=== PATIENT | female | born 1955 | race Caucasian/White ===

== ENCOUNTER → 2016-08-06 | Outpatient (CLI) | payer MEDICARE ==
--- NOTE | 2016-08-06 11:53 | XR ---
EXAMINATION TYPE: XR ribs RT DATE OF EXAM: 08/06/2016 11:46 AM CLINICAL HISTORY: Pain, Fall Three views of the ribs fail demonstrate evidence for acute displaced rib fracture or secondary sign of rib fracture. Deformity of 2 right-sided ribs compatible with healed rib fractures. Visualized davion ngs are clear. No evidence for pneumothorax. IMPRESSION: 1. No acute displaced rib fractures seen. ICD 10 NO FRACTURE, INITIAL EVALUATION
--- NOTE | 2016-08-06 11:55 | XR ---
EXAMINATION TYPE: XR toes RT DATE OF EXAM: 08/06/2016 11:47 AM COMPARISON: NONE HISTORY: Pain status post fall TECHNIQUE: 3 views of the right great toe are submitted. FINDINGS: I do not see evidence for acute displaced fracture or dislocation at this time. Mild soft t issue edema suggested. IMPRESSION: No acute displaced fracture or dislocation of the great toe.
== END | disposition home or self-care (01) ==
LOC: RADXRMAIN 11:20
PROVIDERS: ATTEND Internal Medicine Hematology & Oncology
DX: R07.81 Pleurodynia (principal); M79.674 Pain in right toe(s)

== ENCOUNTER → 2016-10-15 | Outpatient (CLI) | payer MEDICARE ==
--- NOTE | 2016-10-16 09:56 | MM ---
Reason for exam: screening (asymptomatic). Last mammogram was performed 1 year ago. History: Patient is postmenopausal, has history of other cancer at age 46, and history of colon cancer. Family history of breast cancer in mother at age 75. Benign excisional biopsy of the right breast, 1994. Took hormonal contraceptives for 7 years beginning at age 17. Took other hormone for 6 months beginning at age 55. Physical Findings: A clinical breast exam by your physician is recommended on an annual basis and results should be correlated with mammographic findings. MG 3D Screening Mammo W/Cad Bilateral CC and MLO view(s) were taken. Prior study comparison: October 14, 2015, bilateral MG 3d screening mammo w/cad. October 18, 2014, bilateral MG screening mammo w CAD. The breast tissue is heterogeneously dense. This may lower the sensitivity of mammography. Finding: There are typically benign punctate calcifications. There is no discrete abnormality. No significant changes in finding since October 14, 2015 and October 18, 2014. ASSESSMENT: Benign, BI-RAD 2 RECOMMENDATION: Routine screening mammogram of both breasts in 1 year.
== END | disposition home or self-care (01) ==
LOC: RADMAMWWP 09:06
PROVIDERS: ATTEND Internal Medicine Hematology & Oncology
DX: Z12.31 Encounter for screening mammogram for malignant neoplasm of breast (principal)
CPT/HCPCS: 77063; G0202

== ENCOUNTER → 2016-11-20 | Outpatient (CLI) | payer MEDICARE ==
[2016-11-20 10:00] LABS: Appearance,Urine Cloudy (Clear); Bacteria,Urine Rare /hpf; Bilirubin,Urine Negative (Negative); Glucose,Urine (UA) 1+ (Negative); Ketones,Urine Negative (Negative); Leukocyte Esterase,Urine Large (Negative); Mucus,Urine Rare /hpf; Nitrite,Urine Negative (Negative); PH, Urine 6.5 (5.0-8.0); Particle Count 29253; Protein,Urine 1+ (Negative); Specific Gravity,Urine 1.015 (1.001-1.035); Squamous Epithelial Cell,Urine 9 /hpf (0-4); UA Billing (MACRO vs. MICRO) MICRO; Urobilinogen,Urine <2.0 mg/dL (<2.0); WBC,Urine 18 /hpf (0-5)
[2016-11-20 10:57] LABS: Anion Gap 13 mmol/L; Blood Urea Nitrogen 10 mg/dL (7-17); Calcium 9.2 mg/dL (8.4-10.2); Carbon Dioxide 20 mmol/L (22-30); Chloride 111 mmol/L (98-107); Glucose 106 mg/dL (74-99); Iron 137 ug/dL (37-170); Non-African American GFR(MDRD) >60 (>60 ml/min/1.73 sqM); Phosphorous 4.6 mg/dL (2.5-4.5); Potassium 3.9 mmol/L (3.5-5.1); Sodium 144 mmol/L (137-145); Uric Acid 5.2 mg/dL (3.7-7.4)
[2016-11-20 11:10] LABS: % Iron Saturation 51.7 % (20-50); Total Iron Binding Capacity 265 ug/dL (265-497)
== END | disposition home or self-care (01) ==
LOC: LABWHC1 09:02
PROVIDERS: ATTEND Internal Medicine Nephrology
DX: N39.0 Urinary tract infection, site not specified (principal); D64.9 Anemia, unspecified; M10.9 Gout, unspecified; E21.3 Hyperparathyroidism, unspecified; E55.9 Vitamin D deficiency, unspecified; Z94.0 Kidney transplant status
CPT/HCPCS: 36415; 80048; 80069; 81001; 82040; 82306; 82728; 83540; 83550; 83970; 84100; 84550; 85025; 87086

== ENCOUNTER → 2017-02-19 | Outpatient (CLI) | payer MEDICARE ==
[2017-02-19 09:53] LABS: Basophils # (A) 0.1 k/uL (0-0.2); Basophils % (A) 1 %; CH 33.7; CHCM 32.9; Eosinophils # (A) 0.5 k/uL (0-0.7); Eosinophils % (A) 6 %; HCT 44.7 % (34.0-46.0); HDW 2.39; Luc # (Auto) 0.39; Luc % (Auto) 4; Lymphocytes # (A) 2.9 k/uL (1.0-4.8); Lymphocytes % (A) 30 %; MCH 34.7 pg (25.0-35.0); MCHC 33.6 g/dL (31.0-37.0); MCV 103.1 fL (80.0-100.0); Macrocytosis Slight; Mean Platelet Volume 7.4; Monocytes # (A) 0.8 k/uL (0-1.0); Monocytes % (A) 8 %; Neutrophils # (A) 4.9 k/uL (1.3-7.7); Neutrophils % (A) 51 %; RBC 4.33 m/uL (3.80-5.40); RDW 12.9 % (11.5-15.5); WBC 9.6 k/uL (3.8-10.6); WBC (Perox) 9.59
[2017-02-19 09:57] LABS: ALT 53 U/L (9-52); AST 30 U/L (14-36); Alkaline Phosphatase 76 U/L (38-126); Anion Gap 7 mmol/L; Bilirubin, Delta 0.2 mg/dL (0.0-0.2); Blood Urea Nitrogen 9 mg/dL (7-17); Calcium 9.2 mg/dL (8.4-10.2); Carbon Dioxide 27 mmol/L (22-30); Chloride 106 mmol/L (98-107); Cholesterol 121 mg/dL (<200); Glucose 109 mg/dL (74-99); HDL Cholesterol 52 mg/dL (40-60); Magnesium 1.4 mg/dL (1.6-2.3); Non-African American GFR(MDRD) >60 (>60 ml/min/1.73 sqM); Phosphorous 4.8 mg/dL (2.5-4.5); Potassium 4.8 mmol/L (3.5-5.1); Sodium 140 mmol/L (137-145); Total Bilirubin 0.7 mg/dL (0.2-1.3); Total Protein 6.6 g/dL (6.3-8.2)
[2017-02-19 10:14] LABS: Amorphous Sediment,Urine Rare /hpf; Appearance,Urine Cloudy (Clear); Bacteria,Urine Occasional /hpf; Bilirubin,Urine Negative (Negative); Glucose,Urine (UA) Trace (Negative); Ketones,Urine Negative (Negative); Leukocyte Esterase,Urine Large (Negative); Mucus,Urine Rare /hpf; Nitrite,Urine Negative (Negative); Particle Count 6738; Protein,Urine Negative (Negative); Specific Gravity,Urine 1.007 (1.001-1.035); Squamous Epithelial Cell,Urine 6 /hpf (0-4); UA Billing (MACRO vs. MICRO) MICRO; Urobilinogen,Urine <2.0 mg/dL (<2.0); WBC,Urine 8 /hpf (0-5)
== END | disposition home or self-care (01) ==
LOC: LABWHC1 08:57
PROVIDERS: ATTEND Internal Medicine Nephrology
DX: E55.9 Vitamin D deficiency, unspecified (principal); M81.8 Other osteoporosis without current pathological fracture; Z51.81 Encounter for therapeutic drug level monitoring; Z94.0 Kidney transplant status
CPT/HCPCS: 36415; 80061; 80069; 80076; 81001; 82306; 82570; 83735; 83970; 84156; 84443; 85025

== ENCOUNTER → 2017-10-04 | Outpatient (CLI) | payer MEDICARE ==
[2017-10-04 09:41] LABS: Basophils # (A) 0.1 k/uL (0-0.2); Basophils % (A) 1 %; Eosinophils # (A) 0.4 k/uL (0-0.7); Eosinophils % (A) 5 %; HCT 44.6 % (34.0-46.0); HGB 14.8 gm/dL (11.4-16.0); Lymphocytes # (A) 3.1 k/uL (1.0-4.8); Lymphocytes % (A) 38 %; MCH 33.7 pg (25.0-35.0); MCHC 33.1 g/dL (31.0-37.0); MCV 101.9 fL (80.0-100.0); Macrocytosis Slight; Mean Platelet Volume 7.8; Monocytes # (A) 0.7 k/uL (0-1.0); Monocytes % (A) 9 %; Neutrophils # (A) 3.6 k/uL (1.3-7.7); Neutrophils % (A) 44 %; Platelet Count 155 k/uL (150-450); RBC 4.38 m/uL (3.80-5.40); RDW 13.1 % (11.5-15.5); WBC 8.1 k/uL (3.8-10.6)
[2017-10-04 09:46] LABS: Albumin 3.7 g/dL (3.5-5.0); Anion Gap 13 mmol/L; Blood Urea Nitrogen 11 mg/dL (7-17); Calcium 8.7 mg/dL (8.4-10.2); Carbon Dioxide 23 mmol/L (22-30); Chloride 109 mmol/L (98-107); Glucose 118 mg/dL (74-99); Magnesium 1.7 mg/dL (1.6-2.3); Phosphorus 4.3 mg/dL (2.5-4.5); Sodium 145 mmol/L (137-145); Uric Acid 4.6 mg/dL (3.7-7.4)
[2017-10-04 09:52] LABS: Appearance,Urine Cloudy (Clear); Bilirubin,Urine Negative (Negative); Blood,Urine Trace (Negative); Color,Urine Yellow; Glucose,Urine (UA) 1+ (Negative); Ketones,Urine Negative (Negative); Leukocyte Esterase,Urine Large (Negative); Mucus,Urine Few /hpf; Nitrite,Urine Negative (Negative); Protein,Urine 1+ (Negative); RBC,Urine 2 /hpf (0-5); Squamous Epithelial Cell,Urine 14 /hpf (0-4); Urobilinogen,Urine <2.0 mg/dL (<2.0); WBC,Urine 7 /hpf (0-5)
[2017-10-04 16:04] LABS: Parathyroid Hormone Intact 73.2 pg/mL (14.0-72.0)
[2017-10-04 16:48] LABS: Iron Saturation 29.17 (12.00-45.00)
[2017-10-04 16:56] LABS: Vitamin D 25 Hydroxy 46.1 ng/mL (30.0-100.0)
== END | disposition home or self-care (01) ==
LOC: LABWHC1 08:47
PROVIDERS: ATTEND Internal Medicine Nephrology
DX: D64.9 Anemia, unspecified (principal); E55.9 Vitamin D deficiency, unspecified; E21.3 Hyperparathyroidism, unspecified; M10.9 Gout, unspecified; N39.0 Urinary tract infection, site not specified; Z94.0 Kidney transplant status
CPT/HCPCS: 36415; 80048; 81001; 82040; 82306; 82728; 83540; 83550; 83735; 83970; 84100; 84550; 85025

== ENCOUNTER → 2017-11-19 | Outpatient (CLI) | payer MEDICARE ==
--- NOTE | 2017-11-20 10:38 | MM ---
Reason for exam: screening (asymptomatic). Last mammogram was performed 1 year and 1 month ago. History: Patient is postmenopausal, has history of other cancer at age 46, and history of colon cancer. Family history of breast cancer in mother at age 75. Benign excisional biopsy of the right breast, 1994. Took hormonal contraceptives for 7 years beginning at age 17. Took other hormone for 6 months beginning at age 55. Physical Findings: A clinical breast exam by your physician is recommended on an annual basis and results should be correlated with mammographic findings. MG 3D Screening Mammo W/Cad Bilateral CC and MLO view(s) were taken. Prior study comparison: October 15, 2016, bilateral MG 3d screening mammo w/cad. October 14, 2015, bilateral MG 3d screening mammo w/cad. Asymmetry right upper outer quadrant. No significant changes when compared with prior studies. ASSESSMENT: Benign, BI-RAD 2 RECOMMENDATION: Routine screening mammogram of both breasts in 1 year.
== END | disposition home or self-care (01) ==
LOC: RADMAMWWP 07:10
PROVIDERS: ATTEND Internal Medicine Hematology & Oncology
DX: Z12.31 Encounter for screening mammogram for malignant neoplasm of breast (principal)
CPT/HCPCS: 77063; 77067

== ENCOUNTER → 2018-04-17 | Outpatient (CLI) | payer MEDICARE ==
[2018-04-17 10:28] LABS: Albumin 3.7 g/dL (3.5-5.0); Bilirubin, Delta 0.3 mg/dL (0.0-0.2); Bilirubin,Unconjugated 0.3 mg/dL (0.0-1.1); Total Bilirubin 0.6 mg/dL (0.2-1.3); Total Protein 6.4 g/dL (6.3-8.2)
== END | disposition home or self-care (01) ==
LOC: LABWHC1 09:08
PROVIDERS: ATTEND Internal Medicine Cardiovascular Disease
DX: E78.5 Hyperlipidemia, unspecified (principal)
CPT/HCPCS: 36415; 80061; 80076

== ENCOUNTER 2018-10-20 08:57 | Inpatient (IN) | payer MEDICARE ==
[2018-10-20] MEDS ORDERED: SODIUM CHLORIDE 0.9% 500 ML 500 ML IV SCH (09:45)
--- NOTE | 2018-10-20 09:45 | ED ---
General Adult HPI - General Chief complaint: Fever Stated complaint: Fever/had bone&kidney transplant Time Seen by Provider: 10/20/18 09:30 Source: patient, family, RN notes reviewed Mode of arrival: wheelchair Limitations: no limitations - History of Present Illness Initial comments: Patient is a pleasant 4 he 3-year-old female presenting to the emergency Department with concerns for fever. Onset of fever was this morning. Patient did take Tylenol around 820. Patient has had sinus congestion and cough for the past 5 days. Patient took her last dose of 5 days of Levaquin just this morning. Patient had a little bit of wheezing however that has resolved. Patient feels achy and chilled. 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 Patient is on immunosuppressive therapy. - Related Data Home Medications Medication Instructions Recorded Confirmed Aspirin 81 mg PO DAILY 08/21/14 10/20/18 Atorvastatin Calcium [Lipitor] 40 mg PO BID 08/21/14 10/20/18 Calcium Carbonate/Vitamin D3 1 tab PO BID 08/21/14 10/20/18 [Calcium 600 + Vit D Tablet] Folic Acid 1 mg PO DAILY 08/21/14 10/20/18 Levothyroxine Sodium [Synthroid] 88 mcg PO DAILY 08/21/14 10/20/18 Magnesium Oxide [Mag-Ox] 500 mg PO DAILY 08/21/14 10/20/18 Metoprolol Tartrate 12.5 mg PO BID 08/21/14 10/20/18 Nitroglycerin Sl Tabs [Nitrostat] 0.4 mg SUBLINGUAL Q5M PRN 08/21/14 10/20/18 Tacrolimus [Prograf] 0.5 mg PO BID 08/21/14 10/20/18 cycloSPORINE [Restasis] 1 drop BOTH EYES BID 08/21/14 10/20/18 Folic Acid/Multivit-Min/Lutein 3 tab PO DAILY 08/22/14 10/20/18 [Therapeutic-M Tablet] Multivitamins, Thera [Multivitamin] 1 tab PO DAILY 08/22/14 10/20/18 Vitamin B Complex 1 tab PO DAILY 08/22/14 10/20/18 Alendronate Sodium [Fosamax] 70 mg PO MO 10/20/18 10/20/18 Budesonide/Formoterol Fumarate 2 puff INHALATION RT-BID 10/20/18 10/20/18 [Symbicort 80-4.5 Mcg Inhaler] Cholecalciferol [Vitamin D3] 1,000 unit PO DAILY 10/20/18 10/20/18 Omeprazole 40 mg PO DAILY 10/20/18 10/20/18 Potassium Chloride ER [K-Dur 20] 20 meq PO DAILY 10/20/18 10/20/18 Turmeric Root Extract [Turmeric] 500 mg PO DAILY 10/20/18 10/20/18 Vitamin C 1200mg 1,200 mg PO DAILY 10/20/18 10/20/18 predniSONE 5 mg PO DAILY 10/20/18 10/20/18 Allergies Allergy/AdvReac Type Severity Reaction Status Date / Time shellfish derived Allergy Rash/Hives Verified 10/20/18 09:51 Sulfa (Sulfonamide Allergy Rash/Hives Verified 10/20/18 09:51 Antibiotics) codeine AdvReac Rapid Verified 10/20/18 09:51 Heart Rate hydromorphone HCl AdvReac Rapid Verified 10/20/18 09:51 [From Dilaudid] Heart Rate propoxyphene AdvReac Rapid Verified 10/20/18 09:51 Heart Rate Review of Systems ROS Statement: Those systems with pertinent positive or pertinent negative responses have been documented in the HPI. ROS Other: All systems not noted in ROS Statement are negative. Constitutional: Reports: as per HPI, fever, chills Eyes: Denies: eye pain ENT: Reports: congestion Respiratory: Reports: cough. Denies: dyspnea Cardiovascular: Denies: chest pain Endocrine: Reports: fatigue Gastrointestinal: Denies: abdominal pain Genitourinary: Reports: frequency. Denies: dysuria Musculoskeletal: Denies: arthralgia Skin: Denies: rash Neurological: Denies: weakness Past Medical History Past Medical History: Heart Failure, Hyperlipidemia, Hypertension, Thyroid Disorder History of Any Multi-Drug Resistant Organisms: C-DIFF Date of last positivie culture/infection: 2003 MDRO Source:: stool, unk Past Surgical History: Cholecystectomy Additional Past Surgical History / Comment(s): bone marrow transplant 2003, kidney transplant 2008 Past Anesthesia/Blood Transfusion Reactions: No Reported Reaction Past Psychological History: No Psychological Hx Reported Smoking Status: Never smoker Past Alcohol Use History: None Reported Past Drug Use History: None Reported General Exam Limitations: no limitations General appearance: alert, in no apparent distress Head exam: Present: atraumatic Eye exam: Present: normal appearance, PERRL ENT exam: Present: normal oropharynx Neck exam: Present: normal inspection. Absent: tenderness, meningismus Respiratory exam: Present: normal lung sounds bilaterally Cardiovascular Exam: Present: regular rate, normal rhythm GI/Abdominal exam: Present: soft. Absent: distended, tenderness, guarding, rebound, rigid Extremities exam: Present: normal inspection. Absent: pedal edema, calf tenderness Back exam: Present: normal inspection Neurological exam: Present: alert Psychiatric exam: Present: normal affect, normal mood Skin exam: Present: normal color. Absent: rash Course Vital Signs 10/20/18 09:20 Temperature 100.2 F H Pulse Rate 85 Respiratory 16 Rate Blood Pressure 121/75 O2 Sat by Pulse 98 Oximetry - Reevaluation(s) Reevaluation #1: 10/20/18 12:15 Patient does not meet sepsis criteria at this time EKG Findings - EKG Comments: EKG Findings:: Normal sinus rhythm 82. MD 142. QRS 82. QT 406. QTc 474. Left axis. Normal QRS. No acute ST change. Medical Decision Making - Medical Decision Making Patient reevaluated and resting comfortably in bed. Patient and family updated on results and plan. Case was discussed in detail with Dr. Berrios, covering for Dr. Vidales who does recommend admission with cefepime. He will consult. Also request consult with infectious disease and pulmonary. Dr. Camacho has been paged for hospital call. - Lab Data Result diagrams: 10/20/18 10:18 10/20/18 10:18 Lab Results 10/20/18 10/20/18 10/20/18 Range/Units 10:18 10:18 10:18 WBC 15.7 H (3.8-10.6) k/uL RBC 4.32 (3.80-5.40) m/uL Hgb 15.2 (11.4-16.0) gm/dL Hct 45.3 (34.0-46.0) % MCV 104.8 H (80.0-100.0) fL MCH 35.3 H (25.0-35.0) pg MCHC 33.7 (31.0-37.0) g/dL RDW 12.8 (11.5-15.5) % Plt Count 168 (150-450) k/uL Neutrophils % 78 % Lymphocytes % 12 % Monocytes % 4 % Eosinophils % 4 % Basophils % 0 % Neutrophils # 12.2 H (1.3-7.7) k/uL Lymphocytes # 1.9 (1.0-4.8) k/uL Monocytes # 0.7 (0-1.0) k/uL Eosinophils # 0.6 (0-0.7) k/uL Basophils # 0.1 (0-0.2) k/uL Macrocytosis Slight PT (9.0-12.0) sec INR (<1.2) APTT (22.0-30.0) sec Sodium 140 (137-145) mmol/L Potassium 4.3 (3.5-5.1) mmol/L Chloride 106 (98-107) mmol/L Carbon Dioxide 25 (22-30) mmol/L Anion Gap 9 mmol/L BUN 12 (7-17) mg/dL Creatinine 0.46 L (0.52-1.04) mg/dL Est GFR (CKD-EPI)AfAm >90 (>60 ml/min/1.73 sqM) Est GFR (CKD-EPI)NonAf >90 (>60 ml/min/1.73 sqM) Glucose 126 H (74-99) mg/dL Plasma Lactic Acid Cruz 1.9 (0.7-2.0) mmol/L Calcium 8.8 (8.4-10.2) mg/dL Total Bilirubin 0.9 (0.2-1.3) mg/dL AST 37 H (14-36) U/L ALT 39 (9-52) U/L Alkaline Phosphatase 57 (38-126) U/L Total Protein 6.8 (6.3-8.2) g/dL Albumin 4.0 (3.5-5.0) g/dL Urine Color Urine Appearance (Clear) Urine pH (5.0-8.0) Ur Specific [place] (1.001-1.035) Urine Protein (Negative) Urine Glucose (UA) (Negative) Urine Ketones (Negative) Urine Blood (Negative) Urine Nitrite (Negative) Urine Bilirubin (Negative) Urine Urobilinogen (<2.0) mg/dL Ur Leukocyte Esterase (Negative) Urine RBC (0-5) /hpf Urine WBC (0-5) /hpf Urine Mucus (None) /hpf Influenza Type A RNA (Not Detectd) Influenza Type B (PCR) (Not Detectd) 10/20/18 10/20/18 10/20/18 Range/Units 10:18 10:18 11:06 WBC (3.8-10.6) k/uL RBC (3.80-5.40) m/uL Hgb (11.4-16.0) gm/dL Hct (34.0-46.0) % MCV (80.0-100.0) fL MCH (25.0-35.0) pg MCHC (31.0-37.0) g/dL RDW (11.5-15.5) % Plt Count (150-450) k/uL Neutrophils % % Lymphocytes % % Monocytes % % Eosinophils % % Basophils % % Neutrophils # (1.3-7.7) k/uL Lymphocytes # (1.0-4.8) k/uL Monocytes # (0-1.0) k/uL Eosinophils # (0-0.7) k/uL Basophils # (0-0.2) k/uL Macrocytosis PT 10.9 (9.0-12.0) sec INR 1.0 (<1.2) APTT 20.1 L (22.0-30.0) sec Sodium (137-145) mmol/L Potassium (3.5-5.1) mmol/L Chloride (98-107) mmol/L Carbon Dioxide (22-30) mmol/L Anion Gap mmol/L BUN (7-17) mg/dL Creatinine (0.52-1.04) mg/dL Est GFR (CKD-EPI)AfAm (>60 ml/min/1.73 sqM) Est GFR (CKD-EPI)NonAf (>60 ml/min/1.73 sqM) Glucose (74-99) mg/dL Plasma Lactic Acid Cruz (0.7-2.0) mmol/L Calcium (8.4-10.2) mg/dL Total Bilirubin (0.2-1.3) mg/dL AST (14-36) U/L ALT (9-52) U/L Alkaline Phosphatase (38-126) U/L Total Protein (6.3-8.2) g/dL Albumin (3.5-5.0) g/dL Urine Color Yellow Urine Appearance Clear (Clear) Urine pH 7.5 (5.0-8.0) Ur Specific [place] 1.016 (1.001-1.035) Urine Protein Negative (Negative) Urine Glucose (UA) Trace H (Negative) Urine Ketones Negative (Negative) Urine Blood Negative (Negative) Urine Nitrite Negative (Negative) Urine Bilirubin Negative (Negative) Urine Urobilinogen <2.0 (<2.0) mg/dL Ur Leukocyte Esterase Small H (Negative) Urine RBC <1 (0-5) /hpf Urine WBC 1 (0-5) /hpf Urine Mucus Rare H (None) /hpf Influenza Type A RNA Not Detected (Not Detectd) Influenza Type B (PCR) Not Detected (Not Detectd) - Radiology Data Radiology results: image reviewed (Chest x-ray has suspicion for left perihilar density, could represent pneumonia.) Disposition Clinical Impression: Pneumonia Disposition: ADMITTED IP TO THIS HOSP Is patient prescribed a controlled substance at d/c from ED?: No Referrals: Gio Vidales MD [Primary Care Provider] - 1-2 days Decision Time: 12:15
[2018-10-20 10:29] LABS: Basophils # (A) 0.1 k/uL (0-0.2); Basophils % (A) 0 %; Eosinophils # (A) 0.6 k/uL (0-0.7); Eosinophils % (A) 4 %; HCT 45.3 % (34.0-46.0); HGB 15.2 gm/dL (11.4-16.0); Lymphocytes # (A) 1.9 k/uL (1.0-4.8); Lymphocytes % (A) 12 %; MCH 35.3 pg (25.0-35.0); MCHC 33.7 g/dL (31.0-37.0); MCV 104.8 fL (80.0-100.0); Macrocytosis Slight; Mean Platelet Volume 7.4; Monocytes # (A) 0.7 k/uL (0-1.0); Monocytes % (A) 4 %; Neutrophils # (A) 12.2 k/uL (1.3-7.7); Neutrophils % (A) 78 %; Platelet Count 168 k/uL (150-450); RBC 4.32 m/uL (3.80-5.40); RDW 12.8 % (11.5-15.5); WBC 15.7 k/uL (3.8-10.6)
[2018-10-20 10:43] LABS: ALT 39 U/L (9-52); AST 37 U/L (14-36); Alkaline Phosphatase 57 U/L (38-126); Anion Gap 9 mmol/L; Blood Urea Nitrogen 12 mg/dL (7-17); Calcium 8.8 mg/dL (8.4-10.2); Carbon Dioxide 25 mmol/L (22-30); Chloride 106 mmol/L (98-107); Glucose 126 mg/dL (74-99); Prothrombin Time 10.9 sec (9.0-12.0); Sodium 140 mmol/L (137-145); Total Bilirubin 0.9 mg/dL (0.2-1.3); Total Protein 6.8 g/dL (6.3-8.2)
[2018-10-20 10:44] LABS: Potassium 4.3 mmol/L (3.5-5.1)
[2018-10-20 10:57] LABS: Partial Thromboplastin Time 20.1 sec (22.0-30.0)
--- NOTE | 2018-10-20 11:01 | XR ---
EXAMINATION TYPE: XR chest 2V DATE OF EXAM: 10/20/2018 COMPARISON: Prior chest x-ray 05/16/2016 HISTORY: Fever TECHNIQUE: Frontal and lateral views of the chest are obtained. FINDINGS: There is a vague density in the perihilar location on the left not seen on prior exam. No evident pneumothorax or pleural effusion. Cardiac mediastinal silhouette, pulmonary vascularity and h elaine are stable. Surgical clips present in the right upper quadrant. Apical pleural thickening is unch anged. IMPRESSION: Abnormal density in the perihilar location on the left could represent pneumonia, follow -up to resolution to exclude mass.
[2018-10-20 11:34] LABS: Appearance,Urine Clear (Clear); Bilirubin,Urine Negative (Negative); Blood,Urine Negative (Negative); Color,Urine Yellow; Glucose,Urine (UA) Trace (Negative); Ketones,Urine Negative (Negative); Leukocyte Esterase,Urine Small (Negative); Mucus,Urine Rare /hpf; Nitrite,Urine Negative (Negative); PH, Urine 7.5 (5.0-8.0); Protein,Urine Negative (Negative); RBC,Urine <1 /hpf (0-5); Specific Gravity,Urine 1.016 (1.001-1.035); Urobilinogen,Urine <2.0 mg/dL (<2.0); WBC,Urine 1 /hpf (0-5)
[2018-10-20] MEDS ORDERED: CEFEPIME 2 GM in SODIUM CHLORIDE 0.9% 100 ML IVPB STA (12:19)
[2018-10-20] MEDS ORDERED: PNEUMONIA PROTOCOL UTILIZED 1 EACH MISC PO PRN (12:19)
[2018-10-20] MEDS: FOLIC ACID 1 MG TAB PO SCH (12:44)
[2018-10-20] MEDS: CHOLECALCIFEROL 1,000 UNIT TAB PO SCH (12:44)
[2018-10-20] MEDS: ATORVASTATIN 40 MG TAB PO SCH ×2 (12:44→20:31)
[2018-10-20] MEDS: ASPIRIN 81 MG PO SCH (12:44)
[2018-10-20] MEDS ORDERED: TACROLIMUS 0.5 MG CAP PO SCH (12:45)
[2018-10-20] MEDS: MAGNESIUM OXIDE 400 MG TAB PO SCH (12:58)
[2018-10-20] MEDS: METOPROLOL TARTRATE 12.5 MG TAB PO SCH ×2 (12:58→20:31)
[2018-10-20] MEDS: SODIUM CHLORIDE 0.9% 1,000 ML IV SCH ×2 (12:59→23:30)
--- NOTE | 2018-10-20 14:02 | US ---
EXAMINATION TYPE: US venous doppler duplex LE RT DATE OF EXAM: 10/20/2018 1:00 PM COMPARISON: NONE CLINICAL HISTORY: Pain. Pain in right leg when putting standing SIDE PERFORMED: Right TECHNIQUE: The lower extremity deep venous system is examined utilizing real time linear array sonog yovani with graded compression, doppler sonography and color-flow sonography. VESSELS IMAGED: External Iliac Vein (EIV) Common Femoral Vein Deep Femoral Vein Greater Saphenous Vein * Femoral Vein Popliteal Vein Small Saphenous Vein * Proximal Calf Veins (* superficial vessels) Right Leg: Negative for DVT IMPRESSION: 1. Right lower extremity ultrasound negative for deep venous thrombosis.
[2018-10-20] MEDS: Turmeric Root Extract [Turmeric] 500 MG PO SCH (14:12)
[2018-10-20] MEDS: CALCIUM CARBONATE PO SCH ×2 (14:12→20:03)
[2018-10-20] MEDS: VITAMIN D3 PO SCH ×2 (14:12→20:03)
[2018-10-20] MEDS: VITAMIN B COMPLEX PO SCH (14:12)
[2018-10-20] MEDS: cycloSPORINE 0.05% OPHTH 0.4 ML DROPERETTE BOTH EYES SCH ×2 (14:15→20:31)
[2018-10-20] MEDS: PANTOPRAZOLE 40 MG TABLET PO SCH (14:16)
[2018-10-20] MEDS: ASCORBIC ACID 500 MG TAB PO SCH (14:16)
[2018-10-20] MEDS: POTASSIUM CHLORIDE ER 20 MEQ TAB.ER PO SCH (14:16)
[2018-10-20] MEDS: predniSONE 5 MG TAB PO SCH (14:16)
[2018-10-20] MEDS: ACETAMINOPHEN TAB 325 MG TAB PO PRN (19:03)
--- NOTE | 2018-10-20 19:04 | CONS ---
CONSULTATION PULMONARY/CRITICAL CARE CONSULTATION: This patient is a 63-year-old female whom we are asked to see for possible pneumonia. She presents to the emergency department with concerns of fever. She apparently had fever over the day or so prior to admission. She did take Tylenol at home. The fever did not seem to break. In addition, she had some sinus congestion and some cough. She apparently just took a dose of Levaquin or a last dose of Levaquin. She apparently had been taking it for a number of days at home. She had some tightness in the chest and chest congestion. She was coughing but not producing any phlegm. She felt achy and chilled. Because of the fact that she is on chronic immunosuppressive therapy for a previous allogeneic bone marrow transplant in 2003 and kidney transplant for renal failure in 2008, she came into the emergency room to be evaluated. The patient's chest x-ray apparently showed a little abnormality in the left mid lung. She tells me that she has apparently been followed at [facility] for some sort of abnormality in her lung. She cannot remember if it is the right or left side. Anyway, apparently they have been following it for a period of time and it has not changed. The patient currently is on immunosuppressive therapy in the form of prednisone 5 mg a day and Prograf 1 mg twice a day. She was on CellCept in the past but no longer takes that. Her transplantation is being managed by the doctors at [facility], and her family doctor is actually Dr. Vidales, one of our oncologists. HOME MEDICATIONS: Her home medications include: 1. Aspirin. 2. Lipitor. 3. Vitamin D3. 4. Folic acid. 5. Synthroid. 6. Magnesium oxide. 7. Metoprolol. 8. Nitroglycerin. 9. Prograf 1 mg twice a day. 10.Restasis eyedrops. 11.Multiple vitamin. 12.Vitamin B complex. 13.Fosamax. 14.Symbicort. 15.Vitamin D3. 16.Omeprazole. 17.Potassium chloride. 18.Turmeric root extract. 19.Vitamin C. 20.Prednisone 5 mg a day. 21.She does have a nebulizer machine at home, but she rarely uses it. ALLERGIES: Include: 1. SHELLFISH. 2. SULFA ANTIBIOTICS. 3. CODEINE. 4. DILAUDID. 5. PROPOXYPHENE. PAST MEDICAL HISTORY: Includes: 1. Heart failure. 2. Hyperlipidemia. 3. Hypertension. 4. Hypothyroidism. 5. Non-Hodgkin's lymphoma. 6. 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 She remains on Prograf as mentioned above and prednisone for those 2 transplants. 7. History of severe C difficile colitis. I should also point out that she was apparently in the past treated for fungal pneumonia secondary to her transplant and immunosuppression. That is where she believes she developed chronic lung disease. SURGICAL HISTORY: Surgical history includes primarily the renal transplant, bone marrow transplant and cholecystectomy. SOCIAL HISTORY: Negative for tobacco use. She denies any alcohol use. Denies any illicit drug use. FAMILY HISTORY: Not noted. REVIEW OF SYSTEMS: CONSTITUTIONAL: Fever. NEUROLOGIC: Negative. HEENT: Nasal congestion and mild drainage. CARDIOVASCULAR: Negative. PULMONARY: Cough without much or any phlegm production. Mild shortness of breath. GI: Negative. : Negative. RHEUMATOLOGIC: Negative. IMMUNOLOGIC: Negative. ENDOCRINOLOGIC: Negative. DERMATOLOGIC: Negative. PHYSICAL EXAMINATION: Current vital signs are reviewed. Temperature was initially 100.2. Current temperature is 98.7, heart rate 82, respiratory rate 18, blood pressure 128/68, mean 88, saturations on room air 96%. She appears in no acute distress; certainly no respiratory distress. No audible wheezing. No use of accessory muscles or conversational dyspnea. HEENT examination is grossly unremarkable. Mucous membranes are moist. NECK: Supple. Full range of motion. No adenopathy. Neck veins are flat. Cardiovascular examination reveals a regular rhythm and rate. S1, S2 normal. No S3, S4 or murmur. Heart rate in the mid to high 70s. Lungs reveal clear breath sounds. No wheezes, rhonchi or crackles. Breath sounds are equal bilaterally. ABDOMEN: Soft. Bowel sounds are heard. Extremities are intact. No cyanosis, clubbing or edema. Skin without rash. Neurologic examination is brief but nonfocal. IMAGING/LABS: Chest x-ray shows a minimal abnormality in the left mid lung, left parahilar region. This could represent a lesion of significance and/or small pneumonia. The patient did tell me that [facility] is following a lesion in her chest. She could not remember what side. A venous Doppler study was done. It was negative for DVT in the right leg. Lab data include a white count of 15.7, hemoglobin 15.2, hematocrit 45.3, platelet count 168,000. PT/INR normal. PTT is 20.1. Sodium 140, potassium 4.3, chloride 106, CO2 25. Anion gap is 9. BUN and creatinine were 12 and 0.46. Urine showed trace glucose, small leukocyte esterase, less than one RBC, one WBC, and urine mucus was rare. Influenza A and B studies were negative. Microbiology is currently negative. CURRENT MEDICATIONS: Reviewed. She is currently on cefepime, Symbicort, prednisone and Prograf. ASSESSMENT: 1. Mild febrile illness, which may relate to a small pneumonia in the left mid lung or an infection elsewhere. The chest x-ray is not very impressive and she apparently does have a lesion in one lung or another that [facility] has been following. This lesion may be what we are seeing on the current chest x-ray. 2. Non-Hodgkin's lymphoma, status post allogenic bone marrow transplant in 2003. 3. Kidney failure resulting in a renal transplant in 2008. 4. History of hyperlipidemia. 5. Hypothyroidism. 6. Hypertension. 7. History of congestive heart failure. 8. Previous history of Clostridium difficile colitis. 9. Possible underlying chronic lung disease, although the patient is a lifelong nonsmoker. 10.History of fungal pneumonia, previously treated. 11.Multiple other medical problems and comorbidities. PLAN: Current medications are appropriate. I believe her Prograf dose is actually 0.5 mg, two tablets twice a day. Will get a Prograf level. Additional recommendations and suggestions are forthcoming. No additional recommendations are made. The patient's respiratory status is currently stable. MMODL / IJN: [id number] / [facility]
[2018-10-20] MEDS: SYMBICORT 80-4.5 MCG INHALER INHALATION SCH (20:16)
[2018-10-20] MEDS: TACROLIMUS 1 MG CAP PO SCH (20:48)
--- NOTE | 2018-10-20 22:11 | P.CONS ---
History of Present Illness - Reason for Consult Consult date: 10/20/18 Pneumonia Requesting physician: Arnaud E Sheet - Chief Complaint Fever and cough 1 day - History of Present Illness Patient is a 63-year-old female with a past medical history significant for allogenic bone marrow transplant for the patient currently on immunosuppressive medication patient to presented to the ER at [facility] this morning with chief complaints of fever with chills to be started this morning, patient did have body aches with it also complaining of some sore throat and sinus congestion in addition that the patient also have a cough which is mild to moderate intensity and has been mostly dry in nature no sniffing sputum production or hemoptysis. Denies significant chest pain and some nausea but no vomiting and no diarrhea no choking on the food patient apparently just completed a 5 day course of oral Levaquin on admission to the hospital the patient did have a fever 100.2F patient did have elevated white count of 15,000 , UA was not significantly positive chest x-ray with left perihilar infiltrate with concern for possible gram-negative pneumonia the patient was started on cefepime admitted to the hospital infectious disease was consulted for further recommendation regarding antibiotic therapy Review of Systems CONSTITUTIONAL: Positive for weakness. Fever EYES: No complaint. ENT:No complaint. RESPIRATORY: As per history of present illness. CARDIOVASCULAR: No complaint. GENITOURINARY: No complaint. GASTROINTESTINAL: No complaint. MUSCULOSKELETAL: Low back and right posterior leg pain. INTEGUMENTARY: No complaint. PSYCHOLOGICAL: No complaint. ENDOCRINE: No complaint. NEUROLOGIC: No complaint. Past Medical History Past Medical History: Heart Failure, Hyperlipidemia, Hypertension, Thyroid Disorder History of Any Multi-Drug Resistant Organisms: C-DIFF Year Discovered:: 2003 MDRO Source:: stool, unk Past Surgical History: Cholecystectomy Additional Past Surgical History / Comment(s): bone marrow transplant 2003, kidney transplant 2009 Past Anesthesia/Blood Transfusion Reactions: No Reported Reaction Past Psychological History: No Psychological Hx Reported Smoking Status: Never smoker Past Alcohol Use History: None Reported Past Drug Use History: None Reported - Past Family History Mother Family Medical History: Cancer Additional Family Medical History / Comment(s): Mother had breast cancer twice. She lived to be 95yrs old. Father Family Medical History: Congestive Heart Failure (CHF) Additional Family Medical History / Comment(s): Father lived to be 90yrs old. Medications and Allergies Home Medications Medication Instructions Recorded Confirmed Type Aspirin 81 mg PO DAILY 08/21/14 10/20/18 History Atorvastatin Calcium [Lipitor] 40 mg PO BID 08/21/14 10/20/18 History Calcium Carbonate/Vitamin D3 1 tab PO BID 08/21/14 10/20/18 History [Calcium 600 + Vit D Tablet] Folic Acid 1 mg PO DAILY 08/21/14 10/20/18 History Levothyroxine Sodium [Synthroid] 88 mcg PO DAILY 08/21/14 10/20/18 History Magnesium Oxide [Mag-Ox] 500 mg PO DAILY 08/21/14 10/20/18 History Metoprolol Tartrate 12.5 mg PO BID 08/21/14 10/20/18 History Nitroglycerin Sl Tabs [Nitrostat] 0.4 mg SUBLINGUAL Q5M PRN 08/21/14 10/20/18 History Tacrolimus [Prograf] 0.5 mg PO BID 08/21/14 10/20/18 History cycloSPORINE [Restasis] 1 drop BOTH EYES BID 08/21/14 10/20/18 History Folic Acid/Multivit-Min/Lutein 3 tab PO DAILY 08/22/14 10/20/18 History [Therapeutic-M Tablet] Multivitamins, Thera [Multivitamin] 1 tab PO DAILY 08/22/14 10/20/18 History Vitamin B Complex 1 tab PO DAILY 08/22/14 10/20/18 History Alendronate Sodium [Fosamax] 70 mg PO MO 10/20/18 10/20/18 History Budesonide/Formoterol Fumarate 2 puff INHALATION RT-BID 10/20/18 10/20/18 History [Symbicort 80-4.5 Mcg Inhaler] Cholecalciferol [Vitamin D3] 1,000 unit PO DAILY 10/20/18 10/20/18 History Omeprazole 40 mg PO DAILY 10/20/18 10/20/18 History Potassium Chloride ER [K-Dur 20] 20 meq PO DAILY 10/20/18 10/20/18 History Turmeric Root Extract [Turmeric] 500 mg PO DAILY 10/20/18 10/20/18 History Vitamin C 1200mg 1,200 mg PO DAILY 10/20/18 10/20/18 History predniSONE 5 mg PO DAILY 10/20/18 10/20/18 History Allergies Allergy/AdvReac Type Severity Reaction Status Date / Time shellfish derived Allergy Rash/Hives Verified 10/20/18 09:51 Sulfa (Sulfonamide Allergy Rash/Hives Verified 10/20/18 09:51 Antibiotics) codeine AdvReac Rapid Verified 10/20/18 09:51 Heart Rate hydromorphone HCl AdvReac Rapid Verified 10/20/18 09:51 [From Dilaudid] Heart Rate propoxyphene AdvReac Rapid Verified 10/20/18 09:51 Heart Rate Physical Exam Vitals: Vital Signs Temp Pulse Resp BP Pulse Ox 10/20/18 12:17 99.4 F 89 20 125/81 95 10/20/18 09:20 100.2 F H 85 16 121/75 98 Intake and Output 10/19/18 10/20/18 10/20/18 22:59 06:59 14:59 Other: Weight 68.039 kg GENERAL DESCRIPTION: Elderly female lying in bed, no distress. No tachypnea or accessory muscle of respiration use. HEENT: Shows Pallor , no scleral icterus. Oral mucous membrane is dry. No pharyngeal erythema or thrush NECK: Trachea central, no thyromegaly. LUNGS: Unlabored breathing. Decreased breath sound at the base. No wheeze or c rackle. HEART: S1, S2, regular rate and rhythm. No loud murmur ABDOMEN: Soft, no tenderness , guarding or rigidity, no organomegaly EXTREMITIES: No edema of feet. SKIN: No rash, no masses palpable. NEUROLOGICAL: The patient is awake, alert, oriented x3, mood and affect normal. Results CBC & Chem 7: 10/20/18 10:18 10/20/18 10:18 Labs: Abnormal Lab Results - Last 24 Hours (Table) 10/20/18 10/20/18 10/20/18 Range/Units 10:18 10:18 10:18 WBC 15.7 H (3.8-10.6) k/uL MCV 104.8 H (80.0-100.0) fL MCH 35.3 H (25.0-35.0) pg Neutrophils # 12.2 H (1.3-7.7) k/uL APTT 20.1 L (22.0-30.0) sec Creatinine 0.46 L (0.52-1.04) mg/dL Glucose 126 H (74-99) mg/dL AST 37 H (14-36) U/L Urine Glucose (UA) (Negative) Ur Leukocyte Esterase (Negative) Urine Mucus (None) /hpf 10/20/18 Range/Units 11:06 WBC (3.8-10.6) k/uL MCV (80.0-100.0) fL MCH (25.0-35.0) pg Neutrophils # (1.3-7.7) k/uL APTT (22.0-30.0) sec Creatinine (0.52-1.04) mg/dL Glucose (74-99) mg/dL AST (14-36) U/L Urine Glucose (UA) Trace H (Negative) Ur Leukocyte Esterase Small H (Negative) Urine Mucus Rare H (None) /hpf Assessment and Plan Assessment: 1-patient presented to hospital with a fever sinus congestion shortness of breath did have some cough in this patient who did have an elevated white count of 15,000 with evidence of left perihilar infiltrate with concern for possible pneumonia seemed to have failed outpatient oral Levaquin therapy with question of possible gram-negative infection this patient currently on immunosuppressive medication or a history of allogenic bone marrow transplant and atypical infection cannot be entirely excluded either, patient currently with no other active source of infection UA was not significantly positive abdomen was soft on clinical examination and no evidence of any cellulitis Plan: 1-we will try to obtain sputum for Gram stain and cultures 2-cefepime dose to be just up at 2 g every 12hrs and add oral doxycycline 3-gentle IV fluid We will follow her clinical condition and cultures to further adjust medication if needed Thank you for this consultation will follow this patient along with you Time with Patient: Greater than 30
--- NOTE | 2018-10-20 22:25 | P.CONS ---
History of Present Illness - Reason for Consult Consult date: 10/20/18 heme/onc Requesting physician: Rocael Beth - Chief Complaint Fevers on immunosuppressant therapy - History of Present Illness Pt received kidney transplant March 2009. Pt is on inhaled Pentamadine once a month through [facility]-through Dr. Stewart- but received at [facility] Recent SUPERVISOR FITTING exam by Dr Keane at [facility] was WNL. No B symptoms at present. C/O dry eyes, saw Dr. Castro an Opthalmologist at [facility] -cauterization of upper tear ducts and plugs in lower, but right one came out. Also on restasis. Was admitted to [facility] with Acute ME 2012, minimal lesion in distal Cicumflex, no Stents placed, Echo with relatively preserved LVEF of 50-55%. When seen today : Doing well, active Was found to have obstructive sleep apnea and device recommended by Dr Hernandez. She was seen by Dr Steel with exacerbation of asthma and oral candidiasis, Spiriva dose decreased and started on Diflucan > felt a lot better. Was refered to Dr Mj Lewis by Dr Steel due to L elbow lesion (Tender, enlarging). Remains fully active, no constitutional symptoms of malignancy at present. C/O Headache and sore throat. 12/21/14 : feels well and asymptomatic at present. Reported having acute URTI in [place], took Levaquin > symptoms resolved in 24 hours. 03/14/15 : Feels Ok, had recent V Herpes re-activation, dose of Acyclovir increased and started on Levaquin by [facility]. 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 10/05/15 : Vidya was diagnosed with Squamous cell Ca of Vulva, as well as, Adenocarcinoma of rectum. All diagnosed at [facility]. Was seen by Dr Miles, Vulvectomy performed, consideration for carmen-adjuavt Chemo-Radiation at of M > followed by surgery. Cellcept stopped. Feels Ok overall. 11/02/15 : Feels Ok, C/O local rectal irritation and severe L knee pain. Will have radical surgery at [facility] on 11/14/15. 02/09/16-Pt here today for f/u, she is 8 weeks out from APR of the rectal area. She states the recommendations from rectal surgeon Dr. Dinero is for no chemo or radiation-was presented at tumor board, pt does not have paperwork from that meeting. She is healing well and feeling good, managing ostomy well. She is following up numerous specialists in the next few months, Metal Wire Technician surgeon in [place], Plastic Battery Assembler 2 weeks, Ostomy nurse 1 week, 3 weeks with Oncologist. 05/10/16-Pt here today for f/u, she has a colostomy now, she had wide excision of her vulvar surgery due to close margins. No ajuvant chemo or radiation was recommended. Pt states she is feeling pretty good, denies any complications or infections post op, healing well, managing ostomy well, she is eating and drinking well, no physical c/o on a 10 point ROS. She sees her Metal Wire Technician surgeon in May, colorectal surgeon in Jul, eye doctor last week and annually, mc kay machine operator 2 mo ago and Q 6 mo, Oncologist at [facility] in May, has followed with plastic surgeon and is on PRN basis now, supervisor machine workers at [facility] will be seen soon, she needs a new racebook writer and Dr. Stewart is available if needed. 05/16/16-Pt here today for acute visit, she has symptoms of LIZAMA, frontal nasal c ongestion, pain behind eyes, SOB, cough, light green thick sputum, chest tightness, "scratchy" throat, dry, no ear pain, hemoptysis, F or chills, dysuria, diarrhea. No other physical c/o. She states that her LLE was sore yesterday, calf and knee were cramping, she denies any swelling inb either leg. 10/02/16: Feels well , had LAR May 2016 : [id number] Rectal adenocarcinoma, seen by Dr Bonilla > no adjuvant therapy recommended. Had recent URTI treated with Levaquin. 04/23/17: C/O Polyuria/Dysurea X 1 week, active, srtarted on Rx of Osteoporosis by [facility]. CT Scan of chest with vague RUQ nodule, she is on C-PAP mask by Dr Hernandez. Vidya is a pleasant female patient of Dr. Tavares who presented to emergency with concerns of worsening shortness of breath and fevers at home. She stated her symptoms were worening over the past 5 days, sinus congestion and now productive cough. SHe has current subjective signs of fever. Review of Systems A 14 point review of systems assessed and completed and all negative except HPI Past Medical History Past Medical History: Asthma, Blood Disorder, Coronary Artery Disease (CAD), Can cer, Heart Failure, Myocardial Infarction (ME), Pneumonia, Renal Disease, Sleep Apnea/CPAP/BIPAP, Thyroid Disorder Additional Past Medical History / Comment(s): Recently having R posterior knee sharp pains, Nonhodgkins lymphoma treated with chemo in , allogenic stem cell transplant in 2003 and 2 more rounds chemo, rectal cancer/vulvar cancer with surgery and has colostomy, renal failure with kidney transplant in 2008, 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, Factor V, osteoporosis, fungal pneumonia, hypothyroid, dry eyes, LIDIA and uses a mouth guard, Last Myocardial Infarction Date:: 04/20/13 History of Any Multi-Drug Resistant Organisms: C-DIFF Year Discovered:: 2003 MDRO Source:: stool, unk Past Surgical History: Cholecystectomy Additional Past Surgical History / Comment(s): bone marrow transplant 2003, kidney transplant 2008, rectal cancer with surgery, vulvar cancer with surgery, 2013 incomplete PCI, colonoscopies Past Anesthesia/Blood Transfusion Reactions: No Reported Reaction Smoking Status: Never smoker - Past Family History Mother Family Medical History: Cancer Additional Family Medical History / Comment(s): Mother had breast cancer twice. She lived to be 95yrs old. Father Family Medical History: Congestive Heart Failure (CHF) Additional Family Medical History / Comment(s): Father lived to be 90yrs old. Medications and Allergies Home Medications Medication Instructions Recorded Confirmed Type Aspirin 81 mg PO DAILY 08/21/14 10/20/18 History Atorvastatin Calcium [Lipitor] 40 mg PO BID 08/21/14 10/20/18 History Calcium Carbonate/Vitamin D3 1 tab PO BID 08/21/14 10/20/18 History [Calcium 600 + Vit D Tablet] Folic Acid 1 mg PO DAILY 08/21/14 10/20/18 History Levothyroxine Sodium [Synthroid] 88 mcg PO DAILY 08/21/14 10/20/18 History Magnesium Oxide [Mag-Ox] 500 mg PO DAILY 08/21/14 10/20/18 History Metoprolol Tartrate 12.5 mg PO BID 08/21/14 10/20/18 History Nitroglycerin Sl Tabs [Nitrostat] 0.4 mg SUBLINGUAL Q5M PRN 08/21/14 10/20/18 History Tacrolimus [Prograf] 0.5 mg PO BID 08/21/14 10/20/18 History cycloSPORINE [Restasis] 1 drop BOTH EYES BID 08/21/14 10/20/18 History Folic Acid/Multivit-Min/Lutein 3 tab PO DAILY 08/22/14 10/20/18 History [Therapeutic-M Tablet] Multivitamins, Thera [Multivitamin] 1 tab PO DAILY 08/22/14 10/20/18 History Vitamin B Complex 1 tab PO DAILY 08/22/14 10/20/18 History Alendronate Sodium [Fosamax] 70 mg PO MO 10/20/18 10/20/18 History Budesonide/Formoterol Fumarate 2 puff INHALATION RT-BID 10/20/18 10/20/18 History [Symbicort 80-4.5 Mcg Inhaler] Cholecalciferol [Vitamin D3] 1,000 unit PO DAILY 10/20/18 10/20/18 History Omeprazole 40 mg PO DAILY 10/20/18 10/20/18 History Potassium Chloride ER [K-Dur 20] 20 meq PO DAILY 10/20/18 10/20/18 History Turmeric Root Extract [Turmeric] 500 mg PO DAILY 10/20/18 10/20/18 History Vitamin C 1200mg 1,200 mg PO DAILY 10/20/18 10/20/18 History predniSONE 5 mg PO DAILY 10/20/18 10/20/18 History Allergies Allergy/AdvReac Type Severity Reaction Status Date / Time shellfish derived Allergy Rash/Hives Verified 10/20/18 09:51 Sulfa (Sulfonamide Allergy Rash/Hives Verified 10/20/18 09:51 Antibiotics) codeine AdvReac Rapid Verified 10/20/18 09:51 Heart Rate hydromorphone HCl AdvReac Rapid Verified 10/20/18 09:51 [From Dilaudid] Heart Rate propoxyphene AdvReac Rapid Verified 10/20/18 09:51 Heart Rate Physical Exam Vitals: Vital Signs Temp Pulse Pulse Resp BP BP Pulse Ox 10/20/18 13:58 98.7 F 82 128/68 96 10/20/18 13:25 99 F 90 18 125/75 96 10/20/18 12:17 99.4 F 89 20 125/81 95 10/20/18 09:20 100.2 F H 85 16 121/75 98 Intake and Output 10/20/18 10/20/18 10/20/18 06:59 14:59 22:59 Other: Weight 68.039 kg Gen: ALert, NAD HEad: NCNT Neck: Supple no adenopathy Mouth: No oral thrush Lungs: Expiratory wheezing, cleared with cough Heart: Tachy, reg Abdomen: Soft, ND, NT Ext: No edema or rashes Neuro: No sensory or motor Results CBC & Chem 7: 10/20/18 10:18 10/20/18 10:18 Labs: Abnormal Lab Results - Last 24 Hours (Table) 10/20/18 10/20/18 10/20/18 Range/Units 10:18 10:18 10:18 WBC 15.7 H (3.8-10.6) k/uL MCV 104.8 H (80.0-100.0) fL MCH 35.3 H (25.0-35.0) pg Neutrophils # 12.2 H (1.3-7.7) k/uL APTT 20.1 L (22.0-30.0) sec Creatinine 0.46 L (0.52-1.04) mg/dL Glucose 126 H (74-99) mg/dL AST 37 H (14-36) U/L Urine Glucose (UA) (Negative) Ur Leukocyte Esterase (Negative) Urine Mucus (None) /hpf 10/20/18 Range/Units 11:06 WBC (3.8-10.6) k/uL MCV (80.0-100.0) fL MCH (25.0-35.0) pg Neutrophils # (1.3-7.7) k/uL APTT (22.0-30.0) sec Creatinine (0.52-1.04) mg/dL Glucose (74-99) mg/dL AST (14-36) U/L Urine Glucose (UA) Trace H (Negative) Ur Leukocyte Esterase Small H (Negative) Urine Mucus Rare H (None) /hpf Microbiology - Last 24 Hours (Table) 10/20/18 11:06 Urine Culture - Preliminary Urine,Voided Chest x-ray: report reviewed Assessment and Plan Plan: Assessment and Recommendations" 1. Low Grade Fevers while on Immunosuppressant therapy: - Possible pneumonia, pulm is following 2. Leukocytosis: Reactive 3. Hx: NHL - with allo transplant 2003 4. Hx: Kidney Transplant - On PRograft Blood counts are currently within normal ranges, no intervention needed at this time Will follow along to monitor blood counts Physician attest: I have completed the full history and physical and agree with above dictation, dictated as a scribe.
[2018-10-20] MEDS: DOXYCYCLINE 100 MG CAP PO SCH (22:34)
[2018-10-20] MEDS ORDERED: IPRATROPIUM-ALBUTEROL 3 ML NEB INHALATION PRN (23:07)
--- NOTE | 2018-10-20 23:10 | P.HPIM ---
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 Patient has been having upper respiratory symptoms and sinus problems with cough and congestion for the past 1 week. Patient developed fever this morning which made her to come to the hospital. Patient did take Tylenol at home. Patient was on Levaquin for 5 days without significant improvement. Patient is currently on Imuran suppressive therapy with history of renal transplant in 2008. Denies any complaints of chest pain. Patient does have shortness of breath with cough. Does have nausea. No vomiting of stenosis of diarrhea. No headache or dizziness or lightheadedness. Chest x-ray showed abnormal density in the perihilar location on the left represent pneumonia, follow-up to resolution to exclude mass. RBC 15.7 UA negative Influenza negative T-max 100.2 on admission. Patient did take Tylenol in the morning at home. Review of Systems Constitutional: Fever at home. Chills. . No generalized weakness or weight loss. Abdomen: Patient denied nausea vomiting and diarrhea and abdominal pain. Cardiovascular: Patient denies any chest pain or short of breath no palpitations. Respiratory: Cough with whitish to clear sputum production.. Shortness of breath. Congestion Neurologic: Patient denied any numbness or tingling headache. Musculoskeletal: Patient denies any complaints of joint swelling or deformity. Skin: Negative Psychiatric: Negative Endocrine: No heat or cold intolerance. No recent weight gain. Genitourinary: No dysuria or hematuria. 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, Factor V, osteoporosis, fungal pneumonia, hypoth yroid, dry eyes, LIDIA and uses a mouth guard, Last Myocardial Infarction Date:: 04/20/13 History of Any Multi-Drug Resistant Organisms: C-DIFF Date of last positivie culture/infection: 2003 MDRO Source:: stool, unk Past Surgical History: Cholecystectomy Additional Past Surgical History / Comment(s): bone marrow transplant 2003, kidney transplant 2008, rectal cancer with surgery, vulvar cancer with surgery, 2013 incomplete PCI, colonoscopies Past Anesthesia/Blood Transfusion Reactions: No Reported Reaction Smoking Status: Never smoker - Past Family History Mother Family Medical History: Cancer Additional Family Medical History / Comment(s): Mother had breast cancer twice. She lived to be 95yrs old. Father Family Medical History: Congestive Heart Failure (CHF) Additional Family Medical History / Comment(s): Father lived to be 90yrs old. Medications and Allergies Home Medications Medication Instructions Recorded Confirmed Type Aspirin 81 mg PO DAILY 08/21/14 10/20/18 History Atorvastatin Calcium [Lipitor] 40 mg PO BID 08/21/14 10/20/18 History Calcium Carbonate/Vitamin D3 1 tab PO BID 08/21/14 10/20/18 History [Calcium 600 + Vit D Tablet] Folic Acid 1 mg PO DAILY 08/21/14 10/20/18 History Levothyroxine Sodium [Synthroid] 88 mcg PO DAILY 08/21/14 10/20/18 History Magnesium Oxide [Mag-Ox] 500 mg PO DAILY 08/21/14 10/20/18 History Metoprolol Tartrate 12.5 mg PO BID 08/21/14 10/20/18 History Nitroglycerin Sl Tabs [Nitrostat] 0.4 mg SUBLINGUAL Q5M PRN 08/21/14 10/20/18 History Tacrolimus [Prograf] 0.5 mg PO BID 08/21/14 10/20/18 History cycloSPORINE [Restasis] 1 drop BOTH EYES BID 08/21/14 10/20/18 History Folic Acid/Multivit-Min/Lutein 3 tab PO DAILY 08/22/14 10/20/18 History [Therapeutic-M Tablet] Multivitamins, Thera [Multivitamin] 1 tab PO DAILY 08/22/14 10/20/18 History Vitamin B Complex 1 tab PO DAILY 08/22/14 10/20/18 History Alendronate Sodium [Fosamax] 70 mg PO MO 10/20/18 10/20/18 History Budesonide/Formoterol Fumarate 2 puff INHALATION RT-BID 10/20/18 10/20/18 History [Symbicort 80-4.5 Mcg Inhaler] Cholecalciferol [Vitamin D3] 1,000 unit PO DAILY 10/20/18 10/20/18 History Omeprazole 40 mg PO DAILY 10/20/18 10/20/18 History Potassium Chloride ER [K-Dur 20] 20 meq PO DAILY 10/20/18 10/20/18 History Turmeric Root Extract [Turmeric] 500 mg PO DAILY 10/20/18 10/20/18 History Vitamin C 1200mg 1,200 mg PO DAILY 10/20/18 10/20/18 History predniSONE 5 mg PO DAILY 10/20/18 10/20/18 History Allergies Allergy/AdvReac Type Severity Reaction Status Date / Time shellfish derived Allergy Rash/Hives Verified 10/20/18 09:51 Sulfa (Sulfonamide Allergy Rash/Hives Verified 10/20/18 09:51 Antibiotics) codeine AdvReac Rapid Verified 10/20/18 09:51 Heart Rate hydromorphone HCl AdvReac Rapid Verified 10/20/18 09:51 [From Dilaudid] Heart Rate propoxyphene AdvReac Rapid Verified 10/20/18 09:51 Heart Rate Physical Exam Vitals: Vital Signs Temp Pulse Pulse Resp BP BP Pulse Ox 10/20/18 13:58 98.7 F 82 128/68 96 10/20/18 13:25 99 F 90 18 125/75 96 10/20/18 12:17 99.4 F 89 20 125/81 95 10/20/18 09:20 100.2 F H 85 16 121/75 98 Intake and Output 10/20/18 10/20/18 10/20/18 06:59 14:59 22:59 Other: Weight 68.039 kg PHYSICAL EXAMINATION: Patient is lying in the bed comfortably, no acute distress, awake alert and oriented.. HEENT: Normocephalic. Neck is supple. Pupils reactive. Nostrils clear. Oral cavity is moist. Ears reveal no drainage. Neck reveals no JVD, carotid bruits, or thyromegaly. CHEST EXAMINATION: Trachea is central. Symmetrical expansion. Bilateral diffuse coarse breath sounds and minimal rhonchi. CARDIAC: Normal S1, S2 with no gallops. No murmurs ABDOMEN: Soft. Bowel sounds normal. No organomegaly. No abdominal bruits. Extremities: reveal no edema. No clubbing or cyanosis Neurologically awake, alert, oriented x3 with well-coordinated movements. No focal deficits noted Skin: No rash or skin lesions. Psychiatric: Coperative. Nonsuicidal Musculoskeletal: No joint swelling or deformity. Normal range of motion. Results CBC & Chem 7: 10/20/18 10:18 10/20/18 10:18 Labs: Abnormal Lab Results - Last 24 Hours (Table) 10/20/18 10/20/18 10/20/18 Range/Units 10:18 10:18 10:18 WBC 15.7 H (3.8-10.6) k/uL MCV 104.8 H (80.0-100.0) fL MCH 35.3 H (25.0-35.0) pg Neutrophils # 12.2 H (1.3-7.7) k/uL APTT 20.1 L (22.0-30.0) sec Creatinine 0.46 L (0.52-1.04) mg/dL Glucose 126 H (74-99) mg/dL AST 37 H (14-36) U/L Urine Glucose (UA) (Negative) Ur Leukocyte Esterase (Negative) Urine Mucus (None) /hpf 10/20/18 Range/Units 11:06 WBC (3.8-10.6) k/uL MCV (80.0-100.0) fL MCH (25.0-35.0) pg Neutrophils # (1.3-7.7) k/uL APTT (22.0-30.0) sec Creatinine (0.52-1.04) mg/dL Glucose (74-99) mg/dL AST (14-36) U/L Urine Glucose (UA) Trace H (Negative) Ur Leukocyte Esterase Small H (Negative) Urine Mucus Rare H (None) /hpf Microbiology - Last 24 Hours (Table) 10/20/18 11:06 Urine Culture - Preliminary Urine,Voided Thrombosis Risk Factor Assmnt - DVT/VTE Prophylaxis DVT/VTE Prophylaxis: Pharmacologic Prophylaxis ordered - Choose All That Apply Any of the Below Risk Factors Present?: Yes Each Factor Represents 1 point: Obesity (BMI >25), Serious lung disease incl. pneumonia (< 1month) Other Risk Factors: Yes Each Risk Factor Represents 2 Points: Age 61-74 years, Malignancy Each Risk Factor Represents 3 Points: Positive Factor V Leiden Other congenital or acquired thrombophilia - If yes, enter type in comment: No Thrombosis Risk Factor Assessment Total Risk Factor Score: 9 Thrombosis Risk Factor Assessment Level: High Risk Assessment and Plan Assessment: Fever and cough congestion with left basilar density secondary to pneumonia. Possible gram-negative bacteria. 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 DVT prophylaxis Plan: Patient will be continued on IV hydration. Tylenol for fever. Continue with antibiotics in the form of cefepime and doxycycline was added. Patient is currently on immunosuppressive therapy. Continue with breathing treatments as needed. Pulmonary and oncology and ID is following. Further recommendations based on the clinical course. Prognosis is guarded. Time with Patient: Greater than 30
[2018-10-20] MEDS: CEFEPIME 2 GM in SODIUM CHLORIDE 0.9% 100 ML IVPB SCH (23:37)
[2018-10-21] MEDS ORDERED: CEFEPIME 2 GM in SODIUM CHLORIDE 0.9% 50 ML IVPB SCH ×2
[2018-10-21] MEDS ORDERED: CEFEPIME 1 GM in SODIUM CHLORIDE 0.9% 50 ML IVPB SCH ×2
[2018-10-21] MEDS: ACETAMINOPHEN TAB 325 MG TAB PO PRN (02:42)
[2018-10-21] MEDS: LEVOTHYROXINE 88 MCG TAB PO SCH (05:29)
[2018-10-21] MEDS: CALCIUM CARBONATE PO SCH ×2 (07:07→20:57)
[2018-10-21] MEDS: VITAMIN D3 PO SCH ×2 (07:07→20:57)
[2018-10-21] MEDS: SYMBICORT 80-4.5 MCG INHALER INHALATION SCH ×2 (07:20→19:28)
[2018-10-21 08:17] LABS: Basophils % (A) 0 %; Eosinophils # (A) 0.3 k/uL (0-0.7); Eosinophils % (A) 3 %; HCT 41.8 % (34.0-46.0); HGB 13.4 gm/dL (11.4-16.0); Lymphocytes # (A) 2.6 k/uL (1.0-4.8); Lymphocytes % (A) 20 %; MCH 34.2 pg (25.0-35.0); MCHC 32.2 g/dL (31.0-37.0); MCV 106.4 fL (80.0-100.0); Macrocytosis Moderate; Mean Platelet Volume 7.6; Monocytes # (A) 0.9 k/uL (0-1.0); Monocytes % (A) 7 %; Neutrophils # (A) 8.8 k/uL (1.3-7.7); Neutrophils % (A) 68 %; Platelet Count 150 k/uL (150-450); RBC 3.93 m/uL (3.80-5.40); RDW 13.3 % (11.5-15.5)
--- NOTE | 2018-10-21 08:20 | XR ---
EXAMINATION TYPE: XR chest 2V DATE OF EXAM: 10/21/2018 COMPARISON: 10/20/2018 HISTORY: Shortness of breath TECHNIQUE: Frontal and lateral views of the chest are obtained. FINDINGS: Scattered senescent parenchymal changes noted. Hyperinflation compatible with COPD. No evidence for infiltrate. No evidence for atelectasis. Left suprahilar nodular density persists. Re commend CT correlation. Heart size is stable. Mediastinal structures are stable and grossly unremarkable. No evidence for hilar prominence. Degenerative changes dorsal spine. IMPRESSION: 1. Left suprahilar nodular density persists. Recommend CT correlation.
[2018-10-21] MEDS: PANTOPRAZOLE 40 MG TABLET PO SCH (08:28)
[2018-10-21] MEDS: ASPIRIN 81 MG PO SCH (08:28)
[2018-10-21] MEDS: ATORVASTATIN 40 MG TAB PO SCH ×2 (08:28→20:56)
[2018-10-21] MEDS: MAGNESIUM OXIDE 400 MG TAB PO SCH (08:28)
[2018-10-21] MEDS: ASCORBIC ACID 500 MG TAB PO SCH (08:28)
[2018-10-21] MEDS: METOPROLOL TARTRATE 12.5 MG TAB PO SCH ×2 (08:28→20:57)
[2018-10-21] MEDS: predniSONE 5 MG TAB PO SCH (08:29)
[2018-10-21] MEDS: POTASSIUM CHLORIDE ER 20 MEQ TAB.ER PO SCH (08:29)
[2018-10-21] MEDS: cycloSPORINE 0.05% OPHTH 0.4 ML DROPERETTE BOTH EYES SCH ×2 (08:29→20:56)
[2018-10-21] MEDS: DOXYCYCLINE 100 MG CAP PO SCH ×2 (08:29→20:56)
[2018-10-21] MEDS: TACROLIMUS 1 MG CAP PO SCH ×2 (08:30→20:57)
[2018-10-21] MEDS: SODIUM CHLORIDE 0.9% 1,000 ML IV SCH ×2 (08:31→19:44)
[2018-10-21] MEDS: HEPARIN SODIUM,PORCINE 5,000 UNIT/ML 1 ML VIAL SQ SCH ×2 (08:31→20:57)
[2018-10-21 08:33] LABS: Anion Gap 7 mmol/L; Blood Urea Nitrogen 10 mg/dL (7-17); Carbon Dioxide 20 mmol/L (22-30); Chloride 113 mmol/L (98-107); Glucose 119 mg/dL (74-99); Potassium 3.7 mmol/L (3.5-5.1); Sodium 140 mmol/L (137-145)
[2018-10-21] MEDS: Turmeric Root Extract [Turmeric] 500 MG PO SCH (08:34)
[2018-10-21] MEDS: VITAMIN B COMPLEX PO SCH (08:35)
--- NOTE | 2018-10-21 11:19 | P.PN ---
Subjective Progress Note Date: 10/21/18 Principal diagnosis: Mild febrile illness, low-grade occult bacterial infection or viral illness On 10/21/2018 patient sees seen in follow-up on medical surgical floor. She said on the edge of the bed, in no acute distress, lung sounds reveal bibasilar rales, no significant wheezing or rales, room air pulse ox is 96%, patient is in no acute distress, respirations are even and nonlabored, dynamically stable, no complaints of chest pain. Her main complaint today is a mild headache and some nasal congestion. Procalcitonin level came back at 0.05, dictating a very low possibility of an infection. Fluids a screen was negative, plasma lactic acid was within normal. Urine culture showed no growth, blood cultures are pending, we were unable to collect a sputum culture, patient is not bringing up any sputum, tacrolimus level is pending she has been restarted on home dose prednisone, and Prograf. Today's labs have been reviewed, and showed white blood cell count of 13.0, hemoglobin of 13.4, sodium is 140, potassium is 3.7, chloride is 113, CO2 is 20, BUN is 10 and creatinine 0.45, urinalysis showed trace glucose, small amount of leuk trase, no evidence of infection. Doppler of right lower extremity negative for DVT. He service is following, and patient is on a combination of cefepime and doxycycline. Patient stated that she does have a lung lesion that being followed on an outpatient basis at the [facility], and she thinks it's in the left lung. Since chest x-ray did reveal an abnormality in the left midlung, this has been followed by the team at the [facility] for some time and it has not changed. Objective - Vital Signs Vital signs: Vital Signs Temp 96.9 F L 10/21/18 07:43 Pulse 68 10/21/18 07:43 Resp 16 10/21/18 07:43 BP 121/73 10/21/18 07:43 Pulse Ox 96 10/21/18 07:43 Intake & Output 10/20/18 10/21/18 10/21/18 18:59 06:59 18:59 Intake Total 1500 Balance 1500 Weight 68.039 kg Intake: Intake, IV Titration 1300 Amount Cefepime 2 gm In Sodium 100 Chloride 0.9% 100 ml @ 200 mls/hr IVPB Q12H MARCELINA Rx#:[id number] Sodium Chloride 0.9% 1, 1200 000 ml @ 100 mls/hr IV . Q10H MARCELINA Rx#:[id number] Oral 200 Other: # Voids 1 1 - Exam GENERAL EXAM: Alert, pleasant, 63-year-old white female, comfortable in no apparent distress. HEAD: Normocephalic/atraumatic. EYES: Normal reaction of pupils, equal size. Conjunctiva pink, sclera white. NOSE: Clear with pink turbinates. THROAT: No erythema or exudates. NECK: No masses, no JVD, no thyroid enlargement, no adenopathy. CHEST: No chest wall deformity. Symmetrical expansion. LUNGS: Equal air entry with bibasilar crackles CVS: Regular rate and rhythm, normal S1 and S2, no gallops, no murmurs, no rubs ABDOMEN: Soft, nontender. No hepatosplenomegaly, normal bowel sounds, no guarding or rigidity. EXTREMITIES: No clubbing, no edema, no cyanosis, 2+ pulses and upper and lower extremities. MUSCULOSKELETAL: Muscle strength and tone normal. SPINE: No scoliosis or deformity SKIN: No rashes CENTRAL NERVOUS SYSTEM: Alert and oriented -3. No focal deficits, tone is normal in all 4 extremities. PSYCHIATRIC: Alert and oriented -3. Appropriate affect. Intact judgment and insight. - Labs CBC & Chem 7: 10/21/18 07:55 10/21/18 07:55 Labs: Abnormal Lab Results - Last 24 Hours (Table) 10/20/18 10/21/18 10/21/18 Range/Units 11:06 07:55 07:55 WBC 13.0 H (3.8-10.6) k/uL MCV 106.4 H (80.0-100.0) fL Neutrophils # 8.8 H (1.3-7.7) k/uL Chloride 113 H (98-107) mmol/L Carbon Dioxide 20 L (22-30) mmol/L Creatinine 0.45 L (0.52-1.04) mg/dL Glucose 119 H (74-99) mg/dL Calcium 8.0 L (8.4-10.2) mg/dL Urine Glucose (UA) Trace H (Negative) Ur Leukocyte Esterase Small H (Negative) Urine Mucus Rare H (None) /hpf Microbiology - Last 24 Hours (Table) 10/20/18 11:06 Urine Culture - Final Urine,Voided Assessment and Plan Plan: Assessment: #1. Mild febrile illness related to a low-grade occult bacterial faction, or a viral illness. Chest x-ray showed left mid lung nodular density, however the patient reported that this area in the left lung has been followed in the outpatient basis by the [facility] team and it has not changed. She is on chronic immunosuppressant therapy related to history of a bone marrow transplant and renal transplant. Pro-calcitonin level was low #2. History of non-Hodgkin's lymphoma, status post allogenic bone marrow transplant in 2003 #3. Chronic kidney disease, status post renal transplant in 2008 #4. History of hyperlipidemia #5. Hypothyroidism #6. Hypertension #7. History of congestive heart failure #8. History of C. diff colitis #9. Possible chronic lung disease, although the patient is a lifelong nonsmoker #10. Fungal pneumonia, previously treated Plan: We'll continue current medical treatment, no fever or chills, pro-calcitonin level was low, continue the antibiotics for another day, and probably would de- escalate if the cultures remain negative. X-ray has been reviewed with Dr. Steinberg, and patient states she has a chronic left lung density that is being monitored at the [facility] team and apparently it has not changed in quite some time. Hemodynamically she remains stable, Prograf level is pending, but cultures are pending, patient is not bringing up any sputum, we will unable to send a sputum culture. We'll continue to follow and make further recommendations. I performed a history & physical examination of the patient and discussed their management with my nurse practitioner, Mariann Rodriguez. I reviewed the nurse practitioner's note and agree with the documented findings and plan of care. Lung sounds are positive for basilar crackles. The findings and the impression was discussed with the patient. I attest to the documentation by the nurse practitioner. Time with Patient: Less than 30
[2018-10-21] MEDS: CHOLECALCIFEROL 1,000 UNIT TAB PO SCH (13:22)
[2018-10-21] MEDS: MULTIVITAMINS, THERA 1 EACH TAB PO SCH (13:22)
[2018-10-21] MEDS: CEFEPIME 2 GM in SODIUM CHLORIDE 0.9% 100 ML IVPB SCH (13:37)
[2018-10-21] MEDS: FOLIC ACID 1 MG TAB PO SCH ×2 (13:38→13:40)
--- NOTE | 2018-10-21 15:49 | P.PN ---
Subjective Patient with, history of non-Hodgkin's lymphoma and the logistics tract stem cell transplant and history of multiple cancers in the past came in with high- grade fevers and flulike symptoms probably viral etiology. Patient has mild perihilar infiltrate because of which which does not appear to be pneumonia, her pro-calcitonin levels are low. Although patient had mild cough. Patient is presently on broad-spectrum antibiotics awaiting cultures and studies and they're all negative patient probably will be discharged tomorrow discussed with infectious disease. Patient is feeling better decreased generalized body aches and decreased fatigue. Constitutional: Denied any fatigue denied any fever. Cardio vascular: denied any chest pain, palpitations Gastrointestinal denied any nausea vomiting Pulmonary: Denied any shortness of breath cough Neurologic denied any new focal deficits All inpatient medications were reviewed and appropriate changes in these medications as dictated in the interval history and assessment and plan. Objective - Vital Signs Vital signs: Vital Signs Temp 98.3 F 10/21/18 15:00 Pulse 70 10/21/18 15:00 Resp 16 10/21/18 15:00 BP 106/64 10/21/18 15:00 Pulse Ox 97 10/21/18 15:00 Intake & Output 10/20/18 10/21/18 10/21/18 18:59 06:59 18:59 Intake Total 1500 Balance 1500 Weight 68.039 kg Intake: Intake, IV Titration 1300 Amount Cefepime 2 gm In Sodium 100 Chloride 0.9% 100 ml @ 200 mls/hr IVPB Q12H MARCELINA Rx#:[id number] Sodium Chloride 0.9% 1, 1200 000 ml @ 100 mls/hr IV . Q10H MARCELINA Rx#:[id number] Oral 200 Other: # Voids 1 1 2 - Exam PHYSICAL EXAMINATION: GENERAL: The patient is alert and oriented x3, not in any acute distress. Well developed, well nourished. Appears to be mildly fatigued HEENT: Pupils are round and equally reacting to light. EOMI. No scleral icterus. No conjunctival pallor. Normocephalic, atraumatic. No pharyngeal erythema. No thyromegaly. CARDIOVASCULAR: S1 and S2 present. No murmurs, rubs, or gallops. PULMONARY: Chest is clear to auscultation, no wheezing or crackles. ABDOMEN: Soft, nontender, nondistended, normoactive bowel sounds. No palpable organomegaly. MUSCULOSKELETAL: No joint swelling or deformity. EXTREMITIES: No cyanosis, clubbing, or pedal edema. NEUROLOGICAL: Gross neurological examination did not reveal any focal deficits. SKIN: No rashes. - Labs CBC & Chem 7: 10/21/18 07:55 10/21/18 07:55 Labs: Abnormal Lab Results - Last 24 Hours (Table) 10/21/18 10/21/18 Range/Units 07:55 07:55 WBC 13.0 H (3.8-10.6) k/uL MCV 106.4 H (80.0-100.0) fL Neutrophils # 8.8 H (1.3-7.7) k/uL Chloride 113 H (98-107) mmol/L Carbon Dioxide 20 L (22-30) mmol/L Creatinine 0.45 L (0.52-1.04) mg/dL Glucose 119 H (74-99) mg/dL Calcium 8.0 L (8.4-10.2) mg/dL Microbiology - Last 24 Hours (Table) 10/20/18 10:18 Blood Culture - Preliminary Blood No Growth after 24 hours 10/20/18 11:06 Urine Culture - Final Urine,Voided Assessment and Plan Plan: Assessment and Plan Assessment: Fever and cough, Reagan sepsis is not clear probably mostly while possibly of pneumonia is extremely low did continue with broad-spectrum antibiotics until we get the cultures and studies. 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 DVT prophylaxis
--- NOTE | 2018-10-21 23:24 | P.PN ---
Subjective Progress Note Date: 10/21/18 Principal diagnosis: Fever and possible pneumonia The patient overall fever pattern has improved the patient denies having any rigors or chills, the patient denies significant chest pain shortness of breath or cough no nausea no vomiting no abdominal pain and no diarrhea Objective - Vital Signs Vital signs: Vital Signs Temp 96.9 F L 10/21/18 07:43 Pulse 68 10/21/18 07:43 Resp 16 10/21/18 07:43 BP 121/73 10/21/18 07:43 Pulse Ox 96 10/21/18 07:43 Intake & Output 10/20/18 10/21/18 10/21/18 18:59 06:59 18:59 Intake Total 1500 Balance 1500 Weight 68.039 kg Intake: Intake, IV Titration 1300 Amount Cefepime 2 gm In Sodium 100 Chloride 0.9% 100 ml @ 200 mls/hr IVPB Q12H MARCELINA Rx#:[id number] Sodium Chloride 0.9% 1, 1200 000 ml @ 100 mls/hr IV . Q10H MARCELINA Rx#:[id number] Oral 200 Other: # Voids 1 1 - Exam GENERAL DESCRIPTION: Elderly female lying in bed in no distress RESPIRATORY SYSTEM: Unlabored breathing , decreased breath sounds at bases HEART: S1 S2 regular rate and rhythm ,no loud murmurs ABDOMEN: Soft , no tenderness EXTREMITIES: No edema feet - Labs CBC & Chem 7: 10/21/18 07:55 10/21/18 07:55 Labs: Abnormal Lab Results - Last 24 Hours (Table) 10/21/18 10/21/18 Range/Units 07:55 07:55 WBC 13.0 H (3.8-10.6) k/uL MCV 106.4 H (80.0-100.0) fL Neutrophils # 8.8 H (1.3-7.7) k/uL Chloride 113 H (98-107) mmol/L Carbon Dioxide 20 L (22-30) mmol/L Creatinine 0.45 L (0.52-1.04) mg/dL Glucose 119 H (74-99) mg/dL Calcium 8.0 L (8.4-10.2) mg/dL Microbiology - Last 24 Hours (Table) 10/20/18 10:18 Blood Culture - Preliminary Blood No Growth after 24 hours 10/20/18 11:06 Urine Culture - Final Urine,Voided Assessment and Plan Assessment: 1-patient presented to hospital with a fever sinus congestion shortness of breath did have some cough in this patient who did have an elevated white count of 15,000 with evidence of left perihilar infiltrate with concern for possible pneumonia seemed to have failed outpatient oral Levaquin therapy with question of possible gram-negative infection this patient currently on immunosuppressive medication with a history of allogenic bone marrow transplant as well as renal transplant and atypical infection cannot be entirely excluded Plan: 1-we will try to obtain sputum for Gram stain and cultures 2-cefepime at 2 g every 12hrs and oral doxycycline 100 mg twice a day to which her fever has responded 3-gentle IV fluid we will wait for the culture to be finalized to determine Discharge Antibiotics
[2018-10-22] MEDS: CEFEPIME 2 GM in SODIUM CHLORIDE 0.9% 100 ML IVPB SCH ×2 (00:29→12:11)
[2018-10-22] MEDS: SODIUM CHLORIDE 0.9% 1,000 ML IV SCH (04:20)
[2018-10-22] MEDS: LEVOTHYROXINE 88 MCG TAB PO SCH (05:52)
[2018-10-22] MEDS: METOPROLOL TARTRATE 12.5 MG TAB PO SCH (07:58)
[2018-10-22] MEDS: TACROLIMUS 1 MG CAP PO SCH (07:59)
[2018-10-22] MEDS: FOLIC ACID 1 MG TAB PO SCH (07:59)
[2018-10-22] MEDS: DOXYCYCLINE 100 MG CAP PO SCH (07:59)
[2018-10-22] MEDS: ATORVASTATIN 40 MG TAB PO SCH (07:59)
[2018-10-22] MEDS: POTASSIUM CHLORIDE ER 20 MEQ TAB.ER PO SCH (07:59)
[2018-10-22] MEDS: CHOLECALCIFEROL 1,000 UNIT TAB PO SCH (07:59)
[2018-10-22] MEDS: PANTOPRAZOLE 40 MG TABLET PO SCH (07:59)
[2018-10-22] MEDS: ASCORBIC ACID 500 MG TAB PO SCH (07:59)
[2018-10-22] MEDS: MULTIVITAMINS, THERA 1 EACH TAB PO SCH (07:59)
[2018-10-22] MEDS: MAGNESIUM OXIDE 400 MG TAB PO SCH (07:59)
[2018-10-22] MEDS: predniSONE 5 MG TAB PO SCH (07:59)
[2018-10-22] MEDS: ASPIRIN 81 MG PO SCH (08:00)
[2018-10-22] MEDS: cycloSPORINE 0.05% OPHTH 0.4 ML DROPERETTE BOTH EYES SCH (08:00)
[2018-10-22] MEDS: HEPARIN SODIUM,PORCINE 5,000 UNIT/ML 1 ML VIAL SQ SCH (08:00)
[2018-10-22] MEDS: SYMBICORT 80-4.5 MCG INHALER INHALATION SCH (09:00)
[2018-10-22] MEDS: VITAMIN B COMPLEX PO SCH (12:19)
[2018-10-22] MEDS: Turmeric Root Extract [Turmeric] 500 MG PO SCH (12:19)
--- NOTE | 2018-10-22 13:13 | P.PN ---
Subjective Progress Note Date: 10/22/18 Principal diagnosis: Mild febrile illness, low-grade occult bacterial infection or viral illness On 10/21/2018 patient sees seen in follow-up on medical surgical floor. She said on the edge of the bed, in no acute distress, lung sounds reveal bibasilar rales, no significant wheezing or rales, room air pulse ox is 96%, patient is in no acute distress, respirations are even and nonlabored, dynamically stable, no complaints of chest pain. Her main complaint today is a mild headache and some nasal congestion. Procalcitonin level came back at 0.05, dictating a very low possibility of an infection. Fluids a screen was negative, plasma lactic acid was within normal. Urine culture showed no growth, blood cultures are pending, we were unable to collect a sputum culture, patient is not bringing up any sputum, tacrolimus level is pending she has been restarted on home dose prednisone, and Prograf. Today's labs have been reviewed, and showed white blood cell count of 13.0, hemoglobin of 13.4, sodium is 140, potassium is 3.7, chloride is 113, CO2 is 20, BUN is 10 and creatinine 0.45, urinalysis showed trace glucose, small amount of leuk trase, no evidence of infection. Doppler of right lower extremity negative for DVT. He service is following, and patient is on a combination of cefepime and doxycycline. Patient stated that she does have a lung lesion that being followed on an outpatient basis at the [facility], and she thinks it's in the left lung. Since chest x-ray did reveal an abnormality in the left midlung, this has been followed by the team at the [facility] for some time and it has not changed. On 10/22/2018 patient is seen in follow-up on medical surgical floor. She is awake and alert, in no acute distress, she is on room air, with pulse ox of 96%, afebrile, hemodynamically stable, urine and blood cultures are negative, ID service is the patient on a combination of doxycycline and cefepime. She has had no recurrence of fevers, she states she is breathing without any trouble, pro-calcitonin level was low at 0.05, and Prograf level is therapeutic at 5.4. No specific complaints today, she is ambulating in the room, tolerating activity well. No nausea, vomiting, or diarrhea, no compressive chest pain or shortness of breath. Lung sounds are clear to auscultation Objective - Vital Signs Vital signs: Vital Signs Temp 98.4 F 10/22/18 07:00 Pulse 79 10/22/18 07:00 Resp 20 10/22/18 07:00 BP 111/73 10/22/18 07:00 Pulse Ox 96 10/22/18 01:28 Intake & Output 10/21/18 10/22/18 10/22/18 18:59 06:59 18:59 Intake Total 900 225 Balance 900 225 Intake: Intake, IV Titration 900 Amount Cefepime 2 gm In Sodium 100 Chloride 0.9% 100 ml @ 200 mls/hr IVPB Q12H MARCELINA Rx#:[id number] Sodium Chloride 0.9% 1, 800 000 ml @ 100 mls/hr IV . Q10H MARCELINA Rx#:[id number] Oral 225 Other: # Voids 2 2 - Exam GENERAL EXAM: Alert, pleasant, 63-year-old white female, comfortable in no apparent distress. HEAD: Normocephalic/atraumatic. EYES: Normal reaction of pupils, equal size. Conjunctiva pink, sclera white. NOSE: Clear with pink turbinates. THROAT: No erythema or exudates. NECK: No masses, no JVD, no thyroid enlargement, no adenopathy. CHEST: No chest wall deformity. Symmetrical expansion. LUNGS: Equal air entry, with no rhonchi, no rales or wheezes CVS: Regular rate and rhythm, normal S1 and S2, no gallops, no murmurs, no rubs ABDOMEN: Soft, nontender. No hepatosplenomegaly, normal bowel sounds, no guarding or rigidity. EXTREMITIES: No clubbing, no edema, no cyanosis, 2+ pulses and upper and lower extremities. MUSCULOSKELETAL: Muscle strength and tone normal. SPINE: No scoliosis or deformity SKIN: No rashes CENTRAL NERVOUS SYSTEM: Alert and oriented -3. No focal deficits, tone is normal in all 4 extremities. PSYCHIATRIC: Alert and oriented -3. Appropriate affect. Intact judgment and insight. - Labs CBC & Chem 7: 10/21/18 07:55 10/21/18 07:55 Labs: Microbiology - Last 24 Hours (Table) 10/20/18 10:18 Blood Culture - Preliminary Blood No Growth after 48 hours 10/20/18 11:06 Urine Culture - Final Urine,Voided Assessment and Plan Plan: Assessment: #1. Mild febrile illness related to a low-grade occult bacterial faction, or a viral illness. Chest x-ray showed left mid lung nodular density, however the patient reported that this area in the left lung has been followed in the outpatient basis by the [facility] team and it has not changed. She is on chronic immunosuppressant therapy related to history of a bone marrow transplant and renal transplant. Pro-calcitonin level was low #2. History of non-Hodgkin's lymphoma, status post allogenic bone marrow transplant in 2003 #3. Chronic kidney disease, status post renal transplant in 2008 #4. History of hyperlipidemia #5. Hypothyroidism #6. Hypertension #7. History of congestive heart failure #8. History of C. diff colitis #9. Possible chronic lung disease, although the patient is a lifelong nonsmoker #10. Fungal pneumonia, previously treated Plan: Patient is stable, no specific complaints, there has been no recurrence of fevers, cultures remain negative thus far, no complaints of dyspnea, vital signs are stable, afebrile. From pulmonary perspective patient is stable for discharge home today. I performed a history & physical examination of the patient and discussed their management with my nurse practitioner, Mariann Rodriguez. I reviewed the nurse practitioner's note and agree with the documented findings and plan of care. Lung sounds are positive for basilar crackles. The findings and the impression was discussed with the patient. I attest to the documentation by the nurse practitioner. Time with Patient: Less than 30
[2018-10-22 13:24] VITALS: RESP 16
[2018-10-22 15:21] VITALS: BP 116/76; PULSE 68; TEMP 98.2
--- NOTE | 2018-10-22 15:48 | P.DS ---
Providers Date of admission: 10/20/18 12:22 Attending physician: Faviola Camacho Consults: 10/20/18 12:19 Consult Physician Routine Consulting Provider: Sameer Berrios Consult Reason/Comments: Heme/onc consult Do you want consulting provider notified?: Already Contacted Consult Physician Routine Consulting Provider: Jose Rodriguez Consult Reason/Comments: Pneumonia, immunosuppression Do you want consulting provider notified?: Yes 10/20/18 12:20 Consult Physician Routine Consulting Provider: Joao Steinberg Consult Reason/Comments: dyspnea Do you want consulting provider notified?: Yes Primary care physician: [facility] Course: Patient with, history of non-Hodgkin's lymphoma and the logistics tract stem cell transplant and history of multiple cancers in the past came in with high- grade fevers and flulike symptoms probably viral etiology. Patient has mild perihilar infiltrate because of which which does not appear to be pneumonia, her pro-calcitonin levels are low. Although patient had mild cough. Patient is presently on broad-spectrum antibiotics awaiting cultures and studies and they're all negative patient probably will be discharged tomorrow discussed with infectious disease. Patient is feeling better decreased generalized body aches and decreased fatigue. 10/22/2018 Patient is clinically doing well discussed with pictures disease is recommending 5 days of Ceftin patient will be discharged today on that antibiotic. PHYSICAL EXAMINATION: GENERAL: The patient is alert and oriented x3, not in any acute distress. Well developed, well nourished. HEENT: Pupils are round and equally reacting to light. EOMI. No scleral icterus. No conjunctival pallor. Normocephalic, atraumatic. No pharyngeal erythema. No thyromegaly. CARDIOVASCULAR: S1 and S2 present. No murmurs, rubs, or gallops. PULMONARY: Chest is clear to auscultation, no wheezing or crackles. ABDOMEN: Soft, nontender, nondistended, normoactive bowel sounds. No palpable organomegaly. MUSCULOSKELETAL: No joint swelling or deformity. EXTREMITIES: No cyanosis, clubbing, or pedal edema. NEUROLOGICAL: Gross neurological examination did not reveal any focal deficits. SKIN: No rashes. Assessment and Plan Assessment: Fever and cough, Reagan sepsis is not clear probably mostly while possibly of pneumonia is extremely low did continue with broad-spectrum antibiotics until we get the cultures and studies. 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, Factor V, osteoporosis, fungal pneumonia, hypothyroid, dry eyes, LIDIA Plan - Discharge Summary Discharge Rx Participant: No New Discharge Prescriptions: New Cefuroxime Axetil [Ceftin] 500 mg PO BID 5 Days #10 tab Continue Metoprolol Tartrate 12.5 mg PO BID Levothyroxine Sodium [Synthroid] 88 mcg PO DAILY Calcium Carbonate/Vitamin D3 [Calcium 600-Vit D3 400 Tablet] 1 tab PO BID cycloSPORINE [Restasis] 1 drop BOTH EYES BID Tacrolimus [Prograf] 0.5 mg PO BID Nitroglycerin Sl Tabs [Nitrostat] 0.4 mg SUBLINGUAL Q5M PRN PRN Reason: Chest Pain Magnesium Oxide [Mag-Ox] 500 mg PO DAILY Atorvastatin Calcium [Lipitor] 40 mg PO BID Folic Acid 1 mg PO DAILY Aspirin 81 mg PO DAILY Folic Acid/Multivit-Min/Lutein [Therapeutic-M Tablet] 3 tab PO DAILY Vitamin B Complex 1 tab PO DAILY Multivitamins, Thera [Multivitamin (formulary)] 1 tab PO DAILY Potassium Chloride ER [K-Dur 20] 20 meq PO DAILY Alendronate Sodium [Fosamax] 70 mg PO MO Omeprazole 40 mg PO DAILY Budesonide/Formoterol Fumarate [Symbicort 80-4.5 Mcg Inhaler] 2 puff INHALATION RT-BID predniSONE 5 mg PO DAILY Vitamin C 1200mg 1,200 mg PO DAILY Turmeric Root Extract [Turmeric] 500 mg PO DAILY Cholecalciferol [Vitamin D3] 1,000 unit PO DAILY Discharge Medication List Aspirin 81 mg PO DAILY 08/21/14 [History] Atorvastatin Calcium [Lipitor] 40 mg PO BID 08/21/14 [History] Calcium Carbonate/Vitamin D3 [Calcium 600-Vit D3 400 Tablet] 1 tab PO BID 08/21/14 [History] Folic Acid 1 mg PO DAILY 08/21/14 [History] Levothyroxine Sodium [Synthroid] 88 mcg PO DAILY 08/21/14 [History] Magnesium Oxide [Mag-Ox] 500 mg PO DAILY 08/21/14 [History] Metoprolol Tartrate 12.5 mg PO BID 08/21/14 [History] Nitroglycerin Sl Tabs [Nitrostat] 0.4 mg SUBLINGUAL Q5M PRN 08/21/14 [History] Tacrolimus [Prograf] 0.5 mg PO BID 08/21/14 [History] cycloSPORINE [Restasis] 1 drop BOTH EYES BID 08/21/14 [History] Folic Acid/Multivit-Min/Lutein [Therapeutic-M Tablet] 3 tab PO DAILY 08/22/14 [History] Multivitamins, Thera [Multivitamin (formulary)] 1 tab PO DAILY 08/22/14 [History] Vitamin B Complex 1 tab PO DAILY 08/22/14 [History] Alendronate Sodium [Fosamax] 70 mg PO MO 10/20/18 [History] Budesonide/Formoterol Fumarate [Symbicort 80-4.5 Mcg Inhaler] 2 puff INHALATION RT-BID 10/20/18 [History] Cholecalciferol [Vitamin D3] 1,000 unit PO DAILY 10/20/18 [History] Omeprazole 40 mg PO DAILY 10/20/18 [History] Potassium Chloride ER [K-Dur 20] 20 meq PO DAILY 10/20/18 [History] Turmeric Root Extract [Turmeric] 500 mg PO DAILY 10/20/18 [History] Vitamin C 1200mg 1,200 mg PO DAILY 10/20/18 [History] predniSONE 5 mg PO DAILY 10/20/18 [History] Cefuroxime Axetil [Ceftin] 500 mg PO BID 5 Days #10 tab 10/22/18 [Rx] Follow up Appointment(s)/Referral(s): Joao Steinberg DO [Doctor of Osteopathic Medicine] - 10/28/18 2:30 pm Gio Vidales MD [Primary Care Provider] - 10/28/18 9:30 am Discharge Disposition: HOME SELF-CARE
--- NOTE | 2018-10-22 17:36 | P.PN ---
Subjective Progress Note Date: 10/22/18 Principal diagnosis: Multiple malignancies, Dr. Vidales does follow with patient as her organizing oncologist. In follow-up today patient states feeling much better, no recent fevers, chills, cough, pleuritic type chest pain, shortness of breath, appetite is fair, no nausea or vomiting, abdominal pain, diarrhea, constipation, dysuria, bleeding or pain. Patient is currently not on any treatment for any of her malignancies, she is up-to-date on her monitoring. She is scheduled to go to [facility] orthopedic Department tomorrow for a right knee that keeps "giving out". Objective - Vital Signs Vital signs: Vital Signs Temp 98.2 F 10/22/18 15:20 Pulse 68 10/22/18 15:20 Resp 16 10/22/18 15:20 BP 116/76 10/22/18 15:20 Pulse Ox 96 10/22/18 15:20 Intake & Output 10/21/18 10/22/18 10/22/18 18:59 06:59 18:59 Intake Total 900 1705 Balance 900 1705 Intake: Intake, IV Titration 900 1000 Amount Cefepime 2 gm In Sodium 100 100 Chloride 0.9% 100 ml @ 200 mls/hr IVPB Q12H MARCELINA Rx#:[id number] Sodium Chloride 0.9% 1, 800 900 000 ml @ 100 mls/hr IV . Q10H MARCELINA Rx#:[id number] Oral 705 Other: # Voids 2 2 2 - Constitutional General appearance: Present: average body habitus, cooperative, no acute distress - EENT Eyes: Present: anicteric sclerae, EOMI ENT: Present: hearing grossly normal - Respiratory Details: Respirations even and unlabored - Cardiovascular Details: Hands and feet are warm to the touch, no cyanosis - Peripheral edema leg Peripheral Edema: bilateral: None - Integumentary Integumentary: Present: normal - Neurologic Neurologic: Present: CNII-XII intact - Musculoskeletal Musculoskeletal Comment(s): Patient is able to move her body weight independently - Psychiatric Psychiatric: Present: A&O x's 3, appropriate affect, intact judgment & insight - Labs CBC & Chem 7: 10/21/18 07:55 10/21/18 07:55 Labs: Microbiology - Last 24 Hours (Table) 10/20/18 10:18 Blood Culture - Preliminary Blood No Growth after 48 hours Assessment and Plan (1) Fever Narrative/Plan: Patient has been evaluated by Infectious Disease and treated with antibiotics with resolution of her symptoms. No fevers for greater than 48 hours, positive cultures. Patient is going to get an oral antibiotic prescription to complete, encouraged her to follow-up with Drs. finch and complete all antibiotics as prescribed With patient's malignancy history and treatment history she has been provided in the past with a prophylactic antibiotic prescription to initiate even she gets a fever. Patient will follow-up with Dr. Vidales next week and get another Rx for the same. Status: Acute Priority: High Code(s): R50.9 - FEVER, UNSPECIFIED SNOMED Code(s): 439721605 (2) Malignancies Narrative/Plan: Patient has a significant history of multiple malignancies. Patient is current on her follow-up for all of the same. Status: Acute Priority: High Code(s): C80.1 - MALIGNANT (PRIMARY) NEOPLASM, UNSPECIFIED SNOMED Code(s): 627548259
[2018-10-27] MEDS ORDERED: Alendronate Sodium [Fosamax] 70 MG PO SCH (09:00)
== END 2018-10-22 15:45 | disposition home or self-care (01) | DRG 194 ==
LOC: EC 08:57 → 4SSUR 12:22
PROVIDERS: ADMIT Internal Medicine; ATTEND Internal Medicine
DX: J18.9 Pneumonia, unspecified organism (principal); I13.0 Hypertensive heart and chronic kidney disease with heart failure and stage 1 through stage 4 chronic kidney disease, or unspecified chronic kidney disease; Z94.84 Stem cells transplant status; Z94.0 Kidney transplant status; Z94.81 Bone marrow transplant status; E03.9 Hypothyroidism, unspecified; E78.5 Hyperlipidemia, unspecified; G47.33 Obstructive sleep apnea (adult) (pediatric); B34.9 Viral infection, unspecified; I25.10 Atherosclerotic heart disease of native coronary artery without angina pectoris; I50.9 Heart failure, unspecified; M81.0 Age-related osteoporosis without current pathological fracture; H04.129 Dry eye syndrome of unspecified lacrimal gland; J45.909 Unspecified asthma, uncomplicated; I25.2 Old myocardial infarction; Z92.21 Personal history of antineoplastic chemotherapy; Z93.3 Colostomy status; Z79.890 Hormone replacement therapy; Z79.82 Long term (current) use of aspirin; Z79.51 Long term (current) use of inhaled steroids; Z79.83 Long term (current) use of bisphosphonates; Z79.899 Other long term (current) drug therapy; Z85.048 Personal history of other malignant neoplasm of rectum, rectosigmoid junction, and anus; Z85.44 Personal history of malignant neoplasm of other female genital organs; Z86.19 Personal history of other infectious and parasitic diseases; Z87.01 Personal history of pneumonia (recurrent); Z88.2 Allergy status to sulfonamides; Z88.8 Allergy status to other drugs, medicaments and biological substances; Z88.5 Allergy status to narcotic agent; Z90.49 Acquired absence of other specified parts of digestive tract; Z91.013 Allergy to seafood; Z82.49 Family history of ischemic heart disease and other diseases of the circulatory system; Z80.3 Family history of malignant neoplasm of breast
CPT/HCPCS: 36415; 71046; 80048; 80053; 80197; 81001; 83605; 84145; 85025; 85610; 85730; 87040; 87086; 87502; 93005; 94640; 96361; 96365; 99285

== ENCOUNTER → 2018-11-03 | Outpatient (CLI) | payer MEDICARE ==
[2018-11-03 10:03] LABS: Appearance,Urine Clear (Clear); Bacteria,Urine Rare /hpf; Bilirubin,Urine Negative (Negative); Blood,Urine Negative (Negative); Color,Urine Yellow; Glucose,Urine (UA) 1+ (Negative); Ketones,Urine Negative (Negative); Leukocyte Esterase,Urine Small (Negative); Mucus,Urine Rare /hpf; Nitrite,Urine Negative (Negative); Protein,Urine Negative (Negative); Specific Gravity,Urine 1.013 (1.001-1.035); Squamous Epithelial Cell,Urine 1 /hpf (0-4); Urobilinogen,Urine <2.0 mg/dL (<2.0); WBC,Urine 2 /hpf (0-5)
[2018-11-03 16:39] LABS: Iron Saturation 61.54 (12.00-45.00)
[2018-11-03 16:46] LABS: Vitamin D 25 Hydroxy 37.2 ng/mL (30.0-100.0)
[2018-11-03 17:40] LABS: Magnesium 1.4 mg/dL (1.5-2.4); Phosphorus 4.5 mg/dL (2.4-5.1); Uric Acid 4.2 mg/dL (2.9-7.7)
== END | disposition home or self-care (01) ==
LOC: LABWHC1 09:13
PROVIDERS: ATTEND Internal Medicine Nephrology
DX: N39.0 Urinary tract infection, site not specified (principal); E55.9 Vitamin D deficiency, unspecified; N25.81 Secondary hyperparathyroidism of renal origin; M10.9 Gout, unspecified; Z94.0 Kidney transplant status; D64.9 Anemia, unspecified
CPT/HCPCS: 36415; 81001; 82306; 82728; 83540; 83550; 83735; 83970; 84100; 84550

== ENCOUNTER → 2018-11-21 | Outpatient (CLI) | payer MEDICARE ==
--- NOTE | 2018-11-25 12:21 | MM ---
Reason for exam: screening (asymptomatic). Last mammogram was performed 1 year ago. History: Patient is postmenopausal, has history of other cancer at age 46, and history of colon cancer. Family history of breast cancer in mother at age 75. Benign excisional biopsy of the right breast, 1994. Took hormonal contraceptives for 7 years beginning at age 17. Took other hormone for 6 months beginning at age 55. Physical Findings: A clinical breast exam by your physician is recommended on an annual basis and results should be correlated with mammographic findings. MG 3D Screening Mammo W/Cad Bilateral CC and MLO view(s) were taken. Prior study comparison: November 19, 2017, bilateral MG 3d screening mammo w/cad. October 15, 2016, bilateral MG 3d screening mammo w/cad. The breast tissue is heterogeneously dense. This may lower the sensitivity of mammography. Benign appearing bilateral calcifications. No suspicious abnormality. Stable post surgical change on the right. No significant changes when compared with prior studies. ASSESSMENT: Benign, BI-RAD 2 RECOMMENDATION: Routine screening mammogram of both breasts in 1 year.
== END ==
LOC: RADMAMWWP 10:46
PROVIDERS: ATTEND Internal Medicine Hematology & Oncology
DX: Z12.31 Encounter for screening mammogram for malignant neoplasm of breast (principal)
CPT/HCPCS: 77063; 77067

== ENCOUNTER → 2019-02-09 | Outpatient (CLI) | payer MEDICARE | END | disposition home or self-care (01) | LOC: LABWHC1 08:48 | PROVIDERS: ATTEND Internal Medicine | DX: M81.8 Other osteoporosis without current pathological fracture (principal) | CPT/HCPCS: 36415; 82306 ==

== ENCOUNTER 2019-05-02 00:43 | Inpatient (IN) | payer MEDICARE ==
[2019-05-02] MEDS ORDERED: DILTIAZEM DRIP BOLUS FROM BAG 1 MG SOLN IV ONE (00:57)
[2019-05-02] MEDS ORDERED: SODIUM CHLORIDE 0.9% 500 ML 500 ML IV STA (00:57)
[2019-05-02] MEDS ORDERED: DILTIAZEM 125 MG in SODIUM CHLORIDE 0.9% 100 ML IV SCH (01:00)
[2019-05-02 01:03] LABS: Basophils # (A) 0.3 k/uL (0-0.2); Basophils % (A) 3 %; Eosinophils # (A) 0.4 k/uL (0-0.7); Eosinophils % (A) 4 %; HCT 44.7 % (34.0-46.0); Lymphocytes # (A) 2.4 k/uL (1.0-4.8); Lymphocytes % (A) 26 %; MCH 34.7 pg (25.0-35.0); MCHC 33.7 g/dL (31.0-37.0); MCV 102.9 fL (80.0-100.0); Macrocytosis Slight; Monocytes # (A) 0.6 k/uL (0-1.0); Monocytes % (A) 7 %; Neutrophils # (A) 5.4 k/uL (1.3-7.7); Neutrophils % (A) 57 %; Platelet Count 150 k/uL (150-450); RBC 4.34 m/uL (3.80-5.40); RDW 12.3 % (11.5-15.5); WBC 9.5 k/uL (3.8-10.6)
[2019-05-02 01:18] LABS: INR 1.2 (<1.2); Prothrombin Time 12.3 sec (9.0-12.0)
[2019-05-02 01:20] LABS: ALT 47 U/L (9-52); AST 34 U/L (14-36); African American GFR (CKD) >90 (>60 ml/min/1.73 sqM); Alkaline Phosphatase 63 U/L (38-126); Anion Gap 11 mmol/L; Blood Urea Nitrogen 9 mg/dL (7-17); Calcium 8.8 mg/dL (8.4-10.2); Carbon Dioxide 20 mmol/L (22-30); Chloride 109 mmol/L (98-107); Glucose 347 mg/dL (74-99); Magnesium 1.3 mg/dL (1.6-2.3); Potassium 3.9 mmol/L (3.5-5.1); Sodium 140 mmol/L (137-145); Total Bilirubin 0.6 mg/dL (0.2-1.3); Total Protein 6.7 g/dL (6.3-8.2)
[2019-05-02] MEDS ORDERED: Magnesium Replacement Protocol 1 EACH MISC MISCELLANE PRN (01:25)
--- NOTE | 2019-05-02 01:25 | ED ---
Arrhythmia/Palpitations HPI - General Source: patient Mode of arrival: EMS Limitations: no limitations <Sofiya Sanderson - Last Filed: 05/02/19 02:50> <Hank Pineda - Last Filed: 05/04/19 07:48> - General Chief Complaint: Arrhythmia/Palpitations Stated Complaint: Afib, Chest discomfort Time Seen by Provider: 05/02/19 00:45 - History of Present Illness Initial Comments: 63-year-old female patient diagnosed with atrial fibrillation last week presents to the emergency department today for evaluation of palpitations and chest discomfort. Patient states she was attempting to go to bed this evening when she started to feel very fatigued. States she laid down in bed and could feel her heart was racing. States that the sensation did not diminish so she called ambulance. Patient did have associated shortness of breath, nausea, and mild sweats. Patient states she was diagnosed with new onset A. fib last week. States she was started on Eliquis, currently taking one tablet twice daily. States that she was also started on 2 heart medications one being Lopressor. She denies any vomiting, abdominal pain, fever, or chills. Denies any swelling to her extremities. Denies excessive use of caffeine or other stimulants. Patient denies any recent rash, diarrhea, constipation, back pain, numbness, tingling, hematuria, dysuria, urinary urgency, urinary frequency, headache, visual changes, or any other complaints. (Sofiya Sanderson) - Related Data Home Medications Medication Instructions Recorded Confirmed Aspirin 81 mg PO DAILY 08/21/14 05/02/19 Calcium Carbonate/Vitamin D3 1 tab PO BID 08/21/14 05/02/19 [Calcium 600-Vit D3 400 Tablet] Folic Acid 1 mg PO DAILY 08/21/14 05/02/19 Levothyroxine Sodium [Synthroid] 100 mcg PO DAILY 08/21/14 05/02/19 Magnesium Oxide [Mag-Ox] 500 mg PO BID 08/21/14 05/02/19 Metoprolol Tartrate 25 mg PO BID 08/21/14 05/02/19 Nitroglycerin Sl Tabs [Nitrostat] 0.4 mg SUBLINGUAL Q5M PRN 08/21/14 05/02/19 Tacrolimus [Prograf] 1 mg PO BID 08/21/14 05/02/19 cycloSPORINE [Restasis] 1 drop BOTH EYES BID 08/21/14 05/02/19 Folic Acid/Multivit-Min/Lutein 3 tab PO DAILY 08/22/14 05/02/19 [Therapeutic-M Tablet] Multivitamins, Thera [Multivitamin 1 tab PO DAILY 08/22/14 05/02/19 (formulary)] Vitamin B Complex 1 tab PO DAILY 08/22/14 05/02/19 Alendronate Sodium [Fosamax] 70 mg PO FR 10/20/18 05/02/19 Budesonide/Formoterol Fumarate 2 puff INHALATION RT-BID 10/20/18 05/02/19 [Symbicort 80-4.5 Mcg Inhaler] Cholecalciferol [Vitamin D3 (25 1,000 unit PO DAILY 10/20/18 05/02/19 Mcg = 1000 Iu)] Omeprazole 20 mg PO DAILY 10/20/18 05/02/19 Turmeric Root Extract [Turmeric] 500 mg PO DAILY 10/20/18 05/02/19 predniSONE 5 mg PO DAILY 10/20/18 05/02/19 Acyclovir [Zovirax] 400 mg PO BID 05/02/19 05/02/19 Apixaban [Eliquis] 5 mg PO BID 05/02/19 05/02/19 Atorvastatin [Lipitor] 10 mg PO DAILY 05/02/19 05/02/19 L.acidoph,Paracasei, B.lactis 1 cap PO DAILY 05/02/19 05/02/19 [Probiotic] [place]-3 Fatty Acids/Fish Oil 3 cap PO QAM 05/02/19 05/02/19 [[place]-3 Fish Oil 1,200 mg Sfgl] Potassium 99 mg PO DAILY 05/02/19 05/02/19 Previous Rx's Medication Instructions Recorded Amiodarone [Cordarone] 200 mg PO BID #30 tab 05/02/19 metFORMIN HCL [Glucophage] 500 mg PO AC-BID #60 tab 05/02/19 Allergies Allergy/AdvReac Type Severity Reaction Status Date / Time shellfish derived Allergy Rash/Hives Verified 05/02/19 08:34 Sulfa (Sulfonamide Allergy Rash/Hives Verified 05/02/19 08:34 Antibiotics) codeine AdvReac Rapid Verified 05/02/19 08:34 Heart Rate hydromorphone HCl AdvReac Rapid Verified 05/02/19 08:34 [From Dilaudid] Heart Rate propoxyphene AdvReac Rapid Verified 05/02/19 08:34 Heart Rate Review of Systems ROS Other: All systems not noted in ROS Statement are negative. <Sofiya Sanderson - Last Filed: 05/02/19 02:50> ROS Other: All systems not noted in ROS Statement are negative. <Hank Pineda - Last Filed: 05/04/19 07:48> ROS Statement: Those systems with pertinent positive or pertinent negative responses have been documented in the HPI. 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, Factor V, osteoporosis, fungal pneumonia, hypothyroid, dry eyes, LIDIA and uses a mouth guard, Last Myocardial Infarction Date:: 04/20/13 History of Any Multi-Drug Resistant Organisms: C-DIFF, MRSA Date of last positivie culture/infection: 2003 for both c-diff and MRSA MDRO Source:: stool, unk Past Surgical History: Cholecystectomy Additional Past Surgical History / Comment(s): bone marrow transplant 2003, kidney transplant 2008, rectal cancer with surgery, vulvar cancer with surgery, 2013 incomplete PCI, colonoscopies, colostomy Past Anesthesia/Blood Transfusion Reactions: No Reported Reaction Past Psychological History: No Psychological Hx Reported Smoking Status: Former smoker Past Alcohol Use History: Occasional Past Drug Use History: None Reported - Past Family History Mother Family Medical History: Cancer Additional Family Medical History / Comment(s): Mother had breast cancer twice. She lived to be 95yrs old. Father Family Medical History: Congestive Heart Failure (CHF) Additional Family Medical History / Comment(s): Father lived to be 90yrs old. <Sofiya Sanderson - Last Filed: 05/02/19 02:50> General Exam Limitations: no limitations General appearance: alert, in no apparent distress, other (This is a well- developed, well-nourished adult female patient in no acute distress. Vital signs upon presentation are temperature 98.1F, pulse 128, respirations 20, blood pressure 138/72, pulse ox 95% on room air.) Eye exam: Present: normal appearance, PERRL, EOMI. Absent: scleral icterus, conjunctival injection, periorbital swelling Respiratory exam: Present: normal lung sounds bilaterally. Absent: respiratory distress, wheezes, rales, rhonchi, stridor Cardiovascular Exam: Present: tachycardia, irregular rhythm, normal heart sounds. Absent: systolic murmur, diastolic murmur, rubs, gallop, clicks GI/Abdominal exam: Present: soft, normal bowel sounds. Absent: distended, tenderness, guarding, rebound, rigid Neurological exam: Present: alert, oriented X3, CN II-XII intact Psychiatric exam: Present: normal affect, normal mood Skin exam: Present: warm, dry, intact, normal color. Absent: rash <Sofiya Sanderson M - Last Filed: 05/02/19 02:50> Course Vital Signs 05/02/19 05/02/19 05/02/19 00:49 01:23 01:49 Temperature 98.1 F 97.9 F Pulse Rate 128 H 128 H 89 Pulse Rate [ [employer] ] Respiratory 20 17 18 Rate Blood Pressure 138/72 111/88 121/97 Blood Pressure [Left Arm] O2 Sat by Pulse 95 96 97 Oximetry 05/02/19 05/02/19 05/02/19 01:53 02:08 03:00 Temperature 97.9 F Pulse Rate 56 L 55 L Pulse Rate [ 66 [employer] ] Respiratory 14 18 Rate Blood Pressure 115/70 Blood Pressure 116/67 [Left Arm] O2 Sat by Pulse 98 96 Oximetry EKG Findings - EKG Comments: EKG Findings:: EKG obtained at 00 50 shows atrial fibrillation with RVR with PVCs. The jugular it is 121, QRS duration 76, QT 308, QTC 437. There is no evidence of ST elevation or depression. Repeat EKG was obtained at 0156 shows sinus bradycardia with sinus arrhythmia. Ventricular rate 57, AK interval 164, QRS duration 82, QTc 450, QTC 438. No evidence of ST elevation or depression. <Sofiya Sanderson M - Last Filed: 05/02/19 02:50> Medical Decision Making - Lab Data Result diagrams: 05/02/19 00:51 05/02/19 00:51 - Radiology Data Radiology results: report reviewed, image reviewed <Sofiya Sanderson - Last Filed: 05/02/19 02:50> - Lab Data Result diagrams: 05/02/19 00:51 05/02/19 05:27 <Hank iPneda - Last Filed: 05/04/19 07:48> - Medical Decision Making 63-year-old female patient presents to the emergency department today for evaluation of palpitations and chest pressure. Patient did experience associated nausea and shortness of breath. Physical examination is unremarkable. Labs reviewed and did reveal low magnesium at 1.3. Elevated blood sugar 347. Patient does not have diabetes. She does take prednisone d aily for antirejection of her renal transplant and states that her blood sugar usually around around 120. Patient's EKG did show atrial fibrillation with RVR. We were able to convert to normal sinus rhythm utilizing a Cardizem bolus. Given patient's status as renal transplant patient and new onset diabetes mellitus we will admit to the hospital for further evaluation and blood sugar management. Patient is agreeable with this plan. (Sofiya Sanderson) I saw this patient in conjunction with the physician membership assistant. I performed independent history and physical exam. Agree with case management. (Hank Pineda) - Lab Data Lab Results 05/02/19 05/02/19 05/02/19 Range/Units 00:51 00:51 00:51 WBC 9.5 (3.8-10.6) k/uL RBC 4.34 (3.80-5.40) m/uL Hgb 15.0 (11.4-16.0) gm/dL Hct 44.7 (34.0-46.0) % MCV 102.9 H (80.0-100.0) fL MCH 34.7 (25.0-35.0) pg MCHC 33.7 (31.0-37.0) g/dL RDW 12.3 (11.5-15.5) % Plt Count 150 (150-450) k/uL Neutrophils % 57 % Lymphocytes % 26 % Monocytes % 7 % Eosinophils % 4 % Basophils % 3 % Neutrophils # 5.4 (1.3-7.7) k/uL Lymphocytes # 2.4 (1.0-4.8) k/uL Monocytes # 0.6 (0-1.0) k/uL Eosinophils # 0.4 (0-0.7) k/uL Basophils # 0.3 H (0-0.2) k/uL Macrocytosis Slight PT 12.3 H (9.0-12.0) sec INR 1.2 H (<1.2) APTT 26.0 (22.0-30.0) sec Sodium 140 (137-145) mmol/L Potassium 3.9 (3.5-5.1) mmol/L Chloride 109 H (98-107) mmol/L Carbon Dioxide 20 L (22-30) mmol/L Anion Gap 11 mmol/L BUN 9 (7-17) mg/dL Creatinine 0.49 L (0.52-1.04) mg/dL Est GFR (CKD-EPI)AfAm >90 (>60 ml/min/1.73 sqM) Est GFR (CKD-EPI)NonAf >90 (>60 ml/min/1.73 sqM) Glucose 347 H (74-99) mg/dL Calcium 8.8 (8.4-10.2) mg/dL Magnesium 1.3 L (1.6-2.3) mg/dL Total Bilirubin 0.6 (0.2-1.3) mg/dL AST 34 (14-36) U/L ALT 47 (9-52) U/L Alkaline Phosphatase 63 (38-126) U/L Troponin I (0.000-0.034) ng/mL Total Protein 6.7 (6.3-8.2) g/dL Albumin 4.0 (3.5-5.0) g/dL TSH 2.840 (0.465-4.680) mIU/L Urine Color Urine Appearance (Clear) Urine pH (5.0-8.0) Ur Specific Howes (1.001-1.035) Urine Protein (Negative) Urine Glucose (UA) (Negative) Urine Ketones (Negative) Urine Blood (Negative) Urine Nitrite (Negative) Urine Bilirubin (Negative) Urine Urobilinogen (<2.0) mg/dL Ur Leukocyte Esterase (Negative) Urine RBC (0-5) /hpf Urine WBC (0-5) /hpf Ur Squamous Epith Cells (0-4) /hpf Urine Bacteria (None) /hpf 05/02/19 05/02/19 Range/Units 00:51 01:26 WBC (3.8-10.6) k/uL RBC (3.80-5.40) m/uL Hgb (11.4-16.0) gm/dL Hct (34.0-46.0) % MCV (80.0-100.0) fL MCH (25.0-35.0) pg MCHC (31.0-37.0) g/dL RDW (11.5-15.5) % Plt Count (150-450) k/uL Neutrophils % % Lymphocytes % % Monocytes % % Eosinophils % % Basophils % % Neutrophils # (1.3-7.7) k/uL Lymphocytes # (1.0-4.8) k/uL Monocytes # (0-1.0) k/uL Eosinophils # (0-0.7) k/uL Basophils # (0-0.2) k/uL Macrocytosis PT (9.0-12.0) sec INR (<1.2) APTT (22.0-30.0) sec Sodium (137-145) mmol/L Potassium (3.5-5.1) mmol/L Chloride (98-107) mmol/L Carbon Dioxide (22-30) mmol/L Anion Gap mmol/L BUN (7-17) mg/dL Creatinine (0.52-1.04) mg/dL Est GFR (CKD-EPI)AfAm (>60 ml/min/1.73 sqM) Est GFR (CKD-EPI)NonAf (>60 ml/min/1.73 sqM) Glucose (74-99) mg/dL Calcium (8.4-10.2) mg/dL Magnesium (1.6-2.3) mg/dL Total Bilirubin (0.2-1.3) mg/dL AST (14-36) U/L ALT (9-52) U/L Alkaline Phosphatase (38-126) U/L Troponin I <0.012 (0.000-0.034) ng/mL Total Protein (6.3-8.2) g/dL Albumin (3.5-5.0) g/dL TSH (0.465-4.680) mIU/L Urine Color Light Yellow Urine Appearance Clear (Clear) Urine pH 7.0 (5.0-8.0) Ur Specific [place]es 1.009 (1.001-1.035) Urine Protein Negative (Negative) Urine Glucose (UA) 4+ H (Negative) Urine Ketones Negative (Negative) Urine Blood Negative (Negative) Urine Nitrite Negative (Negative) Urine Bilirubin Negative (Negative) Urine Urobilinogen <2.0 (<2.0) mg/dL Ur Leukocyte Esterase Moderate H (Negative) Urine RBC 1 (0-5) /hpf Urine WBC 2 (0-5) /hpf Ur Squamous Epith Cells 1 (0-4) /hpf Urine Bacteria Rare H (None) /hpf - Radiology Data Two-view x-ray of the chest is obtained. Report was reviewed in its entirety. Impression by Dr. Curtis shows no active cardiopulmonary disease. There is clearing of the small infiltrate in the left upper lobe compared to last exam. Normal heart. (Sofiya Sanderson) Disposition Decision to Admit Reason: Admit from [facility] <Sofiya Sanderson - Last Filed: 05/02/19 02:50> <Hank Pineda - Last Filed: 05/04/19 07:48> Clinical Impression: Diabetes mellitus, new onset, Atrial fibrillation with RVR, Hypomagnesemia Disposition: ADMITTED IP TO THIS HOSP Condition: Stable
--- NOTE | 2019-05-02 01:29 | XR ---
EXAMINATION TYPE: XR chest 2V DATE OF EXAM: 05/02/2019 COMPARISON: 10/21/2018 HISTORY: Dysrhythmia TECHNIQUE: Frontal and lateral views of the chest are obtained. FINDINGS: Heart is normal. Lungs are clear of infiltrate. There are no hilar masses. There are chest leads. Bony thorax is intact. IMPRESSION: No active cardiopulmonary disease. There is clearing of the small infiltrate in the left upper lobe compared to last exam. Normal heart.
[2019-05-02 01:46] LABS: Appearance,Urine Clear (Clear); Bacteria,Urine Rare /hpf; Bilirubin,Urine Negative (Negative); Blood,Urine Negative (Negative); Color,Urine Light Yellow; Glucose,Urine (UA) 4+ (Negative); Ketones,Urine Negative (Negative); Leukocyte Esterase,Urine Moderate (Negative); Nitrite,Urine Negative (Negative); Protein,Urine Negative (Negative); RBC,Urine 1 /hpf (0-5); Specific Gravity,Urine 1.009 (1.001-1.035); Squamous Epithelial Cell,Urine 1 /hpf (0-4); Urobilinogen,Urine <2.0 mg/dL (<2.0); WBC,Urine 2 /hpf (0-5)
[2019-05-02] MEDS: MAGNESIUM SULFATE-D5W PMX 1 GM in DEXTROSE/WATER 1 100ML.BAG IVPB SCH ×3 (01:46→04:20)
[2019-05-02] MEDS ORDERED: SODIUM CHLORIDE 0.9% 1,000 ML IV ONE (02:02)
[2019-05-02] MEDS ORDERED: NALOXONE 0.4 MG/ML 1 ML VIAL IV PRN (02:27)
[2019-05-02] MEDS ORDERED: INSULIN ASPART (NovoLOG) 100 UNIT/ML VIAL SQ STA (03:43)
[2019-05-02 03:45] LABS: Glucose,Whole Blood 274 mg/dL (75-99)
[2019-05-02 06:04] LABS: Glucose,Whole Blood 188 mg/dL (75-99)
[2019-05-02 06:43] LABS: ALT 40 U/L (9-52); AST 27 U/L (14-36); African American GFR (CKD) >90 (>60 ml/min/1.73 sqM); Albumin 3.2 g/dL (3.5-5.0); Alkaline Phosphatase 61 U/L (38-126); Anion Gap 8 mmol/L; Blood Urea Nitrogen 8 mg/dL (7-17); Calcium 7.9 mg/dL (8.4-10.2); Carbon Dioxide 22 mmol/L (22-30); Chloride 110 mmol/L (98-107); Glucose 240 mg/dL (74-99); Potassium 3.6 mmol/L (3.5-5.1); Sodium 140 mmol/L (137-145); Total Bilirubin 0.5 mg/dL (0.2-1.3); Total Protein 5.6 g/dL (6.3-8.2)
[2019-05-02] MEDS: INSULIN ASPART (NovoLOG) 100 UNIT/ML VIAL SQ SCH ×2 (07:08→14:05)
[2019-05-02 09:13] VITALS: RESP 20
[2019-05-02] MEDS ORDERED: NITROGLYCERIN SL TABS 0.4 MG TAB SUBLINGUAL PRN (10:33)
[2019-05-02] MEDS ORDERED: LUTEIN PO SCH (10:45)
[2019-05-02] MEDS ORDERED: NON FORMULARY DRUG (Vitamin B Complex [Vitamin B Complex] 1 TAB) PO SCH (10:45)
[2019-05-02] MEDS ORDERED: FOLIC ACID PO SCH (10:45)
[2019-05-02] MEDS ORDERED: MULTIVIT MIN PO SCH (10:45)
[2019-05-02] MEDS ORDERED: ATORVASTATIN 10 MG TAB PO SCH (11:00)
[2019-05-02] MEDS ORDERED: cycloSPORINE 0.05% OPHTH 0.4 ML DROPERETTE BOTH EYES SCH (11:00)
[2019-05-02] MEDS ORDERED: MAGNESIUM OXIDE 400 MG TAB PO SCH (11:00)
[2019-05-02] MEDS ORDERED: PANTOPRAZOLE 40 MG TABLET PO SCH (11:00)
[2019-05-02] MEDS ORDERED: MULTIVITAMINS, THERA 1 EACH TAB PO SCH (11:00)
[2019-05-02] MEDS ORDERED: LACTOBACILLUS ACIDOPH & BULGAR 1 EACH PACKET PO SCH (11:00)
[2019-05-02] MEDS ORDERED: predniSONE 5 MG TAB PO SCH (11:00)
[2019-05-02] MEDS ORDERED: LEVOTHYROXINE 100 MCG TAB PO SCH (11:00)
[2019-05-02] MEDS ORDERED: FOLIC ACID 1 MG TAB PO SCH (11:00)
[2019-05-02] MEDS ORDERED: TACROLIMUS 1 MG CAP PO SCH (11:00)
[2019-05-02] MEDS ORDERED: METOPROLOL TARTRATE 25 MG TAB PO SCH (11:00)
[2019-05-02] MEDS ORDERED: ASPIRIN 81 MG PO SCH (11:00)
[2019-05-02 11:40] LABS: Glucose,Whole Blood 121 mg/dL (75-99)
--- NOTE | 2019-05-02 11:53 | P.NPCON ---
History of Present Illness - Reason for Consult Consult date: 05/02/19 (Renal transplant) chronic renal failure - Chief Complaint Chest discomfort and shortness of breath. - History of Present Illness Recently diagnosed with atrial fibrillation at cardiology office last Saturday started on liquids as outpatient. She came in with dizziness chest discomfort and shortness of breath last night. She was in A. fib with RVR and started on Cardizem drip. She has a renal transplant living unrelated in 2008 at [facility]. She takes Prograf 1 mg twice a day and prednisone 5 mg daily. She is not on CellCept on MMF, when diagnosed with rectal cancer in 2015. No nausea vomiting diarrhea. Currently feels better. Baseline kidney function 0.5 MG per DL. She was diagnosed with non-Hodgkin's lymphoma, requiring bone marrow transplant and chemotherapy. She develops chronic kidney disease because of chemotherapy and and developed renal failure in 2005. She progressed to end-stage in 2008, did not receive dialysis prior to renal transplant. 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, Factor V, osteoporosis, fungal pneumonia, hypothyroid, dry eyes, LIDIA and uses a mouth guard, Last Myocardial Infarction Date:: 04/20/13 History of Any Multi-Drug Resistant Organisms: C-DIFF, MRSA Date of last positivie culture/infection: 2003 for both c-diff and MRSA MDRO Source:: stool, unk Past Surgical History: Cholecystectomy Additional Past Surgical History / Comment(s): bone marrow transplant 2003, kidney transplant 2008, rectal cancer with surgery, vulvar cancer with surgery, 2013 incomplete PCI, colonoscopies, colostomy 2016 Past Anesthesia/Blood Transfusion Reactions: No Reported Reaction Past Psychological History: No Psychological Hx Reported Additional Psychological History / Comment(s): Pt resides with her spouse. She has been using a cane lately d/t R posterior knee pain. She drives. Smoking Status: Never smoker Past Alcohol Use History: Occasional Past Drug Use History: None Reported - Past Family History Mother Family Medical History: Cancer Additional Family Medical History / Comment(s): Mother had breast cancer twice. She lived to be 95yrs old. Father Family Medical History: Congestive Heart Failure (CHF) Additional Family Medical History / Comment(s): Father lived to be 90yrs old. Medications and Allergies Home Medications Medication Instructions Recorded Confirmed Type Aspirin 81 mg PO DAILY 08/21/14 05/02/19 History Calcium Carbonate/Vitamin D3 1 tab PO BID 08/21/14 05/02/19 History [Calcium 600-Vit D3 400 Tablet] Folic Acid 1 mg PO DAILY 08/21/14 05/02/19 History Levothyroxine Sodium [Synthroid] 100 mcg PO DAILY 08/21/14 05/02/19 History Magnesium Oxide [Mag-Ox] 500 mg PO BID 08/21/14 05/02/19 History Metoprolol Tartrate 25 mg PO BID 08/21/14 05/02/19 History Nitroglycerin Sl Tabs [Nitrostat] 0.4 mg SUBLINGUAL Q5M PRN 08/21/14 05/02/19 History Tacrolimus [Prograf] 1 mg PO BID 08/21/14 05/02/19 History cycloSPORINE [Restasis] 1 drop BOTH EYES BID 08/21/14 05/02/19 History Folic Acid/Multivit-Min/Lutein 3 tab PO DAILY 08/22/14 05/02/19 History [Therapeutic-M Tablet] Multivitamins, Thera [Multivitamin 1 tab PO DAILY 08/22/14 05/02/19 History (formulary)] Vitamin B Complex 1 tab PO DAILY 08/22/14 05/02/19 History Alendronate Sodium [Fosamax] 70 mg PO FR 10/20/18 05/02/19 History Budesonide/Formoterol Fumarate 2 puff INHALATION RT-BID 10/20/18 05/02/19 History [Symbicort 80-4.5 Mcg Inhaler] Cholecalciferol [Vitamin D3 (25 1,000 unit PO DAILY 10/20/18 05/02/19 History Mcg = 1000 Iu)] Omeprazole 20 mg PO DAILY 10/20/18 05/02/19 History Turmeric Root Extract [Turmeric] 500 mg PO DAILY 10/20/18 05/02/19 History predniSONE 5 mg PO DAILY 10/20/18 05/02/19 History Acyclovir [Zovirax] 400 mg PO BID 05/02/19 05/02/19 History Apixaban [Eliquis] 5 mg PO BID 05/02/19 05/02/19 History Atorvastatin [Lipitor] 10 mg PO DAILY 05/02/19 05/02/19 History L.acidoph,Paracasei, B.lactis 1 cap PO DAILY 05/02/19 05/02/19 History [Probiotic] [place]-3 Fatty Acids/Fish Oil 3 cap PO QAM 05/02/19 05/02/19 History [[place]-3 Fish Oil 1,200 mg Sfgl] Potassium 99 mg PO DAILY 05/02/19 05/02/19 History Allergies Allergy/AdvReac Type Severity Reaction Status Date / Time shellfish derived Allergy Rash/Hives Verified 05/02/19 08:34 Sulfa (Sulfonamide Allergy Rash/Hives Verified 05/02/19 08:34 Antibiotics) codeine AdvReac Rapid Verified 05/02/19 08:34 Heart Rate hydromorphone HCl AdvReac Rapid Verified 05/02/19 08:34 [From Dilaudid] Heart Rate propoxyphene AdvReac Rapid Verified 05/02/19 08:34 Heart Rate Physical Exam Vitals: Vital Signs Temp Pulse Pulse Resp BP BP Pulse Ox 05/02/19 08:00 97.4 F L 68 20 138/84 96 05/02/19 03:00 97.9 F 66 18 116/67 96 05/02/19 02:08 55 L 14 115/70 98 05/02/19 01:53 56 L 05/02/19 01:49 89 18 121/97 97 05/02/19 01:23 97.9 F 128 H 17 111/88 96 05/02/19 00:49 98.1 F 128 H 20 138/72 95 Intake and Output 05/01/19 05/02/19 05/02/19 22:59 06:59 14:59 Intake Total 6.417 Balance 6.417 Intake: Intake, IV Titration 6.417 Amount Diltiazem 125 mg In 6.417 Sodium Chloride 0.9% 100 ml @ 5 MG/HR 5 mls/hr IV .Q24H MARCELINA Rx#:[id number] Other: # Voids 1 Weight 69.3 kg No acute distress S1-S2 heard Lungs clear No edema Results - Lab Results Most recent lab results Calcium 7.9 mg/dL (8.4-10.2) L 05/02/19 05:27 Magnesium 1.3 mg/dL (1.6-2.3) L 05/02/19 00:51 05/02/19 00:51 05/02/19 05:27 Assessment and Plan Assessment: #1 new onset atrial fibrillation. #2 living unrelated renal transplant in 2008, renal function stable. #3 CK D3 status post renal transplant #4 new onset diabetes suspect secondary to tacrolimus #5 hypertension with chronic kidney disease #6 glycosuria, no pyuria to suspect UTI. Plan: #1 continue with immunosuppression, Prograf and prednisone #2 renal function stable. #3 avoid nephrotoxic agents and hypotensive episodes. #4 appreciate cardiology input.
[2019-05-02 12:00] VITALS: BP 115/62; PULSE 64; TEMP 97
[2019-05-02 12:09] VITALS: BMI 27.0
[2019-05-02] MEDS: ACYCLOVIR 200 MG CAP PO SCH ×2 (12:15→12:29)
[2019-05-02 13:07] LABS: Hemoglobin A1C 9.4 % (4.0-6.0)
[2019-05-02] MEDS ORDERED: ACETAMINOPHEN TAB 500 MG TAB PO PRN (14:12)
--- NOTE | 2019-05-02 14:40 | P.HPIM ---
History of Present Illness H&P Date: 05/02/19 Chief Complaint: Heart racing History of presenting complaint: This is a pleasant 63-year-old patient of Dr. Odell. 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 Patient is followed by , from [facility] for a kidney transplant. Patient on Saturday was at the local cardiology office , Dr. Savage when she went for a stress test. During the testing she went into atrial fibrillation and was given per Lopressor and started on eliquis and subsequently was sent home. Last night she felt her heart racing felt uncomfortable with the chest bit dizzy lightheaded and decided to come comment. Was found to be in atrial fib flutter fibrillation with a rapid ventricular rate. She was commenced on IV Cardizem drip. Sometimes this morning she reported to sinus rhythm. Cartilage was consulted. She has not had a 2-D echocardiogram. No prior history of any arrhythmias. Review of systems: GEN.: Tired EYES: None HEENT: None NECK: None RESPIRATORY: None CARDIOVASCULAR: Has above GASTROINTESTINAL: None GENITOURINARY: None MUSCULOSKELETAL: Some joint pain LYMPHATICS: None HEMATOLOGICAL: None PSYCHIATRY: None NEUROLOGICAL: None Social history: No smoking. Alcohol occasionally. Lives with her . Sometimes uses a cane. Because of knee pain. Physical examination: VITAL SIGNS: 98.1, 128, 20, 138/72, 95% room air GENERAL: Average built, sitting up, tired. EYES: Pupils equal. Conjunctiva normal. HEENT: External appearance of nose and ears normal, oral cavity grossly normal. NECK: JVD not raised; masses not palpable. HEART: First and second heart sounds are normal; no edema. LUNGS: Respiratory rate normal; clear to auscultation. ABDOMEN: Soft, nontender, liver spleen not palpable, no masses palpable. PSYCH: Alert and oriented x3; mood and affect normal. NEUROLOGICAL: Cranial nerves grossly intact; no facial asymmetry, power and sensation grossly intact. LYMPHATICS: No lymph nodes palpable in the axilla and neck INVESTIGATIONS, reviewed in the clinical context: White count 9.5 hemoglobin 15 platelets 150 potassium 3.9 crit 0.49 Glucose 347 troponin I is less than 0.012 TSH 2.8 EKG tracing personally reviewed by me-atrial flutter with a variable heart rate, increased Chest x-ray film personally reviewed by me-no obvious infiltrates Assessment: -Acute onset of atrial fibrillation with rapid ventricular rate, paroxysmal started on IV Cardizem drip reverted to sinus rhythm this morning -Renal transplant 2008 -Hypothyroid -Obstructive sleep apnea -Hyperglycemia, patient is not known to be diabetic. It may be noted that she is a prednisone at home. I believe this could be steroid-induced hyperglycemia/diabetes. Plan: Patient was on a Cardizem drip. Did get into sinus rhythm this morning. Home medications resumed. Cardiology was consulted. We'll get a 2-D echocardiogram. Patient TSH is normal. We'll put the patient on a carb consistent diet. Also start the patient on metformin 500 mg twice a day. Care was discussed with the patient. Questions were answered. Lovenox for DVT prophylaxis. Past Medical History Past Medical History: Atrial Fibrillation, Asthma, Blood Disorder, Coronary Artery Disease (CAD), Cancer, Heart Failure, Myocardial Infarction ([place]), Pneumonia, Renal Disease, Sleep Apnea/CPAP/BIPAP, Thyroid Disorder Additional Past Medical History / Comment(s): Recently having R posterior knee sharp pains, Nonhodgkins lymphoma treated with chemo in , allogenic stem cell transplant in 2003 and 2 more rounds chemo, rectal cancer/vulvar cancer with surgery and has colostomy, renal failure with kidney transplant in 2008, 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, Factor V, osteoporosis, fungal pneumonia, hypothyroid, dry eyes, LIDIA and uses a mouth guard, Last Myocardial Infarction Date:: 04/20/13 History of Any Multi-Drug Resistant Organisms: C-DIFF, MRSA Date of last positivie culture/infection: 2003 for both c-diff and MRSA MDRO Source:: stool, unk Past Surgical History: Cholecystectomy Additional Past Surgical History / Comment(s): bone marrow transplant 2003, kidney transplant 2008, rectal cancer with surgery, vulvar cancer with surgery, 2013 incomplete PCI, colonoscopies, colostomy 2016 Past Anesthesia/Blood Transfusion Reactions: No Reported Reaction Past Psychological History: No Psychological Hx Reported Additional Psychological History / Comment(s): Pt resides with her spouse. She has been using a cane lately d/t R posterior knee pain. She drives. Smoking Status: Never smoker Past Alcohol Use History: Occasional Past Drug Use History: None Reported - Past Family History Mother Family Medical History: Cancer Additional Family Medical History / Comment(s): Mother had breast cancer twice. She lived to be 95yrs old. Father Family Medical History: Congestive Heart Failure (CHF) Additional Family Medical History / Comment(s): Father lived to be 90yrs old. Medications and Allergies Home Medications Medication Instructions Recorded Confirmed Type Aspirin 81 mg PO DAILY 08/21/14 05/02/19 History Calcium Carbonate/Vitamin D3 1 tab PO BID 08/21/14 05/02/19 History [Calcium 600-Vit D3 400 Tablet] Folic Acid 1 mg PO DAILY 08/21/14 05/02/19 History Levothyroxine Sodium [Synthroid] 100 mcg PO DAILY 08/21/14 05/02/19 History Magnesium Oxide [Mag-Ox] 500 mg PO BID 08/21/14 05/02/19 History Metoprolol Tartrate 25 mg PO BID 08/21/14 05/02/19 History Nitroglycerin Sl Tabs [Nitrostat] 0.4 mg SUBLINGUAL Q5M PRN 08/21/14 05/02/19 History Tacrolimus [Prograf] 1 mg PO BID 08/21/14 05/02/19 History cycloSPORINE [Restasis] 1 drop BOTH EYES BID 08/21/14 05/02/19 History Folic Acid/Multivit-Min/Lutein 3 tab PO DAILY 08/22/14 05/02/19 History [Therapeutic-M Tablet] Multivitamins, Thera [Multivitamin 1 tab PO DAILY 08/22/14 05/02/19 History (formulary)] Vitamin B Complex 1 tab PO DAILY 08/22/14 05/02/19 History Alendronate Sodium [Fosamax] 70 mg PO FR 10/20/18 05/02/19 History Budesonide/Formoterol Fumarate 2 puff INHALATION RT-BID 10/20/18 05/02/19 History [Symbicort 80-4.5 Mcg Inhaler] Cholecalciferol [Vitamin D3 (25 1,000 unit PO DAILY 10/20/18 05/02/19 History Mcg = 1000 Iu)] Omeprazole 20 mg PO DAILY 10/20/18 05/02/19 History Turmeric Root Extract [Turmeric] 500 mg PO DAILY 10/20/18 05/02/19 History predniSONE 5 mg PO DAILY 10/20/18 05/02/19 History Acyclovir [Zovirax] 400 mg PO BID 05/02/19 05/02/19 History Apixaban [Eliquis] 5 mg PO BID 05/02/19 05/02/19 History Atorvastatin [Lipitor] 10 mg PO DAILY 05/02/19 05/02/19 History L.acidoph,Paracasei, B.lactis 1 cap PO DAILY 05/02/19 05/02/19 History [Probiotic] [place]-3 Fatty Acids/Fish Oil 3 cap PO QAM 05/02/19 05/02/19 History [[place]-3 Fish Oil 1,200 mg Sfgl] Potassium 99 mg PO DAILY 05/02/19 05/02/19 History Allergies Allergy/AdvReac Type Severity Reaction Status Date / Time shellfish derived Allergy Rash/Hives Verified 05/02/19 08:34 Sulfa (Sulfonamide Allergy Rash/Hives Verified 05/02/19 08:34 Antibiotics) codeine AdvReac Rapid Verified 05/02/19 08:34 Heart Rate hydromorphone HCl AdvReac Rapid Verified 05/02/19 08:34 [From Dilaudid] Heart Rate propoxyphene AdvReac Rapid Verified 05/02/19 08:34 Heart Rate Physical Exam Vitals: Vital Signs Temp Pulse Pulse Resp BP BP Pulse Ox 05/02/19 11:59 97 F L 64 20 115/62 97 05/02/19 08:00 97.4 F L 68 20 138/84 96 05/02/19 03:00 97.9 F 66 18 116/67 96 05/02/19 02:08 55 L 14 115/70 98 05/02/19 01:53 56 L 05/02/19 01:49 89 18 121/97 97 05/02/19 01:23 97.9 F 128 H 17 111/88 96 05/02/19 00:49 98.1 F 128 H 20 138/72 95 Intake and Output 05/01/19 05/02/19 05/02/19 22:59 06:59 14:59 Intake Total 6.417 Balance 6.417 Intake: Intake, IV Titration 6.417 Amount Diltiazem 125 mg In 6.417 Sodium Chloride 0.9% 100 ml @ 5 MG/HR 5 mls/hr IV .Q24H [facility] Rx#:[id number] Other: # Voids 1 Weight 69.3 kg 69.3 kg Results CBC & Chem 7: 05/02/19 00:51 05/02/19 05:27 Labs: Abnormal Lab Results - Last 24 Hours (Table) 05/02/19 05/02/19 05/02/19 Range/Units 00:51 00:51 00:51 MCV 102.9 H (80.0-100.0) fL Basophils # 0.3 H (0-0.2) k/uL PT 12.3 H (9.0-12.0) sec INR 1.2 H (<1.2) Chloride 109 H (98-107) mmol/L Carbon Dioxide 20 L (22-30) mmol/L Creatinine 0.49 L (0.52-1.04) mg/dL Glucose 347 H (74-99) mg/dL POC Glucose (mg/dL) (75-99) mg/dL Hemoglobin A1c (4.0-6.0) % Calcium (8.4-10.2) mg/dL Magnesium 1.3 L (1.6-2.3) mg/dL Total Protein (6.3-8.2) g/dL Albumin (3.5-5.0) g/dL Urine Glucose (UA) (Negative) Ur Leukocyte Esterase (Negative) Urine Bacteria (None) /hpf 05/02/19 05/02/19 05/02/19 Range/Units 01:26 03:43 05:27 MCV (80.0-100.0) fL Basophils # (0-0.2) k/uL PT (9.0-12.0) sec INR (<1.2) Chloride 110 H (98-107) mmol/L Carbon Dioxide (22-30) mmol/L Creatinine 0.50 L (0.52-1.04) mg/dL Glucose 240 H (74-99) mg/dL POC Glucose (mg/dL) 274 H (75-99) mg/dL Hemoglobin A1c (4.0-6.0) % Calcium 7.9 L (8.4-10.2) mg/dL Magnesium (1.6-2.3) mg/dL Total Protein 5.6 L (6.3-8.2) g/dL Albumin 3.2 L (3.5-5.0) g/dL Urine Glucose (UA) 4+ H (Negative) Ur Leukocyte Esterase Moderate H (Negative) Urine Bacteria Rare H (None) /hpf 05/02/19 05/02/19 05/02/19 Range/Units 05:31 06:02 11:21 MCV (80.0-100.0) fL Basophils # (0-0.2) k/uL PT (9.0-12.0) sec INR (<1.2) Chloride (98-107) mmol/L Carbon Dioxide (22-30) mmol/L Creatinine (0.52-1.04) mg/dL Glucose (74-99) mg/dL POC Glucose (mg/dL) 188 H 121 H (75-99) mg/dL Hemoglobin A1c 9.4 H (4.0-6.0) % Calcium (8.4-10.2) mg/dL Magnesium (1.6-2.3) mg/dL Total Protein (6.3-8.2) g/dL Albumin (3.5-5.0) g/dL Urine Glucose (UA) (Negative) Ur Leukocyte Esterase (Negative) Urine Bacteria (None) /hpf Thrombosis Risk Factor Assmnt - Choose All That Apply Each Risk Factor Represents 2 Points: Age 61-74 years Thrombosis Risk Factor Assessment Total Risk Factor Score: 2 Thrombosis Risk Factor Assessment Level: Low Risk
[2019-05-02] MEDS ORDERED: ENOXAPARIN 40 MG/0.4 ML SYRINGE SQ SCH (14:45)
[2019-05-02] MEDS ORDERED: AMIODARONE 200 MG TAB PO SCH (14:45)
[2019-05-02] MEDS ORDERED: metFORMIN 500 MG TAB PO SCH (17:30)
--- NOTE | 2019-05-02 17:53 | P.CRDCN ---
History of Present Illness Consult date: 05/02/19 Reason for Consult (text): palpitations/new-onset atrial fibrillation Chief complaint: palpitations/new-onset atrial fibrillation History of present illness: HISTORY OF PRESENT ILLNESS AND PLAN: This is a 63-year-old Female with history of LIDIA with CPAP use, hypothyroid, factor V deficiency, asthma, osteoporosis, CAD status post VA, recent new onset atrial fibrillation, renal failure s/p chemotherapy for rectal cancer s/p colostomy, vulvar cancer, non-Hodgkin's lymphoma s/p chemotherapy in , bone marrow transplant and Renal Failure s/p renal transplant secondary to chemotherapy. Patient with extensive history presents in the emergency department with complaints of increasing palpitations and chest pain when going to bed at night. Pt recently seen in the office with Dr. Gibbons for stress testing on Saturday04/29/19 and converted to atrial fibrillation with rapid ventricular rate during testing. Patient was sent home on Eliquis 5 mg twice daily, metoprolol tartrate 25 mg twice daily. Patient then presented to ER with continued complaints of palpitations/chest pain. Patient was given IV Cardizem bolus and converted to sinus rhythm. Patient currently continues SR, heart rate 67. Patient currently relaxing in bed with no acute distress. Patient has no current complaints of chest pain, chest pressure, shortness of breath or palpitations. Patient states she continues to take all prescribed medications at home. Patient follows with Dr. Bran and Dr. Saleh. Patient magnesium also low at 1.3 on presentation and glucose 347. Patient states she takes Prednison 5 mg daily for renal transplant protraction. And states she has always been a borderline diabetic. No smoking. Patient also states she is supposed to have an echocardiogram in office on Saturday and was doing stress testing this past week as well. SIGNIFICANT PAST MEDICAL HISTORY: LIDIA with CPAP use, hypothyroid, factor V deficiency, asthma, osteoporosis, CAD status post VA, recent new onset atrial fibrillation, renal failure status post chemotherapy for rectal cancer s/p colostomy, vulvar cancer, non-Hodgkin's lymphoma with chemotherapy in , bone marrow transplant and Renal Failure with renal transplant secondary to chemotherapy. PAST SURGICAL HISTORY: See list. EKG = SR, HR 67 Troponins negative x 1. SIGNIFICANT LABORATORY VALUES: Magnesium 1.3. K 3.9. HGB A1C 9.4. CA 7.9L. Albumin 3.2, protein 5.6. Chest x-ray = WNL, negative for acute changes. REVIEW OF SYSTEMS: CONSTITUTIONAL: Denies fever. Denies chills. EYES: Denies blurred vision. Denies blurred vision or vision changes. Denies eye pain. EARS, NOSE, MOUTH & THROAT: Denies headache. Denies sore throat. Denies ear pain Denies hemoptysis. CARDIOVASCULAR: Denies chest pain/pressure, now resolved. Denies shortness of breath. Denies orthopnea. Denies PND. C/O palpitations, now resolved. RESPIRATORY: Denies cough. Denies shortness of breath. GASTROINTESTINAL: Denies abdominal pain or distention. Denies diarrhea. Denies constipation. Denies nausea. Denies vomiting. MUSCULOSKELETAL: Denies myalgias. INTEGUMENTARY: Denies pruitis. Denies rash. ENDOCRINE: Denies fatigue. Denies weight change. Denies polydipsia. Denies polyurina Denies heat/cold intolerance. GENITOURINARY:Denies burning, hematuria or urgency with micturation. HEMATOLOGIC: Denies history of anemia. Denies bleeding. NEUROLOGIC: Denies numbness. Denies tingling. Denies weakness. PSYCHIATRIC: Denies anxiety. Denies depression. PHYSICAL EXAM: GENERAL: Well developed, in no acute distress. HEENT: Head is atraumatic, normocephalic. Pupils are equal, round. Extra ocular movements intact. Mucous membranes moist. Neck supple. No JVD. No carotid bruit. No thyromegaly. LUNGS: Clear to auscultation no wheezes, rales or rhonchi. No chest wall tenderness on palpation or with deep breathing. HEART: Regular rate and rhythm, no rubs or gallops. S1 and S2 heard. No murmur. ABDOMEN: Abdominal exam, WNL. Bowel sounds x4 quads. Soft, non-tender, without masses, organomegaly, or abdominal aorta enlargement. EXTREMITIES/VASCULAR: Extremities have easily palpable radial, femoral, dorsalis pedis and posterior tibial pulses. No cyanosis, calf tenderness. No BLE edema. NEUROLOGIC: Patient is awake, alert and oriented x3. No focal neurologic abnormalities. FINAL IMPRESSION: 1. New onset paroxysmal atrial fibrillation, now resolved. 2. Hypo-magnesium. 3. Chest pain/pressure, now resolved. 4. CKD3 status post renal transplant secondary to chemotherapy of non-Hodgkin's lymphoma. 5. Diabetes mellitus, new onset. PLAN: Continue Eliquis 5 mg twice daily. START Amiodarone 200 mg twice daily. Continue metoprolol tartrate 25 mg twice daily. STOP Lovenox subcutaneous injection. STOP 81 mg ASA. Continue same all other medical/medication regime. Patient cleared for discharge from a cardiology standpoint with follow-up visit at office on Saturday for echocardiography and follow-up visit. Nurse Practitioner note has been reviewed by the Physician. Signing provider agrees with the documented findings, assessment and plan of care. Past Medical History Past Medical History: Atrial Fibrillation, Asthma, Blood Disorder, Coronary Artery Disease (CAD), Cancer, Heart Failure, Myocardial Infarction ([place]), Pneumonia, Renal Disease, Sleep Apnea/CPAP/BIPAP, Thyroid Disorder Additional Past Medical History / Comment(s): Recently having R posterior knee sharp pains, Nonhodgkins lymphoma treated with chemo in 2000/2002, allogenic stem cell transplant in 2003 and 2 more rounds chemo, rectal cancer/vulvar cancer with surgery and has colostomy, renal failure with kidney transplant in 2008, 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, Factor V, osteoporosis, fungal pneumonia, hypothyroid, dry eyes, LIDIA and uses a mouth guard, Last Myocardial Infarction Date:: 04/20/13 History of Any Multi-Drug Resistant Organisms: C-DIFF, MRSA Date of last positivie culture/infection: 2003 for both c-diff and MRSA MDRO Source:: stool, unk Past Surgical History: Cholecystectomy Additional Past Surgical History / Comment(s): bone marrow transplant 2003, kid lópez transplant 2008, rectal cancer with surgery, vulvar cancer with surgery, 2013 incomplete PCI, colonoscopies, colostomy 2016 Past Anesthesia/Blood Transfusion Reactions: No Reported Reaction Past Psychological History: No Psychological Hx Reported Additional Psychological History / Comment(s): Pt resides with her spouse. She has been using a cane lately d/t R posterior knee pain. She drives. Smoking Status: Never smoker Past Alcohol Use History: Occasional Past Drug Use History: None Reported - Past Family History Mother Family Medical History: Cancer Additional Family Medical History / Comment(s): Mother had breast cancer twice. She lived to be 95yrs old. Father Family Medical History: Congestive Heart Failure (CHF) Additional Family Medical History / Comment(s): Father lived to be 90yrs old. Medications and Allergies Home Medications Medication Instructions Recorded Confirmed Type Aspirin 81 mg PO DAILY 08/21/14 05/02/19 History Calcium Carbonate/Vitamin D3 1 tab PO BID 08/21/14 05/02/19 History [Calcium 600-Vit D3 400 Tablet] Folic Acid 1 mg PO DAILY 08/21/14 05/02/19 History Levothyroxine Sodium [Synthroid] 100 mcg PO DAILY 08/21/14 05/02/19 History Magnesium Oxide [Mag-Ox] 500 mg PO BID 08/21/14 05/02/19 History Metoprolol Tartrate 25 mg PO BID 08/21/14 05/02/19 History Nitroglycerin Sl Tabs [Nitrostat] 0.4 mg SUBLINGUAL Q5M PRN 08/21/14 05/02/19 History Tacrolimus [Prograf] 1 mg PO BID 08/21/14 05/02/19 History cycloSPORINE [Restasis] 1 drop BOTH EYES BID 08/21/14 05/02/19 History Folic Acid/Multivit-Min/Lutein 3 tab PO DAILY 08/22/14 05/02/19 History [Therapeutic-M Tablet] Multivitamins, Thera [Multivitamin 1 tab PO DAILY 08/22/14 05/02/19 History (formulary)] Vitamin B Complex 1 tab PO DAILY 08/22/14 05/02/19 History Alendronate Sodium [Fosamax] 70 mg PO FR 10/20/18 05/02/19 History Budesonide/Formoterol Fumarate 2 puff INHALATION RT-BID 10/20/18 05/02/19 History [Symbicort 80-4.5 Mcg Inhaler] Cholecalciferol [Vitamin D3 (25 1,000 unit PO DAILY 10/20/18 05/02/19 History Mcg = 1000 Iu)] Omeprazole 20 mg PO DAILY 10/20/18 05/02/19 History Turmeric Root Extract [Turmeric] 500 mg PO DAILY 10/20/18 05/02/19 History predniSONE 5 mg PO DAILY 10/20/18 05/02/19 History Acyclovir [Zovirax] 400 mg PO BID 05/02/19 05/02/19 History Amiodarone [Cordarone] 200 mg PO BID #30 tab 05/02/19 Rx Apixaban [Eliquis] 5 mg PO BID 05/02/19 05/02/19 History Atorvastatin [Lipitor] 10 mg PO DAILY 05/02/19 05/02/19 History L.acidoph,Paracasei, B.lactis 1 cap PO DAILY 05/02/19 05/02/19 History [Probiotic] [place]-3 Fatty Acids/Fish Oil 3 cap PO QAM 05/02/19 05/02/19 History [[place]-3 Fish Oil 1,200 mg Sfgl] Potassium 99 mg PO DAILY 05/02/19 05/02/19 History metFORMIN HCL [Glucophage] 500 mg PO AC-BID #60 tab 05/02/19 Rx Allergies Allergy/AdvReac Type Severity Reaction Status Date / Time shellfish derived Allergy Rash/Hives Verified 05/02/19 08:34 Sulfa (Sulfonamide Allergy Rash/Hives Verified 05/02/19 08:34 Antibiotics) codeine AdvReac Rapid Verified 05/02/19 08:34 Heart Rate hydromorphone HCl AdvReac Rapid Verified 05/02/19 08:34 [From Dilaudid] Heart Rate propoxyphene AdvReac Rapid Verified 05/02/19 08:34 Heart Rate Physical Exam Vitals: Vital Signs Temp Pulse Pulse Resp BP BP Pulse Ox 05/02/19 11:59 97 F L 64 20 115/62 97 05/02/19 08:00 97.4 F L 68 20 138/84 96 05/02/19 03:00 97.9 F 66 18 116/67 96 05/02/19 02:08 55 L 14 115/70 98 05/02/19 01:53 56 L 05/02/19 01:49 89 18 121/97 97 05/02/19 01:23 97.9 F 128 H 17 111/88 96 05/02/19 00:49 98.1 F 128 H 20 138/72 95 Intake and Output 05/02/19 05/02/19 05/02/19 06:59 14:59 22:59 Intake Total 6.417 360 Output Total 1 Balance 6.417 359 Intake: Intake, IV Titration 6.417 Amount Diltiazem 125 mg In 6.417 Sodium Chloride 0.9% 100 ml @ 5 MG/HR 5 mls/hr IV .Q24H [facility] Rx#:[id number] Oral 360 Output: Urine 1 Other: # Voids 1 Weight 69.3 kg 69.3 kg Results 05/02/19 00:51 05/02/19 05:27 Cardiac Enzymes 05/02/19 05/02/19 05/02/19 Range/Units 00:51 00:51 05:27 AST 34 27 (14-36) U/L Troponin I <0.012 (0.000-0.034) ng/mL Coagulation 05/02/19 Range/Units 00:51 PT 12.3 H (9.0-12.0) sec APTT 26.0 (22.0-30.0) sec CBC 05/02/19 Range/Units 00:51 WBC 9.5 (3.8-10.6) k/uL RBC 4.34 (3.80-5.40) m/uL Hgb 15.0 (11.4-16.0) gm/dL Hct 44.7 (34.0-46.0) % Plt Count 150 (150-450) k/uL Comprehensive Metabolic Panel 05/02/19 05/02/19 Range/Units 00:51 05:27 Sodium 140 140 (137-145) mmol/L Potassium 3.9 3.6 (3.5-5.1) mmol/L Chloride 109 H 110 H (98-107) mmol/L Carbon Dioxide 20 L 22 (22-30) mmol/L BUN 9 8 (7-17) mg/dL Creatinine 0.49 L 0.50 L (0.52-1.04) mg/dL Glucose 347 H 240 H (74-99) mg/dL Calcium 8.8 7.9 L (8.4-10.2) mg/dL AST 34 27 (14-36) U/L ALT 47 40 (9-52) U/L Alkaline Phosphatase 63 61 (38-126) U/L Total Protein 6.7 5.6 L (6.3-8.2) g/dL Albumin 4.0 3.2 L (3.5-5.0) g/dL Intake and Output 05/02/19 05/02/19 05/02/19 06:59 14:59 22:59 Intake Total 6.417 360 Output Total 1 Balance 6.417 359 Intake: Intake, IV Titration 6.417 Amount Diltiazem 125 mg In 6.417 Sodium Chloride 0.9% 100 ml @ 5 MG/HR 5 mls/hr IV .Q24H [facility] Rx#:[id number] Oral 360 Output: Urine 1 Other: # Voids 1 Weight 69.3 kg 69.3 kg Patient Weight 05/03/19 05:59 Weight 69.3 kg 05/02/19 00:51 05/02/19 05:27 - EKG Interpretation EKG: sinus rhythm
[2019-05-02] MEDS ORDERED: SYMBICORT 80-4.5 MCG INHALER INHALATION SCH (20:00)
[2019-05-02] MEDS ORDERED: APIXABAN 5 MG TAB PO SCH (21:00)
--- NOTE | 2019-05-03 17:36 | P.DS ---
Providers Date of admission: 05/02/19 02:30 Expected date of discharge: 05/03/19 Attending physician: Dave Johansen Consults: 05/02/19 10:35 Consult Physician Routine Consulting Provider: Michael Euceda Consult Reason/Comments: renal transplant Do you want consulting provider notified?: Yes 05/02/19 11:48 Consult Physician Routine Consulting Provider: Addis Dos Santos Consult Reason/Comments: afib Do you want consulting provider notified?: Yes Primary care physician: [facility] Er Course: Chief Complaint: Heart racing History of presenting complaint: This is a pleasant 63-year-old patient of Dr. Odell. Patient has a rather extensive medical history to include renal transplant in 2008, hypothyroid, obstructive sleep apnea, non-Hodgkin's lymphoma given chemotherapy back in 2000 in 2002, allogenic stem cell transplant, rectal and vulvar cancer, [id number] disease, factor V mutation. Patient is followed by alfred Pal[facility] for a kidney transplant. Patient on Saturday was at the local cardiology office , Dr. Savage when she went for a stress test. During the testing she went into atrial fibrillation and was given per Lopressor and started on eliquis and subsequently was sent home. Last night she felt her heart racing felt uncomfortable with the chest bit dizzy lightheaded and decided to come comment. Was found to be in atrial fib flutter fibrillation with a rapid ventricular rate. She was commenced on IV Cardizem drip. In the morning she converted to sinus rhythm. Seen by cardiology. Okay to be discharged home. This started the patient on amiodarone. Metoprolol 25 mg twice a day is to continue. Consultation: Dr. AREN Dos Santos from cardiology Physical examination: VITAL SIGNS: 97, 64, 20, 11 5/62, 97% room air GENERAL: Sitting up in the bed, tired EYES: Pupils equal. Conjunctiva normal. HEENT: External appearance of nose and ears normal, oral cavity grossly normal. NECK: JVD not raised; masses not palpable. HEART: First and second heart sounds are normal; no edema. LUNGS: Respiratory rate normal; clear to auscultation. ABDOMEN: Soft, nontender, liver spleen not palpable, no masses palpable. PSYCH: Alert and oriented x3; mood and affect normal. 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 Patient to follow-up with Dr. Garcia. Also to follow Dr. Savage. Started on a carbohydrate consistent diet. Accu-Cheks to be followed. Metformin was added. Patient Condition at Discharge: Stable Plan - Discharge Summary Discharge Rx Participant: No New Discharge Prescriptions: New Amiodarone [Cordarone] 200 mg PO BID #30 tab metFORMIN HCL [Glucophage] 500 mg PO AC-BID #60 tab Continue Metoprolol Tartrate 25 mg PO BID Levothyroxine Sodium [Synthroid] 100 mcg PO DAILY Calcium Carbonate/Vitamin D3 [Calcium 600-Vit D3 400 Tablet] 1 tab PO BID cycloSPORINE [Restasis] 1 drop BOTH EYES BID Tacrolimus [Prograf] 1 mg PO BID Nitroglycerin Sl Tabs [Nitrostat] 0.4 mg SUBLINGUAL Q5M PRN PRN Reason: Chest Pain Magnesium Oxide [Mag-Ox] 500 mg PO BID Folic Acid 1 mg PO DAILY Aspirin 81 mg PO DAILY Folic Acid/Multivit-Min/Lutein [Therapeutic-M Tablet] 3 tab PO DAILY Vitamin B Complex 1 tab PO DAILY Multivitamins, Thera [Multivitamin (formulary)] 1 tab PO DAILY Alendronate Sodium [Fosamax] 70 mg PO FR Omeprazole 20 mg PO DAILY Budesonide/Formoterol Fumarate [Symbicort 80-4.5 Mcg Inhaler] 2 puff INHALATION RT-BID predniSONE 5 mg PO DAILY Turmeric Root Extract [Turmeric] 500 mg PO DAILY Cholecalciferol [Vitamin D3 (25 Mcg = 1000 Iu)] 1,000 unit PO DAILY [place]-3 Fatty Acids/Fish Oil [[place]-3 Fish Oil 1,200 mg Sfgl] 3 cap PO QAM L.acidoph,Paracasei, B.lactis [Probiotic] 1 cap PO DAILY Acyclovir [Zovirax] 400 mg PO BID Potassium 99 mg PO DAILY Atorvastatin [Lipitor] 10 mg PO DAILY Apixaban [Eliquis] 5 mg PO BID Discharge Medication List Aspirin 81 mg PO DAILY 08/21/14 [History] Calcium Carbonate/Vitamin D3 [Calcium 600-Vit D3 400 Tablet] 1 tab PO BID 08/21/14 [History] Folic Acid 1 mg PO DAILY 08/21/14 [History] Levothyroxine Sodium [Synthroid] 100 mcg PO DAILY 08/21/14 [History] Magnesium Oxide [Mag-Ox] 500 mg PO BID 08/21/14 [History] Metoprolol Tartrate 25 mg PO BID 08/21/14 [History] Nitroglycerin Sl Tabs [Nitrostat] 0.4 mg SUBLINGUAL Q5M PRN 08/21/14 [History] Tacrolimus [Prograf] 1 mg PO BID 08/21/14 [History] cycloSPORINE [Restasis] 1 drop BOTH EYES BID 08/21/14 [History] Folic Acid/Multivit-Min/Lutein [Therapeutic-M Tablet] 3 tab PO DAILY 08/22/14 [History] Multivitamins, Thera [Multivitamin (formulary)] 1 tab PO DAILY 08/22/14 [History] Vitamin B Complex 1 tab PO DAILY 08/22/14 [History] Alendronate Sodium [Fosamax] 70 mg PO FR 10/20/18 [History] Budesonide/Formoterol Fumarate [Symbicort 80-4.5 Mcg Inhaler] 2 puff INHALATION RT-BID 10/20/18 [History] Cholecalciferol [Vitamin D3 (25 Mcg = 1000 Iu)] 1,000 unit PO DAILY 10/20/18 [History] Omeprazole 20 mg PO DAILY 10/20/18 [History] Turmeric Root Extract [Turmeric] 500 mg PO DAILY 10/20/18 [History] predniSONE 5 mg PO DAILY 10/20/18 [History] Acyclovir [Zovirax] 400 mg PO BID 05/02/19 [History] Amiodarone [Cordarone] 200 mg PO BID #30 tab 05/02/19 [Rx] Apixaban [Eliquis] 5 mg PO BID 05/02/19 [History] Atorvastatin [Lipitor] 10 mg PO DAILY 05/02/19 [History] L.acidoph,Paracasei, B.lactis [Probiotic] 1 cap PO DAILY 05/02/19 [History] [place]-3 Fatty Acids/Fish Oil [[place]-3 Fish Oil 1,200 mg Sfgl] 3 cap PO QAM 05/02/19 [History] Potassium 99 mg PO DAILY 05/02/19 [History] metFORMIN HCL [Glucophage] 500 mg PO AC-BID #60 tab 05/02/19 [Rx] Follow up Appointment(s)/Referral(s): Gio Vidales MD [Primary Care Provider] - 1-2 days (call office when open to make appointment) Alexandria Savage MD [STAFF PHYSICIAN] - 1 Week (call office when open to schedule follow up appointment) Patient Instructions/Handouts: Meal Planning with Diabetes Exchanges (DC) Activity/Diet/Wound Care/Special Instructions: Accu-Cheks daily Keep a log Discharge Disposition: HOME SELF-CARE
== END 2019-05-02 16:56 | disposition home or self-care (01) | DRG 309 ==
LOC: EC 00:43 → 3SCARD 02:30
PROVIDERS: ADMIT Hospitalist; ATTEND Hospitalist
DX: I48.0 Paroxysmal atrial fibrillation (principal); D68.2 Hereditary deficiency of other clotting factors; Z94.0 Kidney transplant status; Z94.81 Bone marrow transplant status; Z94.84 Stem cells transplant status; E03.9 Hypothyroidism, unspecified; E09.65 Drug or chemical induced diabetes mellitus with hyperglycemia; E83.42 Hypomagnesemia; G47.33 Obstructive sleep apnea (adult) (pediatric); I25.10 Atherosclerotic heart disease of native coronary artery without angina pectoris; I25.2 Old myocardial infarction; I48.92 Unspecified atrial flutter; I50.9 Heart failure, unspecified; J45.909 Unspecified asthma, uncomplicated; M81.0 Age-related osteoporosis without current pathological fracture; N18.3 Chronic kidney disease, stage 3 (moderate); T38.0X5A Adverse effect of glucocorticoids and synthetic analogues, initial encounter; Z79.01 Long term (current) use of anticoagulants; Z79.51 Long term (current) use of inhaled steroids; Z79.82 Long term (current) use of aspirin; Z79.83 Long term (current) use of bisphosphonates; Z79.84 Long term (current) use of oral hypoglycemic drugs; Z79.890 Hormone replacement therapy; Z79.899 Other long term (current) drug therapy; Z80.3 Family history of malignant neoplasm of breast; Z82.49 Family history of ischemic heart disease and other diseases of the circulatory system; Z85.048 Personal history of other malignant neoplasm of rectum, rectosigmoid junction, and anus; Z85.44 Personal history of malignant neoplasm of other female genital organs; Z87.891 Personal history of nicotine dependence; Z92.21 Personal history of antineoplastic chemotherapy; Z93.3 Colostomy status; Z88.2 Allergy status to sulfonamides; Z88.5 Allergy status to narcotic agent; Z91.013 Allergy to seafood
CPT/HCPCS: 36415; 71046; 80053; 81001; 83036; 83735; 84443; 84484; 85025; 85610; 85730; 93005; 96365; 96375; 99285

== ENCOUNTER 2019-05-15 08:57 | Emergency (ER) | payer MEDICARE ==
[2019-05-15 09:03] VITALS: TEMP 97.5
--- NOTE | 2019-05-15 09:24 | ED ---
General Adult HPI - General Chief complaint: Shortness of Breath Stated complaint: SOB/abdominal pain Time Seen by Provider: 05/15/19 09:04 Source: patient Mode of arrival: ambulatory Limitations: no limitations - History of Present Illness Initial comments: Dictation was produced using Vee[employer] dictation software. please excuse any gram matical, word or spelling errors. Chief Complaint: 63-year-old female with history of bone marrow and kidney transplant, atrial fibrillation, new-onset diabetes presents with abdominal sammy n, shortness of breath and hypertension. History of Present Illness: 3-year-old female today she's been experiencing shortness of breath abdominal pain and hypertension. Patient has multiple comorbidities. She is on tacrolimus for multiorgan transplant. Her college service officer manages her transplant is Dr. Cespedes from [facility]. Patient states her symptoms been ongoing today. her main reason why she is here to have her tacrolimus levels checked. Patient states she is having mild epiga stric abdominal pain. She states that it is mildly improved with by mouth intake. Patient has any history of peptic ulcer disease. Pain is dull without any radiation. Patient also checked her blood pressure today is found to be high systolics in the 160s. Patient has a history of atrial fibrillation and diabetes that were newly diagnosed. She is on anticoagulation, amiodarone. She'll sore recently started metformin. Patient is on tacrolimus and steroids daily. The ROS documented in this emergency department record has been reviewed and confirmed by me. Those systems with pertinent positive or negative responses have been documented in the HPI. All other systems are other negative and/or noncontributory. PHYSICAL EXAM: General Impression: Alert and oriented x3, not in acute distress HEENT: Normocephalic atraumatic, extra-ocular movements intact, pupils equal and reactive to light bilaterally, mucous membranes moist. Cardiovascular: Heart regular rate and rhythm, S1&S2 audible, no murmurs, rubs or gallops Chest: Lungs clear to auscultation bilaterally, no rhonchi, no wheeze, no rales Abdomen: Bowel sounds present, abdomen soft, mild sinus palpation of the epigastric area, negative White sign, non-distended, no organomegaly Musculoskeletal: Pulses present and equal in all extremities, no peripheral edema Motor: no focal deficits noted Neurological: CN II-XII grossly intact, no focal motor or sensory deficits noted Skin: Intact with no visualized rashes Psych: Normal affect and mood ED course: 63-year-old female multiple comorbidities presents with chief compla int of hypertension, abdominal pain, shortness of breath and concerns of her tacrolimus levels. Upon arrival are within acceptable limits. Blood pressures measured at 163/80. Laboratory evaluation obtained. CBC, coag panel, metabolic panel is obtained. No acute processes noted except there was a low magnesium 1.2. Patient given IV magnesium. An IV hydration. Patient observed in emergency department for several hours. She is reevaluated after magnesium infusion. Patient states she feels well and is agreeable for discharge. Patient is given outpatient follow- up with her college service officer for new them and her oncologist/primary care physician. Patient clear for discharge. Return precautions was discussed. Patient understandable agreeable to disposition. All questions answered. EKG interpretation: Ventricular rate 56, sinus bradycardia,. Interval 144, care is 84, QTC 484. No CA prolongation, no QTC prolongation, no ST or T-wave changes noted. Overall, this EKG is unremarkable - Related Data Home Medications Medication Instructions Recorded Confirmed Aspirin 81 mg PO DAILY 08/21/14 05/15/19 Calcium Carbonate/Vitamin D3 1 tab PO BID 08/21/14 05/15/19 [Calcium 600-Vit D3 400 Tablet] Levothyroxine Sodium [Synthroid] 100 mcg PO DAILY 08/21/14 05/15/19 Magnesium Oxide [Mag-Ox] 500 mg PO BID 08/21/14 05/15/19 Metoprolol Tartrate 25 mg PO BID 08/21/14 05/15/19 Nitroglycerin Sl Tabs [Nitrostat] 0.4 mg SUBLINGUAL Q5M PRN 08/21/14 05/15/19 Tacrolimus [Prograf] 1 mg PO BID 08/21/14 05/15/19 cycloSPORINE [Restasis] 1 drop BOTH EYES BID 08/21/14 05/15/19 Folic Acid/Multivit-Min/Lutein 3 tab PO DAILY 08/22/14 05/15/19 [Therapeutic-M Tablet] Multivitamins, Thera [Multivitamin 1 tab PO DAILY 08/22/14 05/15/19 (formulary)] Vitamin B Complex 1 tab PO DAILY 08/22/14 05/15/19 Alendronate Sodium [Fosamax] 70 mg PO FR 10/20/18 05/15/19 Budesonide/Formoterol Fumarate 2 puff INHALATION RT-BID 10/20/18 05/15/19 [Symbicort 80-4.5 Mcg Inhaler] Cholecalciferol [Vitamin D3 (25 1,000 unit PO DAILY 10/20/18 05/15/19 Mcg = 1000 Iu)] Turmeric Root Extract [Turmeric] 500 mg PO DAILY 10/20/18 05/15/19 predniSONE 5 mg PO DAILY 10/20/18 05/15/19 Acyclovir [Zovirax] 400 mg PO BID 05/02/19 05/15/19 Apixaban [Eliquis] 5 mg PO BID 05/02/19 05/15/19 Atorvastatin [Lipitor] 10 mg PO DAILY 05/02/19 05/15/19 L.acidoph,Paracasei, B.lactis 1 cap PO DAILY 05/02/19 05/02/19 [Probiotic] [place]-3 Fatty Acids/Fish Oil 3 cap PO QAM 05/02/19 05/15/19 [[place]-3 Fish Oil 1,200 mg Sfgl] Albuterol Inhaler [Ventolin Hfa 1 puff INHALATION RT-Q6H PRN 05/15/19 05/15/19 Inhaler] Nystatin 100,000 Unit/ml Susp 5 ml PO DAILY PRN 05/15/19 05/15/19 [Mycostatin Oral Susp] Omeprazole 20 mg PO DAILY 05/15/19 05/15/19 Previous Rx's Medication Instructions Recorded Amiodarone [Cordarone] 200 mg PO BID #30 tab 05/02/19 metFORMIN HCL [Glucophage] 500 mg PO AC-BID #60 tab 05/02/19 Allergies Allergy/AdvReac Type Severity Reaction Status Date / Time acetaminophen Allergy Unknown Verified 05/15/19 10:10 [From Darvocet-N] iodine Allergy Unknown Verified 05/15/19 10:10 shellfish derived Allergy Rash/Hives Verified 05/15/19 10:10 Sulfa (Sulfonamide Allergy Rash/Hives Verified 05/15/19 10:10 Antibiotics) codeine AdvReac Rapid Verified 05/15/19 10:10 Heart Rate hydromorphone HCl AdvReac Rapid Verified 05/15/19 10:10 [From Dilaudid] Heart Rate propoxyphene AdvReac Rapid Verified 05/15/19 10:10 Heart Rate Review of Systems ROS Statement: Those systems with pertinent positive or pertinent negative responses have been documented in the HPI. ROS Other: All systems not noted in ROS Statement are negative. 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, Factor V, osteoporosis, fungal pneumonia, hypothyr oid, dry eyes, LIDIA and uses a mouth guard, Last Myocardial Infarction Date:: 04/20/13 History of Any Multi-Drug Resistant Organisms: C-DIFF, MRSA Date of last positivie culture/infection: 2003 for both c-diff and MRSA MDRO Source:: stool, unk Past Surgical History: Cholecystectomy Additional Past Surgical History / Comment(s): bone marrow transplant 2003, kidney transplant 2008, rectal cancer with surgery, vulvar cancer with surgery, 2013 incomplete PCI, colonoscopies, colostomy 2016 Past Anesthesia/Blood Transfusion Reactions: No Reported Reaction Past Psychological History: No Psychological Hx Reported Smoking Status: Never smoker Past Alcohol Use History: Occasional Past Drug Use History: None Reported - Past Family History Mother Family Medical History: Cancer Additional Family Medical History / Comment(s): Mother had breast cancer twice. She lived to be 95yrs old. Father Family Medical History: Congestive Heart Failure (CHF) Additional Family Medical History / Comment(s): Father lived to be 90yrs old. General Exam Limitations: no limitations Course Vital Signs 05/15/19 05/15/19 05/15/19 09:01 09:39 10:30 Temperature 97.5 F L Pulse Rate 61 57 L Respiratory 18 18 16 Rate Blood Pressure 163/80 147/85 O2 Sat by Pulse 98 97 Oximetry 05/15/19 12:26 Temperature Pulse Rate 65 Respiratory 16 Rate Blood Pressure 144/79 O2 Sat by Pulse 97 Oximetry Medical Decision Making - Lab Data Result diagrams: 05/15/19 09:40 05/15/19 09:40 Lab Results 05/15/19 05/15/19 05/15/19 Range/Units 09:40 09:40 09:40 WBC 7.5 (3.8-10.6) k/uL RBC 4.21 (3.80-5.40) m/uL Hgb 14.4 (11.4-16.0) gm/dL Hct 43.4 (34.0-46.0) % MCV 103.2 H (80.0-100.0) fL MCH 34.2 (25.0-35.0) pg MCHC 33.1 (31.0-37.0) g/dL RDW 12.6 (11.5-15.5) % Plt Count 157 (150-450) k/uL Neutrophils % 48 % Lymphocytes % 34 % Monocytes % 8 % Eosinophils % 5 % Basophils % 2 % Neutrophils # 3.6 (1.3-7.7) k/uL Lymphocytes # 2.6 (1.0-4.8) k/uL Monocytes # 0.6 (0-1.0) k/uL Eosinophils # 0.4 (0-0.7) k/uL Basophils # 0.2 (0-0.2) k/uL Macrocytosis Slight PT (9.0-12.0) sec INR (<1.2) APTT (22.0-30.0) sec Sodium 140 (137-145) mmol/L Potassium 3.5 (3.5-5.1) mmol/L Chloride 106 (98-107) mmol/L Carbon Dioxide 23 (22-30) mmol/L Anion Gap 11 mmol/L BUN 11 (7-17) mg/dL Creatinine 0.59 (0.52-1.04) mg/dL Est GFR (CKD-EPI)AfAm >90 (>60 ml/min/1.73 sqM) Est GFR (CKD-EPI)NonAf >90 (>60 ml/min/1.73 sqM) Glucose 202 H (74-99) mg/dL Calcium 9.1 (8.4-10.2) mg/dL Magnesium 1.2 L (1.6-2.3) mg/dL Total Bilirubin 0.7 (0.2-1.3) mg/dL AST 27 (14-36) U/L ALT 39 (9-52) U/L Alkaline Phosphatase 50 (38-126) U/L NT-Pro-B Natriuret Pep 300 pg/mL Total Protein 6.4 (6.3-8.2) g/dL Albumin 3.9 (3.5-5.0) g/dL 05/15/19 Range/Units 09:40 WBC (3.8-10.6) k/uL RBC (3.80-5.40) m/uL Hgb (11.4-16.0) gm/dL Hct (34.0-46.0) % MCV (80.0-100.0) fL MCH (25.0-35.0) pg MCHC (31.0-37.0) g/dL RDW (11.5-15.5) % Plt Count (150-450) k/uL Neutrophils % % Lymphocytes % % Monocytes % % Eosinophils % % Basophils % % Neutrophils # (1.3-7.7) k/uL Lymphocytes # (1.0-4.8) k/uL Monocytes # (0-1.0) k/uL Eosinophils # (0-0.7) k/uL Basophils # (0-0.2) k/uL Macrocytosis PT 11.7 (9.0-12.0) sec INR 1.1 (<1.2) APTT 22.1 (22.0-30.0) sec Sodium (137-145) mmol/L Potassium (3.5-5.1) mmol/L Chloride (98-107) mmol/L Carbon Dioxide (22-30) mmol/L Anion Gap mmol/L BUN (7-17) mg/dL Creatinine (0.52-1.04) mg/dL Est GFR (CKD-EPI)AfAm (>60 ml/min/1.73 sqM) Est GFR (CKD-EPI)NonAf (>60 ml/min/1.73 sqM) Glucose (74-99) mg/dL Calcium (8.4-10.2) mg/dL Magnesium (1.6-2.3) mg/dL Total Bilirubin (0.2-1.3) mg/dL AST (14-36) U/L ALT (9-52) U/L Alkaline Phosphatase (38-126) U/L NT-Pro-B Natriuret Pep pg/mL Total Protein (6.3-8.2) g/dL Albumin (3.5-5.0) g/dL Disposition Clinical Impression: Hypomagnesemia Disposition: HOME SELF-CARE Condition: Good Instructions (If sedation given, give patient instructions): Hypomagnesemia (ED) Is patient prescribed a controlled substance at d/c from ED?: No Referrals: Gio Vidales MD [Primary Care Provider] - 1-2 days Time of Disposition: 12:58
--- NOTE | 2019-05-15 10:06 | XR ---
EXAMINATION TYPE: XR abdomen 1V DATE OF EXAM: 05/15/2019 9:55 AM CLINICAL HISTORY: Abdominal pain TECHNIQUE: Single view upright abdominal radiograph. COMPARISON: None. FINDINGS: Cholecystectomy clips are seen. There is no dilated large or small bowel. Mild degree colon ic fecal stasis predominating within the right hemicolon. Lung bases are well aerated. Paucity of bow el gas. No abnormal calcification in the abdomen or pelvis. Osseous structures appear intact. No pneu moperitoneum. IMPRESSION: Mild degree colonic fecal stasis in an overall nonobstructive bowel gas pattern.
--- NOTE | 2019-05-15 10:07 | XR ---
EXAMINATION TYPE: XR chest 2V DATE OF EXAM: 05/15/2019 COMPARISON: 05/02/2019 HISTORY: Shortness of breath TECHNIQUE: Frontal and lateral views of the chest are obtained. FINDINGS: There is chronic interstitial prominence, slightly increasing confluence in the right lung base however airspace disease is linear and seen on the frontal view only favoring atelectasis. Card iomediastinal silhouette is stable and nonenlarged. Mild diffuse osseous demineralization and mild de generative changes of the thoracic spine. Cholecystectomy clips are noted. No sizable pleural effusio n or pneumothorax. IMPRESSION: Minimal right basilar subsegmental atelectasis. Otherwise no acute cardiac pulmonary pro cess.
[2019-05-15 10:08] LABS: Basophils # (A) 0.2 k/uL (0-0.2); Basophils % (A) 2 %; Eosinophils # (A) 0.4 k/uL (0-0.7); Eosinophils % (A) 5 %; HCT 43.4 % (34.0-46.0); HGB 14.4 gm/dL (11.4-16.0); Lymphocytes # (A) 2.6 k/uL (1.0-4.8); Lymphocytes % (A) 34 %; MCH 34.2 pg (25.0-35.0); MCHC 33.1 g/dL (31.0-37.0); MCV 103.2 fL (80.0-100.0); Macrocytosis Slight; Mean Platelet Volume 7.3; Monocytes # (A) 0.6 k/uL (0-1.0); Monocytes % (A) 8 %; Neutrophils # (A) 3.6 k/uL (1.3-7.7); Neutrophils % (A) 48 %; Platelet Count 157 k/uL (150-450); RBC 4.21 m/uL (3.80-5.40); RDW 12.6 % (11.5-15.5); WBC 7.5 k/uL (3.8-10.6)
[2019-05-15 10:21] LABS: ALT 39 U/L (9-52); AST 27 U/L (14-36); African American GFR (CKD) >90 (>60 ml/min/1.73 sqM); Albumin 3.9 g/dL (3.5-5.0); Alkaline Phosphatase 50 U/L (38-126); Anion Gap 11 mmol/L; Blood Urea Nitrogen 11 mg/dL (7-17); Calcium 9.1 mg/dL (8.4-10.2); Carbon Dioxide 23 mmol/L (22-30); Chloride 106 mmol/L (98-107); Glucose 202 mg/dL (74-99); Magnesium 1.2 mg/dL (1.6-2.3); Potassium 3.5 mmol/L (3.5-5.1); Sodium 140 mmol/L (137-145); Total Bilirubin 0.7 mg/dL (0.2-1.3); Total Protein 6.4 g/dL (6.3-8.2)
[2019-05-15 10:30] LABS: INR 1.1 (<1.2); Partial Thromboplastin Time 22.1 sec (22.0-30.0); Prothrombin Time 11.7 sec (9.0-12.0)
[2019-05-15] MEDS: MAGNESIUM SULFATE-D5W PMX 1 GM in DEXTROSE/WATER 1 100ML.BAG IVPB SCH ×2 (10:38→11:50)
[2019-05-15 10:49] VITALS: RESP 16
[2019-05-15 13:30] VITALS: BP 148/80; PULSE 59
== END 2019-05-15 13:28 | disposition home or self-care (01) ==
LOC: EC 08:57
DX: E83.42 Hypomagnesemia (principal); R00.1 Bradycardia, unspecified; I48.91 Unspecified atrial fibrillation; E11.9 Type 2 diabetes mellitus without complications; R10.13 Epigastric pain; E03.9 Hypothyroidism, unspecified; G47.33 Obstructive sleep apnea (adult) (pediatric); I11.0 Hypertensive heart disease with heart failure; I50.9 Heart failure, unspecified; I25.10 Atherosclerotic heart disease of native coronary artery without angina pectoris; I25.2 Old myocardial infarction; J45.909 Unspecified asthma, uncomplicated; M81.0 Age-related osteoporosis without current pathological fracture; Z79.82 Long term (current) use of aspirin; Z79.01 Long term (current) use of anticoagulants; Z79.890 Hormone replacement therapy; Z79.84 Long term (current) use of oral hypoglycemic drugs; Z79.51 Long term (current) use of inhaled steroids; Z79.899 Other long term (current) drug therapy; Z88.8 Allergy status to other drugs, medicaments and biological substances; Z88.2 Allergy status to sulfonamides; Z91.013 Allergy to seafood; Z88.5 Allergy status to narcotic agent; Z91.041 Radiographic dye allergy status; Z94.0 Kidney transplant status; Z87.11 Personal history of peptic ulcer disease; Z82.49 Family history of ischemic heart disease and other diseases of the circulatory system; Z85.048 Personal history of other malignant neoplasm of rectum, rectosigmoid junction, and anus; Z85.44 Personal history of malignant neoplasm of other female genital organs; Z85.72 Personal history of non-Hodgkin lymphomas; Z93.3 Colostomy status; Z99.89 Dependence on other enabling machines and devices; Z90.49 Acquired absence of other specified parts of digestive tract; Z92.21 Personal history of antineoplastic chemotherapy; Z86.14 Personal history of Methicillin resistant Staphylococcus aureus infection
CPT/HCPCS: 36415; 93005; 83880; 80053; 83735; 85025; 85610; 85730; 71046; 74018; 99285; 96365; J3475

== ENCOUNTER → 2019-06-17 | Outpatient (CLI) | payer MEDICARE ==
[2019-06-17 16:37] LABS: Albumin 4.3 g/dL (3.80-4.90); Anion Gap 7.8 mmol/L (4.00-12.00); BUN/Creat Ratio 13.75 Ratio (12.00-20.00); Calcium 8.9 mg/dL (8.7-10.3); Carbon Dioxide 24.2 mmol/L (21.6-31.8); Non-African American GFR(CKD) 76.8 (60.0-200.0); Phosphorus 4.3 mg/dL (2.4-5.1); Potassium 3.7 mmol/L (3.5-5.5)
== END | disposition home or self-care (01) ==
LOC: LABWHC1 08:48
PROVIDERS: ATTEND Internal Medicine Nephrology
DX: Z48.22 Encounter for aftercare following kidney transplant (principal); Z94.0 Kidney transplant status; Z88.2 Allergy status to sulfonamides; Z88.5 Allergy status to narcotic agent; Z91.013 Allergy to seafood; Z91.041 Radiographic dye allergy status; Z88.6 Allergy status to analgesic agent
CPT/HCPCS: 36415; 80069

== ENCOUNTER → 2019-07-02 | Outpatient (CLI) | payer MEDICARE ==
[2019-07-02 09:44] LABS: Basophils # (A) 0.1 k/uL (0-0.2); Basophils % (A) 0 %; Eosinophils # (A) 0.4 k/uL (0-0.7); Eosinophils % (A) 3 %; HCT 46.3 % (34.0-46.0); HGB 15.5 gm/dL (11.4-16.0); Lymphocytes % (A) 22 %; MCH 35.5 pg (25.0-35.0); MCHC 33.5 g/dL (31.0-37.0); MCV 105.9 fL (80.0-100.0); Macrocytosis Slight; Mean Platelet Volume 7.5; Monocytes # (A) 0.8 k/uL (0-1.0); Monocytes % (A) 6 %; Neutrophils % (A) 66 %; Platelet Count 219 k/uL (150-450); RBC 4.37 m/uL (3.80-5.40); RDW 12.8 % (11.5-15.5); WBC 13.6 k/uL (3.8-10.6)
[2019-07-02 10:30] LABS: Appearance,Urine Clear (Clear); Bilirubin,Urine Negative (Negative); Blood,Urine Negative (Negative); Color,Urine Yellow; Glucose,Urine (UA) Negative (Negative); Ketones,Urine Negative (Negative); Leukocyte Esterase,Urine Negative (Negative); Nitrite,Urine Negative (Negative); PH, Urine 6.5 (5.0-8.0); Protein,Urine Negative (Negative); Specific Gravity,Urine 1.013 (1.001-1.035); Urobilinogen,Urine <2.0 mg/dL (<2.0)
[2019-07-02 10:41] LABS: Protein/Creatinine Ratio,Urine 0.2
[2019-07-02 17:50] LABS: % Iron Saturation 25.87 (12.00-45.00); Albumin 4.3 g/dL (3.80-4.90); Albumin/Globulin Ratio 2.26 (1.60-3.17); Anion Gap 8.6 mmol/L (4.00-12.00); Calcium 8.8 mg/dL (8.7-10.3); Carbon Dioxide 23.4 mmol/L (21.6-31.8); Globulin 1.9 g/dL (1.6-3.3); Non-African American GFR(CKD) 76.8 (60.0-200.0); Total Bilirubin 0.6 mg/dL (0.3-1.2); Total Protein 6.2 g/dL (6.2-8.2)
[2019-07-02 18:05] LABS: Ferritin 391.4 ng/mL (10.0-291.0)
== END | disposition home or self-care (01) ==
LOC: LABWHC1 09:18
PROVIDERS: ATTEND Internal Medicine Nephrology
DX: D64.9 Anemia, unspecified (principal); N39.0 Urinary tract infection, site not specified; N25.81 Secondary hyperparathyroidism of renal origin; E55.9 Vitamin D deficiency, unspecified; R80.9 Proteinuria, unspecified; Z94.0 Kidney transplant status
CPT/HCPCS: 36415; 80053; 80197; 81003; 82306; 82570; 82728; 83540; 83550; 83970; 84156; 85025

== ENCOUNTER → 2019-08-14 | Outpatient (CLI) | payer MEDICARE ==
[2019-08-14 18:30] LABS: Albumin/Globulin Ratio 1.74 (1.60-3.17); Bilirubin, Conjugated 0.2 mg/dL (0.20-0.40); Bilirubin,Unconjugated 0.2 mg/dL; Globulin 2.3 g/dL (1.6-3.3); Total Bilirubin 0.4 mg/dL (0.2-1.2); Total Protein 6.3 g/dL (6.2-8.2)
[2019-08-14 18:36] LABS: T4, Free (Free Thyroxine) 1.5 ng/dL (0.80-1.80)
== END | disposition home or self-care (01) ==
LOC: LABWHC1 11:15
PROVIDERS: ATTEND Internal Medicine Cardiovascular Disease
DX: E03.2 Hypothyroidism due to medicaments and other exogenous substances (principal)
CPT/HCPCS: 36415; 80076; 84439; 84443

== ENCOUNTER → 2020-01-14 | Outpatient (CLI) | payer MEDICARE ==
--- NOTE | 2020-01-18 08:24 | MM ---
Reason for exam: screening (asymptomatic). Last mammogram was performed 1 year and 2 months ago. History: Patient is postmenopausal, has history of other cancer at age 46, and history of colon cancer. Family history of breast cancer in mother at age 75. Benign excisional biopsy of the right breast, 1994. Took hormonal contraceptives for 7 years beginning at age 17. Took other hormone for 6 months beginning at age 55. Physical Findings: A clinical breast exam by your physician is recommended on an annual basis and results should be correlated with mammographic findings. MG 3D Screening Mammo W/Cad Bilateral CC and MLO view(s) were taken. Prior study comparison: November 21, 2018, bilateral MG 3d screening mammo w/cad. November 19, 2017, bilateral MG 3d screening mammo w/cad. The breast tissue is heterogeneously dense. This may lower the sensitivity of mammography. Finding: There are developing round, grouped/clustered calcifications in the upper outer quadrant, middle position of the left breast. Asymmetry greater in the right breast. New finding since November 21, 2018 and November 19, 2017. ASSESSMENT: Incomplete: need additional imaging evaluation, BI-RAD 0 RECOMMENDATION: Special view mammogram of the left breast. If lesion persists on supplemental views, image directed ultrasound is recommended. [facility] will attempt to contact patient to return for supplemental views and ultrasound if indicated.
== END | disposition home or self-care (01) ==
LOC: RADMAMWWP 14:46
PROVIDERS: ATTEND Internal Medicine Hematology & Oncology
DX: Z12.31 Encounter for screening mammogram for malignant neoplasm of breast (principal)
CPT/HCPCS: 77063; 77067

== ENCOUNTER → 2020-01-19 | Outpatient (CLI) | payer MEDICARE ==
--- NOTE | 2020-01-19 09:36 | MM ---
Reason for exam: additional evaluation requested from abnormal screening. Last mammogram was performed less than 1 month ago. History: Patient is postmenopausal, has history of other cancer at age 46, and history of colon cancer. Family history of breast cancer in mother at age 75. Benign excisional biopsy of the right breast, 1994. Took hormonal contraceptives for 7 years beginning at age 17. Took other hormone for 6 months beginning at age 55. Physical Findings: Nurse did not find any significant physical abnormalities on exam. MG 3D Work Up W/Cad LT CC with magnification, LM with magnification, and LM view(s) were taken of the left breast. Prior study comparison: January 14, 2020, bilateral MG 3d screening mammo w/cad. November 21, 2018, bilateral MG 3d screening mammo w/cad. There are scattered fibroglandular densities. Gradually increasing upper outer quadrant loosely grouped, round, and dystrophic appearing calcifications. Benign etiology is favored, sone underlying vascular calcifications are stable. These results were verbally communicated with the patient and result sheet given to the patient on 01/19/20. ASSESSMENT: Probably benign, BI-RAD 3 RECOMMENDATION: Follow-up diagnostic mammogram of the left breast in 6 months.
== END | disposition home or self-care (01) ==
LOC: RADMAMWWP 08:06
PROVIDERS: ATTEND Internal Medicine Hematology & Oncology
DX: R92.8 Other abnormal and inconclusive findings on diagnostic imaging of breast (principal)
CPT/HCPCS: 77065; G0279; 77061

== ENCOUNTER → 2020-03-02 | Outpatient (CLI) | payer MEDICARE | END | disposition home or self-care (01) | LOC: LABWHC1 08:36 | PROVIDERS: ATTEND Internal Medicine Nephrology | DX: Z53.9 Procedure and treatment not carried out, unspecified reason (principal) ==

== ENCOUNTER → 2020-08-01 | Outpatient (CLI) | payer MEDICARE ==
--- NOTE | 2020-08-02 09:15 | MM ---
Reason for exam: follow-up at short interval from prior study. Last mammogram was performed 6 months ago. History: Patient is postmenopausal, has history of colon cancer at age 61, and has history of other cancer at age 46. Family history of breast cancer in mother at age 75. Benign excisional biopsy of the right breast, 1994. Took hormonal contraceptives for 7 years beginning at age 17. Took other hormone for 6 months beginning at age 55. Physical Findings: Nurse did not find any significant physical abnormalities on exam. MG 3D Diag Mammo W/Cad LT CC and MLO view(s) were taken of the left breast. Prior study comparison: January 19, 2020, left breast MG 3d work up w/cad LT. January 14, 2020, bilateral MG 3d screening mammo w/cad. The breast tissue is heterogeneously dense. This may lower the sensitivity of mammography. Stable punctate calcifications upper outer left breast. No significant new findings when compared with previous films. These results were verbally communicated with the patient and result sheet given to the patient on 08/01/20. ASSESSMENT: Probably benign, BI-RAD 3 RECOMMENDATION: Follow-up diagnostic mammogram of both breasts in 6 months. Back on schedule for December 2020.
== END | disposition home or self-care (01) ==
LOC: RADMAMWWP 12:42
PROVIDERS: ATTEND Internal Medicine Hematology & Oncology
DX: R92.8 Other abnormal and inconclusive findings on diagnostic imaging of breast (principal)
CPT/HCPCS: 77065; G0279; 77061

== ENCOUNTER → 2020-09-29 | Outpatient (CLI) | payer MEDICARE ==
[2020-09-30 19:34] LABS: Chol/HDL Ratio 2.18; LDL Cholesterol,Calculated 39.6 mg/dL (0.0-131.0); VLDL Calculation 26.4 mg/dL (5.00-40.00)
== END | disposition home or self-care (01) ==
LOC: LABWHC1 08:49
PROVIDERS: ATTEND Nurse Practitioner Gerontology
DX: E78.2 Mixed hyperlipidemia (principal)
CPT/HCPCS: 36415; 80061; 82550; 84450; 84460

== ENCOUNTER → 2020-10-13 | Outpatient (CLI) | payer MEDICARE ==
[2020-10-13 14:55] LABS: HCT 42.9 % (37.2-46.3); HGB 14.2 g/dL (12.0-15.0); MCH 35.1 pg (27.0-32.0); MCHC 33.1 g/dL (32.0-37.0); MCV 106.2 fL (80.0-97.0); Mean Platelet Volume 10.7 fL (9.5-12.2); Platelet Count 177 X 10*3/uL (140-440); RBC 4.04 X 10*6/uL (4.10-5.20); RDW 13.6 % (11.5-14.5); WBC 7.95 X 10*3/uL (4.50-10.00)
[2020-10-13 15:37] LABS: African American GFR (CKD) 103.9 (60.0-200.0); Albumin 4.3 g/dL (3.80-4.90); Anion Gap 8.3 mmol/L (4.00-12.00); BUN/Creat Ratio 17.14 Ratio (12.00-20.00); Calcium 8.6 mg/dL (8.7-10.3); Carbon Dioxide 25.7 mmol/L (21.6-31.8); Non-African American GFR(CKD) 89.7 (60.0-200.0); Phosphorus 4.6 mg/dL (2.4-5.1); Potassium 3.9 mmol/L (3.5-5.5)
== END | disposition home or self-care (01) ==
LOC: LABWHC1 07:47
PROVIDERS: ATTEND Internal Medicine Nephrology
DX: Z51.81 Encounter for therapeutic drug level monitoring (principal); D84.9 Immunodeficiency, unspecified; Z94.0 Kidney transplant status
CPT/HCPCS: 36415; 80069; 85027

== ENCOUNTER → 2021-02-10 | Outpatient (CLI) | payer MEDICARE ==
--- NOTE | 2021-02-10 11:59 | MM ---
Reason for exam: follow-up at short interval from prior study. Last mammogram was performed 6 months ago. History: Patient is postmenopausal, has history of colon cancer at age 61, and has history of other cancer at age 46. Family history of breast cancer in mother at age 75. Benign excisional biopsy of the right breast, 1994. Took hormonal contraceptives for 7 years beginning at age 17. Took other hormone for 6 months beginning at age 55. Physical Findings: Nurse did not find any significant physical abnormalities on exam. MG 3D Diag Mammo W/Cad SHANNAN Bilateral CC and MLO view(s) were taken. Prior study comparison: August 01, 2020, left breast MG 3d diag mammo w/cad LT. January 14, 2020, bilateral MG 3d screening mammo w/cad. November 21, 2018, bilateral MG 3d screening mammo w/cad. The breast tissue is heterogeneously dense. This may lower the sensitivity of mammography. Finding: There are typically benign round, diffuse/scattered calcifications in both breasts. No significant changes in finding since August 01, 2020, January 14, 2020, and November 21, 2018. These results were verbally communicated with the patient and result sheet given to the patient on 02/10/21. ASSESSMENT: Benign, BI-RAD 2 RECOMMENDATION: Routine screening mammogram of both breasts in 1 year.
== END | disposition home or self-care (01) ==
LOC: RADMAMWWP 11:00
PROVIDERS: ATTEND Internal Medicine Hematology & Oncology
DX: R92.2 Inconclusive mammogram (principal); Z78.0 Asymptomatic menopausal state; Z80.3 Family history of malignant neoplasm of breast
CPT/HCPCS: 77066; G0279; 77062

== ENCOUNTER → 2021-03-15 | Outpatient (CLI) | payer MEDICARE ==
[2021-03-15 10:37] LABS: Appearance,Urine Clear (Clear); Bilirubin,Urine Negative (Negative); Blood,Urine Negative (Negative); Color,Urine Light Yellow; Glucose,Urine (UA) Negative (Negative); Ketones,Urine Negative (Negative); Leukocyte Esterase,Urine Moderate (Negative); Nitrite,Urine Negative (Negative); Protein,Urine Negative (Negative); RBC,Urine <1 /hpf (0-5); Specific Gravity,Urine 1.007 (1.001-1.035); Squamous Epithelial Cell,Urine <1 /hpf (0-4); Urobilinogen,Urine <2.0 mg/dL (<2.0); WBC,Urine 3 /hpf (0-5)
[2021-03-15 10:55] LABS: Creatinine,Urine Random 47.4 mg/dL; Protein/Creatinine Ratio,Urine 0.295
[2021-03-15 15:15] LABS: Basophils # (A) 0.08 X 10*3/uL (0.00-0.10); Eosinophils # (A) 0.49 X 10*3/uL (0.04-0.35); Eosinophils % (A) 6.1 %; HGB 14.1 g/dL (12.0-15.0); Lymphocytes # (A) 2.33 X 10*3/uL (0.90-5.00); Lymphocytes % (A) 29.1 %; MCH 34.1 pg (27.0-32.0); MCHC 32.8 g/dL (32.0-37.0); MCV 104.1 fL (80.0-97.0); Mean Platelet Volume 10.7 fL (9.5-12.2); Monocytes # (A) 1.15 X 10*3/uL (0.20-1.00); Monocytes % (A) 14.3 %; Neutrophils # (A) 3.92 X 10*3/uL (1.80-7.70); Neutrophils % (A) 48.9 %; Platelet Count 159 X 10*3/uL (140-440); RBC 4.13 X 10*6/uL (4.10-5.20); RDW 13.4 % (11.5-14.5); WBC 8.02 X 10*3/uL (4.50-10.00)
[2021-03-16 18:19] LABS: African American GFR (CKD) 103.9 (60.0-200.0); Anion Gap 7.8 mmol/L (4.00-12.00); BUN/Creat Ratio 17.14 Ratio (12.00-20.00); Calcium 8.6 mg/dL (8.7-10.3); Carbon Dioxide 25.2 mmol/L (21.6-31.8); Non-African American GFR(CKD) 89.7 (60.0-200.0); Phosphorus 3.7 mg/dL (2.4-5.1); Potassium 4.3 mmol/L (3.5-5.5)
== END | disposition home or self-care (01) ==
LOC: LABWHC1 09:22
PROVIDERS: ATTEND Physician Assistant
DX: D84.9 Immunodeficiency, unspecified (principal); Z94.0 Kidney transplant status
CPT/HCPCS: 36415; 80069; 81001; 82570; 84156; 85025

== ENCOUNTER → 2021-05-22 | Outpatient (CLI) | payer MEDICARE ==
[2021-05-22 20:08] LABS: African American GFR (CKD) 103.9 (60.0-200.0); Albumin 4.3 g/dL (3.8-4.9); Anion Gap 11.4 mmol/L (4.00-12.00); Blood Urea Nitrogen 11.9 mg/dL (9.0-27.0); Calcium 9.1 mg/dL (8.7-10.3); Carbon Dioxide 25.6 mmol/L (21.6-31.8); Non-African American GFR(CKD) 89.7 (60.0-200.0); Phosphorus 4.4 mg/dL (2.4-5.1); Potassium 4.2 mmol/L (3.5-5.5)
== END | disposition home or self-care (01) ==
LOC: LABWHC1 08:15
PROVIDERS: ATTEND Internal Medicine Nephrology
DX: D84.9 Immunodeficiency, unspecified (principal); Z94.0 Kidney transplant status
CPT/HCPCS: 36415; 80069; 80197

== ENCOUNTER 2021-08-10 15:15 | Emergency (ER) | payer MEDICARE ==
[2021-08-10 15:55] VITALS: BP 185/92; PULSE 68; TEMP 98
--- NOTE | 2021-08-10 17:22 | ED ---
General Adult HPI - General Chief complaint: Recheck/Abnormal Lab/Rx Stated complaint: Covid+,Wants antibody Source: patient Mode of arrival: ambulatory Limitations: no limitations - History of Present Illness Initial comments: Patient is a 66-year-old female who is status post bone marrow transplant and status post kidney transplant she is immunocompromise, she has been symptom medical COVID for 6 days she tested positive. She was advised to come to the emergency department for monoclonal antibodies. - Related Data Home Medications Medication Instructions Recorded Confirmed Aspirin 81 mg PO DAILY 08/21/14 05/20/19 Calcium Carbonate/Vitamin D3 1 tab PO BID 08/21/14 05/20/19 [Calcium 600-Vit D3 400 Tablet] Levothyroxine Sodium [Synthroid] 100 mcg PO DAILY 08/21/14 05/20/19 Magnesium Oxide [Mag-Ox] 500 mg PO BID 08/21/14 05/20/19 Metoprolol Tartrate 25 mg PO BID 08/21/14 05/20/19 Nitroglycerin Sl Tabs [Nitrostat] 0.4 mg SUBLINGUAL Q5M PRN 08/21/14 05/20/19 Tacrolimus [Prograf] 1 mg PO BID 08/21/14 05/20/19 cycloSPORINE [Restasis] 1 drop BOTH EYES BID 08/21/14 05/20/19 Folic Acid/Multivit-Min/Lutein 3 tab PO DAILY 08/22/14 05/20/19 [Therapeutic-M Tablet] Multivitamins, Thera [Multivitamin 1 tab PO DAILY 08/22/14 05/20/19 (formulary)] Vitamin B Complex 1 tab PO DAILY 08/22/14 05/20/19 Alendronate Sodium [Fosamax] 70 mg PO FR 10/20/18 05/20/19 Budesonide/Formoterol Fumarate 2 puff INHALATION RT-BID 10/20/18 05/20/19 [Symbicort 80-4.5 Mcg Inhaler] Cholecalciferol [Vitamin D3 (25 1,000 unit PO DAILY 10/20/18 05/20/19 Mcg = 1000 Iu)] Turmeric Root Extract [Turmeric] 500 mg PO DAILY 10/20/18 05/20/19 predniSONE 5 mg PO DAILY 10/20/18 05/20/19 Acyclovir [Zovirax] 400 mg PO BID 05/02/19 05/20/19 Apixaban [Eliquis] 5 mg PO BID 05/02/19 05/20/19 Atorvastatin [Lipitor] 10 mg PO DAILY 05/02/19 05/20/19 L.acidoph,Paracasei, B.lactis 1 cap PO DAILY 05/02/19 05/20/19 [Probiotic] [place]-3 Fatty Acids/Fish Oil 3 cap PO QAM 05/02/19 05/20/19 [[place]-3 Fish Oil 1,200 mg Sfgl] Albuterol Inhaler (Mhu) [Ventolin 1 puff INHALATION RT-Q6H PRN 05/15/19 05/20/19 Hfa Inhaler] Nystatin 100,000 Unit/ml Susp 5 ml PO DAILY PRN 05/15/19 05/20/19 [Mycostatin Oral Susp] Omeprazole 20 mg PO DAILY 05/15/19 05/20/19 Previous Rx's Medication Instructions Recorded Amiodarone [Cordarone] 200 mg PO BID #30 tab 05/02/19 metFORMIN HCL [Glucophage] 500 mg PO AC-BID #60 tab 05/02/19 Allergies Allergy/AdvReac Type Severity Reaction Status Date / Time acetaminophen Allergy Unknown Verified 08/10/21 15:55 [From Darvocet-N] flecainide Allergy Unknown Verified 08/10/21 15:55 iodine Allergy Unknown Verified 08/10/21 15:55 shellfish derived Allergy Rash/Hives Verified 08/10/21 15:55 Sulfa (Sulfonamide Allergy Rash/Hives Verified 08/10/21 15:55 Antibiotics) codeine AdvReac Rapid Verified 08/10/21 15:55 Heart Rate hydromorphone HCl AdvReac Rapid Verified 08/10/21 15:55 [From Dilaudid] Heart Rate propoxyphene AdvReac Rapid Verified 08/10/21 15:55 Heart Rate Review of Systems ROS Statement: Those systems with pertinent positive or pertinent negative responses have been documented in the HPI. ROS Other: All systems not noted in ROS Statement are negative. 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, Factor V, osteoporosis, fungal pneumonia, hypothyroid, dry eyes, LIDIA and uses a mouth guard, Last Myocardial Infarction Date:: 04/20/13 History of Any Multi-Drug Resistant Organisms: C-DIFF, MRSA Date of last positivie culture/infection: 2003 for both c-diff and MRSA MDRO Source:: stool, unk Past Surgical History: Cholecystectomy Additional Past Surgical History / Comment(s): bone marrow transplant 2003, kidney transplant 2008, rectal cancer with surgery, vulvar cancer with surgery, 2013 incomplete PCI, colonoscopies, colostomy 2016 Past Anesthesia/Blood Transfusion Reactions: No Reported Reaction Past Psychological History: No Psychological Hx Reported Smoking Status: Never smoker Past Alcohol Use History: Occasional Past Drug Use History: None Reported - Past Family History Mother Family Medical History: Cancer Additional Family Medical History / Comment(s): Mother had breast cancer twice. She lived to be 95yrs old. Father Family Medical History: Congestive Heart Failure (CHF) Additional Family Medical History / Comment(s): Father lived to be 90yrs old. General Exam - General Exam Comments Initial Comments: Physical Exam GENERAL: Patient is well-developed and well-nourished. Patient is nontoxic and well-hydrated and is in no distress. HENT: Normocephalic, Atraumatic. EYES: PERRL, EOMI PULMONARY: Unlabored respirations. CARDIOVASCULAR: RRR Warm and well perfused extremities ABDOMEN: Non-distended SKIN: No rashes or bruising : Deferred NEUROLOGIC: Alert and oriented Normal speech Normal gait MUSCULOSKELETAL: Moving all extremities with no apparent injury PSYCHIATRIC: No SI/HI Limitations: no limitations Course Vital Signs 08/10/21 08/10/21 15:51 17:36 Temperature 98 F Pulse Rate 68 Respiratory 16 18 Rate Blood Pressure 185/92 O2 Sat by Pulse 98 Oximetry Medical Decision Making - Medical Decision Making She was seen and evaluated history obtained from patient, patient is a candidate for medical antibody therapy and monoclonal antibodies were ordered Patient's monoclonal antibodies were initiated she received approximately 5 minutes of infusion and began feeling coldness across her chest not tight is not pain or shortness of breath no wheezing she no rash no other reaction dates that sometimes she feels abnormal when getting medications and usually has to have them given very slowly. Medication was administered over a slower infusion which patient tolerated witho ut reaction Patient discharged home in stable condition. - Lab Data Lab Results 08/10/21 Range/Units 16:12 Coronavirus (PCR) Detected A (Not Detectd) Disposition Clinical Impression: COVID-19 Disposition: HOME SELF-CARE Condition: Stable Is patient prescribed a controlled substance at d/c from ED?: No Referrals: Gio Vidales MD [Primary Care Provider] - 1-2 days
[2021-08-10 17:40] VITALS: RESP 18
[2021-08-10] MEDS ORDERED: SOTROVIMAB (EUA) 500 MG in SODIUM CHLORIDE 0.9% 100 ML IVPB ONE (17:45)
[2021-08-10] MEDS ORDERED: SODIUM CHLORIDE 0.9% 50 ML IVPB ONE (17:45)
== END 2021-08-10 21:32 | disposition home or self-care (01) ==
LOC: EC 15:15
DX: U07.1 COVID-19 (principal); E11.9 Type 2 diabetes mellitus without complications; I50.9 Heart failure, unspecified; J45.909 Unspecified asthma, uncomplicated; I48.91 Unspecified atrial fibrillation; I25.10 Atherosclerotic heart disease of native coronary artery without angina pectoris; I25.2 Old myocardial infarction; E03.9 Hypothyroidism, unspecified; Z79.84 Long term (current) use of oral hypoglycemic drugs; Z79.51 Long term (current) use of inhaled steroids; Z79.82 Long term (current) use of aspirin; Z79.890 Hormone replacement therapy; Z79.899 Other long term (current) drug therapy
CPT/HCPCS: 87635; 99283; Q0247

== ENCOUNTER → 2021-08-22 | Outpatient (CLI) | payer MEDICARE ==
--- NOTE | 2021-08-23 17:22 | XR ---
EXAMINATION TYPE: XR chest 2V DATE OF EXAM: 08/22/2021 COMPARISON: 05/15/2019 INDICATION: Cellulitis left lower limb, myocardial, short of breath, COPD TECHNIQUE: Frontal and lateral views of the chest are obtained. FINDINGS: The heart size is normal. The pulmonary vasculature is normal. The lungs are clear. Loop recorder is over the left chest. IMPRESSION: 1. No acute pulmonary process.
== END | disposition home or self-care (01) ==
LOC: RADXRMAIN 16:19
PROVIDERS: ATTEND Registered Nurse Oncology
DX: I21.3 ST elevation (STEMI) myocardial infarction of unspecified site (principal); L03.116 Cellulitis of left lower limb; E78.2 Mixed hyperlipidemia; C85.98 Non-Hodgkin lymphoma, unspecified, lymph nodes of multiple sites
CPT/HCPCS: 71046

== ENCOUNTER → 2021-10-18 | Outpatient (CLI) | payer MEDICARE ==
[2021-10-18 15:07] LABS: ALT 35 U/L (8-44); AST 24 U/L (13-35); Alkaline Phosphatase 66 U/L (41-126); Chol/HDL Ratio 1.79 Ratio; LDL Cholesterol,Calculated 33.2 mg/dL (0.0-131.0); VLDL Calculation 19.78 mg/dL (5.00-40.00)
== END | disposition home or self-care (01) ==
LOC: LABWHC1 08:11
PROVIDERS: ATTEND Internal Medicine Clinical Cardiac Electrophysiology
DX: E11.9 Type 2 diabetes mellitus without complications (principal); Z78.9 Other specified health status
CPT/HCPCS: 36415; 80061; 83036; 84075; 84450; 84460

== ENCOUNTER → 2022-02-12 | Outpatient (CLI) | payer MEDICARE ==
--- NOTE | 2022-02-13 10:47 | MM ---
Reason for Exam: Screening (asymptomatic). Last screening mammogram was performed 12 month(s) ago. Patient History: Menarche at age 10. First Full-Term at age 26. Postmenopausal. Other cancer, age 46. Colorectal cancer, age 61. Hormonal Contraceptives for 7 years from age 17 until age 24. 1994, Benign Excisional Biopsy on the right side. Mother had breast cancer, age 75. Risk Values: Katelyn 5 year model risk: 4.0%. NCI Lifetime model risk: 12.5%. Prior Study Comparison: 01/19/2020 Left Diagnostic Mammogram, [facility]. 08/01/2020 Left Diagnostic Mammogram, [facility]. 02/10/2021 Bilateral Diagnostic Mammogram, [facility]. Tissue Density: The breast tissue is heterogeneously dense. This may lower the sensitivity of mammography. Findings: Analyzed By CAD. There is no suspicious group of microcalcifications or new suspicious mass in either breast. Stable benign-appearing calcifications. Overall Assessment: Benign, BI-RAD 2 Management: Screening Mammogram of both breasts in 1 year. A clinical breast exam by your physician is recommended on an annual basis and results should be correlated with mammographic findings. Electronically signed and approved by: Rafael Cooper M.D. Radiologis
== END | disposition home or self-care (01) ==
LOC: RADMAMWWP 08:43
PROVIDERS: ATTEND Internal Medicine Hematology & Oncology
DX: Z12.31 Encounter for screening mammogram for malignant neoplasm of breast (principal); Z78.0 Asymptomatic menopausal state; Z80.3 Family history of malignant neoplasm of breast
CPT/HCPCS: 77063; 77067

== ENCOUNTER → 2022-02-15 | Outpatient (CLI) | payer MEDICARE ==
[2022-02-15 10:34] LABS: Basophils % (A) 0.9 %; Eosinophils # (A) 0.51 X 10*3/uL (0.04-0.35); Eosinophils % (A) 4.7 %; HCT 43.3 % (37.2-46.3); HGB 14.2 g/dL (12.0-15.0); Immature Grans, Automated 1.2 %; Lymphocytes # (A) 3.14 X 10*3/uL (0.90-5.00); MCH 33.6 pg (27.0-32.0); MCHC 32.8 g/dL (32.0-37.0); MCV 102.4 fL (80.0-97.0); Mean Platelet Volume 10.5 fL (9.5-12.2); Monocytes # (A) 1.42 X 10*3/uL (0.20-1.00); Monocytes % (A) 13.1 %; NRBC Per 100 WBC 0 /100 WBCS (0.0-0.0); Neutrophils # (A) 5.54 X 10*3/uL (1.80-7.70); Neutrophils % (A) 51.1 %; Platelet Count 205 X 10*3/uL (140-440); RBC 4.23 X 10*6/uL (4.10-5.20); RDW 13.8 % (11.5-14.5); WBC 10.84 X 10*3/uL (4.50-10.00)
[2022-02-15 10:51] LABS: African American GFR (CKD) 103.2 (60.0-200.0); Albumin 4.2 g/dL (3.8-4.9); BUN/Creat Ratio 13.43 Ratio (12.00-20.00); Blood Urea Nitrogen 9.4 mg/dL (9.0-27.0); Calcium 8.9 mg/dL (8.7-10.3); Phosphorus 4.4 mg/dL (2.4-5.1); Potassium 4.4 mmol/L (3.5-5.5)
== END | disposition home or self-care (01) ==
LOC: LABWHC1 07:06
PROVIDERS: ATTEND Internal Medicine Nephrology
DX: E11.9 Type 2 diabetes mellitus without complications (principal); Z94.0 Kidney transplant status; D84.9 Immunodeficiency, unspecified
CPT/HCPCS: 36415; 80069; 83036; 85025

== ENCOUNTER → 2022-07-20 | Outpatient (CLI) | payer MEDICARE ==
[2022-07-20 15:23] LABS: HCT 42.3 % (37.2-46.3); HGB 13.7 g/dL (12.0-15.0); MCHC 32.4 g/dL (32.0-37.0); MCV 101.9 fL (80.0-97.0); Mean Platelet Volume 10.7 fL (9.5-12.2); NRBC Per 100 WBC 0 /100 WBCS (0.0-0.0); Platelet Count 171 X 10*3/uL (140-440); RBC 4.15 X 10*6/uL (4.10-5.20); RDW 14.9 % (11.5-14.5); WBC 11.21 X 10*3/uL (4.50-10.00)
[2022-07-20 16:03] LABS: Basophils # (A) 0.07 X 10*3/uL (0.00-0.10); Basophils % (A) 0.6 %; Eosinophils # (A) 0.17 X 10*3/uL (0.04-0.35); Eosinophils % (A) 1.5 %; Immature Grans, Automated 2.1 %; Lymphocytes # (A) 3.28 X 10*3/uL (0.90-5.00); Lymphocytes % (A) 29.3 %; Monocytes # (A) 1.58 X 10*3/uL (0.20-1.00); Monocytes % (A) 14.1 %; Neutrophils # (A) 5.87 X 10*3/uL (1.80-7.70); Neutrophils % (A) 52.4 %
[2022-07-20 17:30] LABS: African American GFR (CKD) 102.5 (60.0-200.0); Albumin 4.1 g/dL (3.8-4.9); Anion Gap 16.5 mmol/L (10.00-18.00); BUN/Creat Ratio 15.57 Ratio (12.00-20.00); Blood Urea Nitrogen 10.9 mg/dL (9.0-27.0); Calcium 8.6 mg/dL (8.7-10.3); Carbon Dioxide 18.5 mmol/L (20.0-27.5); Non-African American GFR(CKD) 88.4 (60.0-200.0); Phosphorus 3.9 mg/dL (2.4-5.1); Potassium 4.5 mmol/L (3.5-5.5)
== END | disposition home or self-care (01) ==
LOC: LABWHC1 08:19
PROVIDERS: ATTEND Internal Medicine Nephrology
DX: Z94.0 Kidney transplant status (principal)
CPT/HCPCS: 36415; 80069; 80197; 85025

== ENCOUNTER → 2022-08-03 | Outpatient (CLI) | payer MEDICARE | END | disposition home or self-care (01) | LOC: LABWHC1 08:56 | PROVIDERS: ATTEND Physician Assistant | DX: E11.9 Type 2 diabetes mellitus without complications (principal); Z94.0 Kidney transplant status | CPT/HCPCS: 36415; 83036 ==

== ENCOUNTER → 2023-01-10 | Outpatient (CLI) | payer MEDICARE ==
--- NOTE | 2023-01-10 20:04 | XR ---
EXAMINATION TYPE: XR chest 2V DATE OF EXAM: 01/10/2023 COMPARISON: 08/22/2021 HISTORY: 67-year-old female with cough TECHNIQUE: Frontal and lateral views FINDINGS: Heart normal size. Mild atherosclerotic arch calcifications. Mild interstitial prominence of the funeral director and embalmer alexandra appearance. Loop recorder device projects over the left side of the heart. No consolidation or pl eural effusion. Cholecystectomy clips. IMPRESSION: Chronic changes. No definite acute process.
== END | disposition home or self-care (01) ==
LOC: RADXRMAIN 13:54
PROVIDERS: ATTEND Internal Medicine Hematology & Oncology
DX: R05.9 Cough, unspecified (principal); R06.02 Shortness of breath
CPT/HCPCS: 71046; 93005

== ENCOUNTER 2023-01-11 14:32 | Emergency (ER) | payer MEDICARE ==
[2023-01-11 14:59] VITALS: TEMP 97.9
--- NOTE | 2023-01-11 15:17 | ED ---
General Adult HPI - General Chief complaint: Arrhythmia/Palpitations Stated complaint: increased heart rate Time Seen by Provider: 01/11/23 15:06 Source: patient Mode of arrival: ambulatory Limitations: no limitations - History of Present Illness Initial comments: This patient is a 67-year-old woman with history of atrial fibrillation, who presents with complaint that her heart rate has been higher than it usually runs going back now 2 weeks. The patient states that she usually is in the 60s to 80s with rate control. She states that the heart rate has been up to the 110s and she has been feeling rundown. She also has been having a cough with some greenish sputum for the past few days. She followed with her physician in the clinic yesterday, and was started on Levaquin. She states that she made phone contact with the physician today and was told if she is not feeling better she should go to the emergency department. Onset/Timin -: week(s) Severity scale (1-10): 0 Consistency: constant Improves with: none Worsens with: none Associated Symptoms: cough, nausea/vomiting, shortness of breath Treatments Prior to Arrival: none - Related Data Home Medications Medication Instructions Recorded Confirmed Aspirin 81 mg PO DAILY 08/21/14 05/20/19 Calcium Carbonate/Vitamin D3 1 tab PO BID 08/21/14 05/20/19 [Calcium 600-Vit D3 400 Tablet] Levothyroxine Sodium [Synthroid] 100 mcg PO DAILY 08/21/14 05/20/19 Magnesium Oxide [Mag-Ox] 500 mg PO BID 08/21/14 05/20/19 Metoprolol Tartrate 25 mg PO BID 08/21/14 05/20/19 Nitroglycerin Sl Tabs [Nitrostat] 0.4 mg SUBLINGUAL Q5M PRN 08/21/14 05/20/19 Tacrolimus [Prograf] 1 mg PO BID 08/21/14 05/20/19 cycloSPORINE [Restasis] 1 drop BOTH EYES BID 08/21/14 05/20/19 Folic Acid/Multivit-Min/Lutein 3 tab PO DAILY 08/22/14 05/20/19 [Therapeutic-M Tablet] Multivitamins, Thera [Multivitamin 1 tab PO DAILY 08/22/14 05/20/19 (formulary)] Vitamin B Complex 1 tab PO DAILY 08/22/14 05/20/19 Alendronate Sodium [Fosamax] 70 mg PO FR 10/20/18 05/20/19 Budesonide/Formoterol Fumarate 2 puff INHALATION RT-BID 10/20/18 05/20/19 [Symbicort 80-4.5 Mcg Inhaler] Cholecalciferol [Vitamin D3 (25 1,000 unit PO DAILY 10/20/18 05/20/19 Mcg = 1000 Iu)] Turmeric Root Extract [Turmeric] 500 mg PO DAILY 10/20/18 05/20/19 predniSONE 5 mg PO DAILY 10/20/18 05/20/19 Acyclovir [Zovirax] 400 mg PO BID 05/02/19 05/20/19 Apixaban [Eliquis] 5 mg PO BID 05/02/19 05/20/19 Atorvastatin [Lipitor] 10 mg PO DAILY 05/02/19 05/20/19 L.acidoph,Paracasei, B.lactis 1 cap PO DAILY 05/02/19 05/20/19 [Probiotic] [place]-3 Fatty Acids/Fish Oil 3 cap PO QAM 05/02/19 05/20/19 [[place]-3 Fish Oil 1,200 mg Sfgl] Albuterol Inhaler [Ventolin Hfa 1 puff INHALATION RT-Q6H PRN 05/15/19 05/20/19 Inhaler] Nystatin 100,000 Unit/ml Susp 5 ml PO DAILY PRN 05/15/19 05/20/19 [Mycostatin Oral Susp] Omeprazole 20 mg PO DAILY 05/15/19 05/20/19 Previous Rx's Medication Instructions Recorded Amiodarone [Cordarone] 200 mg PO BID #30 tab 05/02/19 metFORMIN HCL [Glucophage] 500 mg PO AC-BID #60 tab 05/02/19 predniSONE 30 mg PO DAILY #15 tab 01/11/23 Allergies Allergy/AdvReac Type Severity Reaction Status Date / Time acetaminophen Allergy Unknown Verified 01/11/23 14:59 [From Dolores-Shaw] flecainide Allergy Unknown Verified 01/11/23 14:59 iodine Allergy Unknown Verified 01/11/23 14:59 shellfish derived Allergy Rash/Hives Verified 01/11/23 14:59 Sulfa (Sulfonamide Allergy Rash/Hives Verified 01/11/23 14:59 Antibiotics) codeine AdvReac Rapid Verified 01/11/23 14:59 Heart Rate hydromorphone HCl AdvReac Rapid Verified 01/11/23 14:59 [From Dilaudid] Heart Rate propoxyphene AdvReac Rapid Verified 01/11/23 14:59 Heart Rate Review of Systems ROS Statement: Those systems with pertinent positive or pertinent negative responses have been documented in the HPI. ROS Other: All systems not noted in ROS Statement are negative. Constitutional: Reports: weakness. Denies: fever, chills Respiratory: Reports: cough, dyspnea. Denies: hemoptysis Cardiovascular: Reports: palpitations. Denies: chest pain, edema, syncope Gastrointestinal: Reports: nausea. Denies: abdominal pain, vomiting, diarrhea Genitourinary: Denies: dysuria, hematuria Musculoskeletal: Denies: back pain Skin: Denies: rash Neurological: Denies: headache, weakness, numbness Past Medical History Past Medical History: Atrial Fibrillation, Asthma, Blood Disorder, Coronary Artery Disease (CAD), Cancer, Heart Failure, Diabetes Mellitus, Myocardial Infarction (NH), Pneumonia, Renal Disease, Sleep Apnea/CPAP/BIPAP, Thyroid Disorder Additional Past Medical History / Comment(s): Recently having R posterior knee sharp pains, Nonhodgkins lymphoma treated with chemo in , allogenic stem cell transplant in 2003 and 2 more rounds chemo, rectal cancer/vulvar cancer with surgery and has colostomy, renal failure with kidney transplant in 2008, 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, Factor V, osteoporosis, fungal pneumonia, hypothyroid, dry eyes, LIDIA and uses a mouth guard, Last Myocardial Infarction Date:: 04/20/13 History of Any Multi-Drug Resistant Organisms: C-DIFF, MRSA Date of last positivie culture/infection: 2003 for both c-diff and MRSA MDRO Source:: stool, unk Past Surgical History: Cholecystectomy, Pacemaker Additional Past Surgical History / Comment(s): bone marrow transplant 2003, kidney transplant 2008, rectal cancer with surgery, vulvar cancer with surgery, 2013 incomplete PCI, colonoscopies, colostomy 2016 Past Anesthesia/Blood Transfusion Reactions: No Reported Reaction Past Psychological History: No Psychological Hx Reported Smoking Status: Never smoker Past Alcohol Use History: Occasional Past Drug Use History: None Reported - Past Family History Mother Family Medical History: Cancer Additional Family Medical History / Comment(s): Mother had breast cancer twice. She lived to be 95yrs old. Father Family Medical History: Congestive Heart Failure (CHF) Additional Family Medical History / Comment(s): Father lived to be 90yrs old. General Exam Limitations: no limitations General appearance: alert, in no apparent distress Head exam: Present: atraumatic, normocephalic Eye exam: Present: normal appearance. Absent: scleral icterus, conjunctival injection Neck exam: Present: normal inspection Respiratory exam: Present: rales (Left-sided). Absent: respiratory distress, wheezes, rhonchi, stridor, accessory muscle use Cardiovascular Exam: Present: tachycardia (Rate 104 at my exam), irregular rhythm, normal heart sounds. Absent: systolic murmur, diastolic murmur, rubs, gallop GI/Abdominal exam: Present: soft. Absent: distended, tenderness, guarding, rebound, rigid, mass Extremities exam: Present: normal inspection, normal capillary refill. Absent: pedal edema, calf tenderness Back exam: Present: normal inspection. Absent: CVA tenderness (R), CVA tenderness (L) Neurological exam: Present: alert Skin exam: Present: warm, dry, intact, normal color. Absent: rash Course Vital Signs 01/11/23 01/11/23 01/11/23 14:56 14:59 16:59 Temperature 97.9 F Pulse Rate 109 H 76 Pulse Rate [ 120 H [employer] ] Respiratory 20 18 Rate Blood Pressure 143/90 141/69 O2 Sat by Pulse 97 98 Oximetry EKG Findings - EKG Comments: EKG Findings:: The rhythm appears to be an atrial tachycardia rate 107. - EKG Results: EKG: interpreted by ERMD - Blocks, [place], Hypertrophy, ST Abn: AV and intraventricular conduction: intraventricular conduction delay Repolarization changes or abnormalities: nonspecific abnormality, ST segment, and/or T wave Medical Decision Making - Medical Decision Making The patient had chest x-ray which I interpreted as being negative for acute infiltrate, pneumothorax, congestive heart failure Was pt. sent in by a medical professional or institution (ETHEL [place], DEPARTMENT CHAIRPERSON, urgent care, hospital, or shelter...) When possible be specific @ -[No] Did you speak to anyone other than the patient for history (EMS, parent, family, police, friend...)? What history was obtained from this source @ -[No] Did you review nursing and triage notes (agree or disagree)? Why? @ -[I reviewed and agree with nursing and triage notes] Were old charts reviewed (outside hosp., previous admission, EMS record, old EKG, old radiological studies, urgent care reports/EKG's, shelter records)? Report findings @ -[No old charts were reviewed] Differential Diagnosis (chest pain, altered mental status, abdominal pain women, abdominal pain men, vaginal bleeding, weakness, fever, dyspnea, syncope, headache, dizziness, GI bleed, back pain, seizure, CVA, palpatations, mental health, musculoskeletal)? @ -[Differential Dyspnea: Coronary syndrome, arrhythmia, tamponade, asthma, COPD, pulmonary embolism, pneumonia, pneumothorax, pulmonary effusion, anaphylaxis, diabetic ketoacidosis, flailed chest, pulmonary contusion, diaphragmatic rupture, anemia, neuromuscular, this is not meant to be an all-inclusive list. Differential Palpitations Ventricular arrhythmias, atrial arrhythmias, myocardial infarction, anemia, thyrotoxicosis, electrolyte imbalance, hypokalemia, pulmonary embolism, pulmonary disease, drugs, alcohol, anxiety, stress.... This is not meant to be an all-inclusive list. EKG interpreted by me (3pts min.). @ -[As above] X-rays interpreted by me (1pt min.). @ -[As above CT interpreted by me (1pt min.). @ -[None done] U/S interpreted by me (1pt. min.). @ -[None done] What testing was considered but not performed or refused? (CT, X-rays, U/S, labs)? Why? @ -[None] What meds were considered but not given or refused? Why? @ -[None] Did you discuss the management of the patient with other professionals (professionals i.e. , PA, DEPARTMENT CHAIRPERSON, lab, RT, psych nurse, protective services social worker, experimental rocket sled mechanic, teacher, community service officer, case management director)? Give summary @ -[No] Was smoking cessation discussed for >3mins.? @ -[No] Was critical care preformed (if so, how long)? @ -[No] Were there social determinants of health that impacted care today? How? (Homelessness, low income, unemployed, alcoholism, drug addiction, transportation, low edu. Level, literacy, decrease access to med. care, [place] [facility], rehab)? @ -[No] Was there de-escalation of care discussed even if they declined (Discuss DNR or withdrawal of care, Hospice)? DNR status @ -[No] What co-morbidities impacted this encounter? (DM, HTN, Smoking, COPD, CAD, Canc er, CVA, ARF, Chemo, Hep., AIDS, mental health diagnosis, sleep apnea, morbid obesity)? @ -[None] Was patient admitted / discharged? Hospital course, mention meds given and route, prescriptions, significant lab abnormalities, going to OR and other pertinent info. @ -[Patient is seen and evaluated here, the exam consistent with acute bronchi tis. Patient started on medication and we discussed admission but she would rather at this point follow-up. Discussed appropriate further care as well as return parameters. Undiagnosed new problem with uncertain prognosis? @ -[No] Drug Therapy requiring intensive monitoring for toxicity (Heparin, Nitro, Insulin, Cardizem)? @ -[No] Were any procedures done? @ -[No] Diagnosis/symptom? @ -[Acute bronchitis Acute palpitations Acute, or Chronic, or Acute on Chronic? @ -[default] Uncomplicated (without systemic symptoms) or Complicated (systemic symptoms)? @ -[Uncomplicated Side effects of treatment? @ -[No] Exacerbation, Progression, or Severe Exacerbation? @ -[No] Poses a threat to life or bodily function? How? (Chest pain, USA, NH, pneumonia, PE, COPD, DKA, ARF, appy, cholecystitis, CVA, Diverticulitis, Homicidal, Suicidal, threat to staff... and all critical care pts) @ -[No] - Lab Data Result diagrams: 01/11/23 16:16 01/11/23 16:16 Lab Results 01/11/23 01/11/23 01/11/23 Range/Units 16:16 16:16 16:16 WBC 10.5 (3.8-10.6) k/uL RBC 4.03 (3.80-5.40) m/uL Hgb 13.2 (11.4-16.0) gm/dL Hct 39.7 (34.0-46.0) % MCV 98.4 (80.0-100.0) fL MCH 32.7 (25.0-35.0) pg MCHC 33.3 (31.0-37.0) g/dL RDW 14.7 (11.5-15.5) % Plt Count 183 (150-450) k/uL MPV 7.8 Neutrophils % 81 % Lymphocytes % 11 % Monocytes % 6 % Eosinophils % 1 % Basophils % 0 % Neutrophils # 8.5 H (1.3-7.7) k/uL Lymphocytes # 1.2 (1.0-4.8) k/uL Monocytes # 0.6 (0-1.0) k/uL Eosinophils # 0.2 (0-0.7) k/uL Basophils # 0.0 (0-0.2) k/uL PT 12.4 H (9.0-12.0) sec INR 1.2 H (<1.2) APTT 25.4 (22.0-30.0) sec Sodium 132 L (137-145) mmol/L Potassium 4.1 (3.5-5.1) mmol/L Chloride 100 (98-107) mmol/L Carbon Dioxide 21 L (22-30) mmol/L Anion Gap 11 mmol/L BUN 9 (7-17) mg/dL Creatinine 0.39 L (0.52-1.04) mg/dL Est GFR (CKD-EPI)AfAm >90 (>60 ml/min/1.73 sqM) Est GFR (CKD-EPI)NonAf >90 (>60 ml/min/1.73 sqM) Glucose 182 H (74-99) mg/dL Plasma Lactic Acid Cruz (0.7-2.0) mmol/L Calcium 8.3 L (8.4-10.2) mg/dL Magnesium 1.4 L (1.6-2.3) mg/dL Total Bilirubin 0.6 (0.2-1.3) mg/dL AST 31 (14-36) U/L ALT 25 (4-34) U/L Alkaline Phosphatase 53 (38-126) U/L Troponin I (0.000-0.034) ng/mL Total Protein 6.6 (6.3-8.2) g/dL Albumin 3.8 (3.5-5.0) g/dL Urine Color Urine Appearance (Clear) Urine pH (5.0-8.0) Ur Specific [place] (1.001-1.035) Urine Protein (Negative) Urine Glucose (UA) (Negative) Urine Ketones (Negative) Urine Blood (Negative) Urine Nitrite (Negative) Urine Bilirubin (Negative) Urine Urobilinogen (<2.0) mg/dL Ur Leukocyte Esterase (Negative) Urine RBC (0-5) /hpf Urine WBC (0-5) /hpf Urine Mucus (None) /hpf 01/11/23 01/11/23 01/11/23 Range/Units 16:16 16:16 17:15 WBC (3.8-10.6) k/uL RBC (3.80-5.40) m/uL Hgb (11.4-16.0) gm/dL Hct (34.0-46.0) % MCV (80.0-100.0) fL MCH (25.0-35.0) pg MCHC (31.0-37.0) g/dL RDW (11.5-15.5) % Plt Count (150-450) k/uL MPV Neutrophils % % Lymphocytes % % Monocytes % % Eosinophils % % Basophils % % Neutrophils # (1.3-7.7) k/uL Lymphocytes # (1.0-4.8) k/uL Monocytes # (0-1.0) k/uL Eosinophils # (0-0.7) k/uL Basophils # (0-0.2) k/uL PT (9.0-12.0) sec INR (<1.2) APTT (22.0-30.0) sec Sodium (137-145) mmol/L Potassium (3.5-5.1) mmol/L Chloride (98-107) mmol/L Carbon Dioxide (22-30) mmol/L Anion Gap mmol/L BUN (7-17) mg/dL Creatinine (0.52-1.04) mg/dL Est GFR (CKD-EPI)AfAm (>60 ml/min/1.73 sqM) Est GFR (CKD-EPI)NonAf (>60 ml/min/1.73 sqM) Glucose (74-99) mg/dL Plasma Lactic Acid Cruz 1.6 (0.7-2.0) mmol/L Calcium (8.4-10.2) mg/dL Magnesium (1.6-2.3) mg/dL Total Bilirubin (0.2-1.3) mg/dL AST (14-36) U/L ALT (4-34) U/L Alkaline Phosphatase (38-126) U/L Troponin I <0.012 (0.000-0.034) ng/mL Total Protein (6.3-8.2) g/dL Albumin (3.5-5.0) g/dL Urine Color Yellow Urine Appearance Clear (Clear) Urine pH 6.5 (5.0-8.0) Ur Specific [place] 1.007 (1.001-1.035) Urine Protein Negative (Negative) Urine Glucose (UA) Negative (Negative) Urine Ketones Negative (Negative) Urine Blood Negative (Negative) Urine Nitrite Negative (Negative) Urine Bilirubin Negative (Negative) Urine Urobilinogen <2.0 (<2.0) mg/dL Ur Leukocyte Esterase Trace H (Negative) Urine RBC <1 (0-5) /hpf Urine WBC 1 (0-5) /hpf Urine Mucus Rare H (None) /hpf Disposition Clinical Impression: Bronchitis, Hypomagnesemia Disposition: HOME SELF-CARE Condition: Fair Instructions (If sedation given, give patient instructions): Acute Bronchitis (ED) Prescriptions: predniSONE 30 mg PO DAILY #15 tab Is patient prescribed a controlled substance at d/c from ED?: No Referrals: None,Stated [Primary Care Provider] - 1-2 days
--- NOTE | 2023-01-11 16:03 | XR ---
EXAMINATION TYPE: XR chest 2V DATE OF EXAM: 01/11/2023 COMPARISON: 01/10/2023 INDICATION: Tachycardia dysrhythmia TECHNIQUE: Frontal and lateral views of the chest are obtained. FINDINGS: The heart size is normal. The pulmonary vasculature is normal. The lungs are clear. IMPRESSION: 1. No acute pulmonary process.
[2023-01-11 16:36] LABS: Basophils % (A) 0 %; Eosinophils # (A) 0.2 k/uL (0-0.7); Eosinophils % (A) 1 %; HCT 39.7 % (34.0-46.0); HGB 13.2 gm/dL (11.4-16.0); Lymphocytes # (A) 1.2 k/uL (1.0-4.8); Lymphocytes % (A) 11 %; MCH 32.7 pg (25.0-35.0); MCHC 33.3 g/dL (31.0-37.0); MCV 98.4 fL (80.0-100.0); Mean Platelet Volume 7.8; Monocytes # (A) 0.6 k/uL (0-1.0); Monocytes % (A) 6 %; Neutrophils # (A) 8.5 k/uL (1.3-7.7); Neutrophils % (A) 81 %; Platelet Count 183 k/uL (150-450); RBC 4.03 m/uL (3.80-5.40); RDW 14.7 % (11.5-15.5); WBC 10.5 k/uL (3.8-10.6)
[2023-01-11 16:52] LABS: ALT 25 U/L (4-34); AST 31 U/L (14-36); African American GFR (CKD) >90 (>60 ml/min/1.73 sqM); Albumin 3.8 g/dL (3.5-5.0); Alkaline Phosphatase 53 U/L (38-126); Anion Gap 11 mmol/L; Blood Urea Nitrogen 9 mg/dL (7-17); Calcium 8.3 mg/dL (8.4-10.2); Carbon Dioxide 21 mmol/L (22-30); Chloride 100 mmol/L (98-107); Glucose 182 mg/dL (74-99); Magnesium 1.4 mg/dL (1.6-2.3); Non-African American GFR(CKD) >90 (>60 ml/min/1.73 sqM); Potassium 4.1 mmol/L (3.5-5.1); Sodium 132 mmol/L (137-145); Total Bilirubin 0.6 mg/dL (0.2-1.3); Total Protein 6.6 g/dL (6.3-8.2)
[2023-01-11 17:43] LABS: Appearance,Urine Clear (Clear); Bilirubin,Urine Negative (Negative); Blood,Urine Negative (Negative); Color,Urine Yellow; Glucose,Urine (UA) Negative (Negative); Ketones,Urine Negative (Negative); Leukocyte Esterase,Urine Trace (Negative); Mucus,Urine Rare /hpf; Nitrite,Urine Negative (Negative); PH, Urine 6.5 (5.0-8.0); Protein,Urine Negative (Negative); RBC,Urine <1 /hpf (0-5); Specific Gravity,Urine 1.007 (1.001-1.035); Urobilinogen,Urine <2.0 mg/dL (<2.0); WBC,Urine 1 /hpf (0-5)
[2023-01-11 17:45] VITALS: BP 141/69; RESP 18
[2023-01-11 18:06] LABS: INR 1.2 (<1.2); Partial Thromboplastin Time 25.4 sec (22.0-30.0); Prothrombin Time 12.4 sec (9.0-12.0)
[2023-01-11 18:07] VITALS: PULSE 120
[2023-01-11] MEDS ORDERED: MAGNESIUM SULFATE-D5W PMX 1 GM in DEXTROSE/WATER 1 100ML.BAG IVPB ONE (18:16)
[2023-01-11] MEDS ORDERED: MAGNESIUM OXIDE 400 MG TAB PO STA (18:21)
[2023-01-11] MEDS ORDERED: predniSONE 20 MG TAB PO STA (18:39)
== END 2023-01-11 18:50 | disposition home or self-care (01) ==
LOC: EC 14:32
DX: E83.42 Hypomagnesemia (principal); J20.9 Acute bronchitis, unspecified; I48.91 Unspecified atrial fibrillation; J45.909 Unspecified asthma, uncomplicated; I25.10 Atherosclerotic heart disease of native coronary artery without angina pectoris; I11.0 Hypertensive heart disease with heart failure; I50.9 Heart failure, unspecified; I21.9 Acute myocardial infarction, unspecified; E03.9 Hypothyroidism, unspecified; I25.2 Old myocardial infarction; E11.9 Type 2 diabetes mellitus without complications; M81.0 Age-related osteoporosis without current pathological fracture; Z88.2 Allergy status to sulfonamides; Z88.8 Allergy status to other drugs, medicaments and biological substances; Z88.5 Allergy status to narcotic agent; Z91.013 Allergy to seafood; Z79.890 Hormone replacement therapy; Z79.82 Long term (current) use of aspirin; Z79.01 Long term (current) use of anticoagulants; Z79.51 Long term (current) use of inhaled steroids; Z79.899 Other long term (current) drug therapy
CPT/HCPCS: 36415; 93005; 80053; 83605; 83735; 84484; 85025; 85610; 85730; 81001; 71046; 99285; J7512

== ENCOUNTER → 2023-02-14 | Outpatient (CLI) | payer MEDICARE ==
--- NOTE | 2023-02-18 07:45 | MM ---
Reason for Exam: Screening (asymptomatic). Last screening mammogram was performed 12 month(s) ago. Patient History: Menarche at age 10. First Full-Term at age 26. Postmenopausal. Other cancer, age 46. Colorectal cancer, age 61. Hormonal Contraceptives for 7 years from age 17 until age 24. 1995, Benign Excisional Biopsy on the right side. Mother had breast cancer, age 75. Risk Values: Katelyn 5 year model risk: 4.0%. NCI Lifetime model risk: 11.9%. Physical Findings: Physical Exam Performed After Images Prior Study Comparison: 08/01/2020 Left Diagnostic Mammogram, [facility]. 02/10/2021 Bilateral Diagnostic Mammogram, [facility]. 02/12/2022 Bilateral MG 3D screening mammo w/cad, [facility]. Tissue Density: The breast tissue is heterogeneously dense. This may lower the sensitivity of mammography. Findings: Analyzed By CAD. Pattern appears stable. Multiple benign coarse and linear calcifications are present bilaterally. Scattered benign-appearing round calcifications are present bilaterally. No suspicious groups of microcalcifications, spiculated or lobular masses, architectural distortion or other secondary signs of malignancy are mammographically apparent. Overall Assessment: Benign, BI-RAD 2 Management: Screening Mammogram of both breasts in 1 year. A negative mammogram report should not preclude additional follow up of suspicious palpable abnormalities. Patient should continue monthly self breast exam. A clinical breast exam by your physician is recommended on an annual basis and results should be correlated with mammographic findings. Electronically signed and approved by: Rafael Cooper M.D. Radiologis
== END | disposition home or self-care (01) ==
LOC: RADMAMWWP 16:25
PROVIDERS: ATTEND Internal Medicine Hematology & Oncology
DX: Z12.31 Encounter for screening mammogram for malignant neoplasm of breast (principal); C19 Malignant neoplasm of rectosigmoid junction; Z78.0 Asymptomatic menopausal state; Z80.3 Family history of malignant neoplasm of breast
CPT/HCPCS: 77063; 77067

== ENCOUNTER 2023-06-09 09:45 | Emergency (ER) | payer MEDICARE ==
[2023-06-09 10:10] VITALS: RESP 18
--- NOTE | 2023-06-09 10:19 | ED ---
General Adult HPI - General Chief complaint: Headache Stated complaint: covid+ Time Seen by Provider: 06/09/23 10:03 Source: patient, RN notes reviewed, old records reviewed Mode of arrival: ambulatory Limitations: no limitations - History of Present Illness Initial comments: 68-year-old female with significant comorbidities presenting for evaluation of sore throat, headache, nasal congestion. Patient tested positive for coronavirus today. Her has been sick with coronavirus for the past 5 days. She has no difficulty breathing. Mild cough. Patient is on immunosuppressive therapy status post renal transplant. She has previous history of lymphoma. She is on cardiac medications including propafenone and Eliquis. - Related Data Home Medications Medication Instructions Recorded Confirmed Aspirin 81 mg PO DAILY 08/21/14 05/20/19 Calcium Carbonate/Vitamin D3 1 tab PO BID 08/21/14 05/20/19 [Calcium 600-Vit D3 400 Tablet] Levothyroxine Sodium [Synthroid] 100 mcg PO DAILY 08/21/14 05/20/19 Magnesium Oxide [Mag-Ox] 500 mg PO BID 08/21/14 05/20/19 Metoprolol Tartrate 25 mg PO BID 08/21/14 05/20/19 Nitroglycerin Sl Tabs [Nitrostat] 0.4 mg SUBLINGUAL Q5M PRN 08/21/14 05/20/19 Tacrolimus [Prograf] 1 mg PO BID 08/21/14 05/20/19 cycloSPORINE [Restasis] 1 drop BOTH EYES BID 08/21/14 05/20/19 Folic Acid/Multivit-Min/Lutein 3 tab PO DAILY 08/22/14 05/20/19 [Therapeutic-M Tablet] Multivitamins, Thera [Multivitamin 1 tab PO DAILY 08/22/14 05/20/19 (formulary)] Vitamin B Complex 1 tab PO DAILY 08/22/14 05/20/19 Alendronate Sodium [Fosamax] 70 mg PO FR 10/20/18 05/20/19 Budesonide/Formoterol Fumarate 2 puff INHALATION RT-BID 10/20/18 05/20/19 [Symbicort 80-4.5 Mcg Inhaler] Cholecalciferol [Vitamin D3 (25 1,000 unit PO DAILY 10/20/18 05/20/19 Mcg = 1000 Iu)] Turmeric Root Extract [Turmeric] 500 mg PO DAILY 10/20/18 05/20/19 predniSONE 5 mg PO DAILY 10/20/18 05/20/19 Acyclovir [Zovirax] 400 mg PO BID 05/02/19 05/20/19 Apixaban [Eliquis] 5 mg PO BID 05/02/19 05/20/19 Atorvastatin [Lipitor] 10 mg PO DAILY 05/02/19 05/20/19 L.acidoph,Paracasei, B.lactis 1 cap PO DAILY 05/02/19 05/20/19 [Probiotic] [place]-3 Fatty Acids/Fish Oil 3 cap PO QAM 05/02/19 05/20/19 [[place]-3 Fish Oil 1,200 mg Sfgl] Albuterol Inhaler [Ventolin Hfa 1 puff INHALATION RT-Q6H PRN 05/15/19 05/20/19 Inhaler] Nystatin 100,000 Unit/ml Susp 5 ml PO DAILY PRN 05/15/19 05/20/19 [Mycostatin Oral Susp] Omeprazole 20 mg PO DAILY 05/15/19 05/20/19 Previous Rx's Medication Instructions Recorded Amiodarone [Cordarone] 200 mg PO BID #30 tab 05/02/19 metFORMIN HCL [Glucophage] 500 mg PO AC-BID #60 tab 05/02/19 predniSONE 30 mg PO DAILY #15 tab 01/11/23 Molnupiravir [Molnupiravir (Eua)] 800 mg PO BID 5 Days #40 cap 06/09/23 Allergies Allergy/AdvReac Type Severity Reaction Status Date / Time acetaminophen Allergy Unknown Verified 06/09/23 09:56 [From Darvocet-N] flecainide Allergy Unknown Verified 06/09/23 09:56 iodine Allergy Unknown Verified 06/09/23 09:56 shellfish derived Allergy Rash/Hives Verified 06/09/23 09:56 Sulfa (Sulfonamide Allergy Rash/Hives Verified 06/09/23 09:56 Antibiotics) codeine AdvReac Rapid Verified 06/09/23 09:56 Heart Rate hydromorphone HCl AdvReac Rapid Verified 06/09/23 09:56 [From Dilaudid] Heart Rate propoxyphene AdvReac Rapid Verified 06/09/23 09:56 Heart Rate Review of Systems ROS Statement: Those systems with pertinent positive or pertinent negative responses have been documented in the HPI. ROS Other: All systems not noted in ROS Statement are negative. 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, Factor V, osteoporosis, fungal pneumonia, hypothyroid, dry eyes, LIDIA and uses a mouth guard, Last Myocardial Infarction Date:: 04/20/13 History of Any Multi-Drug Resistant Organisms: C-DIFF, MRSA Date of last positivie culture/infection: 2003 for both c-diff and MRSA MDRO Source:: stool, unk Past Surgical History: Cholecystectomy Additional Past Surgical History / Comment(s): bone marrow transplant 2003, kidney transplant 2008, rectal cancer with surgery, vulvar cancer with surgery, 2013 incomplete PCI, colonoscopies, colostomy 2016 Past Anesthesia/Blood Transfusion Reactions: No Reported Reaction Past Psychological History: No Psychological Hx Reported Smoking Status: Never smoker Past Alcohol Use History: Occasional Past Drug Use History: None Reported - Past Family History Mother Family Medical History: Cancer Additional Family Medical History / Comment(s): Mother had breast cancer twice. She lived to be 95yrs old. Father Family Medical History: Congestive Heart Failure (CHF) Additional Family Medical History / Comment(s): Father lived to be 90yrs old. General Exam Limitations: no limitations General appearance: alert, in no apparent distress Head exam: Present: atraumatic, normocephalic Eye exam: Present: normal appearance, PERRL ENT exam: Present: mucous membranes moist Respiratory exam: Present: normal lung sounds bilaterally. Absent: respiratory distress, wheezes, rales, rhonchi Cardiovascular Exam: Present: regular rate, normal rhythm GI/Abdominal exam: Present: soft. Absent: distended, guarding Extremities exam: Present: normal inspection, normal capillary refill Neurological exam: Present: alert, oriented X3, CN II-XII intact. Absent: motor sensory deficit Psychiatric exam: Present: normal affect, normal mood Skin exam: Present: warm, dry, intact Course Vital Signs 06/09/23 06/09/23 09:52 11:21 Temperature 98.8 F 98.2 F Pulse Rate 72 78 Respiratory 18 18 Rate Blood Pressure 165/88 160/82 O2 Sat by Pulse 99 99 Oximetry - Reevaluation(s) Reevaluation #1: 06/09/23 1100 I discussed at length the possibility of antivirals including Paxlovid, with the pharmacist bath, due to no skin drug interactions the patient is not eligible for this medication but she is eligible for the antiviral medication Legeviro, which had no reported interactions with the patient's medications. Medical Decision Making - Medical Decision Making Was pt. sent in by a medical professional or institution (ETHEL Ventura, NOTCHING MACHINE OPERATOR, urgent care, hospital, or fdc...) When possible be specific @ -No Did you speak to anyone other than the patient for history (EMS, parent, family, police, friend...)? What history was obtained from this source @ -No Did you review nursing and triage notes (agree or disagree)? Why? @ -I reviewed and agree with nursing and triage notes Were old charts reviewed (outside hosp., previous admission, EMS record, old EKG, old radiological studies, urgent care reports/EKG's, fdc records)? Report findings @ -No old charts were reviewed Differential Diagnosis (chest pain, altered mental status, abdominal pain women, abdominal pain men, vaginal bleeding, weakness, fever, dyspnea, syncope, headache, dizziness, GI bleed, back pain, seizure, CVA, palpatations, mental health, musculoskeletal)? @ -[Rotavirus, pneumonia, hypoxia EKG interpreted by me (3pts min.). @ -As above X-rays interpreted by me (1pt min.). @ -None done CT interpreted by me (1pt min.). @ -None done U/S interpreted by me (1pt. min.). @ -None done What testing was considered but not performed or refused? (CT, X-rays, U/S, labs)? Why? @ -None What meds were considered but not given or refused? Why? @ -None Did you discuss the management of the patient with other professionals (professionals i.e. Dr., PA, NOTCHING MACHINE OPERATOR, lab, RT, psych nurse, neonatal social worker, manufacturing scheduler, teacher, community service officer coordinator, case worker)? Give summary @ -No Was smoking cessation discussed for >3mins.? @ -No Was critical care preformed (if so, how long)? @ -No Were there social determinants of health that impacted care today? How? (Homelessness, low income, unemployed, alcoholism, drug addiction, transportation, low edu. Level, literacy, decrease access to med. care, half-way, rehab)? @ -No Was there de-escalation of care discussed even if they declined (Discuss DNR or withdrawal of care, Hospice)? DNR status @ -No What co-morbidities impacted this encounter? (DM, HTN, Smoking, COPD, CAD, Cancer, CVA, ARF, Chemo, Hep., AIDS, mental health diagnosis, sleep apnea, morbid obesity)? @ -[Status post renal transplant , history of lymphoma Was patient admitted / discharged? Hospital course, mention meds given and route, prescriptions, significant lab abnormalities, going to OR and other pertinent info. @ -[68-year-old female presenting with coronavirus. Patient tested positive at home. She is well-appearing with stable vitals. No respiratory distress. No hypoxia. I did attempt to prescribe Paxlovid, but the patient due to severe drug interactions this was not appropriate for the patient. I was able to prescribe lagevrio, antiviral for outpatient use. Undiagnosed new problem with uncertain prognosis? @ -No Drug Therapy requiring intensive monitoring for toxicity (Heparin, Nitro, Insulin, Cardizem)? @ -No Were any procedures done? @ -No Diagnosis/symptom? @ -COVID-19 Acute, or Chronic, or Acute on Chronic? @ -Acute Uncomplicated (without systemic symptoms) or Complicated (systemic symptoms)? @ -Complicated Side effects of treatment? @ -No Exacerbation, Progression, or Severe Exacerbation? @ -No Poses a threat to life or bodily function? How? (Chest pain, [place], [place], pneumonia, PE, COPD, DKA, ARF, appy, cholecystitis, CVA, Diverticulitis, Homicidal, Suicidal, threat to staff... and all critical care pts) @ -[low risk at this time Disposition Clinical Impression: COVID-19 Disposition: HOME SELF-CARE Condition: Fair Instructions (If sedation given, give patient instructions): COVID-19 (Coronavirus Disease 2019) (ED) Prescriptions: Molnupiravir [Molnupiravir (Eua)] 800 mg PO BID 5 Days #40 cap Is patient prescribed a controlled substance at d/c from ED?: No Referrals: Gio Vidales MD [Primary Care Provider] - 1-2 days Time of Disposition: 10:47
[2023-06-09 11:44] VITALS: BP 160/82; PULSE 78; TEMP 98.2
== END 2023-06-09 11:23 | disposition home or self-care (01) ==
LOC: EC 09:45
DX: U07.1 COVID-19 (principal); I48.91 Unspecified atrial fibrillation; E11.9 Type 2 diabetes mellitus without complications; I25.10 Atherosclerotic heart disease of native coronary artery without angina pectoris; E03.9 Hypothyroidism, unspecified; I25.2 Old myocardial infarction; I50.9 Heart failure, unspecified; G47.30 Sleep apnea, unspecified; J45.909 Unspecified asthma, uncomplicated; Z79.82 Long term (current) use of aspirin; Z79.890 Hormone replacement therapy; Z79.899 Other long term (current) drug therapy; Z79.51 Long term (current) use of inhaled steroids; Z79.01 Long term (current) use of anticoagulants; Z88.2 Allergy status to sulfonamides; Z88.5 Allergy status to narcotic agent; Z91.013 Allergy to seafood; Z88.6 Allergy status to analgesic agent; Z91.041 Radiographic dye allergy status; Z88.8 Allergy status to other drugs, medicaments and biological substances
CPT/HCPCS: 99283

== ENCOUNTER → 2023-06-20 | Outpatient (CLI) | payer MEDICARE ==
[2023-06-20 15:47] LABS: African American GFR (CKD) >90 (>60 ml/min/1.73 sqM); Blood Urea Nitrogen 12 mg/dL (7-17); Non-African American GFR(CKD) >90 (>60 ml/min/1.73 sqM)
--- NOTE | 2023-06-21 09:50 | CT ---
EXAMINATION TYPE: CT lumbar spine wo/w con DATE OF EXAM: 06/20/2023 COMPARISON: None HISTORY: low back pain, hx of lymphoma CT DLP: 1113.3 mGycm CONTRAST: CT scan of the lumbar is performed without and with IV Contrast, patient injected with mL of Isovue 3 70. TECHNIQUE: CT of the lumbar spine is performed on a spiral scan at 3 mm thick sections. Reconstructed images are performed in the coronal and sagittal planes. FINDINGS: T12-L1: No focal disc herniation or significant disc bulge is evident. No spinal canal stenosis or neural foraminal stenosis is present. L1-L2: No focal disc herniation or significant disc bulge is evident. No spinal canal stenosis or n eural foraminal stenosis is present L2-L3: No focal disc herniation or significant disc bulge is evident. No spinal canal stenosis or n eural foraminal stenosis is present L3-L4: No focal disc herniation or significant disc bulge is evident. No spinal canal stenosis or n eural foraminal stenosis is present L4-L5: Disc bulge has anterior thecal sac flattening. Facet hypertrophy and ligamentum flavum laxity is present. No spinal canal stenosis present. Moderate right foraminal narrowing is present. L5-S1: No focal disc herniation or significant disc bulge is evident. No spinal canal stenosis is pre sent. Severe left and right foraminal narrowing is present. There appears to be nerve root compressio n within the foramen. Correlate for S1 radicular symptoms. Very subtle grade 1 spondylolisthesis of L5 anteriorly on S1 may be present. Incidental note is made of severe renal atrophy. Clinical correlation recommended. No suspicious pamela opathy within the field of view. IMPRESSION: 1. Broad-based disc bulging L4-5 with mild anterior thecal sac compression. 2. Disc uncovering is present L5-S1 without thecal sac compression. There is extension into the ubaldo en however with severe foraminal stenosis and apparent compression of the S1 nerve roots within the f oramen. Correlate with radicular symptoms. 3. Severe renal atrophy. Correlate with laboratory results
== END | disposition home or self-care (01) ==
LOC: RADCTMAIN 15:04
PROVIDERS: ATTEND Internal Medicine Hematology & Oncology
DX: C85.98 Non-Hodgkin lymphoma, unspecified, lymph nodes of multiple sites (principal); M51.26 Other intervertebral disc displacement, lumbar region; M99.73 Connective tissue and disc stenosis of intervertebral foramina of lumbar region; N26.1 Atrophy of kidney (terminal)
CPT/HCPCS: 82565; 84520; 72133; Q9967

== ENCOUNTER 2023-07-06 18:44 | Inpatient (IN) | payer MEDICARE ==
[2023-07-06 21:51] LABS: Basophils % (A) 0 %; Eosinophils # (A) 0.2 k/uL (0-0.7); Eosinophils % (A) 1 %; HCT 47.2 % (34.0-46.0); HGB 15.6 gm/dL (11.4-16.0); Lymphocytes # (A) 2.2 k/uL (1.0-4.8); Lymphocytes % (A) 14 %; MCH 32.9 pg (25.0-35.0); MCV 99.8 fL (80.0-100.0); Macrocytosis Slight; Mean Platelet Volume 7.8; Monocytes % (A) 6 %; Neutrophils # (A) 12.5 k/uL (1.3-7.7); Neutrophils % (A) 78 %; Platelet Count 211 k/uL (150-450); RBC 4.73 m/uL (3.80-5.40); RDW 15.5 % (11.5-15.5); WBC 16.1 k/uL (3.8-10.6)
[2023-07-06 22:01] LABS: Appearance,Urine Clear (Clear); Bilirubin,Urine Negative (Negative); Blood,Urine Negative (Negative); Color,Urine Colorless; Glucose,Urine (UA) Trace (Negative); Ketones,Urine Negative (Negative); Leukocyte Esterase,Urine Negative (Negative); Nitrite,Urine Negative (Negative); Protein,Urine Negative (Negative); Urobilinogen,Urine <2.0 mg/dL (<2.0)
[2023-07-06 22:05] LABS: ALT 24 U/L (4-34); AST 45 U/L (14-36); African American GFR (CKD) >90 (>60 ml/min/1.73 sqM); Albumin 4.6 g/dL (3.5-5.0); Alkaline Phosphatase 53 U/L (38-126); Anion Gap 12 mmol/L; Blood Urea Nitrogen 5 mg/dL (7-17); Carbon Dioxide 22 mmol/L (22-30); Chloride 101 mmol/L (98-107); Glucose 94 mg/dL (74-99); Lipase 22 U/L (23-300); Non-African American GFR(CKD) >90 (>60 ml/min/1.73 sqM); Sodium 135 mmol/L (137-145); Total Bilirubin 0.9 mg/dL (0.2-1.3); Total Protein 7.6 g/dL (6.3-8.2)
[2023-07-06 22:06] LABS: Potassium 4.9 mmol/L (3.5-5.1)
[2023-07-06] MEDS ORDERED: methylPREDNISolone SOD SUCCI 125 MG/2 ML VIAL IV STA (22:10)
[2023-07-06] MEDS ORDERED: FAMOTIDINE 20 MG/2 ML VIAL IV STA (22:10)
[2023-07-06] MEDS ORDERED: SODIUM CHLORIDE 0.9% 1,000 ML IV STA (22:10)
[2023-07-06] MEDS ORDERED: diphenhydrAMINE 50 MG/ML 1 ML VIAL IVP STA (22:10)
--- NOTE | 2023-07-06 22:11 | ED ---
Abdominal Pain HPI - General Chief Complaint: Abdominal Pain Stated Complaint: Abd pain Time Seen by Provider: 07/06/23 22:09 Source: patient Mode of arrival: EMS Limitations: no limitations - History of Present Illness Initial Comments: This is a 68-year-old female to the emergency department for evaluation of severe abdominal pain with nausea vomiting not feeling well. Patient has significant surgical history significant cancer and oncologic history with surgery being around 7 years ago. Patient has severe pain tonight with nausea and vomiting prior history of stomal hernia MD Complaint: abdominal pain -: days(s) Location: diffuse Radiation: epigastric, suprapubic Migration to: suprapubic Severity: severe Severity scale (1-10): 9 Consistency: constant Improves With: nothing Worsens With: nothing Associated Symptoms: nausea, vomiting Treatments Prior to Arrival: other - Related Data Home Medications Medication Instructions Recorded Confirmed Nitroglycerin Sl Tabs [Nitrostat] 0.4 mg SL Q5M PRN 08/21/14 07/07/23 Tacrolimus [Prograf] 0.5 mg PO BID 08/21/14 07/07/23 cycloSPORINE [Restasis] 1 drop BOTH EYES BID 08/21/14 07/07/23 Multivitamins, Thera [Multivitamin 1 tab PO DAILY 08/22/14 07/07/23 (formulary)] Vitamin B Complex 1 cap PO DAILY 08/22/14 07/07/23 Cholecalciferol [Vitamin D3 (25 50 mcg PO DAILY 10/20/18 07/07/23 Mcg = 1000 Iu)] Acyclovir [Zovirax] 400 mg PO BID 05/02/19 07/07/23 Apixaban [Eliquis] 5 mg PO BID 05/02/19 07/07/23 Atorvastatin [Lipitor] 10 mg PO HS 05/02/19 07/07/23 Albuterol Inhaler [Ventolin Hfa 2 puff INHALATION RT-QID PRN 05/15/19 07/07/23 Inhaler] Nystatin 100,000 Unit/ml Susp 5 ml PO DAILY 05/15/19 07/07/23 [Mycostatin Oral Susp] Omeprazole 20 mg PO DAILY PRN 05/15/19 07/07/23 Ascorbic Acid [Vitamin C] 1,000 mg PO DAILY 07/07/23 07/07/23 Aspirin EC [Ecotrin Low Dose] 81 mg PO DAILY 07/07/23 07/07/23 Calcium Carbonate [Calcium] 600 mg PO BID 07/07/23 07/07/23 Fluticasone/Vilanterol [Breo 1 puff INHALATION RT-DAILY 07/07/23 07/07/23 Ellipta 200-25 Mcg Inhaler] Folic Acid 1 mg PO DAILY 07/07/23 07/07/23 Levothyroxine Sodium [Synthroid] 150 mcg PO SUMOTUWESA 07/07/23 07/07/23 Losartan [Cozaar] 50 mg PO Q12H 07/07/23 07/07/23 Magnesium Oxide [Magnesium] 500 mg PO DAILY 07/07/23 07/07/23 Propafenone [Rythmol] 225 mg PO Q8H 07/07/23 07/07/23 Thera Tears Fish Oil 3 cap PO DAILY 07/07/23 07/07/23 carvediloL [Coreg] 12.5 mg PO DAILY 07/07/23 07/07/23 carvediloL [Coreg] 25 mg PO HS 07/07/23 07/07/23 metFORMIN HCL [Glucophage] 1,000 mg PO BID 07/07/23 07/07/23 predniSONE [Deltasone] 20 mg PO DAILY 07/07/23 07/07/23 sitaGLIPtin [Januvia] 100 mg PO DAILY@1600 07/07/23 07/07/23 Allergies Allergy/AdvReac Type Severity Reaction Status Date / Time acetaminophen Allergy Unknown Verified 07/06/23 19:12 [From Darvocet-N] flecainide Allergy Unknown Verified 07/06/23 19:12 iodine Allergy Unknown Verified 07/06/23 19:12 shellfish derived Allergy Rash/Hives Verified 07/06/23 19:12 Sulfa (Sulfonamide Allergy Rash/Hives Verified 07/06/23 19:12 Antibiotics) codeine AdvReac Rapid Verified 07/06/23 19:12 Heart Rate hydromorphone HCl AdvReac Rapid Verified 07/06/23 19:12 [From Dilaudid] Heart Rate propoxyphene AdvReac Rapid Verified 07/06/23 19:12 Heart Rate Review of Systems ROS Statement: Those systems with pertinent positive or pertinent negative responses have been documented in the HPI. ROS Other: All systems not noted in ROS Statement are negative. 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, Factor V, osteoporosis, fungal pneumonia, hypothyroid, dry eyes, LIDIA and uses a mouth guard, Last Myocardial Infarction Date:: 04/20/13 History of Any Multi-Drug Resistant Organisms: C-DIFF, MRSA Date of last positivie culture/infection: 2003 for both c-diff and MRSA MDRO Source:: stool, unk Past Surgical History: Cholecystectomy Additional Past Surgical History / Comment(s): bone marrow transplant 2003, kidney transplant 2008, rectal cancer with surgery, vulvar cancer with surgery, 2013 incomplete PCI, colonoscopies, colostomy 2016 Past Anesthesia/Blood Transfusion Reactions: No Reported Reaction Past Psychological History: No Psychological Hx Reported Smoking Status: Never smoker Past Alcohol Use History: Occasional Past Drug Use History: None Reported - Past Family History Mother Family Medical History: Cancer Additional Family Medical History / Comment(s): Mother had breast cancer twice. She lived to be 95yrs old. Father Family Medical History: Congestive Heart Failure (CHF) Additional Family Medical History / Comment(s): Father lived to be 90yrs old. General Exam Limitations: no limitations General appearance: alert, in no apparent distress, anxious Head exam: Present: atraumatic, normocephalic, normal inspection Eye exam: Present: normal appearance, PERRL, EOMI. Absent: scleral icterus, conjunctival injection, periorbital swelling ENT exam: Present: normal exam, mucous membranes moist Neck exam: Present: normal inspection. Absent: tenderness, meningismus, lymphadenopathy Respiratory exam: Present: normal lung sounds bilaterally. Absent: respiratory distress, wheezes, rales, rhonchi, stridor Cardiovascular Exam: Present: regular rate, normal rhythm, normal heart sounds. Absent: systolic murmur, diastolic murmur, rubs, gallop, clicks GI/Abdominal exam: Present: soft, distended, tenderness, guarding, normal bowel sounds. Absent: rebound, rigid Extremities exam: Present: normal inspection, full ROM, normal capillary refill. Absent: tenderness, pedal edema, joint swelling, calf tenderness Back exam: Present: normal inspection Neurological exam: Present: alert, oriented X3, CN II-XII intact Psychiatric exam: Present: normal affect, normal mood Skin exam: Present: warm, dry, intact, normal color. Absent: rash Course Vital Signs 07/06/23 07/06/23 07/07/23 19:10 23:50 01:48 Temperature 97.9 F Pulse Rate 67 83 76 Respiratory 20 19 18 Rate Blood Pressure 152/78 188/102 162/90 O2 Sat by Pulse 99 95 93 L Oximetry 07/07/23 07/07/23 07/07/23 03:20 04:41 06:23 Temperature Pulse Rate 75 74 71 Respiratory 19 17 17 Rate Blood Pressure 146/80 154/91 110/87 O2 Sat by Pulse 93 L 93 L 92 L Oximetry 07/07/23 07/07/23 07/07/23 08:41 11:55 14:38 Temperature Pulse Rate 75 78 Respiratory 20 20 Rate Blood Pressure 140/85 163/93 149/81 O2 Sat by Pulse 95 98 Oximetry 07/07/23 15:32 Temperature 98.7 F Pulse Rate 65 Respiratory 16 Rate Blood Pressure 117/75 O2 Sat by Pulse 97 Oximetry - Reevaluation(s) Reevaluation #1: 07/07/23 02:08 Medical record is reviewed Reevaluation #2: 07/07/23 02:09 Patient is having mildly improved pain control Reevaluation #3: 07/07/23 02:09 Patient informed of results and questions answered, prefers Dr. Vidales is admitting provider Reevaluation #4: 07/06/23 22:12 Was pt. sent in by a medical professional or institution (, PA, [employer], urgent care, hospital, or longterm...) When possible be specific @ -no Did you speak to anyone other than the patient for history (EMS, parent, family, police, friend...)? What history was obtained from this source @ -no Did you review nursing and triage notes (agree or disagree)? Why? @ -agree Are old charts reviewed (outside hosp., previous admission, EMS record, old EKG, old radiological studies, urgent care reports/EKG's, longterm records)? Report findings @ -yes Differential Diagnosis (chest pain, altered mental status, abdominal pain women, abdominal pain men, vaginal bleeding, weakness, fever, dyspnea, syncope, headache, dizziness, GI bleed, back pain, seizure, CVA, palpatations, mental health, musculoskeletal)? @ -prior EKG interpreted by me (3pts min.). @ -yes X-rays interpreted by me (1pt min.). @ -no CT interpreted by me (1pt min.). @ -yes positive for small bowel obstruction U/S interpreted by me (1pt. min.). @ -no What testing was considered but not performed or refused? (CT, X-rays, U/S, labs)? Why? @ -none What meds were considered but not given or refused? Why? @ -none Did you discuss the management of the patient with other professionals (professionals i.e. , PA, [employer], lab, RT, psych nurse, social services coordinator, rigging foreman, teacher, prison officer, pillowcase folder)? Give summary @ -no Was smoking cessation discussed for >3mins.? @ -no Was critical care preformed (if so, how long)? @ -no Were there social determinants of health that impacted care today? How? (Homelessness, low income, unemployed, alcoholism, drug addiction, transportation, low edu. Level, literacy, decrease access to med. care, intermediate, rehab)? @ -none Was there de-escalation of care discussed even if they declined (Discuss DNR or withdrawal of care, Hospice)? DNR status @ -no What co-morbidities impacted this encounter? (DM, HTN, Smoking, COPD, CAD, Cancer, CVA, ARF, Chemo, Hep., AIDS, mental health diagnosis, sleep apnea, morb id obesity)? @ -none Was patient admitted / discharged? Hospital course, mention meds given and rou te, prescriptions, significant lab abnormalities, going to OR and other pertinent info. @ - 68 Female to the emergency department for evaluation today. This patient presents today for evaluation regards to severe abdominal pain with history of ostomy with multiple abdominal surgeries, patient does have hernia contributing to developing obstruction, patient will be admitted for nothing by mouth status pain control and surgical consultation Admitted Undiagnosed new problem with uncertain prognosis? @ -no Drug Therapy requiring intensive monitoring for toxicity (Heparin, Nitro, Insulin, Cardizem)? @ -no Were any procedures done? @ -no Diagnosis/symptom? @ -Small bowel obstruction Acute, or Chronic, or Acute on Chronic? @ -Acute Uncomplicated (without systemic symptoms) or Complicated (systemic symptoms)? @ -Complicated Side effects of treatment? @ -no Exacerbation, Progression, or Severe Exacerbation? @ -exacerbation Poses a threat to life or bodily function? How? (Chest pain, USA, SD, pneumonia, PE, COPD, DKA, ARF, appy, cholecystitis, CVA, Diverticulitis, Homicidal, Suicidal, threat to staff... and all critical care pts) @ -yes significant illness Reevaluation #5: 07/07/23 02:09 Differential Abdominal Pain Women: Appendicitis, Cholecystitis, diverticulosis, ischemic bowel, pancreatitis, hepatitis, UTI, gastroenteritis, AAA, incarcerated hernia, bowel obstruction, constipation, inflammatory bowel, hepatitis, peptic ulcer disease, splenic infarction, perforated viscus, vulvitis, ovarian torsion, PID, kidney stone, placenta abruption, this is not meant to be an all-inclusive list - Consultations Consultation #1: spoke w Dr Berrios regarding admission he accepts Medical Decision Making - Medical Decision Making 68 Female to the emergency department for evaluation today. This patient presents today for evaluation regards to severe abdominal pain with history of ostomy with multiple abdominal surgeries, patient does have hernia contributing to developing obstruction, patient will be admitted for nothing by mouth status pain control and surgical consultation - Lab Data Result diagrams: 07/09/23 07:39 07/09/23 07:39 Lab Results 07/06/23 07/06/23 07/06/23 Range/Units 21:05 21:05 21:05 WBC 16.1 H (3.8-10.6) k/uL RBC 4.73 (3.80-5.40) m/uL Hgb 15.6 (11.4-16.0) gm/dL Hct 47.2 H (34.0-46.0) % MCV 99.8 (80.0-100.0) fL MCH 32.9 (25.0-35.0) pg MCHC 33.0 (31.0-37.0) g/dL RDW 15.5 (11.5-15.5) % Plt Count 211 (150-450) k/uL MPV 7.8 Neutrophils % 78 % Lymphocytes % 14 % Monocytes % 6 % Eosinophils % 1 % Basophils % 0 % Neutrophils # 12.5 H (1.3-7.7) k/uL Lymphocytes # 2.2 (1.0-4.8) k/uL Monocytes # 1.0 (0-1.0) k/uL Eosinophils # 0.2 (0-0.7) k/uL Basophils # 0.0 (0-0.2) k/uL Macrocytosis Slight Sodium 135 L (137-145) mmol/L Potassium 4.9 (3.5-5.1) mmol/L Chloride 101 (98-107) mmol/L Carbon Dioxide 22 (22-30) mmol/L Anion Gap 12 mmol/L BUN 5 L (7-17) mg/dL Creatinine 0.37 L (0.52-1.04) mg/dL Est GFR (CKD-EPI)AfAm >90 (>60 ml/min/1.73 sqM) Est GFR (CKD-EPI)NonAf >90 (>60 ml/min/1.73 sqM) Glucose 94 (74-99) mg/dL Plasma Lactic Acid Cruz (0.7-2.0) mmol/L Calcium 9.0 (8.4-10.2) mg/dL Total Bilirubin 0.9 (0.2-1.3) mg/dL AST 45 H (14-36) U/L ALT 24 (4-34) U/L Alkaline Phosphatase 53 (38-126) U/L Total Protein 7.6 (6.3-8.2) g/dL Albumin 4.6 (3.5-5.0) g/dL Lipase 22 L (23-300) U/L Urine Color Colorless Urine Appearance Clear (Clear) Urine pH 7.0 (5.0-8.0) Ur Specific [place] 1.010 (1.001-1.035) Urine Protein Negative (Negative) Urine Glucose (UA) Trace H (Negative) Urine Ketones Negative (Negative) Urine Blood Negative (Negative) Urine Nitrite Negative (Negative) Urine Bilirubin Negative (Negative) Urine Urobilinogen <2.0 (<2.0) mg/dL Ur Leukocyte Esterase Negative (Negative) 01/06/24 Range/Units 22:15 WBC (3.8-10.6) k/uL RBC (3.80-5.40) m/uL Hgb (11.4-16.0) gm/dL Hct (34.0-46.0) % MCV (80.0-100.0) fL MCH (25.0-35.0) pg MCHC (31.0-37.0) g/dL RDW (11.5-15.5) % Plt Count (150-450) k/uL MPV Neutrophils % % Lymphocytes % % Monocytes % % Eosinophils % % Basophils % % Neutrophils # (1.3-7.7) k/uL Lymphocytes # (1.0-4.8) k/uL Monocytes # (0-1.0) k/uL Eosinophils # (0-0.7) k/uL Basophils # (0-0.2) k/uL Macrocytosis Sodium (137-145) mmol/L Potassium (3.5-5.1) mmol/L Chloride (98-107) mmol/L Carbon Dioxide (22-30) mmol/L Anion Gap mmol/L BUN (7-17) mg/dL Creatinine (0.52-1.04) mg/dL Est GFR (CKD-EPI)AfAm (>60 ml/min/1.73 sqM) Est GFR (CKD-EPI)NonAf (>60 ml/min/1.73 sqM) Glucose (74-99) mg/dL Plasma Lactic Acid Cruz 1.1 (0.7-2.0) mmol/L Calcium (8.4-10.2) mg/dL Total Bilirubin (0.2-1.3) mg/dL AST (14-36) U/L ALT (4-34) U/L Alkaline Phosphatase (38-126) U/L Total Protein (6.3-8.2) g/dL Albumin (3.5-5.0) g/dL Lipase (23-300) U/L Urine Color Urine Appearance (Clear) Urine pH (5.0-8.0) Ur Specific [place] (1.001-1.035) Urine Protein (Negative) Urine Glucose (UA) (Negative) Urine Ketones (Negative) Urine Blood (Negative) Urine Nitrite (Negative) Urine Bilirubin (Negative) Urine Urobilinogen (<2.0) mg/dL Ur Leukocyte Esterase (Negative) - Radiology Data Radiology results: report reviewed ( CT of the abdomen and pelvis positive for partial obstruction ), image reviewed Disposition Clinical Impression: Complication of ostomy, Ileus, SBO (small bowel obstruction), Hernia, Abdominal colic, Abdominal pain Disposition: ADMITTED IP TO THIS [facility] Condition: Stable Is patient prescribed a controlled substance at d/c from ED?: No Time of Disposition: 02:00
[2023-07-06] MEDS ORDERED: MORPHINE SULFATE 4 MG/ML SYRINGE IV PRN (23:45)
[2023-07-06] MEDS ORDERED: MORPHINE SULFATE 4 MG/ML SYRINGE IV ONE (23:45)
--- NOTE | 2023-07-07 00:56 | CT ---
EXAM: CT Abdomen and Pelvis With Intravenous Contrast CLINICAL HISTORY: ITS.REASON CT Reason: pain TECHNIQUE: Axial computed tomography images of the abdomen and pelvis with intravenous contrast. CTDI is 17.8 mGy and DLP is 866.4 mGy-cm. This CT exam was performed using one or more of the following dose reduction techniques: automated exposure control, adjustment of the mA and/or kV according to patient size, and/or use of iterative reconstruction technique. COMPARISON: No relevant prior studies available. FINDINGS: Lung bases: Atelectasis at the lung bases. Metallic density in the RIGHT ventricle, correlate with surgical history. ABDOMEN: Liver: Unremarkable. No mass. Gallbladder and bile ducts: Cholecystectomy. No ductal dilation. Pancreas: Unremarkable. No mass. No ductal dilation. Spleen: Unremarkable. No splenomegaly. Adrenals: Unremarkable. No mass. Kidneys and ureters: Atrophic, nonfunctional rosebud kidneys. Transplanted kidney in the LEFT iliac fossa. Normal enhancement pattern. No hydronephrosis. Stomach and bowel: Partial colectomy. LEFT lower quadrant ileostomy with multiple small bowel loops within the parastomal hernia. Mildly prominent small bowel, concerning for partial obstruction. The need for surgical evaluation should be determined clinically. PELVIS: Appendix: See above. Bladder: Unremarkable. No mass. Reproductive: Poorly visualized uterus, correlate for atrophy versus a hysterectomy. ABDOMEN and PELVIS: Intraperitoneal space: Unremarkable. No free air. No significant fluid collection. Bones/joints: Degenerative changes of the spine. No acute fracture. No dislocation. Soft tissues: Calcifications in the RIGHT breast, partially included in the [id number]. Vasculature: Atherosclerotic changes of the aorta. No abdominal aortic aneurysm. Lymph nodes: Unremarkable. No enlarged lymph nodes. IMPRESSION: 1. Partial colectomy. LEFT lower quadrant ileostomy with multiple small bowel loops within the parastomal hernia. Mildly prominent small bowel, concerning for partial obstruction. The need for surgical evaluation should be determined clinically. 2. Cholecystectomy. 3. Atrophic, nonfunctional rosebud kidneys. Transplanted kidney in the LEFT iliac fossa. Normal enhancement pattern. No hydronephrosis.
[2023-07-07] MEDS ORDERED: NALOXONE 0.4 MG/ML 1 ML VIAL IV PRN (01:57)
[2023-07-07] MEDS ORDERED: ONDANSETRON 4 MG/2 ML VIAL IVP PRN (01:57)
[2023-07-07] MEDS ORDERED: ALBUTEROL NEBULIZED 2.5 MG/3 ML INHALATION PRN (04:41)
[2023-07-07] MEDS: MORPHINE SULFATE 4 MG/ML SYRINGE IV PRN ×6 (04:42→22:22)
[2023-07-07] MEDS ORDERED: DEXTROSE 50% SYRINGE 50 ML IVP PRN ×2 (04:44)
--- NOTE | 2023-07-07 04:52 | P.HPIM ---
History of Present Illness H&P Date: 07/07/23 Chief Complaint: Abdominal pain 68-year-old female with complex past medical history including A. fib on Eliquis, CHF, COPD, diabetes mellitus Patient coming in due to 1 day history of diffuse abdominal pain with decreased output from the ostomy bag she describes severe pain surrounding the ostomy bag and extending into the rest of the abdomen this has happened before she reports that she was having 2 days of decreased ostomy output for which she took some laxatives she had the bowel movement last night and this morning but after that she noticed that there was no gas coming out of the ostomy bag and with gradual increase in abdominal pain and distention she reports some nausea but no vomiting denies any bleeding denies any fevers or chills. For which eventually she decided to come in for pain control and further management CAT scan in the ED of the abdomen showed partial bowel obstruction patient admitted for further surgery evaluation Patient denies tobacco smoking illicit drugs or heavy alcohol Patient denies any fevers chills chest pain trouble breathing denies any vomiting or GI bleeding review of systems Pertinent positives as noted in HPI. All other systems were reviewed and are negative on exam Constitutional: No acute distress, conversant, pleasant Eyes: Anicteric sclerae, moist conjunctiva, Pupils equal round reactive to light ENMT: NC/AT Oropharynx clear, no erythema, or exudates Neck: Supple, no masses, or JVD No carotid bruits No thyromegaly Lungs: Clear to auscultation Clear to percussion Normal respiratory effort, no accessory muscle use Cardiovascular: Heart regular in rate and rhythm, No murmurs, gallops, or rubs No peripheral edema Abdominal: Mild distention Diffuse tenderness to deep palpation, no guarding, rebound or rigidity Normoactive bowel sounds Ostomy bag in place looks flat Extremities: No digital cyanosis No clubbing Pedal pulses intact and symmetrical Radial pulses intact and symmetrical No calf tenderness Psychiatric: Alert and oriented to person, place and time Appropriate affect fair judgement Neuro Muscles Strength 5/5 in all 4 extremities Sensation to light touch grossly present throughout Cranial nerves II-XII grossly intact Lymphatics: no palpable cervical or supraclavicular lymph nodes Past Medical History Past Medical History: Atrial Fibrillation, Asthma, Blood Disorder, Coronary Artery Disease (CAD), Cancer, Heart Failure, Diabetes Mellitus, Myocardial Infarction ([place]), Pneumonia, Renal Disease, Sleep Apnea/CPAP/BIPAP, Thyroid Disorder Additional Past Medical History / Comment(s): Recently having R posterior knee sharp pains, Nonhodgkins lymphoma treated with chemo in , allogenic stem cell transplant in 2003 and 2 more rounds chemo, rectal cancer/vulvar cancer with surgery and has colostomy, renal failure with kidney transplant in 2008, 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, Factor V, osteoporosis, fungal pneumonia, hypothyroid, dry eyes, LIDIA and uses a mouth guard, Last Myocardial Infarction Date:: 04/20/13 History of Any Multi-Drug Resistant Organisms: C-DIFF, MRSA Date of last positivie culture/infection: 2003 for both c-diff and MRSA MDRO Source:: stool, unk Past Surgical History: Cholecystectomy Additional Past Surgical History / Comment(s): bone marrow transplant 2003, kidney transplant 2008, rectal cancer with surgery, vulvar cancer with surgery, 2013 incomplete PCI, colonoscopies, colostomy 2016 Past Anesthesia/Blood Transfusion Reactions: No Reported Reaction Past Psychological History: No Psychological Hx Reported Smoking Status: Never smoker Past Alcohol Use History: Occasional Past Drug Use History: None Reported - Past Family History Mother Family Medical History: Cancer Additional Family Medical History / Comment(s): Mother had breast cancer twice. She lived to be 95yrs old. Father Family Medical History: Congestive Heart Failure (CHF) Additional Family Medical History / Comment(s): Father lived to be 90yrs old. Medications and Allergies Home Medications Medication Instructions Recorded Confirmed Type Aspirin 81 mg PO DAILY 08/21/14 05/20/19 History Calcium Carbonate/Vitamin D3 1 tab PO BID 08/21/14 05/20/19 History [Calcium 600-Vit D3 400 Tablet] Levothyroxine Sodium [Synthroid] 100 mcg PO DAILY 08/21/14 05/20/19 History Magnesium Oxide [Mag-Ox] 500 mg PO BID 08/21/14 05/20/19 History Metoprolol Tartrate 25 mg PO BID 08/21/14 05/20/19 History Nitroglycerin Sl Tabs [Nitrostat] 0.4 mg SUBLINGUAL Q5M PRN 08/21/14 05/20/19 History Tacrolimus [Prograf] 1 mg PO BID 08/21/14 05/20/19 History cycloSPORINE [Restasis] 1 drop BOTH EYES BID 08/21/14 05/20/19 History Folic Acid/Multivit-Min/Lutein 3 tab PO DAILY 08/22/14 05/20/19 History [Therapeutic-M Tablet] Multivitamins, Thera [Multivitamin 1 tab PO DAILY 08/22/14 05/20/19 History (formulary)] Vitamin B Complex 1 tab PO DAILY 08/22/14 05/20/19 History Alendronate Sodium [Fosamax] 70 mg PO FR 10/20/18 05/20/19 History Budesonide/Formoterol Fumarate 2 puff INHALATION RT-BID 10/20/18 05/20/19 History [Symbicort 80-4.5 Mcg Inhaler] Cholecalciferol [Vitamin D3 (25 1,000 unit PO DAILY 10/20/18 05/20/19 History Mcg = 1000 Iu)] Turmeric Root Extract [Turmeric] 500 mg PO DAILY 10/20/18 05/20/19 History predniSONE 5 mg PO DAILY 10/20/18 05/20/19 History Acyclovir [Zovirax] 400 mg PO BID 05/02/19 05/20/19 History Amiodarone [Cordarone] 200 mg PO BID #30 tab 05/02/19 05/20/19 Rx Apixaban [Eliquis] 5 mg PO BID 05/02/19 05/20/19 History Atorvastatin [Lipitor] 10 mg PO DAILY 05/02/19 05/20/19 History L.acidoph,Paracasei, B.lactis 1 cap PO DAILY 05/02/19 05/20/19 History [Probiotic] [place]-3 Fatty Acids/Fish Oil 3 cap PO QAM 05/02/19 05/20/19 History [[place]-3 Fish Oil 1,200 mg Sfgl] metFORMIN HCL [Glucophage] 500 mg PO AC-BID #60 tab 05/02/19 05/20/19 Rx Albuterol Inhaler [Ventolin Hfa 1 puff INHALATION RT-Q6H PRN 05/15/19 05/20/19 History Inhaler] Nystatin 100,000 Unit/ml Susp 5 ml PO DAILY PRN 05/15/19 05/20/19 History [Mycostatin Oral Susp] Omeprazole 20 mg PO DAILY 05/15/19 05/20/19 History predniSONE 30 mg PO DAILY #15 tab 01/11/23 Rx Molnupiravir [Molnupiravir (Eua)] 800 mg PO BID 5 Days #40 cap 06/09/23 Rx Allergies Allergy/AdvReac Type Severity Reaction Status Date / Time acetaminophen Allergy Unknown Verified 07/06/23 19:12 [From Darvocet-N] flecainide Allergy Unknown Verified 07/06/23 19:12 iodine Allergy Unknown Verified 07/06/23 19:12 shellfish derived Allergy Rash/Hives Verified 07/06/23 19:12 Sulfa (Sulfonamide Allergy Rash/Hives Verified 07/06/23 19:12 Antibiotics) codeine AdvReac Rapid Verified 07/06/23 19:12 Heart Rate hydromorphone HCl AdvReac Rapid Verified 07/06/23 19:12 [From Dilaudid] Heart Rate propoxyphene AdvReac Rapid Verified 07/06/23 19:12 Heart Rate Physical Exam Vitals: Vital Signs Temp Pulse Resp BP Pulse Ox 07/07/23 03:20 75 19 146/80 93 L 07/07/23 01:48 76 18 162/90 93 L 07/06/23 23:50 83 19 188/102 95 07/06/23 19:10 97.9 F 67 20 152/78 99 Intake and Output 07/06/23 07/06/23 07/07/23 14:59 22:59 06:59 Other: Weight 74.843 kg Results CBC & Chem 7: 07/06/23 21:05 07/06/23 21:05 Labs: Abnormal Lab Results - Last 24 Hours (Table) 07/06/23 07/06/23 07/06/23 Range/Units 21:05 21:05 21:05 WBC 16.1 H (3.8-10.6) k/uL Hct 47.2 H (34.0-46.0) % Neutrophils # 12.5 H (1.3-7.7) k/uL Sodium 135 L (137-145) mmol/L BUN 5 L (7-17) mg/dL Creatinine 0.37 L (0.52-1.04) mg/dL AST 45 H (14-36) U/L Lipase 22 L (23-300) U/L Urine Glucose (UA) Trace H (Negative) Assessment and Plan Assessment: 68-year-old female with history of renal transplant, diabetes mellitus, A. fib on Eliquis coming in for decreased ostomy output and abdominal distention with severe pain I discussed the case with the adductor accepted the admission for partial bowel obstruction for further surgical evaluation with anticipated length of stay less than 2 midnights Partial bowel obstruction Severe abdominal pain Morphine when necessary Blood work showing sodium 135 potassium 4.9 BUN 5 creatinine 0.37 unremarkable Account 16.1 hemoglobin 15.6, afebrile Lactic acid 1.1 Clear liquid diet General surgery evaluation CT of the abdomen showed partial bowel obstruction and upper ostomy herniation Pain control with morphine when necessary IV push When necessary Zofran 4 mg IV push every 8 hours IV fluid hydration normal saline 75 mL per hour Chronic conditions Renal transplant continue with Prograf and prednisone Diabetes mellitus, insulin sliding scale History of CAD continue with statin Paroxysmal A. fib and history of sick sinus syndrome status post pacemaker and ROSETTA with Eliquis and amiodarone Hypothyroid continue with levothyroxine COPD compensated continue with Symbicort and DuoNeb's when necessary Verify home medications Full code DVT prophylaxis on Eliquis for A. fib
[2023-07-07] MEDS: SODIUM CHLORIDE 0.9% 1,000 ML IV SCH ×2 (04:59→17:15)
[2023-07-07 05:17] LABS: Glucose,Whole Blood 147 mg/dL (70-110)
[2023-07-07] MEDS ORDERED: LEVOTHYROXINE 100 MCG TAB PO SCH (06:30)
[2023-07-07 07:55] LABS: Glucose,Whole Blood 167 mg/dL (70-110)
[2023-07-07] MEDS ORDERED: SYMBICORT 80-4.5 MCG INHALER INHALATION SCH (08:00)
[2023-07-07] MEDS: INSULIN ASPART (NovoLOG) 100 UNIT/ML VIAL SQ SCH ×4 (08:43→22:29)
[2023-07-07] MEDS: PANTOPRAZOLE 40 MG/10 ML VIAL IV SCH (08:56)
[2023-07-07] MEDS ORDERED: predniSONE 5 MG TAB PO SCH (09:00)
[2023-07-07] MEDS ORDERED: AMIODARONE 200 MG TAB PO SCH (09:00)
[2023-07-07] MEDS ORDERED: PANTOPRAZOLE 40 MG TABLET PO SCH (09:00)
[2023-07-07] MEDS ORDERED: METOPROLOL TARTRATE 25 MG TAB PO SCH (09:00)
[2023-07-07] MEDS ORDERED: APIXABAN 5 MG TAB PO SCH (09:00)
--- NOTE | 2023-07-07 11:05 | P.GSCN ---
History of Present Illness Consult date: 07/07/23 Reason for Consult: Bowel obstruction History of present illness: This is a 68-year-old female who has completed nausea and abdominal pain. Pa mary is a decreased output through colostomy. Patient appears history of rectal cancer with surgery at [facility] several years ago. Patient states that she's had a parastomal hernia for some time. This is the first time she's had a valve structurally to the hernia. 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, Factor V, osteoporosis, fungal pneumonia, hypothyroid, dry eyes, LIDIA and uses a mouth guard, Last Myocardial Infarction Date:: 04/20/13 History of Any Multi-Drug Resistant Organisms: C-DIFF, MRSA Year Discovered:: 2003 for both c-diff and MRSA MDRO Source:: stool, unk Past Surgical History: Cholecystectomy Additional Past Surgical History / Comment(s): bone marrow transplant 2003, kidney transplant 2008, rectal cancer with surgery, vulvar cancer with surgery, 2013 incomplete PCI, colonoscopies, colostomy 2016 Past Anesthesia/Blood Transfusion Reactions: No Reported Reaction Past Psychological History: No Psychological Hx Reported Smoking Status: Never smoker Past Alcohol Use History: Occasional Past Drug Use History: None Reported - Past Family History Mother Family Medical History: Cancer Additional Family Medical History / Comment(s): Mother had breast cancer twice. She lived to be 95yrs old. Father Family Medical History: Congestive Heart Failure (CHF) Additional Family Medical History / Comment(s): Father lived to be 90yrs old. Medications and Allergies Home Medications Medication Instructions Recorded Confirmed Type Aspirin 81 mg PO DAILY 08/21/14 05/20/19 History Calcium Carbonate/Vitamin D3 1 tab PO BID 08/21/14 05/20/19 History [Calcium 600-Vit D3 400 Tablet] Levothyroxine Sodium [Synthroid] 100 mcg PO DAILY 08/21/14 05/20/19 History Magnesium Oxide [Mag-Ox] 500 mg PO BID 08/21/14 05/20/19 History Metoprolol Tartrate 25 mg PO BID 08/21/14 05/20/19 History Nitroglycerin Sl Tabs [Nitrostat] 0.4 mg SUBLINGUAL Q5M PRN 08/21/14 05/20/19 History Tacrolimus [Prograf] 1 mg PO BID 08/21/14 05/20/19 History cycloSPORINE [Restasis] 1 drop BOTH EYES BID 08/21/14 05/20/19 History Folic Acid/Multivit-Min/Lutein 3 tab PO DAILY 08/22/14 05/20/19 History [Therapeutic-M Tablet] Multivitamins, Thera [Multivitamin 1 tab PO DAILY 08/22/14 05/20/19 History (formulary)] Vitamin B Complex 1 tab PO DAILY 08/22/14 05/20/19 History Alendronate Sodium [Fosamax] 70 mg PO FR 10/20/18 05/20/19 History Budesonide/Formoterol Fumarate 2 puff INHALATION RT-BID 10/20/18 05/20/19 History [Symbicort 80-4.5 Mcg Inhaler] Cholecalciferol [Vitamin D3 (25 1,000 unit PO DAILY 10/20/18 05/20/19 History Mcg = 1000 Iu)] Turmeric Root Extract [Turmeric] 500 mg PO DAILY 10/20/18 05/20/19 History predniSONE 5 mg PO DAILY 10/20/18 05/20/19 History Acyclovir [Zovirax] 400 mg PO BID 05/02/19 05/20/19 History Amiodarone [Cordarone] 200 mg PO BID #30 tab 05/02/19 05/20/19 Rx Apixaban [Eliquis] 5 mg PO BID 05/02/19 05/20/19 History Atorvastatin [Lipitor] 10 mg PO DAILY 05/02/19 05/20/19 History L.acidoph,Paracasei, B.lactis 1 cap PO DAILY 05/02/19 05/20/19 History [Probiotic] [place]-3 Fatty Acids/Fish Oil 3 cap PO QAM 05/02/19 05/20/19 History [[place]-3 Fish Oil 1,200 mg Sfgl] metFORMIN HCL [Glucophage] 500 mg PO AC-BID #60 tab 05/02/19 05/20/19 Rx Albuterol Inhaler [Ventolin Hfa 1 puff INHALATION RT-Q6H PRN 05/15/19 05/20/19 History Inhaler] Nystatin 100,000 Unit/ml Susp 5 ml PO DAILY PRN 05/15/19 05/20/19 History [Mycostatin Oral Susp] Omeprazole 20 mg PO DAILY 05/15/19 05/20/19 History predniSONE 30 mg PO DAILY #15 tab 01/11/23 Rx Molnupiravir [Molnupiravir (Eua)] 800 mg PO BID 5 Days #40 cap 06/09/23 Rx Allergies Allergy/AdvReac Type Severity Reaction Status Date / Time acetaminophen Allergy Unknown Verified 07/06/23 19:12 [From Darvocet-N] flecainide Allergy Unknown Verified 07/06/23 19:12 iodine Allergy Unknown Verified 07/06/23 19:12 shellfish derived Allergy Rash/Hives Verified 07/06/23 19:12 Sulfa (Sulfonamide Allergy Rash/Hives Verified 07/06/23 19:12 Antibiotics) codeine AdvReac Rapid Verified 07/06/23 19:12 Heart Rate hydromorphone HCl AdvReac Rapid Verified 07/06/23 19:12 [From Dilaudid] Heart Rate propoxyphene AdvReac Rapid Verified 07/06/23 19:12 Heart Rate Surgical - Exam Vital Signs Temp Pulse Resp BP Pulse Ox 97.9 F 67 20 152/78 99 07/06/23 19:10 07/06/23 19:10 07/06/23 19:10 07/06/23 19:10 07/06/23 19:10 - General well developed, well nourished, no distress - Eyes PERRL - ENT normal pinna - Neck no masses - Respiratory normal expansion - Cardiovascular Rhythm: regular - Abdomen Mild tenderness, abdominal distention Abdomen: soft Results - Labs 07/06/23 21:05 07/06/23 21:05 Abnormal Lab Results - Last 24 Hours (Table) 07/06/23 07/06/23 07/06/23 Range/Units 21:05 21:05 21:05 WBC 16.1 H (3.8-10.6) k/uL Hct 47.2 H (34.0-46.0) % Neutrophils # 12.5 H (1.3-7.7) k/uL Sodium 135 L (137-145) mmol/L BUN 5 L (7-17) mg/dL Creatinine 0.37 L (0.52-1.04) mg/dL POC Glucose (mg/dL) (70-110) mg/dL AST 45 H (14-36) U/L Lipase 22 L (23-300) U/L Urine Glucose (UA) Trace H (Negative) 07/07/23 07/07/23 Range/Units 05:16 07:53 WBC (3.8-10.6) k/uL Hct (34.0-46.0) % Neutrophils # (1.3-7.7) k/uL Sodium (137-145) mmol/L BUN (7-17) mg/dL Creatinine (0.52-1.04) mg/dL POC Glucose (mg/dL) 147 H 167 H (70-110) mg/dL AST (14-36) U/L Lipase (23-300) U/L Urine Glucose (UA) (Negative) Diabetes panel 07/06/23 Range/Units 21:05 Sodium 135 L (137-145) mmol/L Potassium 4.9 (3.5-5.1) mmol/L Chloride 101 (98-107) mmol/L Carbon Dioxide 22 (22-30) mmol/L BUN 5 L (7-17) mg/dL Creatinine 0.37 L (0.52-1.04) mg/dL Glucose 94 (74-99) mg/dL Calcium 9.0 (8.4-10.2) mg/dL AST 45 H (14-36) U/L ALT 24 (4-34) U/L Alkaline Phosphatase 53 (38-126) U/L Total Protein 7.6 (6.3-8.2) g/dL Albumin 4.6 (3.5-5.0) g/dL Calcium panel 07/06/23 Range/Units 21:05 Calcium 9.0 (8.4-10.2) mg/dL Albumin 4.6 (3.5-5.0) g/dL Pituitary panel 07/06/23 Range/Units 21:05 Sodium 135 L (137-145) mmol/L Potassium 4.9 (3.5-5.1) mmol/L Chloride 101 (98-107) mmol/L Carbon Dioxide 22 (22-30) mmol/L BUN 5 L (7-17) mg/dL Creatinine 0.37 L (0.52-1.04) mg/dL Glucose 94 (74-99) mg/dL Calcium 9.0 (8.4-10.2) mg/dL Adrenal panel 07/06/23 Range/Units 21:05 Sodium 135 L (137-145) mmol/L Potassium 4.9 (3.5-5.1) mmol/L Chloride 101 (98-107) mmol/L Carbon Dioxide 22 (22-30) mmol/L BUN 5 L (7-17) mg/dL Creatinine 0.37 L (0.52-1.04) mg/dL Glucose 94 (74-99) mg/dL Calcium 9.0 (8.4-10.2) mg/dL Total Bilirubin 0.9 (0.2-1.3) mg/dL AST 45 H (14-36) U/L ALT 24 (4-34) U/L Alkaline Phosphatase 53 (38-126) U/L Total Protein 7.6 (6.3-8.2) g/dL Albumin 4.6 (3.5-5.0) g/dL - Imaging CT scan - abdomen: pending (Partial small bowel obstruction due to peritoneal hernia with multiple loops of bowel within the hernia sac.), report reviewed Assessment and Plan Assessment: Small bowel structure related to parastomal hernia. Patient will have nasogastric tube placed. Patient is is unsure if she wants to follow-up at [facility] if she needs surgery.
[2023-07-07] MEDS: ACYCLOVIR 200 MG CAP PO SCH ×2 (12:06→22:29)
[2023-07-07] MEDS: ATORVASTATIN 10 MG TAB PO SCH (12:06)
[2023-07-07] MEDS: TACROLIMUS 1 MG CAP PO SCH ×2 (12:09→22:29)
[2023-07-07 13:55] LABS: Glucose,Whole Blood 126 mg/dL (70-110)
[2023-07-07 16:22] LABS: Glucose,Whole Blood 122 mg/dL (70-110)
[2023-07-07] MEDS ORDERED: NON FORMULARY DRUG (Levothyroxine Sodium [Synthroid] 150 MCG Tablet) PO SCH (17:15)
--- NOTE | 2023-07-07 18:38 | XR ---
EXAMINATION TYPE: XR chest 1V DATE OF EXAM: 07/07/2023 COMPARISON: 01/11/2023 HISTORY: 68-year-old female NG tube placement TECHNIQUE: Single frontal view of the chest is obtained. FINDINGS: Heart limits of normal in size. NG tube sidehole near the GE junction. Advanced by 3 cm so that it enters the stomach. Loop recorder device projecting over the left side of the heart. Patchy opacity at the left base is new. Cholecystectomy clips. IMPRESSION: 1. Patchy atelectasis versus infiltrate at the periphery of the left base. 2. NG tube sidehole at the GE junction level. Advance further by 3 cm so that it enters the stomach.
[2023-07-07] MEDS ORDERED: MORPHINE SULFATE 2 MG/ML SYRINGE IVP STA (20:37)
[2023-07-07 21:55] LABS: Glucose,Whole Blood 139 mg/dL (70-110)
[2023-07-07] MEDS: CALCIUM CARBONATE 500 MG CHEWABLE PO SCH (22:29)
[2023-07-07] MEDS: carvediloL 12.5 MG TAB PO SCH (22:29)
[2023-07-07] MEDS: cycloSPORINE 0.05% OPHTH 0.4 ML DROPERETTE BOTH EYES SCH (22:29)
[2023-07-08] MEDS: MORPHINE SULFATE 4 MG/ML SYRINGE IV PRN ×6 (01:15→22:18)
[2023-07-08] MEDS: PROPAFENONE 225 MG TAB PO SCH ×4 (01:22→23:22)
[2023-07-08 06:32] LABS: Glucose,Whole Blood 105 mg/dL (70-110)
[2023-07-08] MEDS: LEVOTHYROXINE 75 MCG TAB PO SCH (07:09)
[2023-07-08] MEDS: INSULIN ASPART (NovoLOG) 100 UNIT/ML VIAL SQ SCH ×4 (07:53→20:16)
[2023-07-08] MEDS: SYMBICORT 160-4.5 MCG INHALER INHALATION SCH ×2 (08:08→20:18)
[2023-07-08 08:24] LABS: Basophils % (A) 0 %; Eosinophils # (A) 0.1 k/uL (0-0.7); Eosinophils % (A) 1 %; HCT 44.5 % (34.0-46.0); HGB 14.6 gm/dL (11.4-16.0); Lymphocytes # (A) 1.8 k/uL (1.0-4.8); Lymphocytes % (A) 15 %; MCH 33.5 pg (25.0-35.0); MCHC 32.8 g/dL (31.0-37.0); MCV 102.2 fL (80.0-100.0); Macrocytosis Slight; Mean Platelet Volume 7.7; Monocytes # (A) 1.4 k/uL (0-1.0); Monocytes % (A) 12 %; Neutrophils # (A) 8.2 k/uL (1.3-7.7); Neutrophils % (A) 69 %; Platelet Count 235 k/uL (150-450); RBC 4.35 m/uL (3.80-5.40); WBC 11.8 k/uL (3.8-10.6)
[2023-07-08] MEDS: SODIUM CHLORIDE 0.9% 1,000 ML IV SCH ×2 (08:31→20:27)
[2023-07-08] MEDS: PANTOPRAZOLE 40 MG/10 ML VIAL IV SCH ×2 (08:31→20:27)
[2023-07-08 08:48] LABS: ALT 19 U/L (4-34); AST 24 U/L (14-36); African American GFR (CKD) >90 (>60 ml/min/1.73 sqM); Albumin 3.7 g/dL (3.5-5.0); Alkaline Phosphatase 60 U/L (38-126); Anion Gap 12 mmol/L; Blood Urea Nitrogen 22 mg/dL (7-17); Calcium 8.9 mg/dL (8.4-10.2); Carbon Dioxide 24 mmol/L (22-30); Chloride 106 mmol/L (98-107); Glucose 135 mg/dL (74-99); Magnesium 1.7 mg/dL (1.6-2.3); Non-African American GFR(CKD) >90 (>60 ml/min/1.73 sqM); Phosphorus 4.5 mg/dL (2.5-4.5); Sodium 142 mmol/L (137-145); Total Bilirubin 0.7 mg/dL (0.2-1.3); Total Protein 6.4 g/dL (6.3-8.2)
[2023-07-08 09:14] LABS: Potassium 3.8 mmol/L (3.5-5.1)
[2023-07-08] MEDS ORDERED: LORazepam 2 MG/ML INJ IV PRN (09:20)
[2023-07-08] MEDS: cycloSPORINE 0.05% OPHTH 0.4 ML DROPERETTE BOTH EYES SCH ×2 (09:29→21:23)
[2023-07-08] MEDS: ACYCLOVIR 200 MG CAP PO SCH ×2 (09:39→19:23)
[2023-07-08] MEDS: CALCIUM CARBONATE 500 MG CHEWABLE PO SCH ×2 (09:39→19:23)
[2023-07-08] MEDS: ATORVASTATIN 10 MG TAB PO SCH (09:39)
[2023-07-08] MEDS: ASCORBIC ACID 500 MG TAB PO SCH (09:39)
[2023-07-08] MEDS: predniSONE 20 MG TAB PO SCH (09:40)
[2023-07-08] MEDS: FOLIC ACID 1 MG TAB PO SCH (09:40)
[2023-07-08] MEDS: TACROLIMUS 1 MG CAP PO SCH ×3 (09:40→22:18)
[2023-07-08 11:37] LABS: Glucose,Whole Blood 114 mg/dL (70-110)
[2023-07-08] MEDS: BENZOCAINE SPRAY 1 CAN MUCOUS MEM PRN ×2 (14:35→20:26)
--- NOTE | 2023-07-08 15:15 | P.PN ---
Subjective Progress Note Date: 07/08/23 CHIEF COMPLAINT: Small bowel obstruction HISTORY OF PRESENT ILLNESS: Patient continues to have abdominal pain and distention. She's had very small amount of flatus from her ostomy. She does report feeling nauseous. NG tube with 250 mL reddish output. Afebrile. Heart rate 103. WBC is down from 16.1-11.8 Hgb 14.6 platelets 235 sodium is 142 potassium is 3.8 creatinine 0.58 Nursing staff did advance NG tube this morning. Patient requesting to go to of if surgery is needed. But if they can't get to her right away she is fine with staying here. PHYSICAL EXAM: VITAL SIGNS: Reviewed. GENERAL: Well-developed in no acute distress. ABDOMEN: Distended evidence of parastomal hernia tender with palpation. No output from ostomy NEUROLOGIC: Alert and oriented. Cranial nerves II through XII grossly intact. ASSESSMENT: 1. Small bowel obstruction related to parastomal hernia PLAN: -Continue NG tube placement for decompression -Keep patient NPO -Increase Protonix to twice a day for gastritis -Add Hurricaine spray for NG tube irritation -Continue pain management Physician Block Machine Operator note has been reviewed by physician. Signing provider agrees with the documented findings, assessment, and plan of care. Objective - Vital Signs Vital signs: Vital Signs Temp 97.6 F 07/08/23 08:00 Pulse 103 H 07/08/23 08:00 Resp 18 07/08/23 08:00 BP 148/76 07/08/23 08:00 Pulse Ox 96 07/08/23 08:09 FiO2 Intake & Output 07/07/23 07/08/23 07/08/23 18:59 06:59 18:59 Intake Total 900 Output Total 250 Balance 650 Weight 74.843 kg Intake: Intake, IV Titration 900 Amount Sodium Chloride 0.9% 1, 900 000 ml @ 75 mls/hr IV . [id number] MARCELINA Rx#:[id number] Output: Gastric Drainage 250 Other: Voiding Method Bedside Commode # Voids 2 - Labs CBC & Chem 7: 07/08/23 07:59 07/08/23 07:59 Labs: Abnormal Lab Results - Last 24 Hours (Table) 07/07/23 07/07/23 07/07/23 Range/Units 13:55 16:20 21:54 WBC (3.8-10.6) k/uL MCV (80.0-100.0) fL RDW (11.5-15.5) % Neutrophils # (1.3-7.7) k/uL Monocytes # (0-1.0) k/uL BUN (7-17) mg/dL Glucose (74-99) mg/dL POC Glucose (mg/dL) 126 H 122 H 139 H (70-110) mg/dL 07/08/23 07/08/23 07/08/23 Range/Units 07:59 07:59 11:35 WBC 11.8 H (3.8-10.6) k/uL MCV 102.2 H (80.0-100.0) fL RDW 16.0 H (11.5-15.5) % Neutrophils # 8.2 H (1.3-7.7) k/uL Monocytes # 1.4 H (0-1.0) k/uL BUN 22 H (7-17) mg/dL Glucose 135 H (74-99) mg/dL POC Glucose (mg/dL) 114 H (70-110) mg/dL
[2023-07-08 16:34] LABS: Glucose,Whole Blood 116 mg/dL (70-110)
--- NOTE | 2023-07-08 18:07 | P.PN ---
Subjective Progress Note Date: 07/08/23 Pt was in significant pain this morning when I saw her. There was about 250cc of gastric output that looked potentially bloody overnight. Pt did not get her NGT palced until approximately 1700 last night. Apparently the CXR showed the NGT had not been in optimal position overnight and needed to be advanced 3cm. Pt did have some gas in her ileostomy today, but was in significant pain even after using q3h morphine overnight. I discussed this case with today's nurse, and NGT was advanced. Pts pain did improved later in the day, and she required less morphine. Gen: awake, alert HEENT: normocephalic, atraumatic, good hearing acuity, moist mucous membranes Resp: good air exchange, breathing comfortably with no accessory muscle use CVS: good distal perfusion x 4, GI: soft, NTTP, ND : no SPT, no CVAT, masterson catheter not present MSK: no pitting edema, no clubbing Neuro: non-focal, moving all extremities Psych: cooperative, euthymic mood Hospital Course: 68-year-old female with complex past medical history including A. fib on Eliquis, CHF, COPD, diabetes mellitus, NHL s/p stem cell transplant, ESRD s/p renal transplant, colon cancer s/p ileostomy presented for diffused abd pain. CT A/P found partial small bowel obstruction of the bowel loops in the parastomal hernia. Gen surgery had considered that this may represent a bowel obstruction and are following along. Discussed the patient's care with general surgery, who advised that the patient's request is to initiate transfer to [facility]. I discussed the case with Dr. Tomas of the [facility] transfer line who recommended conservative management and to call back if patient becomes a surgical case. Patient's colorectal surgeon is Dr. Esparza, who should be contacted should patient become surgical. Assessment/plan: Partial bowel obstruction Severe abdominal pain -Morphine when necessary -General surgery evaluation -When necessary Zofran 4 mg IV push every 8 hours -IV fluid hydration normal saline 75 mL per hour Chronic conditions Renal transplant continue with Prograf and prednisone Diabetes mellitus, insulin sliding scale History of CAD continue with statin Paroxysmal A. fib and history of sick sinus syndrome status post pacemaker and ROSETTA with Eliquis and amiodarone Hypothyroid continue with levothyroxine COPD compensated continue with Symbicort and DuoNeb's when necessary Full code DVT prophylaxis on Eliquis for A. fib is on hold in case of surgical need Objective - Vital Signs Vital signs: Vital Signs Temp 98.9 F 07/08/23 13:26 Pulse 103 H 07/08/23 13:26 Resp 18 07/08/23 13:26 BP 137/81 07/08/23 13:26 Pulse Ox 96 07/08/23 13:26 FiO2 Intake & Output 07/07/23 07/08/23 07/08/23 18:59 06:59 18:59 Intake Total 900 Output Total 250 Balance 650 Weight 74.843 kg Intake: Intake, IV Titration 900 Amount Sodium Chloride 0.9% 1, 900 000 ml @ 75 mls/hr IV . [id number] MARCELINA Rx#:[id number] Output: Gastric Drainage 250 Other: Voiding Method Bedside Commode # Voids 2 - Labs CBC & Chem 7: 07/08/23 07:59 07/08/23 07:59 Labs: Abnormal Lab Results - Last 24 Hours (Table) 07/07/23 07/08/23 07/08/23 Range/Units 21:54 07:59 07:59 WBC 11.8 H (3.8-10.6) k/uL MCV 102.2 H (80.0-100.0) fL RDW 16.0 H (11.5-15.5) % Neutrophils # 8.2 H (1.3-7.7) k/uL Monocytes # 1.4 H (0-1.0) k/uL BUN (7-17) mg/dL Glucose (74-99) mg/dL POC Glucose (mg/dL) 139 H (70-110) mg/dL Hemoglobin A1c 6.9 H (<=6.0) % 07/08/23 07/08/23 07/08/23 Range/Units 07:59 11:35 16:32 WBC (3.8-10.6) k/uL MCV (80.0-100.0) fL RDW (11.5-15.5) % Neutrophils # (1.3-7.7) k/uL Monocytes # (0-1.0) k/uL BUN 22 H (7-17) mg/dL Glucose 135 H (74-99) mg/dL POC Glucose (mg/dL) 114 H 116 H (70-110) mg/dL Hemoglobin A1c (<=6.0) %
[2023-07-08] MEDS: carvediloL 12.5 MG TAB PO SCH ×2 (19:23→22:18)
[2023-07-08 20:16] LABS: Glucose,Whole Blood 102 mg/dL (70-110)
[2023-07-09] MEDS: MORPHINE SULFATE 4 MG/ML SYRINGE IV PRN ×2 (02:20→11:15)
[2023-07-09 02:41] VITALS: RESP 20
[2023-07-09] MEDS: LEVOTHYROXINE 75 MCG TAB PO SCH (05:41)
[2023-07-09 06:16] LABS: Glucose,Whole Blood 111 mg/dL (70-110)
[2023-07-09] MEDS: INSULIN ASPART (NovoLOG) 100 UNIT/ML VIAL SQ SCH ×4 (06:22→20:11)
[2023-07-09] MEDS: SYMBICORT 160-4.5 MCG INHALER INHALATION SCH ×2 (07:57→19:32)
[2023-07-09 08:01] LABS: Basophils % (A) 0 %; Eosinophils # (A) 0.2 k/uL (0-0.7); Eosinophils % (A) 2 %; HGB 13.9 gm/dL (11.4-16.0); Lymphocytes # (A) 1.7 k/uL (1.0-4.8); Lymphocytes % (A) 12 %; MCH 33.1 pg (25.0-35.0); MCHC 32.3 g/dL (31.0-37.0); MCV 102.5 fL (80.0-100.0); Macrocytosis Slight; Mean Platelet Volume 8.1; Monocytes # (A) 1.3 k/uL (0-1.0); Monocytes % (A) 10 %; Neutrophils # (A) 10.5 k/uL (1.3-7.7); Neutrophils % (A) 74 %; Platelet Count 206 k/uL (150-450); RDW 15.8 % (11.5-15.5); WBC 14.1 k/uL (3.8-10.6)
[2023-07-09 08:15] LABS: African American GFR (CKD) >90 (>60 ml/min/1.73 sqM); Anion Gap 13 mmol/L; Blood Urea Nitrogen 27 mg/dL (7-17); Calcium 8.3 mg/dL (8.4-10.2); Carbon Dioxide 20 mmol/L (22-30); Chloride 109 mmol/L (98-107); Glucose 117 mg/dL (74-99); Magnesium 1.7 mg/dL (1.6-2.3); Non-African American GFR(CKD) >90 (>60 ml/min/1.73 sqM); Sodium 142 mmol/L (137-145)
[2023-07-09 08:19] LABS: Potassium 3.8 mmol/L (3.5-5.1)
[2023-07-09] MEDS: cycloSPORINE 0.05% OPHTH 0.4 ML DROPERETTE BOTH EYES SCH ×2 (09:04→20:20)
[2023-07-09] MEDS: ACYCLOVIR 200 MG CAP PO SCH ×2 (09:04→20:19)
[2023-07-09] MEDS: predniSONE 20 MG TAB PO SCH (09:04)
[2023-07-09] MEDS: PANTOPRAZOLE 40 MG/10 ML VIAL IV SCH ×2 (09:04→20:20)
[2023-07-09] MEDS: ATORVASTATIN 10 MG TAB PO SCH (09:04)
[2023-07-09] MEDS: TACROLIMUS 1 MG CAP PO SCH ×2 (09:04→20:20)
[2023-07-09] MEDS: PROPAFENONE 225 MG TAB PO SCH ×2 (09:04→16:29)
[2023-07-09] MEDS: CALCIUM CARBONATE 500 MG CHEWABLE PO SCH ×2 (09:04→20:19)
[2023-07-09] MEDS: ASCORBIC ACID 500 MG TAB PO SCH (09:05)
[2023-07-09] MEDS: FOLIC ACID 1 MG TAB PO SCH (09:05)
[2023-07-09] MEDS ORDERED: DRY MOUTH SPRAY 44.3 SPRAY/44.3 ML SPRAY MUCOUS MEM PRN (09:19)
[2023-07-09] MEDS: ACETAMINOPHEN IV (For NPO) 1,000 MG in EMPTY BAG 1 BAG IVPB SCH ×2 (11:14→16:28)
[2023-07-09 12:42] LABS: Glucose,Whole Blood 115 mg/dL (70-110)
[2023-07-09] MEDS ORDERED: MAGNESIUM SULFATE-D5W PMX 1 GM in DEXTROSE/WATER 1 100ML.BAG IVPB ONE (13:25)
--- NOTE | 2023-07-09 13:33 | P.PN ---
Subjective Progress Note Date: 07/09/23 CHIEF COMPLAINT: Small bowel obstruction HISTORY OF PRESENT ILLNESS: Patient continues to have abdominal pain and distention. She's had no output through her ostomy. Minimal output through the NG tube. She did have a low-grade temp of 100.2 around 2 AM and had been mildly tachycardic. WBC is up from 11.8-14.1 Hgb 13.9 platelets 206 sodium 142 potassium 3.8 creatinine 0.57 glucose 113 magnesium 1.7 PHYSICAL EXAM: VITAL SIGNS: Reviewed. GENERAL: Well-developed in no acute distress. ABDOMEN: Distended around parastomal hernia and tender with palpation. No output from ostomy NEUROLOGIC: Alert and oriented. Cranial nerves II through XII grossly intact. ASSESSMENT: 1. Small bowel obstruction related to parastomal hernia 2. Hypomagnesemia PLAN: -Patient scheduled for exploratory laparotomy and repair of parastomal hernia tomorrow with Dr. Thompson -Continue NG tube placement for decompression -Keep patient NPO -Continue pain management. Agree with adding IV Tylenol -Medically optimized patient for surgery for tomorrow -Continue to hold Eliquis -Replace magnesium Physician Corporate Associate Attorney note has been reviewed by physician. Signing provider agrees with the documented findings, assessment, and plan of care. Objective - Vital Signs Vital signs: Vital Signs Temp 98.4 F 07/09/23 08:48 Pulse 80 07/09/23 08:48 Resp 20 07/09/23 02:15 BP 104/68 07/09/23 08:48 Pulse Ox 97 07/09/23 08:48 FiO2 Intake & Output 07/08/23 07/09/23 07/09/23 18:59 06:59 18:59 Output Total 75 5 Balance -75 -5 Output: Gastric Drainage 75 5 Other: Voiding Method Bedside Commode Bedside Commode # Voids 2 2 - Labs CBC & Chem 7: 07/09/23 07:39 07/09/23 07:39 Labs: Abnormal Lab Results - Last 24 Hours (Table) 07/08/23 07/08/23 07/09/23 Range/Units 07:59 16:32 06:15 WBC (3.8-10.6) k/uL MCV (80.0-100.0) fL RDW (11.5-15.5) % Neutrophils # (1.3-7.7) k/uL Monocytes # (0-1.0) k/uL Chloride (98-107) mmol/L Carbon Dioxide (22-30) mmol/L BUN (7-17) mg/dL Glucose (74-99) mg/dL POC Glucose (mg/dL) 116 H 111 H (70-110) mg/dL Hemoglobin A1c 6.9 H (<=6.0) % Calcium (8.4-10.2) mg/dL 07/09/23 07/09/23 07/09/23 Range/Units 07:39 07:39 12:37 WBC 14.1 H (3.8-10.6) k/uL MCV 102.5 H (80.0-100.0) fL RDW 15.8 H (11.5-15.5) % Neutrophils # 10.5 H (1.3-7.7) k/uL Monocytes # 1.3 H (0-1.0) k/uL Chloride 109 H (98-107) mmol/L Carbon Dioxide 20 L (22-30) mmol/L BUN 27 H (7-17) mg/dL Glucose 117 H (74-99) mg/dL POC Glucose (mg/dL) 115 H (70-110) mg/dL Hemoglobin A1c (<=6.0) % Calcium 8.3 L (8.4-10.2) mg/dL
[2023-07-09] MEDS: SODIUM CHLORIDE 0.9% 1,000 ML IV SCH (14:39)
[2023-07-09] MEDS ORDERED: PIPERACILLIN-TAZOBACTAM 3.375 GM in SODIUM CHLORIDE 0.9% 100 ML IVPB SCH (16:00)
[2023-07-09 17:32] LABS: Glucose,Whole Blood 159 mg/dL (70-110)
--- NOTE | 2023-07-09 18:47 | P.DS ---
Providers Date of admission: 07/07/23 02:02 Expected date of discharge: 07/09/23 Attending physician: Nedra Alonzo MD Consults: 07/07/23 01:57 Consult Physician Routine Consulting Provider: Krzysztof Dalton Consult Reason/Comments: ostomy,sbo Do you want consulting provider notified?: Yes 07/08/23 07:48 Consult Physician Routine Consulting Provider: Maximiliano Thompson Consult Reason/Comments: SBO Do you want consulting provider notified?: Already Contacted Primary care physician: [facility] Dr[facility] P. 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- maintained on Prograft and Prednisone S/P Stem cell transplant for nonhodgkins lymphoma Diabetes mellitus type 2- Januvia on hold, metformin on hold, on sliding scale insulin Paroxysmal atrial fibrillation- eliquis on hold for possible surgery COPD without exacerbation Hypothyroidism Coronary artery disease Compensated congestive heart failure, unknown EF Obstructive sleep apnea Hospital Course: Patient is a 68-year-old female with atrial fibrillation anticoagulated with Eliquis, COPD, diabetes mellitus type 2 not requiring insulin, and prior renal transplant who presented to the hospital with complaints of severe abdominal pain in the ostomy site. On arrival to the ER she underwent an extensive evaluation. Initial vitals were within normal limits. Laboratory analysis was remarkable for white blood cell count 16.1, sodium 135. In the emergency department she underwent a CT of the abdomen and pelvis which showed a partial small bowel obstruction and the patient was admitted for for further surgical evaluation. He was seen by surgery. They recommended possible surgical vinicius luation. The case was discussed with [facility] as the patient follows there after having rectal and vulvar cancer as well as non-Hodgkin's lymphoma with bone marrow and renal transplant. [facility] did recommend conservative management at this time. NGT was placed with return of 350 cc of fluid. She continued to have small amounts of NGT output but the color improved from dark brown to light sharp. She had one temp of 100.2 with increasing WBC of 14.1 and surgery recommended the additional of zosyn. Due to her continued pain and distension Dr. Thompson recommended surgical intervention for her pSBO due to parastomal hernia. The patient requested that we contact [facility] again as most of her care was completed at that facility. She was accepted by Dr. Rivera Plasencia. Currently Awaiting bed placement. Currently holding her cozaar and coreg due to low BP 95-110, Holding Asa and eliquis for possible surgery Subjective: Patient seen and examined at bedside. In the morning she was having significant pain with wearoff between morphine doses. She was also having some throat and nose pain. with feeling of dry mouth In the afternoon pain was improved with the adcition of IV acetaminophen. Patient updated on plan of care multiple time through out the day. Physical Exam: Vital signs reviewed and stable. General: Nontoxic, no distress, appears at stated age Cardiovascular: S1S2 reg, no murmur, positive posterior tibial pulse bilateral, Lungs: Decreased bs bilateral, no rhonchi, no rales, no accessory muscle use Abdominal: + distended, + TTP diffusely, hypoactive bowel sounds, osteomy without putput, NGT in place with light sharp drainiage. Ext: No gross muscle atrophy, no edema b/l lower extremities, no contractures Neuro: CN II-XI grossly intact, no focal neuro deficits Psych: Alert, oriented, appropriate affect A total of 65 minutes of time were spent in care of this patient and preparing this complex discharge summary. Patient was discharged on 07/09/23. This dictation was prepared using [employer] voice recognition software. Though every attempt is made to correct errors during dictation some may still exist. Patient Condition at Discharge: Stable Plan - Discharge Summary Discharge Rx Participant: No New Discharge Prescriptions: No Action cycloSPORINE [Restasis] 1 drop BOTH EYES BID Tacrolimus [Prograf] 0.5 mg PO BID Nitroglycerin Sl Tabs [Nitrostat] 0.4 mg SL Q5M PRN PRN Reason: Chest Pain Vitamin B Complex 1 cap PO DAILY Multivitamins, Thera [Multivitamin (formulary)] 1 tab PO DAILY Cholecalciferol [Vitamin D3 (25 Mcg = 1000 Iu)] 50 mcg PO DAILY Acyclovir [Zovirax] 400 mg PO BID Atorvastatin [Lipitor] 10 mg PO HS Apixaban [Eliquis] 5 mg PO BID Nystatin 100,000 Unit/ml Susp [Mycostatin Oral Susp] 5 ml PO DAILY Omeprazole 20 mg PO DAILY PRN PRN Reason: Heartburn Albuterol Inhaler [Ventolin Hfa Inhaler] 2 puff INHALATION RT-QID PRN PRN Reason: Shortness Of Breath predniSONE [Deltasone] 20 mg PO DAILY carvediloL [Coreg] 25 mg PO HS carvediloL [Coreg] 12.5 mg PO DAILY Magnesium Oxide [Magnesium] 500 mg PO DAILY Aspirin EC [Ecotrin Low Dose] 81 mg PO DAILY Fluticasone/Vilanterol [Breo Ellipta 200-25 Mcg Inhaler] 1 puff INHALATION RT-DAILY metFORMIN HCL [Glucophage] 1,000 mg PO BID Thera Tears Fish Oil 3 cap PO DAILY Propafenone [Rythmol] 225 mg PO Q8H sitaGLIPtin [Januvia] 100 mg PO DAILY@1600 Calcium Carbonate [Calcium] 600 mg PO BID Ascorbic Acid [Vitamin C] 1,000 mg PO DAILY Folic Acid 1 mg PO DAILY Levothyroxine Sodium [Synthroid] 150 mcg PO SUMOTUWESA Losartan [Cozaar] 50 mg PO Q12H Discharge Medication List Nitroglycerin Sl Tabs [Nitrostat] 0.4 mg SL Q5M PRN 08/21/14 [History] Tacrolimus [Prograf] 0.5 mg PO BID 08/21/14 [History] cycloSPORINE [Restasis] 1 drop BOTH EYES BID 08/21/14 [History] Multivitamins, Thera [Multivitamin (formulary)] 1 tab PO DAILY 08/22/14 [History] Vitamin B Complex 1 cap PO DAILY 08/22/14 [History] Cholecalciferol [Vitamin D3 (25 Mcg = 1000 Iu)] 50 mcg PO DAILY 10/20/18 [History] Acyclovir [Zovirax] 400 mg PO BID 05/02/19 [History] Apixaban [Eliquis] 5 mg PO BID 05/02/19 [History] Atorvastatin [Lipitor] 10 mg PO HS 05/02/19 [History] Albuterol Inhaler [Ventolin Hfa Inhaler] 2 puff INHALATION RT-QID PRN 05/15/19 [History] Nystatin 100,000 Unit/ml Susp [Mycostatin Oral Susp] 5 ml PO DAILY 05/15/19 [History] Omeprazole 20 mg PO DAILY PRN 05/15/19 [History] Ascorbic Acid [Vitamin C] 1,000 mg PO DAILY 07/07/23 [History] Aspirin EC [Ecotrin Low Dose] 81 mg PO DAILY 07/07/23 [History] Calcium Carbonate [Calcium] 600 mg PO BID 07/07/23 [History] Fluticasone/Vilanterol [Breo Ellipta 200-25 Mcg Inhaler] 1 puff INHALATION RT- DAILY 07/07/23 [History] Folic Acid 1 mg PO DAILY 07/07/23 [History] Levothyroxine Sodium [Synthroid] 150 mcg PO SUMOTUWESA 07/07/23 [History] Losartan [Cozaar] 50 mg PO Q12H 07/07/23 [History] Magnesium Oxide [Magnesium] 500 mg PO DAILY 07/07/23 [History] Propafenone [Rythmol] 225 mg PO Q8H 07/07/23 [History] Thera Tears Fish Oil 3 cap PO DAILY 07/07/23 [History] carvediloL [Coreg] 12.5 mg PO DAILY 07/07/23 [History] carvediloL [Coreg] 25 mg PO HS 07/07/23 [History] metFORMIN HCL [Glucophage] 1,000 mg PO BID 07/07/23 [History] predniSONE [Deltasone] 20 mg PO DAILY 07/07/23 [History] sitaGLIPtin [Januvia] 100 mg PO DAILY@1600 07/07/23 [History] Follow up Appointment(s)/Referral(s): None,Stated [REFERRING] - 1-2 days
[2023-07-09 20:13] LABS: Glucose,Whole Blood 150 mg/dL (70-110)
[2023-07-09] MEDS: carvediloL 12.5 MG TAB PO SCH (20:20)
[2023-07-09 20:42] VITALS: BP 106/71; PULSE 104; TEMP 98
== END 2023-07-09 21:12 | disposition short-term general hospital (02) | DRG 394 ==
LOC: EC 18:44 → 4SSUR 07-07 02:02 → 1SOBS 07-07 15:07
PROVIDERS: ADMIT Internal Medicine; ATTEND Internal Medicine
DX: K43.3 Parastomal hernia with obstruction, without gangrene (principal); D84.81 Immunodeficiency due to conditions classified elsewhere; Z94.84 Stem cells transplant status; Z94.81 Bone marrow transplant status; Z94.0 Kidney transplant status; M81.0 Age-related osteoporosis without current pathological fracture; J44.89 Other specified chronic obstructive pulmonary disease; I48.0 Paroxysmal atrial fibrillation; I50.9 Heart failure, unspecified; I25.10 Atherosclerotic heart disease of native coronary artery without angina pectoris; G47.33 Obstructive sleep apnea (adult) (pediatric); E83.42 Hypomagnesemia; E03.9 Hypothyroidism, unspecified; I49.5 Sick sinus syndrome; E11.9 Type 2 diabetes mellitus without complications; I25.2 Old myocardial infarction; Z79.899 Other long term (current) drug therapy; Z95.0 Presence of cardiac pacemaker; Z93.3 Colostomy status; Z92.21 Personal history of antineoplastic chemotherapy; Z85.44 Personal history of malignant neoplasm of other female genital organs; Z85.048 Personal history of other malignant neoplasm of rectum, rectosigmoid junction, and anus; Z79.890 Hormone replacement therapy; Z79.84 Long term (current) use of oral hypoglycemic drugs; Z79.83 Long term (current) use of bisphosphonates; Z79.82 Long term (current) use of aspirin; Z79.52 Long term (current) use of systemic steroids; Z79.51 Long term (current) use of inhaled steroids; Z79.01 Long term (current) use of anticoagulants; Z85.72 Personal history of non-Hodgkin lymphomas; Z87.01 Personal history of pneumonia (recurrent); Z86.14 Personal history of Methicillin resistant Staphylococcus aureus infection; Z88.6 Allergy status to analgesic agent; Z88.8 Allergy status to other drugs, medicaments and biological substances; Z88.2 Allergy status to sulfonamides; Z88.5 Allergy status to narcotic agent; Z79.621 Long term (current) use of calcineurin inhibitor
CPT/HCPCS: 36415; 71045; 74177; 80048; 80053; 81003; 83036; 83605; 83690; 83735; 84100; 85025; 94640; 94760; 96361; 96374; 96375; 96376; 99285

== ENCOUNTER 2023-08-07 16:11 | Emergency (ER) | payer MEDICARE ==
[2023-08-07] MEDS: SODIUM CHLORIDE 0.9% 1,000 ML IV ONE (16:51)
[2023-08-07 17:02] LABS: Basophils # (A) 0.1 k/uL (0-0.2); Basophils % (A) 0 %; Eosinophils # (A) 0.2 k/uL (0-0.7); Eosinophils % (A) 1 %; HCT 39.6 % (34.0-46.0); HGB 12.7 gm/dL (11.4-16.0); Lymphocytes # (A) 1.1 k/uL (1.0-4.8); Lymphocytes % (A) 9 %; MCH 32.8 pg (25.0-35.0); MCV 102.7 fL (80.0-100.0); Macrocytosis Slight; Mean Platelet Volume 7.6; Monocytes # (A) 0.7 k/uL (0-1.0); Monocytes % (A) 6 %; Neutrophils # (A) 10.1 k/uL (1.3-7.7); Neutrophils % (A) 82 %; Platelet Count 176 k/uL (150-450); RBC 3.86 m/uL (3.80-5.40); RDW 15.1 % (11.5-15.5); WBC 12.2 k/uL (3.8-10.6)
[2023-08-07 17:12] LABS: INR 1.2 (<1.2); Partial Thromboplastin Time 27.1 sec (22.0-30.0); Prothrombin Time 12.5 sec (10.0-12.5)
--- NOTE | 2023-08-07 17:13 | ED ---
General Adult HPI - General Chief complaint: Fall Stated complaint: fall Time Seen by Provider: 08/07/23 16:20 Source: patient, RN notes reviewed, old records reviewed Mode of arrival: ambulatory Limitations: no limitations - History of Present Illness Initial comments: Patient is a 68-year-old female who presents emergency department with a fall. Patient is on Eliquis. Recently had GI surgery. Has a history of A-fib. States she woke up this morning and had a mechanical fall onto her left side onto carpeting. Struck her left cheek and forehead as well as her left chest. Has pain under her left armpit as well as pain over the left cheek. Very mild headache as well. She took Tylenol for it. Decided to come get the evaluated at this time. Walks with a cane at baseline. States she did not faint. Did not lose consciousness. Denies any blurry vision. Presents for further evaluation, almost 12 hours after the injury. Patient was a fall from standing. Does not meet trauma activation criteria. - Related Data Home Medications Medication Instructions Recorded Confirmed Nitroglycerin Sl Tabs [Nitrostat] 0.4 mg SL Q5M PRN 08/21/14 07/07/23 Tacrolimus [Prograf] 0.5 mg PO BID 08/21/14 07/07/23 cycloSPORINE [Restasis] 1 drop BOTH EYES BID 08/21/14 07/07/23 Multivitamins, Thera [Multivitamin 1 tab PO DAILY 08/22/14 07/07/23 (formulary)] Vitamin B Complex 1 cap PO DAILY 08/22/14 07/07/23 Cholecalciferol [Vitamin D3 (25 50 mcg PO DAILY 10/20/18 07/07/23 Mcg = 1000 Iu)] Acyclovir [Zovirax] 400 mg PO BID 05/02/19 07/07/23 Apixaban [Eliquis] 5 mg PO BID 05/02/19 07/07/23 Atorvastatin [Lipitor] 10 mg PO HS 05/02/19 07/07/23 Albuterol Inhaler [Ventolin Hfa 2 puff INHALATION RT-QID PRN 05/15/19 07/07/23 Inhaler] Nystatin 100,000 Unit/ml Susp 5 ml PO DAILY 05/15/19 07/07/23 [Mycostatin Oral Susp] Omeprazole 20 mg PO DAILY PRN 05/15/19 07/07/23 Ascorbic Acid [Vitamin C] 1,000 mg PO DAILY 07/07/23 07/07/23 Aspirin EC [Ecotrin Low Dose] 81 mg PO DAILY 07/07/23 07/07/23 Calcium Carbonate [Calcium] 600 mg PO BID 07/07/23 07/07/23 Fluticasone/Vilanterol [Breo 1 puff INHALATION RT-DAILY 07/07/23 07/07/23 Ellipta 200-25 Mcg Inhaler] Folic Acid 1 mg PO DAILY 07/07/23 07/07/23 Levothyroxine Sodium [Synthroid] 150 mcg PO SUMOTUWESA 07/07/23 07/07/23 Losartan [Cozaar] 50 mg PO Q12H 07/07/23 07/07/23 Magnesium Oxide [Magnesium] 500 mg PO DAILY 07/07/23 07/07/23 Propafenone [Rythmol] 225 mg PO Q8H 07/07/23 07/07/23 Thera Tears Fish Oil 3 cap PO DAILY 07/07/23 07/07/23 carvediloL [Coreg] 12.5 mg PO DAILY 07/07/23 07/07/23 carvediloL [Coreg] 25 mg PO HS 07/07/23 07/07/23 metFORMIN HCL [Glucophage] 1,000 mg PO BID 07/07/23 07/07/23 predniSONE [Deltasone] 20 mg PO DAILY 07/07/23 07/07/23 sitaGLIPtin [Januvia] 100 mg PO DAILY@1600 07/07/23 07/07/23 Previous Rx's Medication Instructions Recorded Cephalexin [Keflex] 500 mg PO Q12HR 7 Days #14 cap 08/07/23 Lidocaine 5% Patch [Lidoderm 5% 1 patch TOPICAL DAILY PRN 14 Days 08/07/23 Patch] #14 patch Allergies Allergy/AdvReac Type Severity Reaction Status Date / Time acetaminophen Allergy Unknown Verified 08/07/23 16:18 [From Yoni] flecainide Allergy Unknown Verified 08/07/23 16:18 iodine Allergy Unknown Verified 08/07/23 16:18 shellfish derived Allergy Rash/Hives Verified 08/07/23 16:18 Sulfa (Sulfonamide Allergy Rash/Hives Verified 08/07/23 16:18 Antibiotics) codeine AdvReac Rapid Verified 08/07/23 16:18 Heart Rate hydromorphone HCl AdvReac Rapid Verified 08/07/23 16:18 [From Dilaudid] Heart Rate propoxyphene AdvReac Rapid Verified 08/07/23 16:18 Heart Rate Review of Systems ROS Statement: Those systems with pertinent positive or pertinent negative responses have been documented in the HPI. Review of Systems: CONST: Denies fever EYES: Denies blurry vision ENT: Denies nasal congestion C/V: Denies Chest pain RESP: Denies shortness of breath GI: Denies abdominal pain : Denies dysuria SKIN: Denies rash. MSK: Endorses left rib pain NEURO: Denies headache ROS Other: All systems not noted in ROS Statement are negative. 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, Factor V, osteoporosis, fungal pneumonia, hypothyroid, dry eyes, LIDIA and uses a mouth guard, Last Myocardial Infarction Date:: 04/20/13 History of Any Multi-Drug Resistant Organisms: C-DIFF, MRSA Date of last positivie culture/infection: 2003 for both c-diff and MRSA MDRO Source:: stool, unk Past Surgical History: Cholecystectomy Additional Past Surgical History / Comment(s): bone marrow transplant 2003, kidney transplant 2008, rectal cancer with surgery, vulvar cancer with surgery, 2013 incomplete PCI, colonoscopies, colostomy 2016 Past Anesthesia/Blood Transfusion Reactions: No Reported Reaction Past Psychological History: No Psychological Hx Reported Smoking Status: Never smoker Past Alcohol Use History: Occasional Past Drug Use History: None Reported - Past Family History Mother Family Medical History: Cancer Additional Family Medical History / Comment(s): Mother had breast cancer twice. She lived to be 95yrs old. Father Family Medical History: Congestive Heart Failure (CHF) Additional Family Medical History / Comment(s): Father lived to be 90yrs old. General Exam - General Exam Comments Initial Comments: General: Appears in no acute distress. HEAD: Patient does have a very small scalp abrasion. Not actively bleeding. Negative Rodríguez sign. Negative raccoon eyes. EYES: PERRLA, EOMI, conjunctiva normal, no discharge. Pupils are 3 mm and equal bilaterally. ENT: Hearing grossly intact, normal oropharynx. RESPIRATORY: Clear breath sounds bilaterally. No wheezes, rales, or rhonchi. No evidence of flail chest. C/V: Regular rate and rhythm. S1 and S2 auscultated, no edema, peripheral pulses 2+ and intact throughout ABD: Abd is soft, nontender, nondistended EXT: Normal range of motion, no obvious deformity. No midline cervical, thoracic, lumbar spine tenderness to palpation. Pelvis is stable. No extremity tenderness to palpation. Tenderness to palpation over the left mid ribs in the mid to anterior axillary line. SKIN: No rashes or lesions observed on exposed skin. NEURO: Alert and oriented x 4. Cranial nerves II-XII intact. No focal sensory or strength deficits. GCS of 15. Limitations: no limitations Course Vital Signs 08/07/23 08/07/23 08/07/23 16:15 17:35 19:32 Temperature 98.4 F 97.9 F 98.4 F Pulse Rate 68 59 L 60 Respiratory 16 16 18 Rate Blood Pressure 137/77 103/69 114/75 O2 Sat by Pulse 99 99 96 Oximetry Medical Decision Making - Medical Decision Making Was pt. sent in by a medical professional or institution (, PA, TIRE WRAPPER, urgent care, hospital, or longterm...) When possible be specific @ -No Did you speak to anyone other than the patient for history (EMS, parent, family, police, friend...)? What history was obtained from this source @ -No Did you review nursing and triage notes (agree or disagree)? Why? @ -I reviewed and agree with nursing and triage notes Were old charts reviewed (outside hosp., previous admission, EMS record, old EKG, old radiological studies, urgent care reports/EKG's, longterm records)? Report findings @ -Old chart reviewed Differential Diagnosis (chest pain, altered mental status, abdominal pain women, abdominal pain men, vaginal bleeding, weakness, fever, dyspnea, syncope, headache, dizziness, GI bleed, back pain, seizure, CVA, palpatations, mental health, musculoskeletal)? @ -Differential Musculoskeletal Muscular strain, contusion, ligament sprain, fracture, arthritis, septic arthritis, bursitis, cellulitis, muscle spasm, nerve compression, DVT, arterial occlusion, herpes zoster, electrolyte abnormality, tumor.... This is not meant to be in all inclusive list EKG interpreted by me (3pts min.). @ -As above X-rays interpreted by me (1pt min.). @ -Chest x-ray with ribs, pelvis x-ray negative for any obvious acute traumatic injury. Old remote injury to the left ribs. No evidence of pneumothorax. CT interpreted by me (1pt min.). @ -CT brain, C-spine, facial bones negative for any obvious acute process. U/S interpreted by me (1pt. min.). @ -None done What testing was considered but not performed or refused? (CT, X-rays, U/S, labs)? Why? @ -None What meds were considered but not given or refused? Why? @ -None Did you discuss the management of the patient with other professionals (professionals i.e. , PA, TIRE WRAPPER, lab, RT, psych nurse, oncology social worker, makeup artist, teacher, logistics supply officer, piano case and bench assembler)? Give summary @ -No Was smoking cessation discussed for >3mins.? @ -No Was critical care preformed (if so, how long)? @ -No Were there social determinants of health that impacted care today? How? (Homelessness, low income, unemployed, alcoholism, drug addiction, transportation, low edu. Level, literacy, decrease access to med. care, long-term, rehab)? @ -No Was there de-escalation of care discussed even if they declined (Discuss DNR or withdrawal of care, Hospice)? DNR status @ -No What co-morbidities impacted this encounter? (DM, HTN, Smoking, COPD, CAD, Cancer, CVA, ARF, Chemo, Hep., AIDS, mental health diagnosis, sleep apnea, morbid obesity)? @ -None Was patient admitted / discharged? Hospital course, mention meds given and route, prescriptions, significant lab abnormalities, going to OR and other perti nent info. @ -Based on the patient's presentation and physical exam, appears to have suffered a mechanical fall from standing. Will obtain basic labs, urinalysis. She has a small abrasion of the scalp, and has no other acute complaints other than some left-sided rib pain. Presents for further evaluation. Does not meet criteria for trauma activation. We will will obtain CT brain, C-spine, facial bones as well as chest x-ray and pelvis x-ray. Patient was in agreement this plan. Patient is on blood thinners. No loss of consciousness. Fall from standing. Vital signs are within acceptable limits. EKG shows no signs of acute ischemia.Imaging negative for any traumatic injury. Patient's labs remarkable for a UTI. I did the patient. She will be discharged home at this time. She already has an incentive spirometer. She will be given a dose of antibiotics as well as a prescription for Keflex. She was in agreement this plan. Strict return precautions discussed. I will provide the patient with a prescription for Keflex, lidocaine patch,. I instructed the patient to follow up with their PCP in the next 1-3 days. I explained that the patient should return to the emergency department if they experience any worsening symptoms. Strict return precautions were discussed with the patient. The patient expressed understanding of these instructions. I answered all questions that the patient had. The patient was discharged home in good condition with their prescriptions and follow up information. Undiagnosed new problem with uncertain prognosis? @ -No Drug Therapy requiring intensive monitoring for toxicity (Heparin, Nitro, Insulin, Cardizem)? @ -No Were any procedures done? @ -No Diagnosis/symptom? @ -Fall, rib contusion, UTI, scalp abrasion Acute, or Chronic, or Acute on Chronic? @ -Acute Uncomplicated (without systemic symptoms) or Complicated (systemic symptoms)? @ -Complicated Side effects of treatment? @ -None Exacerbation, Progression, or Severe Exacerbation] @ -No Poses a threat to life or bodily function? @ -Unlikely - Lab Data Result diagrams: 08/07/23 16:38 08/07/23 16:38 Lab Results 08/07/23 08/07/23 08/07/23 Range/Units 16:38 16:38 16:38 WBC 12.2 H (3.8-10.6) k/uL RBC 3.86 (3.80-5.40) m/uL Hgb 12.7 (11.4-16.0) gm/dL Hct 39.6 (34.0-46.0) % MCV 102.7 H (80.0-100.0) fL MCH 32.8 (25.0-35.0) pg MCHC 32.0 (31.0-37.0) g/dL RDW 15.1 (11.5-15.5) % Plt Count 176 (150-450) k/uL MPV 7.6 Neutrophils % 82 % Lymphocytes % 9 % Monocytes % 6 % Eosinophils % 1 % Basophils % 0 % Neutrophils # 10.1 H (1.3-7.7) k/uL Lymphocytes # 1.1 (1.0-4.8) k/uL Monocytes # 0.7 (0-1.0) k/uL Eosinophils # 0.2 (0-0.7) k/uL Basophils # 0.1 (0-0.2) k/uL Macrocytosis Slight PT 12.5 (10.0-12.5) sec INR 1.2 H (<1.2) APTT 27.1 (22.0-30.0) sec Sodium 135 L (137-145) mmol/L Potassium 4.2 (3.5-5.1) mmol/L Chloride 104 (98-107) mmol/L Carbon Dioxide 25 (22-30) mmol/L Anion Gap 6 mmol/L BUN 12 (7-17) mg/dL Creatinine 0.47 L (0.52-1.04) mg/dL Est GFR (CKD-EPI)AfAm >90 (>60 ml/min/1.73 sqM) Est GFR (CKD-EPI)NonAf >90 (>60 ml/min/1.73 sqM) Glucose 167 H (74-99) mg/dL Calcium 8.3 L (8.4-10.2) mg/dL Total Bilirubin 0.6 (0.2-1.3) mg/dL AST 21 (14-36) U/L ALT 21 (4-34) U/L Alkaline Phosphatase 68 (38-126) U/L Total Protein 6.1 L (6.3-8.2) g/dL Albumin 3.6 (3.5-5.0) g/dL Urine Color Urine Appearance (Clear) Urine pH (5.0-8.0) Ur Specific Vaiden (1.001-1.035) Urine Protein (Negative) Urine Glucose (UA) (Negative) Urine Ketones (Negative) Urine Blood (Negative) Urine Nitrite (Negative) Urine Bilirubin (Negative) Urine Urobilinogen (<2.0) mg/dL Ur Leukocyte Esterase (Negative) Urine RBC (0-5) /hpf Urine WBC (0-5) /hpf Urine WBC Clumps (None) /hpf Ur Squamous Epith Cells (0-4) /hpf Urine Bacteria (None) /hpf Urine Mucus (None) /hpf Influenza Type A (PCR) (Not Detectd) Influenza Type B (PCR) (Not Detectd) RSV (PCR) (Not Detectd) SARS-CoV-2 (PCR) (Not Detectd) 08/07/23 08/07/23 Range/Units 16:38 16:38 WBC (3.8-10.6) k/uL RBC (3.80-5.40) m/uL Hgb (11.4-16.0) gm/dL Hct (34.0-46.0) % MCV (80.0-100.0) fL MCH (25.0-35.0) pg MCHC (31.0-37.0) g/dL RDW (11.5-15.5) % Plt Count (150-450) k/uL MPV Neutrophils % % Lymphocytes % % Monocytes % % Eosinophils % % Basophils % % Neutrophils # (1.3-7.7) k/uL Lymphocytes # (1.0-4.8) k/uL Monocytes # (0-1.0) k/uL Eosinophils # (0-0.7) k/uL Basophils # (0-0.2) k/uL Macrocytosis PT (10.0-12.5) sec INR (<1.2) APTT (22.0-30.0) sec Sodium (137-145) mmol/L Potassium (3.5-5.1) mmol/L Chloride (98-107) mmol/L Carbon Dioxide (22-30) mmol/L Anion Gap mmol/L BUN (7-17) mg/dL Creatinine (0.52-1.04) mg/dL Est GFR (CKD-EPI)AfAm (>60 ml/min/1.73 sqM) Est GFR (CKD-EPI)NonAf (>60 ml/min/1.73 sqM) Glucose (74-99) mg/dL Calcium (8.4-10.2) mg/dL Total Bilirubin (0.2-1.3) mg/dL AST (14-36) U/L ALT (4-34) U/L Alkaline Phosphatase (38-126) U/L Total Protein (6.3-8.2) g/dL Albumin (3.5-5.0) g/dL Urine Color Yellow Urine Appearance Turbid H (Clear) Urine pH 6.0 (5.0-8.0) Ur Specific Vaiden 1.022 (1.001-1.035) Urine Protein 1+ H (Negative) Urine Glucose (UA) Negative (Negative) Urine Ketones Negative (Negative) Urine Blood Moderate H (Negative) Urine Nitrite Negative (Negative) Urine Bilirubin Negative (Negative) Urine Urobilinogen <2.0 (<2.0) mg/dL Ur Leukocyte Esterase Large H (Negative) Urine RBC 23 H (0-5) /hpf Urine WBC >182 H (0-5) /hpf Urine WBC Clumps Moderate H (None) /hpf Ur Squamous Epith Cells 7 H (0-4) /hpf Urine Bacteria Few H (None) /hpf Urine Mucus Few H (None) /hpf Influenza Type A (PCR) Not Detected (Not Detectd) Influenza Type B (PCR) Not Detected (Not Detectd) RSV (PCR) Not Detected (Not Detectd) SARS-CoV-2 (PCR) Not Detected (Not Detectd) - EKG Data -: EKG Interpreted by Me EKG Comments: 12-lead Electrocardiogram Interpretation Note EKG was reviewed and interpreted by myself. 12-lead ECG performed at 1641 is interpreted by me as revealing atrial fibrillation at a rate of 63 beats per minute. Pablo is normal. QRS duration is 122 ms, QTc is 4 1058 ms.. There were no ST or T wave abnormalities to suggest myocardial ischemia or injury. R wave progression across the precordium was delayed. By my interpretation this EKG is non-diagnostic for acute ischemia. Disposition Clinical Impression: Fall, Rib contusion, Scalp abrasion, UTI (urinary tract infection) Disposition: HOME SELF-CARE Condition: Good Instructions (If sedation given, give patient instructions): Urinary Tract Inf ection in Women (ED), Fall Prevention for Older Adults (ED) Prescriptions: Cephalexin [Keflex] 500 mg PO Q12HR 7 Days #14 cap Lidocaine 5% Patch [Lidoderm 5% Patch] 1 patch TOPICAL DAILY PRN 14 Days #14 patch PRN Reason: Pain Is patient prescribed a controlled substance at d/c from ED?: No Referrals: Yolanda Stephens MD [Primary Care Provider] - 1-2 days Time of Disposition: 19:01
[2023-08-07 17:16] LABS: ALT 21 U/L (4-34); AST 21 U/L (14-36); African American GFR (CKD) >90 (>60 ml/min/1.73 sqM); Albumin 3.6 g/dL (3.5-5.0); Alkaline Phosphatase 68 U/L (38-126); Anion Gap 6 mmol/L; Blood Urea Nitrogen 12 mg/dL (7-17); Calcium 8.3 mg/dL (8.4-10.2); Carbon Dioxide 25 mmol/L (22-30); Chloride 104 mmol/L (98-107); Glucose 167 mg/dL (74-99); Non-African American GFR(CKD) >90 (>60 ml/min/1.73 sqM); Potassium 4.2 mmol/L (3.5-5.1); Sodium 135 mmol/L (137-145); Total Bilirubin 0.6 mg/dL (0.2-1.3); Total Protein 6.1 g/dL (6.3-8.2)
--- NOTE | 2023-08-07 17:22 | CT ---
EXAMINATION TYPE: CT brain cspine wo con, CT facial bones wo con CT DLP: Combined DLP of 969.3 mGycm, Automated exposure control for dose reduction was used. DATE OF EXAM: 08/07/2023 5:10 PM COMPARISON: None. CLINICAL INDICATION:Female, 68 years old with history of fall on blood thinners; fall TECHNIQUE: Brain: Multiple axial CT images of the brain were obtained without IV contrast. Cspine: Axial CT images from the skull base to the inferior aspect of T2 we obtained without intraven ous contrast. Coronal and sagittal reformatted images were also reviewed. Facial: Axial imaging the facial structures with sagittal coronal reformats. FINDINGS: Brain: Extra-axial spaces: No abnormal extra-axial fluid collections. Ventricular system: Dilatation in proportion to cerebral atrophy. Cerebral parenchyma: Cerebral atrophy. No acute intraparenchymal hemorrhage or mass effect. The najera -white junction is well differentiated. Scattered hypoattenuating areas are seen within the white mat ter. Cerebellum: Unremarkable. Mass effect: No evidence of midline shift. Intracranial vasculature: Atherosclerotic calcifications of the intracranial vessels. Soft tissues: Normal. Calvarium/osseous structures: No depressed skull fracture. Paranasal sinuses and mastoid air cells: Clear. Visualized orbits: Orbital contents are intact. Cervical spine: Fracture: None. Osseous structures: Multilevel degenerative disc disease changes with endplate spurring and disc oste ophyte complex's. Vertebral alignment: Within normal limits. Spinal canal/Neural Foramina: Disc osteophyte complexes at C3-C7 with at least mild spinal canal sten osis. No evidence for significant neural foraminal stenosis. Neck soft tissues: Prevertebral soft tissues are within normal limits. Other: The airway is patent. The lung apices are clear. Atherosclerosis at the carotid bifurcation th e left. Facial:There is no evidence of fracture, subluxation, dislocation, or significant soft tissue swellin g. The orbital contents are unremarkable.The temporal-mandibular joints appear symmetric. The visuali zed portion of the paranasal sinuses appear clear. IMPRESSION: 1. No acute intracranial process. 2. Nonspecific white matter changes, likely secondary to chronic small vessel ischemic disease. 3. No evidence of cervical spine fracture. 4. Mild multilevel degenerative disc disease.
--- NOTE | 2023-08-07 17:27 | XR ---
EXAMINATION TYPE: XR ribs LT w pa chest xray DATE OF EXAM: 08/07/2023 5:12 PM CLINICAL INDICATION:Female, 68 years old with history of left rib pain. fall; [facility] COMPARISON: 07/07/2023. TECHNIQUE: XR ribs LT w pa chest xray; Frontal and oblique views of the ribs with frontal chest radio graph. FINDINGS: The ribs have a normal appearance. No evidence of fracture. Overall, the lungs are clear. The cardiac silhouette is normal in size. The remaining osseous structures are intact. Right upper quadrant cholecystectomy clips. Loop recorder present.. Deformities Gamaliel the left ribs suspicious for prior fractures. Atherosclerosis of the arterial vasculature. Degeneration changes of the spine and shoulders. IMPRESSION: No acute osseous pathology. Remote appearing left rib deformities.
--- NOTE | 2023-08-07 17:28 | XR ---
EXAMINATION TYPE: XR pelvis AP view DATE OF EXAM: 08/07/2023 5:12 PM CLINICAL INDICATION:Female, 68 years old with history of fall, on thinners; [facility] COMPARISON: None TECHNIQUE: The pelvis was examined in a single projection. FINDINGS: There is no evidence of fracture or dislocation. There is no soft tissue abnormality. No a bnormal calcifications are present. The spine appears intact. The hips appear intact. No significant degeneration. IMPRESSION: No acute osseous pathology.
[2023-08-07] MEDS: ACETAMINOPHEN TAB 500 MG TAB PO STA (17:54)
[2023-08-07] MEDS: LIDOCAINE 4% PATCH TOPICAL STA (17:55)
[2023-08-07 18:41] LABS: Appearance,Urine Turbid (Clear); Bacteria,Urine Few /hpf; Bilirubin,Urine Negative (Negative); Blood,Urine Moderate (Negative); Color,Urine Yellow; Glucose,Urine (UA) Negative (Negative); Ketones,Urine Negative (Negative); Leukocyte Esterase,Urine Large (Negative); Mucus,Urine Few /hpf; Nitrite,Urine Negative (Negative); Protein,Urine 1+ (Negative); RBC,Urine 23 /hpf (0-5); Specific Gravity,Urine 1.022 (1.001-1.035); Squamous Epithelial Cell,Urine 7 /hpf (0-4); Urobilinogen,Urine <2.0 mg/dL (<2.0); WBC,Urine >182 /hpf (0-5)
[2023-08-07] MEDS: cefTRIAXone IN SWFI 1,000 MG/10 ML SYRINGE IVP STA (19:26)
[2023-08-07 19:45] VITALS: BP 114/75; PULSE 60; RESP 18; TEMP 98.4
== END 2023-08-07 19:34 | disposition home or self-care (01) ==
LOC: EC 16:11
DX: S20.219A Contusion of unspecified front wall of thorax, initial encounter (principal); S00.01XA Abrasion of scalp, initial encounter; N39.0 Urinary tract infection, site not specified; E03.9 Hypothyroidism, unspecified; E11.9 Type 2 diabetes mellitus without complications; G47.33 Obstructive sleep apnea (adult) (pediatric); I25.10 Atherosclerotic heart disease of native coronary artery without angina pectoris; I25.2 Old myocardial infarction; I48.91 Unspecified atrial fibrillation; I50.9 Heart failure, unspecified; Z79.01 Long term (current) use of anticoagulants; Z79.52 Long term (current) use of systemic steroids; Z79.84 Long term (current) use of oral hypoglycemic drugs; Z79.899 Other long term (current) drug therapy; Z79.890 Hormone replacement therapy; Z88.1 Allergy status to other antibiotic agents; Z88.2 Allergy status to sulfonamides; Z88.5 Allergy status to narcotic agent; Z88.8 Allergy status to other drugs, medicaments and biological substances; Z91.041 Radiographic dye allergy status; Z90.49 Acquired absence of other specified parts of digestive tract; Z20.822 Contact with and (suspected) exposure to COVID-19; W18.30XA Fall on same level, unspecified, initial encounter
CPT/HCPCS: 36415; 93005; 80053; 85025; 85610; 85730; 81001; 87086; 87636; 71101; 72170; 72125; 70486; 70450; 99285; 96374; 96361 ×3; J0696

== ENCOUNTER → 2023-11-20 | Outpatient (CLI) | payer MEDICARE ==
[2023-11-20 13:44] LABS: Creatinine,Urine Random 45.2 mg/dL; Protein/Creatinine Ratio,Urine 0.354
[2023-11-20 14:26] LABS: Basophils # (A) 0.06 X 10*3/uL (0.00-0.10); Basophils % (A) 0.7 %; Eosinophils # (A) 0.33 X 10*3/uL (0.04-0.35); Eosinophils % (A) 3.8 %; HCT 37.4 % (37.2-46.3); HGB 11.7 g/dL (12.0-15.0); Lymphocytes # (A) 2.61 X 10*3/uL (0.90-5.00); Lymphocytes % (A) 29.9 %; MCH 30.2 pg (27.0-32.0); MCHC 31.3 g/dL (32.0-37.0); MCV 96.6 FL (80.0-97.0); Mean Platelet Volume 10.2 FL (9.5-12.2); Monocytes # (A) 1.16 X 10*3/uL (0.20-1.00); Monocytes % (A) 13.3 %; NRBC Per 100 WBC 0 X 10*3/uL (0.00-0.01); Neutrophils % (A) 51.4 %; Platelet Count 203 X 10*3/uL (140-440); RBC 3.87 X 10*6/uL (4.10-5.20); RDW 16.6 % (11.5-14.5); WBC 8.74 X 10*3/uL (4.50-10.00)
[2023-11-20 15:21] LABS: % Iron Saturation 7.12 (12.00-45.00); Albumin 4.1 g/dL (3.8-4.9); Blood Urea Nitrogen 7.6 mg/dL (9.0-27.0); Calcium 8.8 mg/dL (8.7-10.3); Carbon Dioxide 18.9 mmol/L (21.6-31.8); Chloride 102 mmol/L (96-109); Ferritin 26.7 ng/mL (10.0-291.0); Glucose 96 mg/dL (70-110); Iron 24 UG/DL (50-170); Magnesium 1.3 mg/dL (1.5-2.4); Phosphorus 3.1 mg/dL (2.4-5.1); Potassium 3.8 mmol/L (3.5-5.5); Sodium 136 mmol/L (135-145); Total Iron Binding Capacity 337 UG/DL (228-460); Uric Acid 3.3 mg/dL (2.9-7.7)
[2023-11-20 15:29] LABS: Appearance,Urine Clear (Clear); Bilirubin,Urine Negative (Negative); Blood,Urine Negative (Negative); Color,Urine Yellow (Yellow); Ketones,Urine Negative (Negative); Nitrite,Urine Negative (Negative); PH, Urine 7.5; Urobilinogen,Urine 0.2 E.U./DL
[2023-11-20 15:56] LABS: Bacteria,Urine None Seen (None Seen)
== END | disposition home or self-care (01) ==
LOC: LABWHC1 09:23
PROVIDERS: ATTEND Physician Assistant
DX: D84.9 Immunodeficiency, unspecified (principal); E03.9 Hypothyroidism, unspecified; Z94.0 Kidney transplant status
CPT/HCPCS: 36415; 80048; 80069; 81001; 82306; 82570; 82728; 83540; 83550; 83735; 83970; 84156; 84443; 84550; 85025

== ENCOUNTER → 2023-12-05 | Outpatient (CLI) | payer MEDICARE ==
[2023-12-05 17:20] LABS: BUN/Creat Ratio 14.83 Ratio (12.00-20.00); Blood Urea Nitrogen 8.9 mg/dL (9.0-27.0); Calcium 8.8 mg/dL (8.7-10.3); Carbon Dioxide 19.4 mmol/L (21.6-31.8); Chloride 102 mmol/L (96-109); Glucose 104 mg/dL (70-110); Potassium 3.8 mmol/L (3.5-5.5); Sodium 138 mmol/L (135-145)
== END | disposition home or self-care (01) ==
LOC: LABWHC1 09:06
PROVIDERS: ATTEND Physician Assistant
DX: Z94.0 Kidney transplant status (principal)
CPT/HCPCS: 36415; 80048

== ENCOUNTER 2024-01-27 21:15 | Emergency (ER) | payer MEDICARE ==
--- NOTE | 2024-01-27 21:43 | XR ---
EXAMINATION TYPE: XR chest 2V DATE OF EXAM: 01/27/2024 9:39 PM CLINICAL INDICATION:Female, 68 years old with history of cough; [facility] COMPARISON: Chest radiographs from 08/07/2023 TECHNIQUE: XR chest 2V Frontal view of the chest. FINDINGS: Lungs/Pleura: Prominent interstitial lung markings are seen scattered throughout the lungs with kristine ening of the diaphragm and increased lucency of the lung apices. No evidence of focal consolidation, pneumothorax or pleural effusion. Pulmonary vascularity: Unremarkable. Heart/mediastinum: Cardiomediastinal silhouette is unremarkable. A loop recorder projects over the le ft thorax over the heart. Musculoskeletal: No acute osseous pathology. Right upper quadrant cholecystectomy clips. IMPRESSION: Chronic changes without acute pulmonary process. No significant change from prior.
--- NOTE | 2024-01-27 21:52 | ED ---
ENT HPI - General Chief complaint: ENT Stated complaint: Fever Time Seen by Provider: 01/27/24 21:51 Source: patient, family, RN notes reviewed Mode of arrival: ambulatory - History of Present Illness Initial comments: 68-year-old female presented to the ER with a chief complaint of cough and fever. She states this been ongoing for the past day or two. She also is reporting postnasal drip and sinus pressure. Patient denies any shortness of breath, chest pain, nausea, vomiting, abdominal pain, constipation/diarrhea or peripheral edema. Patient does report recent increase in urinary frequency and states she frequently gets UTIs. Patient reports she took 2 Tylenol's prior to arrival for symptom and fever control. - Related Data Home Medications Medication Instructions Recorded Confirmed Nitroglycerin Sl Tabs [Nitrostat] 0.4 mg SL Q5M PRN 08/21/14 07/07/23 Tacrolimus [Prograf] 0.5 mg PO BID 08/21/14 07/07/23 cycloSPORINE [Restasis] 1 drop BOTH EYES BID 08/21/14 07/07/23 Multivitamins, Thera [Multivitamin 1 tab PO DAILY 08/22/14 07/07/23 (formulary)] Vitamin B Complex 1 cap PO DAILY 08/22/14 07/07/23 Cholecalciferol [Vitamin D3 (25 50 mcg PO DAILY 10/20/18 07/07/23 Mcg = 1000 Iu)] Acyclovir [Zovirax] 400 mg PO BID 05/02/19 07/07/23 Apixaban [Eliquis] 5 mg PO BID 05/02/19 07/07/23 Atorvastatin [Lipitor] 10 mg PO HS 05/02/19 07/07/23 Albuterol Inhaler [Ventolin Hfa 2 puff INHALATION RT-QID PRN 05/15/19 07/07/23 Inhaler] Nystatin 100,000 Unit/ml Susp 5 ml PO DAILY 05/15/19 07/07/23 [Mycostatin Oral Susp] Omeprazole 20 mg PO DAILY PRN 05/15/19 07/07/23 Ascorbic Acid [Vitamin C] 1,000 mg PO DAILY 07/07/23 07/07/23 Aspirin EC [Ecotrin Low Dose] 81 mg PO DAILY 07/07/23 07/07/23 Calcium Carbonate [Calcium] 600 mg PO BID 07/07/23 07/07/23 Fluticasone/Vilanterol [Breo 1 puff INHALATION RT-DAILY 07/07/23 07/07/23 Ellipta 200-25 Mcg Inhaler] Folic Acid 1 mg PO DAILY 07/07/23 07/07/23 Levothyroxine Sodium [Synthroid] 150 mcg PO SUMOTUWESA 07/07/23 07/07/23 Losartan [Cozaar] 50 mg PO Q12H 07/07/23 07/07/23 Magnesium Oxide [Magnesium] 500 mg PO DAILY 07/07/23 07/07/23 Propafenone [Rythmol] 225 mg PO Q8H 07/07/23 07/07/23 Thera Tears Fish Oil 3 cap PO DAILY 07/07/23 07/07/23 carvediloL [Coreg] 12.5 mg PO DAILY 07/07/23 07/07/23 carvediloL [Coreg] 25 mg PO HS 07/07/23 07/07/23 metFORMIN HCL [Glucophage] 1,000 mg PO BID 07/07/23 07/07/23 predniSONE [Deltasone] 20 mg PO DAILY 07/07/23 07/07/23 sitaGLIPtin [Januvia] 100 mg PO DAILY@1600 07/07/23 07/07/23 Previous Rx's Medication Instructions Recorded Cephalexin [Keflex] 500 mg PO Q12HR 7 Days #14 cap 08/07/23 Lidocaine 5% Patch [Lidoderm 5% 1 patch TOPICAL DAILY PRN 14 Days 08/07/23 Patch] #14 patch Cephalexin [Keflex] 500 mg PO Q6HR 10 Days #40 cap 01/27/24 Allergies Allergy/AdvReac Type Severity Reaction Status Date / Time acetaminophen Allergy Unknown Verified 08/07/23 16:18 [From Darvocet-N] flecainide Allergy Unknown Verified 08/07/23 16:18 iodine Allergy Unknown Verified 08/07/23 16:18 shellfish derived Allergy Rash/Hives Verified 08/07/23 16:18 Sulfa (Sulfonamide Allergy Rash/Hives Verified 08/07/23 16:18 Antibiotics) codeine AdvReac Rapid Verified 08/07/23 16:18 Heart Rate hydromorphone HCl AdvReac Rapid Verified 08/07/23 16:18 [From Dilaudid] Heart Rate propoxyphene AdvReac Rapid Verified 08/07/23 16:18 Heart Rate Review of Systems ROS Statement: Those systems with pertinent positive or pertinent negative responses have been documented in the HPI. ROS Other: All systems not noted in ROS Statement are negative. 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 Past Anesthesia/Blood Transfusion Reactions: No Reported Reaction Past Psychological History: No Psychological Hx Reported Smoking Status: Never smoker Past Alcohol Use History: Occasional Past Drug Use History: None Reported - Past Family History Mother Family Medical History: Cancer Additional Family Medical History / Comment(s): Mother had breast cancer twice. She lived to be 95yrs old. Father Family Medical History: Congestive Heart Failure (CHF) Additional Family Medical History / Comment(s): Father lived to be 90yrs old. General Exam - General Exam Comments Initial Comments: Visual Physical Exam Vital signs reviewed General: Well-appearing, nontoxic, no acute distress. Head: Normocephalic, atraumatic Eyes: PERRLA, EOMI ENT: Airway patent Chest: Nonlabored breathing Skin: No visual rash, normal skin tone Neuro: Alert and oriented 3 Musculoskeletal: No gross abnormalities General appearance: alert, in no apparent distress ENT exam: Present: normal exam, normal oropharynx, mucous membranes moist, TM's normal bilaterally Neck exam: Present: normal inspection. Absent: tenderness, meningismus, lymphadenopathy Respiratory exam: Present: normal lung sounds bilaterally. Absent: respiratory distress, wheezes, rales, rhonchi, stridor Cardiovascular Exam: Present: regular rate, normal rhythm, normal heart sounds. Absent: systolic murmur, diastolic murmur, rubs, gallop, clicks GI/Abdominal exam: Present: soft, normal bowel sounds. Absent: distended, tenderness, guarding, rebound, rigid Neurological exam: Present: alert, oriented X3, CN II-XII intact Skin exam: Present: warm, dry, intact, normal color. Absent: rash Course Vital Signs 01/27/24 01/27/24 21:22 23:41 Temperature 99.8 F H 98.6 F Pulse Rate 83 76 Respiratory 19 16 Rate Blood Pressure 148/73 118/70 O2 Sat by Pulse 95 96 Oximetry Medical Decision Making - Medical Decision Making I performed the quick note portion of this chart. Electronically signed by Marcus Alberto PA-C Was pt. sent in by a medical professional or institution (ETHEL Vnetura, LEGAL ACTIVITY ADJUDICATOR, urgent care, hospital, or snf...) When possible be specific @ -No Did you speak to anyone other than the patient for history (EMS, parent, family, police, friend...)? What history was obtained from this source @ -No Did you review nursing and triage notes (agree or disagree)? Why? @ -I reviewed and agree with nursing and triage notes Were old charts reviewed (outside hosp., previous admission, EMS record, old EKG, old radiological studies, urgent care reports/EKG's, snf records)? Report findings @ -No old charts were reviewed Differential Diagnosis (chest pain, altered mental status, abdominal pain women, abdominal pain men, vaginal bleeding, weakness, fever, dyspnea, syncope, headache, dizziness, GI bleed, back pain, seizure, CVA, palpatations, mental health, musculoskeletal)? @ -Differential Fever: Pneumonia, viral URI, endocarditis, myocarditis, pericar ditis, otitis, sinusitis, peritonsillar Abscess, retropharyngeal Abscess, epiglottitis, peritonitis, appendicitis, Starr cystitis, diverticulitis, hepatitis, colitis, UTI, PID, TOA, pyelonephritis, prostatitis, epididymitis, meningitis, encephalitis, pulmonary embolism, CVA, thyroid storm, pancreatitis, adrenal crisis, cavernous sinus thrombosis, this is not meant to be an all- inclusive list. EKG interpreted by me (3pts min.). @ -None X-rays interpreted by me (1pt min.). @ -Chest x-ray interpreted by me negative for acute cardiopulmonary process. CT interpreted by me (1pt min.). @ -None done U/S interpreted by me (1pt. min.). @ -None done What testing was considered but not performed or refused? (CT, X-rays, U/S, labs)? Why? @ -None What meds were considered but not given or refused? Why? @ -None Did you discuss the management of the patient with other professionals (professionals i.e. , PA, LEGAL ACTIVITY ADJUDICATOR, lab, RT, psych nurse, social work coordinator, radio performer, teacher, business banking officer, dependency case manager)? Give summary @ -No Was smoking cessation discussed for >3mins.? @ -No Was critical care preformed (if so, how long)? @ -No Were there social determinants of health that impacted care today? How? (Homelessness, low income, unemployed, alcoholism, drug addiction, transportation, low edu. Level, literacy, decrease access to med. care, care home, rehab)? @ -No Was there de-escalation of care discussed even if they declined (Discuss DNR or withdrawal of care, Hospice)? DNR status @ -No What co-morbidities impacted this encounter? (DM, HTN, Smoking, COPD, CAD, Cancer, CVA, ARF, Chemo, Hep., AIDS, mental health diagnosis, sleep apnea, morbid obesity)? @ -None Was patient admitted / discharged? Hospital course, mention meds given and route, prescriptions, significant lab abnormalities, going to OR and other pertinent info. @ -Discharge. 68-year-old female presented to ER with a chief complaint of cough and congestion. History and physical exam completed. Vitals remarkable for a temperature 99.8 upon arrival otherwise stable. Patient does report taking 2 Tylenol prior to arrival. Patient no signs of acute distress and nontoxic-appearing. Exam unremarkable. Viral swabs obtained negative. Urine analysis significant for infection with positive nitries and greater than 182 WBCs. Chest x-ray interpreted by me negative for acute cardiopulmonary process. Patient will be started on Keflex, first dose in the ER. Urine sent for culture. Fever resolved upon discharge. Cough, congestion and low-grade fevers believed to be viral in nature. Fever may also be contributed to UTI. Upon reevaluation, patient resting comfortably in exam room in no signs of acute distress. Results discussed with patient, all questions answered. Advise close follow-up with PCP. Strict return parameters discussed. Patient discharged in stable condition. Patient verbally expressed understanding agree with care plan. Case discussed with ED attending, Dr. Pineda. Undiagnosed new problem with uncertain prognosis? @ -No Drug Therapy requiring intensive monitoring for toxicity (Heparin, Nitro, Insulin, Cardizem)? @ -No Were any procedures done? @ -No Diagnosis/symptom? @ -UTI Acute, or Chronic, or Acute on Chronic? @ -Acute Uncomplicated (without systemic symptoms) or Complicated (systemic symptoms)? @ -Uncomplicated Side effects of treatment? @ -No Exacerbation, Progression, or Severe Exacerbation? @ -No Poses a threat to life or bodily function? How? (Chest pain, USA, NH, pneumonia, PE, COPD, DKA, ARF, appy, cholecystitis, CVA, Diverticulitis, Homicidal, Suicidal, threat to staff... and all critical care pts) @ -No - Lab Data Lab Results 01/27/24 01/27/24 Range/Units 21:25 21:25 Urine Color Yellow Urine Appearance Cloudy H (Clear) Urine pH 6.0 (5.0-8.0) Ur Specific [place] 1.015 (1.001-1.035) Urine Protein Trace H (Negative) Urine Glucose (UA) Negative (Negative) Urine Ketones Negative (Negative) Urine Blood Trace H (Negative) Urine Nitrite Positive H (Negative) Urine Bilirubin Negative (Negative) Urine Urobilinogen <2.0 (<2.0) mg/dL Ur Leukocyte Esterase Large H (Negative) Urine RBC 8 H (0-5) /hpf Urine WBC >182 H (0-5) /hpf Ur Squamous Epith Cells 4 (0-4) /hpf Amorphous Sediment Rare H (None) /hpf Urine Bacteria Many H (None) /hpf Urine Mucus Rare H (None) /hpf Influenza Type A (PCR) Not Detected (Not Detectd) Influenza Type B (PCR) Not Detected (Not Detectd) RSV (PCR) Not Detected (Not Detectd) SARS-CoV-2 (PCR) Not Detected (Not Detectd) - Radiology Data Radiology results: report reviewed, image reviewed Disposition Clinical Impression: UTI (urinary tract infection) Disposition: HOME SELF-CARE Condition: Stable Instructions (If sedation given, give patient instructions): Urinary Tract Infection in Women (DC) Additional Instructions: Complete full course of antibiotics. Follow-up closely with PCP. Return to the ER for any new or worsening concerns. Prescriptions: Cephalexin [Keflex] 500 mg PO Q6HR 10 Days #40 cap Is patient prescribed a controlled substance at d/c from ED?: No Referrals: Goi Vidales MD [Primary Care Provider] - 1-2 days Time of Disposition: 23:13
[2024-01-27 23:00] LABS: Amorphous Sediment,Urine Rare /hpf; Appearance,Urine Cloudy (Clear); Bacteria,Urine Many /hpf; Bilirubin,Urine Negative (Negative); Blood,Urine Trace (Negative); Color,Urine Yellow; Glucose,Urine (UA) Negative (Negative); Ketones,Urine Negative (Negative); Leukocyte Esterase,Urine Large (Negative); Mucus,Urine Rare /hpf; Nitrite,Urine Positive (Negative); Protein,Urine Trace (Negative); RBC,Urine 8 /hpf (0-5); Specific Gravity,Urine 1.015 (1.001-1.035); Squamous Epithelial Cell,Urine 4 /hpf (0-4); Urobilinogen,Urine <2.0 mg/dL (<2.0); WBC,Urine >182 /hpf (0-5)
[2024-01-27] MEDS: CEPHALEXIN 250 MG CAP PO STA (23:39)
[2024-01-28 00:13] VITALS: BP 118/70; PULSE 76; RESP 16; TEMP 98.6
== END 2024-01-27 23:41 | disposition home or self-care (01) ==
LOC: EC 21:15
DX: N39.0 Urinary tract infection, site not specified (principal); Z88.1 Allergy status to other antibiotic agents; Z88.2 Allergy status to sulfonamides; Z88.5 Allergy status to narcotic agent; Z88.8 Allergy status to other drugs, medicaments and biological substances; Z91.041 Radiographic dye allergy status; Z90.49 Acquired absence of other specified parts of digestive tract; Z20.822 Contact with and (suspected) exposure to COVID-19
CPT/HCPCS: 71046; 81001; 87077; 87086; 87186; 87636; 99283

== ENCOUNTER → 2024-02-17 | Outpatient (CLI) | payer MEDICARE ==
--- NOTE | 2024-03-06 20:23 | MM ---
Reason for Exam: Screening (asymptomatic). Last screening mammogram was performed 12 month(s) ago. Patient History: Menarche at age 10. First Full-Term at age 26. Postmenopausal. Other cancer, age 46. Colorectal cancer, age 61. Hormonal Contraceptives for 7 years from age 17 until age 24. 1995, Benign Excisional Biopsy on the right side. Mother had breast cancer, age 75. Risk Values: Katelyn 5 year model risk: 4.0%. NCI Lifetime model risk: 11.4%. Prior Study Comparison: 02/10/2021 Bilateral Diagnostic Mammogram, [facility]. 02/12/2022 Bilateral MG 3D screening mammo w/cad, [facility]. 02/14/2023 Bilateral MG 3D screening mammo w/cad, [facility]. Tissue Density: The breasts are heterogeneously dense, which may obscure small masses. Findings: Analyzed By CAD. Global asymmetry upper outer quadrant right breast with extensive associated fat necrosis and secretory calcifications are unchanged. Additional scattered well since calcifications on both sides are unchanged. Gradually progressive dystrophic calcification upper outer quadrant left breast compared to older priors. Other areas of asymmetric density are unchanged. Overall Assessment: Benign, BI-RAD 2 Management: Screening Mammogram of both breasts in 1 year. . Patient should continue monthly self-breast exams. A clinical breast exam by your physician is recommended on an annual basis. This exam should not preclude additional follow-up of suspicious palpable abnormalities. Note on Katelyn scores and lifetime risk: 1. A Katelyn score greater than 3% is considered moderate risk. If this is the case, consider specialist referral to assess eligibility for a risk reducing agent. 2. If overall lifetime risk for the development of breast cancer is 20% or higher, the patient may qualify for future screening with alternating mammogram and breast MRI. Electronically signed and approved by: Cristy Mccormick M.D. Radiologist
== END | disposition home or self-care (01) ==
LOC: RADMAMWWP 02-14 14:39
PROVIDERS: ATTEND Internal Medicine Hematology & Oncology
DX: Z12.31 Encounter for screening mammogram for malignant neoplasm of breast (principal)
CPT/HCPCS: 77063; 77067

== ENCOUNTER 2024-02-29 12:49 | Observation (INO) | payer MEDICARE ==
--- NOTE | 2024-02-29 13:40 | ED ---
Abdominal Pain HPI - General Chief Complaint: Abdominal Pain Stated Complaint: nausea Time Seen by Provider: 02/29/24 13:37 Source: patient, RN notes reviewed Mode of arrival: ambulatory Limitations: no limitations - History of Present Illness Initial Comments: 68-year-old female with history of atrial fibrillation, CHF, colostomy, diabetes mellitus, renal transplant presenting with nausea x 1 month. States she was on antibiotics for UTI 1 month ago. Patient states she had severe nausea with the antibiotics. Patient states that even after she discontinued the antibiotics, symptoms have persisted including nausea and fatigue. Patient states symptoms are worsening and she is also having mild epigastric pain, although she states this is not associated with food. She is tolerating orals well but states the nausea is constant. States stools are more loose than normal. Denies vomiting, fever, urinary symptoms. She is currently on immunosuppression drugs for renal transplant. - Related Data Home Medications Medication Instructions Recorded Confirmed Nitroglycerin Sl Tabs [Nitrostat] 0.4 mg SL Q5M PRN 08/21/14 07/07/23 Tacrolimus [Prograf] 0.5 mg PO BID 08/21/14 07/07/23 cycloSPORINE [Restasis] 1 drop BOTH EYES BID 08/21/14 07/07/23 Multivitamins, Thera [Multivitamin 1 tab PO DAILY 08/22/14 07/07/23 (formulary)] Vitamin B Complex 1 cap PO DAILY 08/22/14 07/07/23 Cholecalciferol [Vitamin D3 (25 50 mcg PO DAILY 10/20/18 07/07/23 Mcg = 1000 Iu)] Acyclovir [Zovirax] 400 mg PO BID 05/02/19 07/07/23 Apixaban [Eliquis] 5 mg PO BID 05/02/19 07/07/23 Atorvastatin [Lipitor] 10 mg PO HS 05/02/19 07/07/23 Albuterol Inhaler [Ventolin Hfa 2 puff INHALATION RT-QID PRN 05/15/19 07/07/23 Inhaler] Nystatin 100,000 Unit/ml Susp 5 ml PO DAILY 05/15/19 07/07/23 [Mycostatin Oral Susp] Omeprazole 20 mg PO DAILY PRN 05/15/19 07/07/23 Ascorbic Acid [Vitamin C] 1,000 mg PO DAILY 07/07/23 07/07/23 Aspirin EC [Ecotrin Low Dose] 81 mg PO DAILY 07/07/23 07/07/23 Calcium Carbonate [Calcium] 600 mg PO BID 07/07/23 07/07/23 Fluticasone/Vilanterol [Breo 1 puff INHALATION RT-DAILY 07/07/23 07/07/23 Ellipta 200-25 Mcg Inhaler] Folic Acid 1 mg PO DAILY 07/07/23 07/07/23 Levothyroxine Sodium [Synthroid] 150 mcg PO SUMOTUWESA 07/07/23 07/07/23 Losartan [Cozaar] 50 mg PO Q12H 07/07/23 07/07/23 Magnesium Oxide [Magnesium] 500 mg PO DAILY 07/07/23 07/07/23 Propafenone [Rythmol] 225 mg PO Q8H 07/07/23 07/07/23 Thera Tears Fish Oil 3 cap PO DAILY 07/07/23 07/07/23 carvediloL [Coreg] 12.5 mg PO DAILY 07/07/23 07/07/23 carvediloL [Coreg] 25 mg PO HS 07/07/23 07/07/23 metFORMIN HCL [Glucophage] 1,000 mg PO BID 07/07/23 07/07/23 predniSONE [Deltasone] 20 mg PO DAILY 07/07/23 07/07/23 sitaGLIPtin [Januvia] 100 mg PO DAILY@1600 07/07/23 07/07/23 Previous Rx's Medication Instructions Recorded Cephalexin [Keflex] 500 mg PO Q12HR 7 Days #14 cap 08/07/23 Lidocaine 5% Patch [Lidoderm 5% 1 patch TOPICAL DAILY PRN 14 Days 08/07/23 Patch] #14 patch Cephalexin [Keflex] 500 mg PO Q6HR 10 Days #40 cap 01/27/24 Allergies Allergy/AdvReac Type Severity Reaction Status Date / Time acetaminophen Allergy Unknown Verified 02/29/24 13:03 [From Yoni] flecainide Allergy Unknown Verified 02/29/24 13:03 iodine Allergy Unknown Verified 02/29/24 13:03 shellfish derived Allergy Rash/Hives Verified 02/29/24 13:03 Sulfa (Sulfonamide Allergy Rash/Hives Verified 02/29/24 13:03 Antibiotics) codeine AdvReac Rapid Verified 02/29/24 13:03 Heart Rate hydromorphone HCl AdvReac Rapid Verified 02/29/24 13:03 [From Dilaudid] Heart Rate propoxyphene AdvReac Rapid Verified 02/29/24 13:03 Heart Rate Review of Systems ROS Statement: Those systems with pertinent positive or pertinent negative responses have been documented in the HPI. ROS Other: All systems not noted in ROS Statement are negative. 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 Past Anesthesia/Blood Transfusion Reactions: No Reported Reaction Past Psychological History: No Psychological Hx Reported Smoking Status: Never smoker Past Alcohol Use History: Occasional Past Drug Use History: None Reported - Past Family History Mother Family Medical History: Cancer Additional Family Medical History / Comment(s): Mother had breast cancer twice. She lived to be 95yrs old. Father Family Medical History: Congestive Heart Failure (CHF) Additional Family Medical History / Comment(s): Father lived to be 90yrs old. General Exam Limitations: no limitations General appearance: alert, in no apparent distress Head exam: Present: atraumatic, normocephalic, normal inspection Eye exam: Present: normal appearance, PERRL, EOMI. Absent: scleral icterus, conjunctival injection, periorbital swelling ENT exam: Present: normal exam, mucous membranes moist Neck exam: Present: normal inspection. Absent: tenderness, meningismus, lymphadenopathy Respiratory exam: Present: normal lung sounds bilaterally. Absent: respiratory distress, wheezes, rales, rhonchi, stridor Cardiovascular Exam: Present: regular rate, normal rhythm, normal heart sounds. Absent: systolic murmur, diastolic murmur, rubs, gallop, clicks GI/Abdominal exam: Present: soft, normal bowel sounds. Absent: distended, tenderness, guarding, rebound, rigid Extremities exam: Present: normal inspection, full ROM, normal capillary refill. Absent: tenderness, pedal edema, joint swelling, calf tenderness Back exam: Absent: CVA tenderness (R), CVA tenderness (L) Neurological exam: Present: alert, oriented X3 Psychiatric exam: Present: normal affect, normal mood Skin exam: Present: warm, dry, intact, normal color. Absent: rash Course Vital Signs 02/29/24 02/29/24 12:59 13:04 Temperature 97.9 F Pulse Rate 61 Respiratory 17 Rate Blood Pressure 156/85 O2 Sat by Pulse 99 Oximetry Medical Decision Making - Medical Decision Making Was pt. sent in by a medical professional or institution (, PA, FUR TRAPPER, urgent care, hospital, or detention...) When possible be specific @ -No Did you speak to anyone other than the patient for history (EMS, parent, family, police, friend...)? What history was obtained from this source @ -No Did you review nursing and triage notes (agree or disagree)? Why? @ -I reviewed and agree with nursing and triage notes Were old charts reviewed (outside hosp., previous admission, EMS record, old EKG, old radiological studies, urgent care reports/EKG's, detention records)? Report findings @ -No old charts were reviewed Differential Diagnosis (chest pain, altered mental status, abdominal pain women, abdominal pain men, vaginal bleeding, weakness, fever, dyspnea, syncope, headache, dizziness, GI bleed, back pain, seizure, CVA, palpatations, mental health, musculoskeletal)? @ -Differential Abdominal Pain Women: Appendicitis, Cholecystitis, diverticulosis, ischemic bowel, pancreatitis, hepatitis, UTI, gastroenteritis, AAA, incarcerated hernia, bowel obstruction, constipation, inflammatory bowel, hepatitis, peptic ulcer disease, splenic infarction, perforated viscus, vulvitis, ovarian torsion, PID, kidney stone, dino centa abruption, this is not meant to be an all-inclusive list EKG interpreted by me (3pts min.). @ -As above X-rays interpreted by me (1pt min.). @ -None done CT interpreted by me (1pt min.). @ -None done U/S interpreted by me (1pt. min.). @ -None done What testing was considered but not performed or refused? (CT, X-rays, U/S, labs)? Why? @ -Imaging not performed due to no abdominal tenderness or CVA tenderness What meds were considered but not given or refused? Why? @ -None Did you discuss the management of the patient with other professionals (professionals i.e. , PA, FUR TRAPPER, lab, RT, psych nurse, sr. social media & mobile manager, hotel night auditor, teacher, amphibious operations officer, case packer)? Give summary @ -I spoke with Dr. Rowe who accepts admission at this time for complicated UTI with consultation to ID services Was smoking cessation discussed for >3mins.? @ -No Was critical care preformed (if so, how long)? @ -No Were there social determinants of health that impacted care today? How? (Homelessness, low income, unemployed, alcoholism, drug addiction, transportation, low edu. Level, literacy, decrease access to med. care, usp, rehab)? @ -No Was there de-escalation of care discussed even if they declined (Discuss DNR or withdrawal of care, Hospice)? DNR status @ -No What co-morbidities impacted this encounter? (DM, HTN, Smoking, COPD, CAD, Cancer, CVA, ARF, Chemo, Hep., AIDS, mental health diagnosis, sleep apnea, morbid obesity)? @ -Renal transplant on immunosuppression Was patient admitted / discharged? Hospital course, mention meds given and route, prescriptions, significant lab abnormalities, going to OR and other pertinent info. @ -Patient was admitted. Patient was seen and evaluated for nausea x 1 month. Patient has a history of renal transplant on immunosuppression. She was treated with Levaquin for UTI 1 month ago. Patient is afebrile, tolerating orals well. Lab work including CBC, CMP, lipase, lactic acid, troponin is unremarkable. White blood cell count is 10. Urine reveals large amount of white blood cells. Discussed diagnosis of complicated UTI with failed outpatient treatment. I spoke with Dr. Arredondo who accepts admission at this time for complicated UTI with consultation to ID services. Blood cultures sent. Patient started on IV cefepime. Patient is agreeable to plan. Case was discussed with my ED attending Dr. Johnson. Undiagnosed new problem with uncertain prognosis? @ -No Drug Therapy requiring intensive monitoring for toxicity (Heparin, Nitro, Insulin, Cardizem)? @ -No Were any procedures done? @ -No Diagnosis/symptom? @ -Complicated UTI Acute, or Chronic, or Acute on Chronic? @ -Acute Uncomplicated (without systemic symptoms) or Complicated (systemic symptoms)? @ -Complicated Side effects of treatment? @ -No Exacerbation, Progression, or Severe Exacerbation? @ -No Poses a threat to life or bodily function? How? (Chest pain, [place], AL, pneumonia, PE, COPD, DKA, ARF, appy, cholecystitis, CVA, Diverticulitis, Homicidal, Suicidal, threat to staff... and all critical care pts) @ -Possibly - Lab Data Result diagrams: 02/29/24 13:43 02/29/24 13:43 Lab Results 02/29/24 02/29/24 02/29/24 Range/Units 13:43 13:43 13:43 WBC 10.8 H (3.8-10.6) k/uL RBC 4.42 (3.80-5.40) m/uL Hgb 14.3 (11.4-16.0) gm/dL Hct 44.2 (34.0-46.0) % MCV 100.0 (80.0-100.0) fL MCH 32.4 (25.0-35.0) pg MCHC 32.4 (31.0-37.0) g/dL RDW 16.8 H (11.5-15.5) % Plt Count 185 (150-450) k/uL MPV 7.2 Neutrophils % 72 % Lymphocytes % 14 % Monocytes % 7 % Eosinophils % 4 % Basophils % 0 % Neutrophils # 7.8 H (1.3-7.7) k/uL Lymphocytes # 1.5 (1.0-4.8) k/uL Monocytes # 0.7 (0-1.0) k/uL Eosinophils # 0.4 (0-0.7) k/uL Basophils # 0.0 (0-0.2) k/uL Anisocytosis Slight Macrocytosis Slight Sodium 128 L (137-145) mmol/L Potassium 4.0 (3.5-5.1) mmol/L Chloride 98 (98-107) mmol/L Carbon Dioxide 21 L (22-30) mmol/L Anion Gap 9 mmol/L BUN 9 (7-17) mg/dL Creatinine 0.39 L (0.52-1.04) mg/dL Est GFR (CKD-EPI)AfAm >90 (>60 ml/min/1.73 sqM) Est GFR (CKD-EPI)NonAf >90 (>60 ml/min/1.73 sqM) Glucose 84 (74-99) mg/dL Plasma Lactic Acid Cruz (0.7-2.0) mmol/L Calcium 8.9 (8.4-10.2) mg/dL Total Bilirubin 0.9 (0.2-1.3) mg/dL AST 32 (14-36) U/L ALT 20 (4-34) U/L Alkaline Phosphatase 54 (38-126) U/L Troponin I (0.000-0.034) ng/mL Total Protein 6.9 (6.3-8.2) g/dL Albumin 4.3 (3.5-5.0) g/dL Lipase 30 (23-300) U/L Urine Color Light Yellow Urine Appearance Turbid H (Clear) Urine pH 6.0 (5.0-8.0) Ur Specific [place] 1.015 (1.001-1.035) Urine Protein 1+ H (Negative) Urine Glucose (UA) Negative (Negative) Urine Ketones Negative (Negative) Urine Blood Small H (Negative) Urine Nitrite Negative (Negative) Urine Bilirubin Negative (Negative) Urine Urobilinogen <2.0 (<2.0) mg/dL Ur Leukocyte Esterase Large H (Negative) Urine RBC 5 (0-5) /hpf Urine WBC >182 H (0-5) /hpf Urine WBC Clumps Moderate H (None) /hpf Ur Squamous Epith Cells 14 H (0-4) /hpf Urine Bacteria Occasional H (None) /hpf Urine Mucus Occasional H (None) /hpf 02/29/24 02/29/24 Range/Units 13:43 13:43 WBC (3.8-10.6) k/uL RBC (3.80-5.40) m/uL Hgb (11.4-16.0) gm/dL Hct (34.0-46.0) % MCV (80.0-100.0) fL MCH (25.0-35.0) pg MCHC (31.0-37.0) g/dL RDW (11.5-15.5) % Plt Count (150-450) k/uL MPV Neutrophils % % Lymphocytes % % Monocytes % % Eosinophils % % Basophils % % Neutrophils # (1.3-7.7) k/uL Lymphocytes # (1.0-4.8) k/uL Monocytes # (0-1.0) k/uL Eosinophils # (0-0.7) k/uL Basophils # (0-0.2) k/uL Anisocytosis Macrocytosis Sodium (137-145) mmol/L Potassium (3.5-5.1) mmol/L Chloride (98-107) mmol/L Carbon Dioxide (22-30) mmol/L Anion Gap mmol/L BUN (7-17) mg/dL Creatinine (0.52-1.04) mg/dL Est GFR (CKD-EPI)AfAm (>60 ml/min/1.73 sqM) Est GFR (CKD-EPI)NonAf (>60 ml/min/1.73 sqM) Glucose (74-99) mg/dL Plasma Lactic Acid Cruz 1.4 (0.7-2.0) mmol/L Calcium (8.4-10.2) mg/dL Total Bilirubin (0.2-1.3) mg/dL AST (14-36) U/L ALT (4-34) U/L Alkaline Phosphatase (38-126) U/L Troponin I <0.012 (0.000-0.034) ng/mL Total Protein (6.3-8.2) g/dL Albumin (3.5-5.0) g/dL Lipase (23-300) U/L Urine Color Urine Appearance (Clear) Urine pH (5.0-8.0) Ur Specific [place] (1.001-1.035) Urine Protein (Negative) Urine Glucose (UA) (Negative) Urine Ketones (Negative) Urine Blood (Negative) Urine Nitrite (Negative) Urine Bilirubin (Negative) Urine Urobilinogen (<2.0) mg/dL Ur Leukocyte Esterase (Negative) Urine RBC (0-5) /hpf Urine WBC (0-5) /hpf Urine WBC Clumps (None) /hpf Ur Squamous Epith Cells (0-4) /hpf Urine Bacteria (None) /hpf Urine Mucus (None) /hpf - EKG Data -: EKG Interpreted by Me EKG Comments: EKG reveals normal sinus rhythm with no ST changes. Ventricular rate 60 bpm, MO interval 217, QRS duration 105, QT/QTc 454/454 Disposition Clinical Impression: Urinary tract infection Disposition: ADMITTED IP TO THIS HOSP Condition: Stable Referrals: Gio Vidales MD [Primary Care Provider] - 1-2 days Time of Disposition: 18:06
[2024-02-29 14:38] LABS: Anisocytosis Slight; Basophils % (A) 0 %; Eosinophils # (A) 0.4 k/uL (0-0.7); Eosinophils % (A) 4 %; HCT 44.2 % (34.0-46.0); HGB 14.3 gm/dL (11.4-16.0); Lymphocytes # (A) 1.5 k/uL (1.0-4.8); Lymphocytes % (A) 14 %; MCH 32.4 pg (25.0-35.0); MCHC 32.4 g/dL (31.0-37.0); Macrocytosis Slight; Mean Platelet Volume 7.2; Monocytes # (A) 0.7 k/uL (0-1.0); Monocytes % (A) 7 %; Neutrophils # (A) 7.8 k/uL (1.3-7.7); Neutrophils % (A) 72 %; Platelet Count 185 k/uL (150-450); RBC 4.42 m/uL (3.80-5.40); RDW 16.8 % (11.5-15.5); WBC 10.8 k/uL (3.8-10.6)
[2024-02-29 14:53] LABS: ALT 20 U/L (4-34); AST 32 U/L (14-36); African American GFR (CKD) >90 (>60 ml/min/1.73 sqM); Albumin 4.3 g/dL (3.5-5.0); Alkaline Phosphatase 54 U/L (38-126); Anion Gap 9 mmol/L; Blood Urea Nitrogen 9 mg/dL (7-17); Calcium 8.9 mg/dL (8.4-10.2); Carbon Dioxide 21 mmol/L (22-30); Chloride 98 mmol/L (98-107); Glucose 84 mg/dL (74-99); Lipase 30 U/L (23-300); Non-African American GFR(CKD) >90 (>60 ml/min/1.73 sqM); Sodium 128 mmol/L (137-145); Total Bilirubin 0.9 mg/dL (0.2-1.3); Total Protein 6.9 g/dL (6.3-8.2)
[2024-02-29 16:22] LABS: Appearance,Urine Turbid (Clear); Bacteria,Urine Occasional /hpf; Bilirubin,Urine Negative (Negative); Blood,Urine Small (Negative); Color,Urine Light Yellow; Glucose,Urine (UA) Negative (Negative); Ketones,Urine Negative (Negative); Leukocyte Esterase,Urine Large (Negative); Mucus,Urine Occasional /hpf; Nitrite,Urine Negative (Negative); Protein,Urine 1+ (Negative); RBC,Urine 5 /hpf (0-5); Specific Gravity,Urine 1.015 (1.001-1.035); Squamous Epithelial Cell,Urine 14 /hpf (0-4); Urobilinogen,Urine <2.0 mg/dL (<2.0); WBC,Urine >182 /hpf (0-5)
[2024-02-29] MEDS ORDERED: NALOXONE 0.4 MG/ML 1 ML VIAL IV PRN (18:03)
[2024-02-29] MEDS: CEFEPIME 2 GM in SODIUM CHLORIDE 0.9% 100 ML IVPB STA (18:59)
[2024-02-29 21:55] LABS: Glucose,Whole Blood 99 mg/dL (70-110)
[2024-02-29] MEDS ORDERED: ALBUTEROL NEBULIZED 2.5 MG/3 ML INHALATION PRN (23:14)
[2024-02-29] MEDS: metFORMIN 500 MG TAB PO SCH (23:58)
[2024-02-29] MEDS: ASPIRIN 81 MG PO SCH (23:59)
[2024-02-29] MEDS: CALCIUM CARB-VIT D 500 MG-5 MCG TAB PO SCH (23:59)
[2024-02-29] MEDS: APIXABAN 5 MG TAB PO SCH (23:59)
[2024-02-29] MEDS: LOSARTAN 50 MG TAB PO SCH (23:59)
[2024-02-29] MEDS: ATORVASTATIN 10 MG TAB PO SCH (23:59)
[2024-03-01] MEDS: ACETAMINOPHEN TAB 325 MG TAB PO PRN
[2024-03-01] MEDS: MAGNESIUM OXIDE 400 MG TAB PO SCH
[2024-03-01] MEDS: PROPAFENONE 225 MG TAB PO SCH (00:10)
[2024-03-01] MEDS: ACYCLOVIR 200 MG CAP PO SCH (00:10)
[2024-03-01] MEDS: TACROLIMUS 0.5 MG CAP PO SCH (00:10)
[2024-03-01] MEDS: LEVOTHYROXINE 75 MCG TAB PO SCH (06:04)
[2024-03-01] MEDS: ONDANSETRON 4 MG/2 ML VIAL IVP PRN (06:13)
[2024-03-01 06:14] LABS: Glucose,Whole Blood 80 mg/dL (70-110)
[2024-03-01] MEDS: SYMBICORT 160-4.5 MCG INHALER INHALATION SCH (08:05)
[2024-03-01] MEDS: MULTIVITAMINS, THERA 1 EACH TAB PO SCH (09:03)
[2024-03-01] MEDS: CHOLECALCIFEROL 25 MCG (1000 IU) TABLET PO SCH (09:03)
[2024-03-01] MEDS: FERROUS SULFATE 325 MG TAB PO SCH (09:04)
[2024-03-01] MEDS: FOLIC ACID 1 MG TAB PO SCH (09:04)
[2024-03-01] MEDS: NYSTATIN 100,000 UNIT/ML SUSP 500,000 UNIT/5 ML CUP PO SCH (09:05)
[2024-03-01] MEDS: FOLIC ACID-VIT B COMPLEX-VIT C 1 CAP PO SCH (09:06)
[2024-03-01] MEDS: predniSONE 5 MG TAB PO SCH (09:06)
[2024-03-01] MEDS: carvediloL 12.5 MG TAB PO SCH ×2 (11:07)
[2024-03-01] MEDS: LINAGLIPTIN 5 MG TABLET PO SCH (12:27)
[2024-03-01 12:30] LABS: Glucose,Whole Blood 106 mg/dL (70-110)
--- NOTE | 2024-03-01 15:17 | P.CONS ---
History of Present Illness - Reason for Consult Consult date: 03/01/24 Complicated UTI failing outpatient treatment Requesting physician: Tammy Ramirez - Chief Complaint Lower abdominal pain and nausea x few days - History of Present Illness Patient is a 68-year-old female past medical history significant for diabetes mellitus atrial fibrillation CHF history of renal failure in this patient who status post living unrelated transplant in 2015, patient apparently was evaluated in this ER on 01/27/2024 with the patient was diagnosed with urinary tract infection that has been treated with oral Keflex for 2 weeks close culture subsequently did grew Klebsiella that was sensitive to cefazolin patient mention after taking by for 6 days she did have significant GI side effects from it and was not able to continue with the Did call her primary care physician who switched her to Levaquin patient mention no improvement her symptoms and presenting back to the hospital yesterday afternoon concerning for lower abdominal pain and severe nausea with oral antibiotics patient describing the pain to be across lower abdominal area with her transplant kidney on the left side pain is mostly dull aching moderate intensity without radiation with associated nausea but no vomiting did have some diarrhea last few days subsequently resolved denies any chest pain shortness of breath or cough patient on presentation to the hospital was afebrile and no fever have been recorded subsequently patient was not tachycardic hypotensive or hypoxic patient did have white count of 10.8 with a left shift creatinine 0.3, patient did have a significantly positive UA stool for C. difficile negative she did receive a dose of cefepime admit to the hospital infectious disease was consulted for further management of antibiotic therapy Review of Systems Positive point and negatives has been mentioned in the HPI, complete review of systems was performed and all other systems are negative Past Medical History Past Medical History: Atrial Fibrillation, Asthma, Blood Disorder, Coronary Artery Disease (CAD), Cancer, Heart Failure, Diabetes Mellitus, Myocardial Infarction ([place]), Pneumonia, Renal Disease, Sleep Apnea/CPAP/BIPAP, Thyroid Disorder Additional Past Medical History / Comment(s): Recently having R posterior knee sharp pains, Nonhodgkins lymphoma treated with chemo in , allogenic stem cell transplant in 2003 and 2 more rounds chemo, rectal cancer/vulvar cancer with surgery and has colostomy, renal failure with kidney transplant in 2008, 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 Past Anesthesia/Blood Transfusion Reactions: No Reported Reaction Smoking Status: Never smoker - Past Family History Mother Family Medical History: Cancer Additional Family Medical History / Comment(s): Mother had breast cancer twice. She lived to be 95yrs old. Father Family Medical History: Congestive Heart Failure (CHF) Additional Family Medical History / Comment(s): Father lived to be 90yrs old. Medications and Allergies Home Medications Medication Instructions Recorded Confirmed Type Tacrolimus [Prograf] 0.5 mg PO BID 08/21/14 02/29/24 History Multivitamins, Thera [Multivitamin 3 tab PO DAILY 08/22/14 02/29/24 History (formulary)] Vitamin B Complex 1 cap PO DAILY 08/22/14 02/29/24 History Cholecalciferol [Vitamin D3 (25 50 mcg PO DAILY 10/20/18 02/29/24 History Mcg = 1000 Iu)] Acyclovir [Zovirax] 400 mg PO BID 05/02/19 02/29/24 History Apixaban [Eliquis] 5 mg PO BID 05/02/19 02/29/24 History Atorvastatin [Lipitor] 10 mg PO HS 05/02/19 02/29/24 History Albuterol Inhaler [Ventolin Hfa 2 puff INHALATION RT-QID PRN 05/15/19 02/29/24 History Inhaler] Nystatin 100,000 Unit/ml Susp 5 ml PO DAILY 05/15/19 02/29/24 History [Mycostatin Oral Susp] Aspirin EC [Ecotrin Low Dose] 81 mg PO HS 07/07/23 02/29/24 History Fluticasone/Vilanterol [Breo 1 puff INHALATION RT-DAILY 07/07/23 02/29/24 History Ellipta 200-25 Mcg Inhaler] Folic Acid 1 mg PO DAILY 07/07/23 02/29/24 History Levothyroxine Sodium [Synthroid] 150 mcg PO SUMOTUWESA 07/07/23 02/29/24 History Losartan [Cozaar] 50 mg PO BID 07/07/23 02/29/24 History Magnesium Oxide [Magnesium] 500 mg PO BID 07/07/23 02/29/24 History Propafenone [Rythmol] 225 mg PO Q8H 07/07/23 02/29/24 History carvediloL [Coreg] 12.5 mg PO DAILY 07/07/23 02/29/24 History carvediloL [Coreg] 25 mg PO HS 07/07/23 02/29/24 History metFORMIN HCL [Glucophage] 1,000 mg PO BID 07/07/23 02/29/24 History sitaGLIPtin [Januvia] 100 mg PO PC-LUNCH 07/07/23 02/29/24 History Alendronate Sodium [Fosamax] 70 mg PO [place] 02/29/24 02/29/24 History Calcium Carbonate/Vitamin D3 1 tab PO BID 02/29/24 02/29/24 History [Calcium 600 mg-Vit D3 5 mcg (200 unit)] Ferrous Sulfate [Iron (65 MG 325 mg PO DAILY 02/29/24 02/29/24 History Elemental)] predniSONE 5 mg PO DAILY 02/29/24 02/29/24 History cefUROXime axetiL [Ceftin] 500 mg PO BID 7 Days #14 tab 03/04/24 Rx Allergies Allergy/AdvReac Type Severity Reaction Status Date / Time acetaminophen Allergy Unknown Verified 02/29/24 19:04 [From Darvocet-N] flecainide Allergy Unknown Verified 02/29/24 19:04 iodine Allergy Unknown Verified 02/29/24 19:04 shellfish derived Allergy Rash/Hives Verified 02/29/24 19:04 Sulfa (Sulfonamide Allergy Rash/Hives Verified 02/29/24 19:04 Antibiotics) codeine AdvReac Rapid Verified 02/29/24 19:04 Heart Rate hydromorphone HCl AdvReac Rapid Verified 03/02/24 13:27 [From Dilaudid] Heart Rate Iodinated Contrast Media AdvReac Unknown Verified 03/02/24 13:27 propoxyphene AdvReac Rapid Verified 02/29/24 19:04 Heart Rate Physical Exam Vitals: Vital Signs Temp Pulse Pulse Resp BP BP Pulse Ox 03/01/24 11:07 63 121/71 03/01/24 09:19 59 L 110/67 03/01/24 07:30 97.6 F 62 17 102/65 96 03/01/24 01:59 98.3 F 57 L 16 139/84 96 02/29/24 21:55 97.5 F L 68 17 144/82 95 02/29/24 20:15 98.7 F 67 17 167/89 97 02/29/24 18:31 69 16 179/94 96 02/29/24 13:04 97.9 F 02/29/24 12:59 61 17 156/85 99 Intake and Output 02/29/24 03/01/24 03/01/24 22:59 06:59 14:59 Other: Voiding Method Toilet Toilet # Voids 3 Weight 56.699 kg 56.2 kg GENERAL DESCRIPTION: Elderly female lying in bed, no distress. No tachypnea or accessory muscle of respiration use. HEENT: Shows Pallor , no scleral icterus. Oral mucous membrane is dry. No pharyngeal erythema or thrush NECK: Trachea central, no thyromegaly. LUNGS: Unlabored breathing. Clear to auscultation anteriorly. No wheeze or crackle. HEART: S1, S2, regular rate and rhythm. No loud murmur ABDOMEN: Soft, no tenderness , guarding or rigidity, no organomegaly EXTREMITIES: No edema of feet. SKIN: No rash, no masses palpable. NEUROLOGICAL: The patient is awake, alert, oriented x3, mood and affect normal. Results CBC & Chem 7: 03/04/24 03:02 03/04/24 03:02 Labs: Abnormal Lab Results - Last 24 Hours (Table) 02/29/24 02/29/24 02/29/24 Range/Units 13:43 13:43 13:43 WBC 10.8 H (3.8-10.6) k/uL RDW 16.8 H (11.5-15.5) % Neutrophils # 7.8 H (1.3-7.7) k/uL Sodium 128 L (137-145) mmol/L Carbon Dioxide 21 L (22-30) mmol/L Creatinine 0.39 L (0.52-1.04) mg/dL Urine Appearance Turbid H (Clear) Urine Protein 1+ H (Negative) Urine Blood Small H (Negative) Ur Leukocyte Esterase Large H (Negative) Urine WBC >182 H (0-5) /hpf Urine WBC Clumps Moderate H (None) /hpf Ur Squamous Epith Cells 14 H (0-4) /hpf Urine Bacteria Occasional H (None) /hpf Urine Mucus Occasional H (None) /hpf Assessment and Plan (1) Urinary tract infection Status: Acute Code(s): N39.0 - URINARY TRACT INFECTION, SITE NOT SPECIFIED SNOMED Code(s): 64057430 Plan: 1patient presented to hospital lower abdominal pain nausea in this patient who 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 Multiple question concern answered. We will follow on clinical condition and cultures to further adjust medication if needed Thank you for this consultation we will follow the patient along with you Dictation was produced using [employer] dictation software. please excuse any grammatical, word or spelling errors. Time with Patient: Greater than 30
[2024-03-01] MEDS ORDERED: DEXTROSE 50% SYRINGE 50 ML IVP PRN ×2 (16:08)
--- NOTE | 2024-03-01 16:09 | P.HPIM ---
History of Present Illness H&P Date: 03/01/24 History of present illness: 68-year-old female with past medical history significant for atrial fibrillation on Eliquis, history of coronary artery disease, history of renal transplant in 2008, sleep apnea, diabetes mellitus history of non-Hodgkin's lymphoma treated with chemo in 2002, history of rectal cancer/valvular cancer with surgery status post colostomy hypothyroidism who presented to ER with a complaint of lower abdominal pain and nausea. Patient stated that she was having nausea for about a month. Patient was treated with antibiotics for UTI about 1 month ago. Patient reported that she had severe nausea with the antibiotics which included Keflex and levofloxacin. Patient reported persistence nausea and fatigue after completing antibiotics. Patient reported mild epigastric pain. Patient complained of fatigue, denied any fever or chills. Patient currently on tacrolimus and prednisone for renal transplant. Patient denied any sore throat, productive cough, palpitations. Patient complained of chest pain today which is constant, worse with breathing. Patient afebrile, pulse rate 69, blood pressure 179/94, saturating 96% on room air. WBCs 10.8, hemoglobin 14.3, platelet 184. Sodium 128, BUN 9, creatinine 0.39, lactate 1.4. UA was positive for large leukocytes esterase, WBCs. C. difficile negative. REVIEW OF SYSTEMS: CONSTITUTIONAL: No fever, no malaise, no fatigue. HEENT: No recent visual problems or hearing problems. Denied any sore throat. CARDIOVASCULAR: No chest pain, orthopnea, PND, no palpitations, no syncope. PULMONARY: No shortness of breath, no cough, no hemoptysis. GASTROINTESTINAL: No diarrhea, no nausea, no vomiting, no abdominal pain. NEUROLOGICAL: No headaches, no weakness, no numbness. HEMATOLOGICAL: Denies any bleeding or petechiae. GENITOURINARY: Denies any burning micturition, frequency, or urgency. MUSCULOSKELETAL/RHEUMATOLOGICAL: Denies any joint pain, swelling, or any muscle pain. ENDOCRINE: Denies any polyuria or polydipsia. The rest of the 14-point review of systems is negative. PHYSICAL EXAMINATION: GENERAL: The patient is A&O x3, NAD HEENT: EOMI, Sclerae anicteric, Moist Mucous membranes Neck: Supple, Non tender, No JVD PULMONARY: Equal breath souds B/L, No wheezing, No crackles. CARDIOVASCULAR: S1, S2 present. No murmurs, rubs, or gallops. ABDOMEN: Soft, nontender, nondistended, normoactive bowel sounds. No guarding or rebound tenderness. MUSCULOSKELETAL: No edema, No cyanosis. No clubbing. Normal ROM. Intact peripheral pulses. EXTREMITIES: No cyanosis, clubbing, or pedal edema. NEUROLOGICAL: CN 2-12 grossly intact. No FND Assessment and plan: UTI: Status post renal transplant: Recently treated with antibiotics for UTI, culture grew Klebsiella Had significant GI upset with Keflex and Levaquin. Presented with generalized fatigue, lower abdominal pain. Continue Rocephin ID consulted Continue tacrolimus and prednisone Renal function Chest pain: Troponin negative Monitor with serial troponin and EKGs Continue home meds Cardiology consult Paroxysmal atrial fibrillation: Continue Coreg Eliquis Telemetry Diabetes mellitus: Accu-Cheks, diabetic diet Sliding-scale insulin DVT prophylaxis AC Monitor vital signs and labs Continue telemetry monitoring Labs and medication were reviewed. Continue same treatment. Resume home medication. Further recommendations as per clinical course of the patient Dictation was produced using [employer] dictation software. please excuse any grammatical, word or spelling errors. 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 Past Anesthesia/Blood Transfusion Reactions: No Reported Reaction Smoking Status: Never smoker - Past Family History Mother Family Medical History: Cancer Additional Family Medical History / Comment(s): Mother had breast cancer twice. She lived to be 95yrs old. Father Family Medical History: Congestive Heart Failure (CHF) Additional Family Medical History / Comment(s): Father lived to be 90yrs old. Medications and Allergies Home Medications Medication Instructions Recorded Confirmed Type Tacrolimus [Prograf] 0.5 mg PO BID 08/21/14 02/29/24 History Multivitamins, Thera [Multivitamin 3 tab PO DAILY 08/22/14 02/29/24 History (formulary)] Vitamin B Complex 1 cap PO DAILY 08/22/14 02/29/24 History Cholecalciferol [Vitamin D3 (25 50 mcg PO DAILY 10/20/18 02/29/24 History Mcg = 1000 Iu)] Acyclovir [Zovirax] 400 mg PO BID 05/02/19 02/29/24 History Apixaban [Eliquis] 5 mg PO BID 05/02/19 02/29/24 History Atorvastatin [Lipitor] 10 mg PO HS 05/02/19 02/29/24 History Albuterol Inhaler [Ventolin Hfa 2 puff INHALATION RT-QID PRN 05/15/19 02/29/24 History Inhaler] Nystatin 100,000 Unit/ml Susp 5 ml PO DAILY 05/15/19 02/29/24 History [Mycostatin Oral Susp] Aspirin EC [Ecotrin Low Dose] 81 mg PO HS 07/07/23 02/29/24 History Fluticasone/Vilanterol [Breo 1 puff INHALATION RT-DAILY 07/07/23 02/29/24 History Ellipta 200-25 Mcg Inhaler] Folic Acid 1 mg PO DAILY 07/07/23 02/29/24 History Levothyroxine Sodium [Synthroid] 150 mcg PO SUMOTUWESA 07/07/23 02/29/24 History Losartan [Cozaar] 50 mg PO BID 07/07/23 02/29/24 History Magnesium Oxide [Magnesium] 500 mg PO BID 07/07/23 02/29/24 History Propafenone [Rythmol] 225 mg PO Q8H 07/07/23 02/29/24 History carvediloL [Coreg] 12.5 mg PO DAILY 07/07/23 02/29/24 History carvediloL [Coreg] 25 mg PO HS 07/07/23 02/29/24 History metFORMIN HCL [Glucophage] 1,000 mg PO BID 07/07/23 02/29/24 History sitaGLIPtin [Januvia] 100 mg PO PC-LUNCH 07/07/23 02/29/24 History Alendronate Sodium [Fosamax] 70 mg PO HAMPTON 02/29/24 02/29/24 History Calcium Carbonate/Vitamin D3 1 tab PO BID 02/29/24 02/29/24 History [Calcium 600 mg-Vit D3 5 mcg (200 unit)] Ferrous Sulfate [Feosol] 325 mg PO DAILY 02/29/24 02/29/24 History predniSONE 5 mg PO DAILY 02/29/24 02/29/24 History Allergies Allergy/AdvReac Type Severity Reaction Status Date / Time acetaminophen Allergy Unknown Verified 02/29/24 19:04 [From Darvocet-N] flecainide Allergy Unknown Verified 02/29/24 19:04 iodine Allergy Unknown Verified 02/29/24 19:04 shellfish derived Allergy Rash/Hives Verified 02/29/24 19:04 Sulfa (Sulfonamide Allergy Rash/Hives Verified 02/29/24 19:04 Antibiotics) codeine AdvReac Rapid Verified 02/29/24 19:04 Heart Rate hydromorphone HCl AdvReac Rapid Verified 02/29/24 19:04 [From Dilaudid] Heart Rate propoxyphene AdvReac Rapid Verified 02/29/24 19:04 Heart Rate Physical Exam Vitals: Vital Signs Temp Pulse Pulse Resp BP BP Pulse Ox 03/01/24 15:00 97.9 F 68 16 137/82 97 03/01/24 11:07 63 121/71 03/01/24 09:19 59 L 110/67 03/01/24 07:30 97.6 F 62 17 102/65 96 03/01/24 01:59 98.3 F 57 L 16 139/84 96 02/29/24 21:55 97.5 F L 68 17 144/82 95 02/29/24 20:15 98.7 F 67 17 167/89 97 02/29/24 18:31 69 16 179/94 96 Intake and Output 03/01/24 03/01/24 03/01/24 06:59 14:59 22:59 Other: Voiding Method Toilet Toilet # Voids 3 1 2 # Bowel Movements 1 Weight 56.2 kg 56.2 kg Results CBC & Chem 7: 02/29/24 13:43 02/29/24 13:43 Labs: Abnormal Lab Results - Last 24 Hours (Table) 02/29/24 Range/Units 13:43 Urine Appearance Turbid H (Clear) Urine Protein 1+ H (Negative) Urine Blood Small H (Negative) Ur Leukocyte Esterase Large H (Negative) Urine WBC >182 H (0-5) /hpf Urine WBC Clumps Moderate H (None) /hpf Ur Squamous Epith Cells 14 H (0-4) /hpf Urine Bacteria Occasional H (None) /hpf Urine Mucus Occasional H (None) /hpf Thrombosis Risk Factor Assmnt - Choose All That Apply Each Risk Factor Represents 2 Points: Age 61-74 years Each Risk Factor Represents 3 Points: Positive Factor V Leiden Thrombosis Risk Factor Assessment Total Risk Factor Score: 5 Thrombosis Risk Factor Assessment Level: High Risk
[2024-03-01] MEDS ORDERED: NITROGLYCERIN SL TABS 0.4 MG TAB SUBLINGUAL PRN (16:10)
[2024-03-01 17:10] LABS: Glucose,Whole Blood 137 mg/dL (70-110)
[2024-03-01] MEDS: INSULIN ASPART (NovoLOG) 100 UNIT/ML VIAL SQ SCH (17:14)
[2024-03-01 21:22] LABS: Glucose,Whole Blood 122 mg/dL (70-110)
[2024-03-01] MEDS ORDERED: NON FORMULARY DRUG (Alendronate Sodium [Fosamax] 70 MG Tablet) PO SCH (23:14)
[2024-03-02 06:07] LABS: Glucose,Whole Blood 79 mg/dL (70-110)
[2024-03-02 11:42] LABS: Basophils # (A) 0.05 X 10*3/uL (0.00-0.10); Basophils % (A) 0.5 %; Eosinophils # (A) 0.27 X 10*3/uL (0.04-0.35); Eosinophils % (A) 2.9 %; HCT 40.7 % (37.2-46.3); HGB 13.8 g/dL (12.0-15.0); Lymphocytes # (A) 1.92 X 10*3/uL (0.90-5.00); Lymphocytes % (A) 20.7 %; MCH 33.1 pg (27.0-32.0); MCHC 33.9 g/dL (32.0-37.0); MCV 97.6 FL (80.0-97.0); Mean Platelet Volume 10.4 FL (9.5-12.2); Monocytes # (A) 1.22 X 10*3/uL (0.20-1.00); Monocytes % (A) 13.1 %; NRBC Per 100 WBC 0 X 10*3/uL (0.00-0.01); Neutrophils # (A) 5.69 X 10*3/uL (1.80-7.70); Neutrophils % (A) 61.4 %; Platelet Count 180 X 10*3/uL (140-440); RBC 4.17 X 10*6/uL (4.10-5.20); RDW 17.2 % (11.5-14.5); WBC 9.28 X 10*3/uL (4.50-10.00)
[2024-03-02 12:06] LABS: Glucose,Whole Blood 112 mg/dL (70-110)
[2024-03-02 12:09] LABS: Blood Urea Nitrogen 6.4 mg/dL (9.0-27.0); Calcium 8.8 mg/dL (8.7-10.3); Carbon Dioxide 19.5 mmol/L (21.6-31.8); Chloride 102 mmol/L (96-109); Glucose 85 mg/dL (70-110); Potassium 4.2 mmol/L (3.5-5.5); Sodium 133 mmol/L (135-145)
--- NOTE | 2024-03-02 15:05 | P.CRDCN ---
History of Present Illness Consult date: 03/02/24 Consult reason: chest pain History of present illness: History of present illness: Patient is a pleasant 68-year-old female with significant past medical history of A-fib on Eliquis, CAD, MS 11 years ago treated medically, history of renal transplant in 2008, sleep apnea, diabetes, history of non-Hodgkin's lymphoma who presented to the emergency department with complaints of dizziness, nausea, headache, and diagnosed with a urinary tract infection. She does follow with a lead burner supervisor in [place] and sees them every 3 months. She reports that she was having some intermittent chest pain radiating to her shoulder blade for the past few days and has been getting worse over the past 1 month. This occurs randomly and can last up to 1-2 hours. She denies any palpitations. EKG shows sinus rhythm with first-degree AV block. Troponin negative, creatinine 0.39. She denies having any recent heart testing. She is feeling better today with no chest pain or pressure. REVIEW OF SYSTEMS: No fever or chills. No cough or expectoration. No diap horesis. Patient denies headache, dizziness, blurred vision, double vision. Patient denies any stomach discomfort. No nausea, vomiting. No hematochezia. No hematemesis. Denies any black stools or blood in his stools. Denies dysuria or hematuria. No muscle weakness or numbness. No chest pain or pressure. PHYSICAL EXAMINATION: This is a 68-year-old female in no apparent distress at the time of my examination. HEENT: Head is atraumatic, normocephalic. Pupils are equal, round. Sclerae anicteric. Conjunctivae are clear. Mucous membranes of the mouth are moist. Neck is supple. There is no jugular venous distention. No carotid bruit is heard. CHEST EXAMINATION: Lungs are clear to auscultation. No chest wall tenderness is noted on palpation or with deep breathing. HEART EXAMINATION: Heart regular rate and rhythm. S1, S2 heard. No murmurs, gallops or rub. ABDOMEN: Soft, nontender. Bowel sounds are heard. EXTREMITIES: 2+ peripheral pulses with no evidence of peripheral edema and no calf tenderness noted. NEUROLOGIC EXAMINATION: Patient is awake, alert and oriented x3. IMPRESSION AND PLAN: CAD A-fib, paroxysmal History of renal transplant Diabetes type 2 History of cancer Chest pain PLAN: ACS ruled out, discussed recommendation for stress testing inpatient versus outpatient. Patient would like to have testing done during admission. Will check Lexiscan stress test to rule out inducible ischemia. Check echocardiogram to evaluate heart function and structure. Recommend telemetry monitoring. Further recommendations pending testing. I am dictating on behalf of Dr. Des Wells's history/physical and assessment/plan. 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 Past Anesthesia/Blood Transfusion Reactions: No Reported Reaction Smoking Status: Never smoker - Past Family History Mother Family Medical History: Cancer Additional Family Medical History / Comment(s): Mother had breast cancer twice. She lived to be 95yrs old. Father Family Medical History: Congestive Heart Failure (CHF) Additional Family Medical History / Comment(s): Father lived to be 90yrs old. Medications and Allergies Home Medications Medication Instructions Recorded Confirmed Type Tacrolimus [Prograf] 0.5 mg PO BID 08/21/14 02/29/24 History Multivitamins, Thera [Multivitamin 3 tab PO DAILY 08/22/14 02/29/24 History (formulary)] Vitamin B Complex 1 cap PO DAILY 08/22/14 02/29/24 History Cholecalciferol [Vitamin D3 (25 50 mcg PO DAILY 10/20/18 02/29/24 History Mcg = 1000 Iu)] Acyclovir [Zovirax] 400 mg PO BID 05/02/19 02/29/24 History Apixaban [Eliquis] 5 mg PO BID 05/02/19 02/29/24 History Atorvastatin [Lipitor] 10 mg PO HS 05/02/19 02/29/24 History Albuterol Inhaler [Ventolin Hfa 2 puff INHALATION RT-QID PRN 05/15/19 02/29/24 History Inhaler] Nystatin 100,000 Unit/ml Susp 5 ml PO DAILY 05/15/19 02/29/24 History [Mycostatin Oral Susp] Aspirin EC [Ecotrin Low Dose] 81 mg PO HS 07/07/23 02/29/24 History Fluticasone/Vilanterol [Breo 1 puff INHALATION RT-DAILY 07/07/23 02/29/24 His tory Ellipta 200-25 Mcg Inhaler] Folic Acid 1 mg PO DAILY 07/07/23 02/29/24 History Levothyroxine Sodium [Synthroid] 150 mcg PO SUMOTUWESA 07/07/23 02/29/24 History Losartan [Cozaar] 50 mg PO BID 07/07/23 02/29/24 History Magnesium Oxide [Magnesium] 500 mg PO BID 07/07/23 02/29/24 History Propafenone [Rythmol] 225 mg PO Q8H 07/07/23 02/29/24 History carvediloL [Coreg] 12.5 mg PO DAILY 07/07/23 02/29/24 History carvediloL [Coreg] 25 mg PO HS 07/07/23 02/29/24 History metFORMIN HCL [Glucophage] 1,000 mg PO BID 07/07/23 02/29/24 History sitaGLIPtin [Januvia] 100 mg PO PC-LUNCH 07/07/23 02/29/24 History Alendronate Sodium [Fosamax] 70 mg PO HAMPTON 02/29/24 02/29/24 History Calcium Carbonate/Vitamin D3 1 tab PO BID 02/29/24 02/29/24 History [Calcium 600 mg-Vit D3 5 mcg (200 unit)] Ferrous Sulfate [Feosol] 325 mg PO DAILY 02/29/24 02/29/24 History predniSONE 5 mg PO DAILY 02/29/24 02/29/24 History Allergies Allergy/AdvReac Type Severity Reaction Status Date / Time acetaminophen Allergy Unknown Verified 02/29/24 19:04 [From Darvocet-N] flecainide Allergy Unknown Verified 02/29/24 19:04 iodine Allergy Unknown Verified 02/29/24 19:04 shellfish derived Allergy Rash/Hives Verified 02/29/24 19:04 Sulfa (Sulfonamide Allergy Rash/Hives Verified 02/29/24 19:04 Antibiotics) codeine AdvReac Rapid Verified 02/29/24 19:04 Heart Rate hydromorphone HCl AdvReac Rapid Verified 03/02/24 13:27 [From Dilaudid] Heart Rate Iodinated Contrast Media AdvReac Unknown Verified 03/02/24 13:27 propoxyphene AdvReac Rapid Verified 02/29/24 19:04 Heart Rate Physical Exam Vitals: Vital Signs Temp Pulse Resp BP Pulse Ox 03/02/24 07:00 97.7 F 60 16 141/73 97 03/02/24 00:45 97.6 F 60 18 130/68 97 03/01/24 19:44 98.1 F 70 17 138/80 97 03/01/24 15:00 97.9 F 68 16 137/82 97 03/01/24 11:07 63 121/71 03/01/24 09:19 59 L 110/67 Intake and Output 03/01/24 03/02/24 03/02/24 22:59 06:59 14:59 Other: Voiding Method Toilet # Voids 1 1 # Bowel Movements 1 Weight 56.2 kg 55.1 kg Results 03/02/24 06:31 03/02/24 06:25 Cardiac Enzymes 03/01/24 03/01/24 03/01/24 Range/Units 16:08 18:43 22:25 Troponin I <0.012 <0.012 <0.012 (0.000-0.034) ng/mL Current Medications Generic Name Dose Route Start Last Admin Trade Name Freq PRN Reason Stop Dose Admin Acetaminophen 650 mg 02/29/24 22:29 03/01/24 20:36 Acetaminophen Tab 325 Mg Tab PO 650 mg Q6HR PRN Administration Fever and/ or Pain Acyclovir 400 mg 02/29/24 23:45 03/01/24 20:39 Acyclovir 200 Mg Cap PO 400 mg BID MARCELINA Administration Protocol Albuterol Sulfate 2.5 mg 02/29/24 23:14 Albuterol Nebulized 2.5 Mg/3 Ml INHALATION RT-QID PRN Shortness Of Breath Apixaban 5 mg 02/29/24 23:30 03/01/24 20:39 Apixaban 5 Mg Tab PO 5 mg BID MARCELINA Administration Protocol Aspirin 81 mg 02/29/24 23:30 03/01/24 20:39 Aspirin 81 Mg PO 81 mg HS MARCELINA Administration Atorvastatin Calcium 10 mg 02/29/24 23:30 03/01/24 20:39 Atorvastatin 10 Mg Tab PO 10 mg HS MARCELINA Administration Budesonide/Formoterol Fumarate 1 puff 03/01/24 08:00 03/01/24 18:13 Symbicort 160-4.5 Mcg Inhaler INHALATION 1 puff RT-BID MARCELINA Administration Calcium Carbonate 1 each 02/29/24 23:30 03/01/24 20:39 Calcium Carb-Vit D 500 Mg-5 Mcg Tab PO 1 each BID MARCELINA Administration Carvedilol 25 mg 02/29/24 23:30 03/01/24 20:38 Carvedilol 12.5 Mg Tab PO 25 mg HS MARCELINA Administration Carvedilol 12.5 mg 03/01/24 09:00 03/01/24 11:07 Carvedilol 12.5 Mg Tab PO 12.5 mg DAILY MARCELINA Administration Cholecalciferol 50 mcg 03/01/24 09:00 03/01/24 09:03 Cholecalciferol 25 Mcg (1000 Iu) Tablet PO 50 mcg DAILY MARCELINA Administration Dextrose/Water 25 ml 03/01/24 16:08 Dextrose 50% Syringe 50 Ml IVP PER PROTOCOL PRN Hypoglycemia Protocol Dextrose/Water 50 ml 03/01/24 16:08 Dextrose 50% Syringe 50 Ml IVP PER PROTOCOL PRN Hypoglycemia Protocol Ferrous Sulfate 325 mg 03/01/24 09:00 03/01/24 09:04 Ferrous Sulfate 325 Mg Tab PO 325 mg DAILY MARCELINA Administration Folic Acid 1 mg 03/01/24 09:00 03/01/24 09:04 Folic Acid 1 Mg Tab PO 1 mg DAILY MARCELINA Administration Ceftriaxone Sodium 2 gm/ 50 mls @ 100 mls/hr 03/01/24 12:00 03/01/24 12:28 Sodium Chloride IVPB 100 mls/hr Q24HR MARCELINA Administration Protocol Insulin Aspart 0 unit 03/01/24 17:30 03/02/24 06:20 Insulin Aspart (Novolog) 100 Unit/Ml Vial SQ Not Given ACHS [facility] Protocol Levothyroxine Sodium 150 mcg 03/01/24 06:30 03/02/24 06:21 Levothyroxine 75 Mcg Tab PO 150 mcg David@0630 MARCELINA Administration Linagliptin 5 mg 03/01/24 13:30 03/01/24 12:27 Linagliptin 5 Mg Tablet PO 5 mg PC-LUNCH MARCELINA Administration Losartan Potassium 50 mg 02/29/24 23:30 03/01/24 20:39 Losartan 50 Mg Tab PO 50 mg BID MARCELINA Administration Magnesium Oxide 400 mg 02/29/24 23:30 03/01/24 20:39 Magnesium Oxide 400 Mg Tab PO 400 mg BID MARCELINA Administration Metformin HCl 1,000 mg 02/29/24 23:30 03/01/24 20:39 Metformin 500 Mg Tab PO 1,000 mg BID MARCELINA Administration Multivit/Ca Carb/B Cmplx/FA/Prenat 1 each 03/01/24 09:00 03/01/24 09:06 Folic Acid-Vit B Complex-Vit C 1 Cap PO 1 each DAILY MARCELINA Administration Multivitamins 3 each 03/01/24 09:00 03/01/24 09:03 Multivitamins, Thera 1 Each Tab PO 3 each DAILY MARCELINA Administration Naloxone HCl 0.2 mg 02/29/24 18:03 Naloxone 0.4 Mg/Ml 1 Ml Vial IV Q2M PRN Opioid Reversal Nitroglycerin 0.4 mg 03/01/24 16:10 Nitroglycerin Sl Tabs 0.4 Mg Tab SUBLINGUAL Q5M PRN Chest Pain Nystatin 500,000 unit 03/01/24 09:00 03/01/24 09:05 Nystatin 100,000 Unit/Ml Susp 500,000 Unit/5 Ml Cup PO 500,000 unit DAILY MARCELINA Administration Protocol Ondansetron HCl 4 mg 02/29/24 18:03 03/01/24 06:13 Ondansetron 4 Mg/2 Ml Vial IVP 4 mg Q8HR PRN Administration Nausea And Vomiting Prednisone 5 mg 03/01/24 09:00 03/01/24 09:06 Prednisone 5 Mg Tab PO 5 mg DAILY MARCELINA Administration Propafenone HCl 225 mg 02/29/24 23:15 03/02/24 06:21 Propafenone 225 Mg Tab PO 225 mg Q8H MARCELINA Administration Tacrolimus 0.5 mg 02/29/24 23:30 03/01/24 20:40 Tacrolimus 0.5 Mg Cap PO 0.5 mg BID MARCELINA Administration Intake and Output 03/01/24 03/02/24 03/02/24 22:59 06:59 14:59 Other: Voiding Method Toilet # Voids 1 1 # Bowel Movements 1 Weight 56.2 kg 55.1 kg 02/29/24 13:43 02/29/24 13:43
--- NOTE | 2024-03-02 17:22 | P.PN ---
Subjective Progress Note Date: 03/02/24 Interval History: 68-year-old female with past medical history significant for atrial fibrillation on Eliquis, history of coronary artery disease, history of renal transplant in 2008, sleep apnea, diabetes mellitus history of non-Hodgkin's lymphoma treated with chemo in 2002, history of rectal cancer/valvular cancer with surgery status post colostomy hypothyroidism who presented to ER with a complaint of lower abdominal pain and nausea. Patient stated that she was having nausea for about a month. Patient was treated with antibiotics for UTI about 1 month ago. Patient reported that she had severe nausea with the antibiotics which included Keflex and levofloxacin. Patient reported persistence nausea and fatigue after completing antibiotics. Patient reported mild epigastric pain. Patient compl ained of fatigue, denied any fever or chills. Patient currently on tacrolimus and prednisone for renal transplant. Patient denied any sore throat, productive cough, palpitations. Patient complained of chest pain today which is constant, worse with breathing. Patient afebrile, pulse rate 69, blood pressure 179/94, saturating 96% on room air. WBCs 10.8, hemoglobin 14.3, platelet 184. Sodium 128, BUN 9, creatinine 0.39, lactate 1.4. UA was positive for large leukocytes esterase, WBCs. C. difficile negative. 03/02--patient was seen and examined today. Patient feeling better.. No issues overnight. Vital stable. CBC showed normal WBC hemoglobin and platelets. BMP unremarkable. Assessment and plan: UTI: Status post renal transplant: Recently treated with antibiotics for UTI, culture grew Klebsiella Had significant GI upset with Keflex and Levaquin. Presented with generalized fatigue, lower abdominal pain. Continue Rocephin ID consulted Continue tacrolimus and prednisone Monitor renal function. Chest pain: Troponin negative Monitor with serial troponin and EKGs Continue home meds Cardiology consulted--recommended stress test, echocardiogram. Paroxysmal atrial fibrillation: Continue Coreg Eliquis Telemetry Diabetes mellitus: Accu-Cheks, diabetic diet Sliding-scale insulin DVT prophylaxis AC PHYSICAL EXAMINATION: GENERAL: The patient is A&O x3, NAD HEENT: EOMI, Sclerae anicteric, Moist Mucous membranes Neck: Supple, Non tender, No JVD PULMONARY: Equal breath souds B/L, No wheezing, No crackles. CARDIOVASCULAR: S1, S2 present. No murmurs, rubs, or gallops. ABDOMEN: Soft, nontender, nondistended, normoactive bowel sounds. No guarding or rebound tenderness. MUSCULOSKELETAL: No edema, No cyanosis. No clubbing. Normal ROM. Intact peripheral pulses. EXTREMITIES: No cyanosis, clubbing, or pedal edema. NEUROLOGICAL: CN 2-12 grossly intact. No FND Skin: No Rash REVIEW OF SYSTEMS: CONSTITUTIONAL: No fever or chills. CARDIOVASCULAR: No chest pain, palpitations or syncope. PULMONARY: No shortness of breath, no cough, sore throat. GASTROINTESTINAL: No nausea, vomiting, diarrhea, abdominal pain. : No Dysuria, urgency, frequency. Extremities: No edema. NEUROLOGICAL: No headaches, no weakness, or numbness Dictation was produced using [email or web address] dictation software. please excuse any grammatical, word or spelling errors. Objective - Vital Signs Vital signs: Vital Signs Temp 97.9 F 03/02/24 15:00 Pulse 70 03/02/24 15:00 Resp 16 03/02/24 15:00 BP 135/76 03/02/24 15:00 Pulse Ox 96 03/02/24 15:00 FiO2 Intake & Output 03/01/24 03/02/24 03/02/24 18:59 06:59 18:59 Intake Total 118 Balance 118 Weight 56.2 kg 55.1 kg Intake: Oral 118 Other: Voiding Method Toilet Toilet # Voids 2 1 # Bowel Movements 1 - Labs CBC & Chem 7: 03/02/24 06:31 03/02/24 06:25 Labs: Abnormal Lab Results - Last 24 Hours (Table) 03/01/24 03/02/24 03/02/24 Range/Units 21:20 06:25 06:31 MCV 97.6 H (80.0-97.0) FL MCH 33.1 H (27.0-32.0) pg RDW 17.2 H (11.5-14.5) % Immature Gran # 0.13 H (0.00-0.04) X 10*3/uL Monocytes # 1.22 H (0.20-1.00) X 10*3/uL Sodium 133 L (135-145) mmol/L Carbon Dioxide 19.5 L (21.6-31.8) mmol/L BUN 6.4 L (9.0-27.0) mg/dL Creatinine 0.5 L (0.6-1.5) mg/dL POC Glucose (mg/dL) 122 H (70-110) mg/dL 03/02/24 Range/Units 12:04 MCV (80.0-97.0) FL MCH (27.0-32.0) pg RDW (11.5-14.5) % Immature Gran # (0.00-0.04) X 10*3/uL Monocytes # (0.20-1.00) X 10*3/uL Sodium (135-145) mmol/L Carbon Dioxide (21.6-31.8) mmol/L BUN (9.0-27.0) mg/dL Creatinine (0.6-1.5) mg/dL POC Glucose (mg/dL) 112 H (70-110) mg/dL Microbiology - Last 24 Hours (Table) 02/29/24 19:00 Blood Culture - Preliminary Blood
[2024-03-02 17:23] LABS: Glucose,Whole Blood 124 mg/dL (70-110)
[2024-03-02 20:44] LABS: Glucose,Whole Blood 113 mg/dL (70-110)
[2024-03-03 05:58] LABS: Glucose,Whole Blood 78 mg/dL (70-110)
[2024-03-03] MEDS ORDERED: AMINOPHYLLINE 500 MG/20 ML VIAL IV PRN (06:00)
[2024-03-03] MEDS ORDERED: CAFFEINE CITRATE 60 MG/3 ML VIAL IV PRN (06:00)
[2024-03-03] MEDS ORDERED: REGADENOSON 0.4 MG/5 ML SYRINGE IV PRN (06:00)
[2024-03-03 09:05] LABS: HCT 37.7 % (37.2-46.3); HGB 12.9 g/dL (12.0-15.0); MCH 33.9 pg (27.0-32.0); MCHC 34.2 g/dL (32.0-37.0); Mean Platelet Volume 10.6 FL (9.5-12.2); NRBC Per 100 WBC 0 X 10*3/uL (0.00-0.01); Platelet Count 199 X 10*3/uL (140-440); RBC 3.81 X 10*6/uL (4.10-5.20); RDW 17.4 % (11.5-14.5); WBC 11.62 X 10*3/uL (4.50-10.00)
[2024-03-03 10:19] LABS: Blood Urea Nitrogen 9.1 mg/dL (9.0-27.0); Calcium 8.4 mg/dL (8.7-10.3); Carbon Dioxide 21.1 mmol/L (21.6-31.8); Chloride 102 mmol/L (96-109); Glucose 72 mg/dL (70-110); Sodium 135 mmol/L (135-145)
--- NOTE | 2024-03-03 12:37 | P.PN ---
Subjective Progress Note Date: 03/03/24 History of present illness: Patient is a pleasant 68-year-old female with significant past medical history of A-fib on Eliquis, CAD, NM 11 years ago treated medically, history of renal transplant in 2008, sleep apnea, diabetes, history of non-Hodgkin's lymphoma who presented to the emergency department with complaints of dizziness, nausea, headache, and diagnosed with a urinary tract infection. She does follow with a methods time analyst in [place] and sees them every 3 months. She reports that she was having some intermittent chest pain radiating to her shoulder blade for the past few days and has been getting worse over the past 1 month. This occurs randomly and can last up to 1-2 hours. She denies any palpitations. EKG shows sinus rhythm with first-degree AV block. Troponin negative, creatinine 0.39. She denies having any recent heart testing. She is feeling better today with no chest pain or pressure. 03/03 Patient is seen today in follow-up. She states she had no events overnight. No chest pain at this time and no shortness of breath. Blood pressure 155/81, heart rate 64, pulse ox 95% on room air. Patient is scheduled for Lexiscan stress test and echocardiogram today. PHYSICAL EXAMINATION: This is a 68-year-old female in no apparent distress at the time of my examination. HEENT: Head is atraumatic, normocephalic. Pupils are equal, round. Sclerae anicteric. Conjunctivae are clear. Mucous membranes of the mouth are moist. Neck is supple. There is no jugular venous distention. No carotid bruit is heard. CHEST EXAMINATION: Lungs are clear to auscultation. No chest wall tenderness is noted on palpation or with deep breathing. HEART EXAMINATION: Heart regular rate and rhythm. S1, S2 heard. No murmurs, gallops or rub. ABDOMEN: Soft, nontender. Bowel sounds are heard. EXTREMITIES: 2+ peripheral pulses with no evidence of peripheral edema and no calf tenderness noted. NEUROLOGIC EXAMINATION: Patient is awake, alert and oriented x3. IMPRESSION AND PLAN: Chest pain, acute coronary syndrome ruled out History of CAD A-fib, paroxysmal History of renal transplant Diabetes type 2 History of cancer Chest pain PLAN: Patient is scheduled for Lexiscan stress test today Patient is scheduled for echocardiogram today If testing is unremarkable, patient is cleared for discharge and may follow-up with her primary methods time analyst in 2 to 3 weeks. Nurse practitioner note has been reviewed, I agree with documented findings and plan of care. Patient was seen and examined. Objective - Vital Signs Vital signs: Vital Signs Temp 98.1 F 03/03/24 07:50 Pulse 62 03/03/24 07:50 Resp 17 03/03/24 07:50 BP 168/75 03/03/24 07:50 Pulse Ox 95 03/03/24 07:50 FiO2 Intake & Output 03/02/24 03/03/24 03/03/24 18:59 06:59 18:59 Intake Total 236 Balance 236 Weight 55.2 kg Intake: Oral 236 Other: # Voids 3 1 # Bowel Movements 1 1 - Labs CBC & Chem 7: 03/03/24 05:47 03/03/24 05:47 Labs: Abnormal Lab Results - Last 24 Hours (Table) 03/02/24 03/02/24 03/02/24 Range/Units 06:25 06:31 12:04 WBC (4.50-10.00) X 10*3/uL RBC (4.10-5.20) X 10*6/uL MCV 97.6 H (80.0-97.0) FL MCH 33.1 H (27.0-32.0) pg RDW 17.2 H (11.5-14.5) % Immature Gran # 0.13 H (0.00-0.04) X 10*3/uL Monocytes # 1.22 H (0.20-1.00) X 10*3/uL Sodium 133 L (135-145) mmol/L Carbon Dioxide 19.5 L (21.6-31.8) mmol/L BUN 6.4 L (9.0-27.0) mg/dL Creatinine 0.5 L (0.6-1.5) mg/dL POC Glucose (mg/dL) 112 H (70-110) mg/dL 03/02/24 03/02/24 03/03/24 Range/Units 17:22 20:43 05:47 WBC 11.62 H (4.50-10.00) X 10*3/uL RBC 3.81 L (4.10-5.20) X 10*6/uL MCV 99.0 H (80.0-97.0) FL MCH 33.9 H (27.0-32.0) pg RDW 17.4 H (11.5-14.5) % Immature Gran # (0.00-0.04) X 10*3/uL Monocytes # (0.20-1.00) X 10*3/uL Sodium (135-145) mmol/L Carbon Dioxide (21.6-31.8) mmol/L BUN (9.0-27.0) mg/dL Creatinine (0.6-1.5) mg/dL POC Glucose (mg/dL) 124 H 113 H (70-110) mg/dL Microbiology - Last 24 Hours (Table) 02/29/24 19:00 Blood Culture - Preliminary Blood 03/01/24 14:15 Urine Culture - Final Urine,Voided
[2024-03-03 12:38] LABS: Glucose,Whole Blood 99 mg/dL (70-110)
--- NOTE | 2024-03-03 12:54 | CA ---
Transthoracic Echo Report Name: Vidya Loo Age: 68 Gender: F : 1955 Exam Date: 03/03/2024 08:08 Exam Location: [facility] Ht (in): 64 Wt (lb): 121 Ordering Physician: Ladi Bowles Attending/Referring Phys: Lead Housekeeper Lady Montemayor RDCS Procedure CPT: Indications: Chest Pain Cardiac Hx: Technical Quality: Fair Contrast 1: Total Dose (mL): Contrast 2: Total Dose (mL): MEASUREMENTS (Male / Female) Normal Values 2D ECHO LV Diastolic Diameter PLAX 4.4 cm 4.2 - 5.9 / 3.9 - 5.3 cm LV Systolic Diameter PLAX 3.3 cm IVS Diastolic Thickness 1.3 cm 0.6 - 1.0 / 0.6 - 0.9 cm LVPW Diastolic Thickness 1.3 cm 0.6 - 1.0 / 0.6 - 0.9 cm LV Relative Wall Thickness 0.6 RV Internal Dim ED PLAX 2.6 cm LA Volume 69.0 cm??? 18 - 58 / 22 - 52 cm??? LA Volume Index 43.8 cm???/m??? 16 - 28 cm???/m??? M-MODE Aortic Root Diameter MM 3.0 cm LA Systolic Diameter MM 5.0 cm LA Ao Ratio MM 1.7 AV Cusp Separation MM 1.5 cm DOPPLER AV Peak Velocity 129.3 cm/s AV Peak Gradient 6.7 mmHg AV Mean Velocity 90.7 cm/s AV Mean Gradient 3.6 mmHg AV Velocity Time Integral 29.0 cm LVOT Peak Velocity 85.3 cm/s LVOT Peak Gradient 2.9 mmHg LVOT Velocity Time Integral 20.2 cm MV Area PHT 4.6 cm??? Mitral E Point Velocity 126.5 cm/s Mitral A Point Velocity 49.5 cm/s Mitral E to A Ratio 2.6 MV Deceleration Time 164.6 ms MV E' Velocity 5.0 cm/s Mitral E to MV E' Ratio 25.5 TR Peak Velocity 280.4 cm/s TR Peak Gradient 31.5 mmHg Right Ventricular Systolic Press 34.2 mmHg FINDINGS Left Ventricle Moderately increased left ventricular wall thickness. Left ventricular cavity size normal. No obvious regional wall motion abnormalities. Left ventricular ejection fraction is estimated at 50-55 %. Grade 1 diastolic dysfunction. Right Ventricle Normal right ventricular size and function. Right ventricular systolic pressure within normal limits. Right Atrium Normal right atrial size. Left Atrium Moderately increased left atrial volume. Mildly increased left atrial area. Mitral Valve Structurally normal mitral valve. Mitral valve thickened. Moderate mitral annular calcification. Moderate mitral regurgitation. Centrally directed mitral regurgitation jet. Aortic Valve Trileaflet aortic valve. No aortic valve stenosis or regurgitation. Aortic valve sclerosis. Tricuspid Valve Structurally normal tricuspid valve. Mild tricuspid regurgitation. Pulmonic Valve Structurally normal pulmonic valve. Trace pulmonic regurgitation. Pericardium No pericardial effusion. Aorta Normal size aortic root and proximal ascending aorta. CONCLUSIONS This technically difficult study. Grossly LV systolic function is fairly well- preserved. There is mild diastolic dysfunction. Moderate mitral annular calcification and aortic valve sclerosis with no stenosis. No significant pulmonary hypertension. Mild mitral and tricuspid regurgitation noted no pericardial effusion Previewed by: Dr. Addis Dos Santos MD (Electronically Signed) Final Date: 03 March 2024 12:53
--- NOTE | 2024-03-03 13:03 | CA ---
Lexiscan Nuclear Stress Test Report Name: Vidya Loo Exam Date: 03/03/2024 09:05 Exam Location: [facility] Stress Ht (in): 64 Wt (lb): 121 BSA: 1.58 Ordering Phys: Des Shelton DO Referring Phys: DES SHELTON,, Technologist: Cruz Sánchez Age: 68 Gender: F : 1955 Procedure CPT: Indications: Reflex order-Stress test ICD-10 Codes: Patient History: Medications: SEE CHART Meds past 24 hrs: Pretest Chest Pain: STRESS TEST Lexiscan Protocol Exercise Duration (min:sec): 02:[address] Depressions (mm): Angina Score: House Score: Resting HR (bpm): 65 Peak HR (bpm): 80 Resting BP (mmHg): 149 / 84 Peak BP (mmHg): 143 / 79 MPHR: 150 Target HR: 128 % MPHR: 53 METS: 1.0 Total Dose: Peak Dose: Atropine: Double Product: 35819 BP Response: Stress Termination: PROTOCOL COMPLETE Stress Symptoms: NO SYMPTOMS Stress Summary: ECG ANALYSIS Resting ECG: Stress ECG: CONCLUSIONS Baseline EKG revealed normal sinus rhythm with inferior lateral nonspecific ST abnormality and poor R wave progression. With the Lexiscan administration the heart rate went up from 65 to 80 bpm and the blood pressure change from 149/84 to 139/78. Patient was asymptomatic and EKG remained inconclusive. By EKG criteria there is inconclusive Lexiscan stress test. The nuclear scan results which are more pertinent will be reported by the radiologist Dr. Addis Dos Santos MD (Electronically Signed) Final Date: 03 March 2024 13:02
--- NOTE | 2024-03-03 13:29 | NM ---
EXAMINATION TYPE: NM stress lexiscan cardiolite DATE OF EXAM: 03/03/2024 COMPARISON: NONE CLINICAL INDICATION: Female, 68 years old with history of re: CP; TECHNIQUE: After the intravenous administration of 10.38 mCi Tc 99m Sestamibi - Cardiolite resting S PECT images acquired 45 minutes post injection. The patient received 0.4mg Lexiscan, 26.2 mCi Tc 99m Sestamibi - Stress images obtained [address] injection FINDINGS: Review of stress and rest SPECT images demonstrates a large fixed defect involving the inferolateral wall. No discrete reversibility is seen. No distinct perfusion abnormality. Gated analysis shows mil d global hypokinesis and lack of augmentation of the inferolateral wall. Estimated LVEF of 46 %. TID is calculated as 0.94, within normal limits. IMPRESSION: 1. Large fixed defect inferolateral wall. Correlate for history of prior infarct. 2. No discrete reversibility is seen. 3. Diminished LVEF estimated at 46%.
--- NOTE | 2024-03-03 15:15 | P.PN ---
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 On today's evaluation that is 03/02/2024, the patient continues to be afebrile, the patient is on room air and breathing comfortably, the Pt denies having any chest pain or cough, the patient lower abdominal discomfort has decreased in int ensity, no vomiting or any diarrhea. Patient white count is 9.28, creatinine 0.5 cultures currently pending Objective - Vital Signs Vital signs: Vital Signs Temp 97.7 F 03/02/24 07:00 Pulse 60 03/02/24 07:00 Resp 16 03/02/24 07:00 BP 141/73 03/02/24 07:00 Pulse Ox 97 03/02/24 07:00 FiO2 Intake & Output 03/01/24 03/02/24 03/02/24 18:59 06:59 18:59 Intake Total 118 Balance 118 Weight 56.2 kg 55.1 kg Intake: Oral 118 Other: Voiding Method Toilet Toilet # Voids 2 1 # Bowel Movements 1 - Exam GENERAL DESCRIPTION: An elderly female lying in bed in no distress RESPIRATORY SYSTEM: Unlabored breathing , decreased breath sounds at bases HEART: S1 S2 regular rate and rhythm , ABDOMEN: Soft , no tenderness EXTREMITIES: No edema feet - Labs CBC & Chem 7: 03/03/24 05:47 03/03/24 05:47 Labs: Abnormal Lab Results - Last 24 Hours (Table) 03/01/24 03/01/24 03/02/24 Range/Units 17:08 21:20 06:25 MCV (80.0-97.0) FL MCH (27.0-32.0) pg RDW (11.5-14.5) % Immature Gran # (0.00-0.04) X 10*3/uL Monocytes # (0.20-1.00) X 10*3/uL Sodium 133 L (135-145) mmol/L Carbon Dioxide 19.5 L (21.6-31.8) mmol/L BUN 6.4 L (9.0-27.0) mg/dL Creatinine 0.5 L (0.6-1.5) mg/dL POC Glucose (mg/dL) 137 H 122 H (70-110) mg/dL 03/02/24 03/02/24 Range/Units 06:31 12:04 MCV 97.6 H (80.0-97.0) FL MCH 33.1 H (27.0-32.0) pg RDW 17.2 H (11.5-14.5) % Immature Gran # 0.13 H (0.00-0.04) X 10*3/uL Monocytes # 1.22 H (0.20-1.00) X 10*3/uL Sodium (135-145) mmol/L Carbon Dioxide (21.6-31.8) mmol/L BUN (9.0-27.0) mg/dL Creatinine (0.6-1.5) mg/dL POC Glucose (mg/dL) 112 H (70-110) mg/dL Microbiology - Last 24 Hours (Table) 02/29/24 19:00 Blood Culture - Preliminary Blood Assessment and Plan (1) Urinary tract infection Current Visit: Yes Status: Acute Code(s): N39.0 - URINARY TRACT INFECTION, SITE NOT SPECIFIED SNOMED Code(s): 32523145 Plan: 1patient presented to hospital lower abdominal pain nausea in this patient who was diagnosed with the transplant and nephritis on 01/27/2024 close culture did grew Klebsiella that it was a sensitive pathogen, patient unfortunately did have significant side effects from the oral Keflex followed by Levaquin 2patient to continue Rocephin 2 g daily while waiting for the culture to fi nalize Dictation was produced using [employer] software. please excuse any grammatical, word or spelling errors. Time with Patient: Less than 30
--- NOTE | 2024-03-03 15:16 | P.PN ---
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 On today's evaluation that is 03/03/2024, Patient is afebrile patient is currently on room air and denies having any shortness of breath, the patient denies any chest pain or cough, the patient denies any nausea vomiting did not have any abdominal pain and no diarrhea, mention feeling better. Patient white count slightly up to 11.62 today, creatinine 0.5 blood urine culture have been negative so far Objective - Vital Signs Vital signs: Vital Signs Temp 98.1 F 03/03/24 07:50 Pulse 64 03/03/24 11:33 Resp 17 03/03/24 07:50 BP 155/81 03/03/24 11:33 Pulse Ox 95 03/03/24 07:50 FiO2 Intake & Output 03/02/24 03/03/24 03/03/24 18:59 06:59 18:59 Intake Total 236 Balance 236 Weight 55.2 kg Intake: Oral 236 Other: # Voids 3 1 # Bowel Movements 1 1 - Exam GENERAL DESCRIPTION: An elderly female lying in bed in no distress RESPIRATORY SYSTEM: Unlabored breathing , decreased breath sounds at bases HEART: S1 S2 regular rate and rhythm , ABDOMEN: Soft , no tenderness EXTREMITIES: No edema feet - Labs CBC & Chem 7: 03/03/24 05:47 03/03/24 05:47 Labs: Abnormal Lab Results - Last 24 Hours (Table) 03/02/24 03/02/24 03/03/24 Range/Units 17:22 20:43 05:47 WBC 11.62 H (4.50-10.00) X 10*3/uL RBC 3.81 L (4.10-5.20) X 10*6/uL MCV 99.0 H (80.0-97.0) FL MCH 33.9 H (27.0-32.0) pg RDW 17.4 H (11.5-14.5) % Carbon Dioxide (21.6-31.8) mmol/L Creatinine (0.6-1.5) mg/dL POC Glucose (mg/dL) 124 H 113 H (70-110) mg/dL Calcium (8.7-10.3) mg/dL 03/03/24 Range/Units 05:47 WBC (4.50-10.00) X 10*3/uL RBC (4.10-5.20) X 10*6/uL MCV (80.0-97.0) FL MCH (27.0-32.0) pg RDW (11.5-14.5) % Carbon Dioxide 21.1 L (21.6-31.8) mmol/L Creatinine 0.5 L (0.6-1.5) mg/dL POC Glucose (mg/dL) (70-110) mg/dL Calcium 8.4 L (8.7-10.3) mg/dL Microbiology - Last 24 Hours (Table) 02/29/24 19:00 Blood Culture - Preliminary Blood 03/01/24 14:15 Urine Culture - Final Urine,Voided Assessment and Plan (1) Urinary tract infection Current Visit: Yes Status: Acute Code(s): N39.0 - URINARY TRACT INFECTION, SITE NOT SPECIFIED SNOMED Code(s): 25526405 Plan: 1patient presented to hospital lower abdominal pain nausea in this patient who was diagnosed with the transplant and nephritis on 01/27/2024 close culture did grew Klebsiella that it was a sensitive pathogen, patient unfortunately did have significant side effects from the oral Keflex followed by Levangiuin 2patient seem to have shown clinical improvement culture has been negative so far we will continue the patient Rocephin while inpatient and monitor clinical course closely Dictation was produced using [employer] dictation software. please excuse any grammatical, word or spelling errors. Time with Patient: Less than 30
--- NOTE | 2024-03-03 15:52 | P.PN ---
Subjective Progress Note Date: 03/03/24 Interval History: 68-year-old female with past medical history significant for atrial fibrillation on Eliquis, history of coronary artery disease, history of renal transplant in 2008, sleep apnea, diabetes mellitus history of non-Hodgkin's lymphoma treated with chemo in 2002, history of rectal cancer/valvular cancer with surgery status post colostomy hypothyroidism who presented to ER with a complaint of lower abdominal pain and nausea. Patient stated that she was having nausea for about a month. Patient was treated with antibiotics for UTI about 1 month ago. Patient reported that she had severe nausea with the antibiotics which included Keflex and levofloxacin. Patient reported persistence nausea and fatigue after completing antibiotics. Patient reported mild epigastric pain. Patient compl ained of fatigue, denied any fever or chills. Patient currently on tacrolimus and prednisone for renal transplant. Patient denied any sore throat, productive cough, palpitations. Patient complained of chest pain today which is constant, worse with breathing. Patient afebrile, pulse rate 69, blood pressure 179/94, saturating 96% on room air. WBCs 10.8, hemoglobin 14.3, platelet 184. Sodium 128, BUN 9, creatinine 0.39, lactate 1.4. UA was positive for large leukocytes esterase, WBCs. C. difficile negative. 03/02--patient was seen and examined today. Patient feeling better.. No issues overnight. Vital stable. CBC showed normal WBC hemoglobin and platelets. BMP unremarkable. 03/03--patient was seen and examined today. Patient feeling better today. Underwent stress test today, results pending. Vital stable. WBCs 11.62, hemoglobin 12.9, platelets 199. BMP unremarkable. Currently on Rocephin, per infectious disease anticipate 1 more days of IV antibiotics. Assessment and plan: UTI: Status post renal transplant: Recently treated with antibiotics for UTI, culture grew Klebsiella Had significant GI upset with Keflex and Levaquin. Presented with generalized fatigue, lower abdominal pain. Cultures negative so far. Continue Rocephin ID consulted and following Continue tacrolimus and prednisone Monitor renal function. Chest pain: Troponin negative Monitor with serial troponin and EKGs Continue home meds Cardiology consulted--recommended stress test, echocardiogram. Lexiscan showed large fixed defect inferior lateral wall, no discrete reversibility, EF 46%. Echocardiogram technically difficult study, EF preserved, mild diastolic dysfunction, mild mitral calcification, aortic valve sclerosis with no stenosis, mild mitral and tricuspid regurgitation. Paroxysmal atrial fibrillation: Continue Coreg Eliquis Telemetry Diabetes mellitus: Accu-Cheks, diabetic diet Sliding-scale insulin DVT prophylaxis AC PHYSICAL EXAMINATION: GENERAL: The patient is A&O x3, NAD HEENT: EOMI, Sclerae anicteric, Moist Mucous membranes Neck: Supple, Non tender, No JVD PULMONARY: Equal breath souds B/L, No wheezing, No crackles. CARDIOVASCULAR: S1, S2 present. No murmurs, rubs, or gallops. ABDOMEN: Soft, nontender, nondistended, normoactive bowel sounds. No guarding or rebound tenderness. MUSCULOSKELETAL: No edema, No cyanosis. No clubbing. Normal ROM. Intact peripheral pulses. EXTREMITIES: No cyanosis, clubbing, or pedal edema. NEUROLOGICAL: CN 2-12 grossly intact. No FND Skin: No Rash REVIEW OF SYSTEMS: CONSTITUTIONAL: No fever or chills. CARDIOVASCULAR: No chest pain, palpitations or syncope. PULMONARY: No shortness of breath, no cough, sore throat. GASTROINTESTINAL: No nausea, vomiting, diarrhea, abdominal pain. : No Dysuria, urgency, frequency. Extremities: No edema. NEUROLOGICAL: No headaches, no weakness, or numbness Dictation was produced using [employer] dictation software. please excuse any grammatical, word or spelling errors. Objective - Vital Signs Vital signs: Vital Signs Temp 98.1 F 03/03/24 07:50 Pulse 64 03/03/24 11:33 Resp 17 03/03/24 07:50 BP 155/81 03/03/24 11:33 Pulse Ox 95 03/03/24 07:50 FiO2 Intake & Output 03/02/24 03/03/24 03/03/24 18:59 06:59 18:59 Intake Total 236 Balance 236 Weight 55.2 kg Intake: Oral 236 Other: Voiding Method Toilet # Voids 3 1 3 # Bowel Movements 1 1 0 - Labs CBC & Chem 7: 03/03/24 05:47 03/03/24 05:47 Labs: Abnormal Lab Results - Last 24 Hours (Table) 03/02/24 03/02/24 03/03/24 Range/Units 17:22 20:43 05:47 WBC 11.62 H (4.50-10.00) X 10*3/uL RBC 3.81 L (4.10-5.20) X 10*6/uL MCV 99.0 H (80.0-97.0) FL MCH 33.9 H (27.0-32.0) pg RDW 17.4 H (11.5-14.5) % Carbon Dioxide (21.6-31.8) mmol/L Creatinine (0.6-1.5) mg/dL POC Glucose (mg/dL) 124 H 113 H (70-110) mg/dL Calcium (8.7-10.3) mg/dL 03/03/24 Range/Units 05:47 WBC (4.50-10.00) X 10*3/uL RBC (4.10-5.20) X 10*6/uL MCV (80.0-97.0) FL MCH (27.0-32.0) pg RDW (11.5-14.5) % Carbon Dioxide 21.1 L (21.6-31.8) mmol/L Creatinine 0.5 L (0.6-1.5) mg/dL POC Glucose (mg/dL) (70-110) mg/dL Calcium 8.4 L (8.7-10.3) mg/dL Microbiology - Last 24 Hours (Table) 02/29/24 19:00 Blood Culture - Preliminary Blood 03/01/24 14:15 Urine Culture - Final Urine,Voided
[2024-03-03 17:12] LABS: Glucose,Whole Blood 125 mg/dL (70-110)
[2024-03-03 20:24] LABS: Glucose,Whole Blood 133 mg/dL (70-110)
[2024-03-04 06:16] LABS: Glucose,Whole Blood 76 mg/dL (70-110)
[2024-03-04 09:06] LABS: Basophils # (A) 0.07 X 10*3/uL (0.00-0.10); Basophils % (A) 0.7 %; Eosinophils # (A) 0.33 X 10*3/uL (0.04-0.35); Eosinophils % (A) 3.1 %; HCT 38.3 % (37.2-46.3); HGB 12.9 g/dL (12.0-15.0); Lymphocytes # (A) 2.14 X 10*3/uL (0.90-5.00); Lymphocytes % (A) 20.1 %; MCH 32.9 pg (27.0-32.0); MCHC 33.7 g/dL (32.0-37.0); MCV 97.7 FL (80.0-97.0); Mean Platelet Volume 10.4 FL (9.5-12.2); Monocytes # (A) 1.15 X 10*3/uL (0.20-1.00); Monocytes % (A) 10.8 %; NRBC Per 100 WBC 0 X 10*3/uL (0.00-0.01); Neutrophils % (A) 63.9 %; Platelet Count 203 X 10*3/uL (140-440); RBC 3.92 X 10*6/uL (4.10-5.20); RDW 17.7 % (11.5-14.5); WBC 10.64 X 10*3/uL (4.50-10.00)
[2024-03-04 09:07] LABS: Blood Urea Nitrogen 10.1 mg/dL (9.0-27.0); Calcium 8.9 mg/dL (8.7-10.3); Carbon Dioxide 21.1 mmol/L (21.6-31.8); Chloride 102 mmol/L (96-109); Glucose 74 mg/dL (70-110); Potassium 4.4 mmol/L (3.5-5.5); Sodium 135 mmol/L (135-145)
[2024-03-04 09:31] VITALS: BMI 20.7
--- NOTE | 2024-03-04 11:02 | P.PN ---
Subjective Progress Note Date: 03/04/24 History of present illness: Patient is a pleasant 68-year-old female with significant past medical history of A-fib on Eliquis, CAD, ND 11 years ago treated medically, history of renal transplant in 2009, sleep apnea, diabetes, history of non-Hodgkin's lymphoma who presented to the emergency department with complaints of dizziness, nausea, headache, and diagnosed with a urinary tract infection. She does follow with a sap hana architect in [place] and sees them every 3 months. She reports that she was having some intermittent chest pain radiating to her shoulder blade for the past few days and has been getting worse over the past 1 month. This occurs randomly and can last up to 1-2 hours. She denies any palpitations. EKG shows sinus rhythm with first-degree AV block. Troponin negative, creatinine 0.39. She denies having any recent heart testing. She is feeling better today with no chest pain or pressure. 03/03 Patient is seen today in follow-up. She states she had no events overnight. No chest pain at this time and no shortness of breath. Blood pressure 155/81, heart rate 64, pulse ox 95% on room air. Patient is scheduled for Lexiscan stress test and echocardiogram today. 03/04 Lexiscan Cardiolite stress test revealed large fixed defect in the inferior lateral wall. No discrete reversibility. EF 46%. Echocardiogram reveals difficult study, EF 50 to 55%. Moderate mitral annular calcification and aortic valve sclerosis with no stenosis. No significant pulmonary hypertension. Mild mitral and tricuspid regurgitation. No pericardial effusion. Yesterday, patient was provided a copy of the Lexiscan stress test and was advised that she did not need any further workup at this time and to follow-up with her sap hana architect. Patient remains in the hospital. She denies having any chest pain this morning. Results of the stress test and echocardiogram reviewed with the patient. Blood pressure 152/72, heart rate 60, pulse ox 97% on room air. PHYSICAL EXAMINATION: This is a 68-year-old female in no apparent distress at the time of my examination. HEENT: Head is atraumatic, normocephalic. Pupils are equal, round. Sclerae anicteric. Conjunctivae are clear. Mucous membranes of the mouth are moist. Neck is supple. There is no jugular venous distention. No carotid bruit is heard. CHEST EXAMINATION: Lungs are clear to auscultation. No chest wall tenderness is noted on palpation or with deep breathing. HEART EXAMINATION: Heart regular rate and rhythm. S1, S2 heard. No murmurs, gallops or rub. ABDOMEN: Soft, nontender. Bowel sounds are heard. EXTREMITIES: 2+ peripheral pulses with no evidence of peripheral edema and no calf tenderness noted. NEUROLOGIC EXAMINATION: Patient is awake, alert and oriented x3. IMPRESSION AND PLAN: Chest pain, acute coronary syndrome ruled out History of CAD A-fib, paroxysmal History of renal transplant Diabetes type 2 History of cancer Chest pain PLAN: Results of Lexiscan stress test and echocardiogram as above Patient is cleared for discharge and may follow-up with her primary sap hana architect in 2 to 3 weeks. Yesterday, patient was provided a copy of the Lexiscan stress test which she is to take to her sap hana architect. Nurse practitioner note has been reviewed, I agree with documented findings and plan of care. Patient was seen and examined. Objective - Vital Signs Vital signs: Vital Signs Temp 98.0 F 03/04/24 02:54 Pulse 68 03/04/24 02:54 Resp 16 03/04/24 02:54 BP 152/72 03/04/24 02:54 Pulse Ox 97 03/04/24 02:54 FiO2 Intake & Output 03/03/24 03/04/24 03/04/24 18:59 06:59 18:59 Intake Total 1055 Balance 1055 Weight 54.9 kg Intake: Oral 1055 Other: Voiding Method Toilet Toilet # Voids 3 1 # Bowel Movements 1 - Labs CBC & Chem 7: 03/04/24 03:02 03/04/24 03:02 Labs: Abnormal Lab Results - Last 24 Hours (Table) 03/03/24 03/03/24 03/03/24 Range/Units 05:47 05:47 17:09 WBC 11.62 H (4.50-10.00) X 10*3/uL RBC 3.81 L (4.10-5.20) X 10*6/uL MCV 99.0 H (80.0-97.0) FL MCH 33.9 H (27.0-32.0) pg RDW 17.4 H (11.5-14.5) % Carbon Dioxide 21.1 L (21.6-31.8) mmol/L Creatinine 0.5 L (0.6-1.5) mg/dL POC Glucose (mg/dL) 125 H (70-110) mg/dL Calcium 8.4 L (8.7-10.3) mg/dL 03/03/24 Range/Units 20:23 WBC (4.50-10.00) X 10*3/uL RBC (4.10-5.20) X 10*6/uL MCV (80.0-97.0) FL MCH (27.0-32.0) pg RDW (11.5-14.5) % Carbon Dioxide (21.6-31.8) mmol/L Creatinine (0.6-1.5) mg/dL POC Glucose (mg/dL) 133 H (70-110) mg/dL Calcium (8.7-10.3) mg/dL Microbiology - Last 24 Hours (Table) 02/29/24 19:00 Blood Culture - Preliminary Blood
[2024-03-04 12:30] LABS: Glucose,Whole Blood 122 mg/dL (70-110)
[2024-03-04 15:29] VITALS: BP 146/76; PULSE 69; RESP 16; TEMP 98.5
--- NOTE | 2024-03-05 13:39 | P.DS ---
Providers Date of admission: 02/29/24 18:05 Attending physician: Kt Rowe MD Consults: 02/29/24 18:03 Consult Physician Urgent Consulting Provider: Jose Rodriguez Consult Reason/Comments: Complicated UTI, failed outpatient treatment Do you want consulting provider notified?: Yes 03/01/24 15:56 Consult Physician Routine Consulting Provider: Des Wells Consult Reason/Comments: Chest pain Do you want consulting provider notified?: Yes Primary care physician: [facility] Course: Final Diagnosis Urinary tract infection with culture showing Klebsiella Status post renal transplant in the past Chest pain atypical Lexiscan showed large fixed defect EF 46% Paroxysmal atrial fibrillation anticoagulant with Eliquis outpatient Diabetes mellitus type 2 Discharge Disposition Stable for discharge home to follow-up with all same home medications. Patient to continue a course of antibiotics for the UTI with oral Ceftin 500 mg twice a day for the next 7 days. Patient to follow-up with her PCP Dr. Powers also in 1 to 2 days. Hospital Course This is a 68-year-old female with medical history of atrial fibrillation on Eliquis, coronary artery disease, renal transplant in 2008, diabetes, non- Hodgkin's lymphoma with prior chemo and rectal cancer valvular cancer postsurgery colostomy hypothyroidism. Patient comes into the hospital complains of lower abdominal pain nausea and states that this has been ongoing for about a month patient was on antibiotics for UTI about 1 month ago states that the Keflex and levofloxacin made her very nauseous. Patient came in for evaluation she is currently on tacrolimus and prednisone for renal transplant. Her urinalysis was positive for suspected urinary tract infection and culture here did show Klebsiella which responded well to the IV ceftriaxone and her symptoms have completely resolved at this time. Patient will discharge on a course of oral Ceftin. As far as the chest pain patient was found to have negative troponin levels she had serial tropes and EKG which did not show any significant abnormality. She was evaluated by cardiology underwent a stress test and echocardiogram which the Lexiscan revealed a large fixed defect in the inferior lateral wall with no discrete reversibility EF of 46% the echocardiogram was technically difficult study it did reveal a preserved ejection fraction with mild diastolic dysfunction mild mitral calcification aortic valve sclerosis with no stenosis and mild mitral and tricuspid regurgitation. Patient is continued on carvedilol and Eliquis for history of paroxysmal atrial fibrillation. She was cleared by cardiology to follow-up with her main washing machine loader in the office in 1 to 2 weeks. Blood work reveals a BUN of 10, creatinine of 0.5, sodium level of 135. Her white blood cell count is 10.64. Dynamically she is stable and cleared for discharge. Please see medication reconciliation for a list of current medications. Thank you for allowing us to participate in the care of this patient. The impression and plan of care has been dictated by Belem Guo, Nurse Practitioner as directed. Dr. Brittani MD I have performed a history and physical examination and medical decision making of this patient, discussed the same with the dictator, and agree with the dictators assessment and plan as written, documented as a scribe. Based on total visit time, I have performed more than 50% of this visit. Patient Condition at Discharge: Stable Plan - Discharge Summary Discharge Rx Participant: Yes New Discharge Prescriptions: New cefUROXime axetiL [Ceftin] 500 mg PO BID 7 Days #14 tab Continue Tacrolimus [Prograf] 0.5 mg PO BID Vitamin B Complex 1 cap PO DAILY Multivitamins, Thera [Multivitamin (formulary)] 3 tab PO DAILY Cholecalciferol [Vitamin D3 (25 Mcg = 1000 Iu)] 50 mcg PO DAILY Acyclovir [Zovirax] 400 mg PO BID Atorvastatin [Lipitor] 10 mg PO HS Apixaban [Eliquis] 5 mg PO BID Nystatin 100,000 Unit/ml Susp [Mycostatin Oral Susp] 5 ml PO DAILY Albuterol Inhaler [Ventolin Hfa Inhaler] 2 puff INHALATION RT-QID PRN PRN Reason: Shortness Of Breath carvediloL [Coreg] 25 mg PO HS carvediloL [Coreg] 12.5 mg PO DAILY Magnesium Oxide [Magnesium] 500 mg PO BID Aspirin EC [Ecotrin Low Dose] 81 mg PO HS Fluticasone/Vilanterol [Breo Ellipta 200-25 Mcg Inhaler] 1 puff INHALATION RT-DAILY metFORMIN HCL [Glucophage] 1,000 mg PO BID Ferrous Sulfate [Iron (65 MG Elemental)] 325 mg PO DAILY Propafenone [Rythmol] 225 mg PO Q8H sitaGLIPtin [Januvia] 100 mg PO PC-LUNCH Folic Acid 1 mg PO DAILY Levothyroxine Sodium [Synthroid] 150 mcg PO SUMOTUWESA Losartan [Cozaar] 50 mg PO BID Alendronate Sodium [Fosamax] 70 mg PO HAMPTON Calcium Carbonate/Vitamin D3 [Calcium 600 mg-Vit D3 5 mcg (200 unit)] 1 tab PO BID predniSONE 5 mg PO DAILY Discharge Medication List Tacrolimus [Prograf] 0.5 mg PO BID 08/21/14 [History] Multivitamins, Thera [Multivitamin (formulary)] 3 tab PO DAILY 08/22/14 [History] Vitamin B Complex 1 cap PO DAILY 08/22/14 [History] Cholecalciferol [Vitamin D3 (25 Mcg = 1000 Iu)] 50 mcg PO DAILY 10/20/18 [History] Acyclovir [Zovirax] 400 mg PO BID 05/02/19 [History] Apixaban [Eliquis] 5 mg PO BID 05/02/19 [History] Atorvastatin [Lipitor] 10 mg PO HS 05/02/19 [History] Albuterol Inhaler [Ventolin Hfa Inhaler] 2 puff INHALATION RT-QID PRN 05/15/19 [History] Nystatin 100,000 Unit/ml Susp [Mycostatin Oral Susp] 5 ml PO DAILY 05/15/19 [History] Aspirin EC [Ecotrin Low Dose] 81 mg PO HS 07/07/23 [History] Fluticasone/Vilanterol [Breo Ellipta 200-25 Mcg Inhaler] 1 puff INHALATION RT- DAILY 07/07/23 [History] Folic Acid 1 mg PO DAILY 07/07/23 [History] Levothyroxine Sodium [Synthroid] 150 mcg PO SUMOTUWESA 07/07/23 [History] Losartan [Cozaar] 50 mg PO BID 07/07/23 [History] Magnesium Oxide [Magnesium] 500 mg PO BID 07/07/23 [History] Propafenone [Rythmol] 225 mg PO Q8H 07/07/23 [History] carvediloL [Coreg] 12.5 mg PO DAILY 07/07/23 [History] carvediloL [Coreg] 25 mg PO HS 07/07/23 [History] metFORMIN HCL [Glucophage] 1,000 mg PO BID 07/07/23 [History] sitaGLIPtin [Januvia] 100 mg PO PC-LUNCH 07/07/23 [History] Alendronate Sodium [Fosamax] 70 mg PO HAMPTON 02/29/24 [History] Calcium Carbonate/Vitamin D3 [Calcium 600 mg-Vit D3 5 mcg (200 unit)] 1 tab PO BID 02/29/24 [History] Ferrous Sulfate [Iron (65 MG Elemental)] 325 mg PO DAILY 02/29/24 [History] predniSONE 5 mg PO DAILY 02/29/24 [History] cefUROXime axetiL [Ceftin] 500 mg PO BID 7 Days #14 tab 03/04/24 [Rx] Follow up Appointment(s)/Referral(s): Gio Vidales MD [Primary Care Provider] - 1-2 days Emely Robles DO [REFERRING] - 1 Week Jose Rodriguez MD [STAFF PHYSICIAN] - 1 Week Ambulatory/Diagnostic Orders: Basic Metabolic Panel [LAB.AMB] Location: None Selected Complete Blood Count w/diff [LAB.AMB] Time Frame: 4 Days, Location: None Selected Patient Instructions/Handouts: Urinary Tract Infection in Women (DC) Activity/Diet/Wound Care/Special Instructions: SCRIPTS on PRINTER behind nurses station Discharge Disposition: HOME SELF-CARE
--- NOTE | 2024-03-05 14:48 | P.PN ---
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 On today's evaluation that is 03/04/2024, patient has been afebrile, patient is breathing comfortably and is currently on room air, patient denies having any significant cough no chest pain shortness of breath, patient denies nausea vomiting or diarrhea and no abdominal pain, feeling better no new symptoms. Patient white count is 10.64, creatinine 0.5 blood urine culture has been negative Objective - Vital Signs Vital signs: Vital Signs Temp 97.7 F 03/04/24 07:22 Pulse 66 03/04/24 07:22 Resp 17 03/04/24 07:22 BP 161/76 03/04/24 07:22 Pulse Ox 98 03/04/24 07:22 FiO2 Intake & Output 03/03/24 03/04/24 03/04/24 18:59 06:59 18:59 Intake Total 1055 474 Balance 1055 474 Weight 54.9 kg 54.9 kg Intake: Oral 1055 474 Other: Voiding Method Toilet Toilet Toilet # Voids 3 1 # Bowel Movements 1 - Exam GENERAL DESCRIPTION: An elderly female lying in bed in no distress RESPIRATORY SYSTEM: Unlabored breathing , decreased breath sounds at bases HEART: S1 S2 regular rate and rhythm , ABDOMEN: Soft , no tenderness EXTREMITIES: No edema feet - Labs CBC & Chem 7: 03/04/24 03:02 03/04/24 03:02 Labs: Abnormal Lab Results - Last 24 Hours (Table) 03/03/24 03/03/24 03/04/24 Range/Units 17:09 20:23 03:02 WBC 10.64 H (4.50-10.00) X 10*3/uL RBC 3.92 L (4.10-5.20) X 10*6/uL MCV 97.7 H (80.0-97.0) FL MCH 32.9 H (27.0-32.0) pg RDW 17.7 H (11.5-14.5) % Immature Gran # 0.15 H (0.00-0.04) X 10*3/uL Monocytes # 1.15 H (0.20-1.00) X 10*3/uL Carbon Dioxide (21.6-31.8) mmol/L Creatinine (0.6-1.5) mg/dL BUN/Creatinine Ratio (12.00-20.00) Ratio POC Glucose (mg/dL) 125 H 133 H (70-110) mg/dL 03/04/24 03/04/24 Range/Units 03:02 12:28 WBC (4.50-10.00) X 10*3/uL RBC (4.10-5.20) X 10*6/uL MCV (80.0-97.0) FL MCH (27.0-32.0) pg RDW (11.5-14.5) % Immature Gran # (0.00-0.04) X 10*3/uL Monocytes # (0.20-1.00) X 10*3/uL Carbon Dioxide 21.1 L (21.6-31.8) mmol/L Creatinine 0.5 L (0.6-1.5) mg/dL BUN/Creatinine Ratio 20.20 H (12.00-20.00) Ratio POC Glucose (mg/dL) 122 H (70-110) mg/dL Microbiology - Last 24 Hours (Table) 02/29/24 19:00 Blood Culture - Preliminary Blood Assessment and Plan (1) Urinary tract infection Status: Acute Code(s): N39.0 - URINARY TRACT INFECTION, SITE NOT SPECIFIED SNOMED Code(s): 95720405 Plan: 1patient presented to hospital lower abdominal pain nausea in this patient who was diagnosed with the transplant and nephritis on 01/27/2024 close culture did grew Klebsiella that it was a sensitive pathogen, patient unfortunately did have significant side effects from the oral Keflex followed by Levaquin 2patient seem to have shown clinical improvement culture has been negative so far we will consider short course of oral Ceftin on discharge discussed with GRAIN WEIGHER for admitting team Dictation was produced using [employer]. please excuse any grammatical, word or spelling errors. Time with Patient: Less than 30
== END 2024-03-04 16:20 | disposition home or self-care (01) ==
LOC: EC 12:49 → 6NMEDSUR 18:05
PROVIDERS: ADMIT Internal Medicine; ATTEND Internal Medicine
DX: N39.0 Urinary tract infection, site not specified (principal); B96.1 Klebsiella pneumoniae [K. pneumoniae] as the cause of diseases classified elsewhere; R07.89 Other chest pain; I48.0 Paroxysmal atrial fibrillation; E11.9 Type 2 diabetes mellitus without complications; I50.9 Heart failure, unspecified; D84.821 Immunodeficiency due to drugs; I25.10 Atherosclerotic heart disease of native coronary artery without angina pectoris; J45.909 Unspecified asthma, uncomplicated; E03.9 Hypothyroidism, unspecified; G47.33 Obstructive sleep apnea (adult) (pediatric); I25.2 Old myocardial infarction; Z85.048 Personal history of other malignant neoplasm of rectum, rectosigmoid junction, and anus; Z85.44 Personal history of malignant neoplasm of other female genital organs; Z85.72 Personal history of non-Hodgkin lymphomas; Z92.21 Personal history of antineoplastic chemotherapy; Z93.3 Colostomy status; Z94.0 Kidney transplant status; Z94.81 Bone marrow transplant status; Z94.84 Stem cells transplant status; Z79.60 Long term (current) use of unspecified immunomodulators and immunosuppressants; Z79.01 Long term (current) use of anticoagulants; Z79.899 Other long term (current) drug therapy; Z79.82 Long term (current) use of aspirin; Z79.890 Hormone replacement therapy; Z79.84 Long term (current) use of oral hypoglycemic drugs; Z79.52 Long term (current) use of systemic steroids; Z88.6 Allergy status to analgesic agent; Z88.2 Allergy status to sulfonamides; Z88.5 Allergy status to narcotic agent
CPT/HCPCS: 36415; 78452; 80048; 80053; 81001; 83605; 83690; 84484; 85025; 85027; 87040; 87086; 87324; 93005; 93017; 93306; 94640; 96365; 96366; 96367; 96375; 99285

== ENCOUNTER → 2024-06-01 | Outpatient (CLI) | payer MEDICARE ==
[2024-06-01 15:29] LABS: Appearance,Urine Clear (Clear); Bilirubin,Urine Negative (Negative); Blood,Urine Negative (Negative); Color,Urine Yellow (Yellow); Ketones,Urine Negative (Negative); Nitrite,Urine Negative (Negative); Specific Gravity,Urine 1.012 (1.001-1.030); Urobilinogen,Urine 0.2 E.U./DL
[2024-06-01 15:50] LABS: Bacteria,Urine None Seen (None Seen)
[2024-06-01 16:10] LABS: Basophils # (A) 0.08 X 10*3/uL (0.00-0.10); Basophils % (A) 0.7 %; Eosinophils # (A) 0.27 X 10*3/uL (0.04-0.35); Eosinophils % (A) 2.3 %; HCT 43.6 % (37.2-46.3); HGB 14.4 g/dL (12.0-15.0); Lymphocytes # (A) 2.19 X 10*3/uL (0.90-5.00); Lymphocytes % (A) 18.8 %; MCV 106.1 FL (80.0-97.0); Mean Platelet Volume 10.1 FL (9.5-12.2); Monocytes # (A) 1.16 X 10*3/uL (0.20-1.00); NRBC Per 100 WBC 0 X 10*3/uL (0.00-0.01); Neutrophils # (A) 7.66 X 10*3/uL (1.80-7.70); Neutrophils % (A) 65.8 %; Platelet Count 183 X 10*3/uL (140-440); RBC 4.11 X 10*6/uL (4.10-5.20); RDW 14.2 % (11.5-14.5); WBC 11.64 X 10*3/uL (4.50-10.00)
[2024-06-01 16:31] LABS: % Iron Saturation 36.48 (12.00-45.00); Albumin 4.1 g/dL (3.8-4.9); BUN/Creat Ratio 20.17 Ratio (12.00-20.00); Blood Urea Nitrogen 12.1 mg/dL (9.0-27.0); Calcium 8.9 mg/dL (8.7-10.3); Carbon Dioxide 24.4 mmol/L (21.6-31.8); Chloride 99 mmol/L (96-109); Chol/HDL Ratio 1.81 Ratio; Glucose 105 mg/dL (70-110); Iron 89 UG/DL (50-170); LDL Cholesterol,Calculated 37.8 mg/dL (0.0-131.0); Magnesium 1.4 mg/dL (1.5-2.4); Sodium 133 mmol/L (135-145); Total Iron Binding Capacity 244 UG/DL (228-460); Uric Acid 3.8 mg/dL (2.9-7.7)
[2024-06-01 19:24] LABS: Urine Creatinine 59.4 mg/dL (28.0-217.0)
== END | disposition home or self-care (01) ==
LOC: LABWHC1 09:04
PROVIDERS: ATTEND Nurse Practitioner Gerontology
DX: E78.2 Mixed hyperlipidemia (principal); Z94.0 Kidney transplant status
CPT/HCPCS: 36415; 80048; 80061; 80197; 81001; 82040; 82043; 82306; 82570; 82728; 83540; 83550; 83735; 83970; 84100; 84550; 85025

== ENCOUNTER → 2024-07-03 | Outpatient (CLI) | payer MEDICARE ==
--- NOTE | 2024-07-03 21:22 | US ---
EXAMINATION TYPE: US kidneys/renal and bladder DATE OF EXAM: 07/03/2024 COMPARISON: CT abdomen and pelvis July 06 2023 CLINICAL INDICATION: Female, 69 years old with history of Z94.0 KIDNEY TRANSPLANT; Hx LLQ kidney serra splant 2008 TECHNIQUE: Grayscale imaging of the bilateral kidneys and urinary bladder: FINDINGS: EXAM MEASUREMENTS: Right Kidney (Apache): 5.9 x 2.7 x 2.6 cm Left Kidney (Apache): 9.2 x 4.3 x 4.5 cm LLQ Transplant Kidney: 11.3 x 7.1 x 5.6 cm Right Kidney: Atrophic ione kidney Left Kidney: Atrophic ione kidney LLQ Transplant Kidney: wnl Bladder: Non distended The urinary bladder is nondistended. 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 Left lower quadrant kidney transplant grossly unremarkable without hydronephrosis. [facility], , 07/03/2024 9:20 PM
== END | disposition home or self-care (01) ==
LOC: RADUSWWP 14:14
PROVIDERS: ATTEND Internal Medicine Nephrology
DX: Z94.0 Kidney transplant status (principal); N26.1 Atrophy of kidney (terminal)
CPT/HCPCS: 76770

== ENCOUNTER 2024-10-18 08:27 | Inpatient (IN) | payer MEDICARE ==
[2024-10-18 09:38] LABS: Basophils # (A) 0.05 10*3/uL (0.00-0.10); Basophils % (A) 0.4 %; Eosinophils # (A) 0.11 10*3/uL (0.04-0.35); Eosinophils % (A) 0.8 %; HCT 36.8 % (37.2-46.3); Lymphocytes # (A) 1.92 10*3/uL (0.90-5.00); Lymphocytes % (A) 14.7 %; MCH 35.3 pg (27.0-32.0); MCHC 35.3 g/dL (32.0-37.0); Mean Platelet Volume 9.8 fL (9.5-12.2); Monocytes # (A) 1.92 10*3/uL (0.20-1.00); Monocytes % (A) 14.7 %; Neutrophils # (A) 8.82 10*3/uL (1.80-7.70); Neutrophils % (A) 67.5 %; Platelet Count 147 10*3/uL (140-440); RBC 3.68 10*6/uL (4.10-5.20); RDW 13.1 % (11.5-14.5); WBC 13.07 10*3/uL (4.50-10.00)
[2024-10-18] MEDS: SODIUM CHLORIDE 0.9% 1,000 ML IV ONE (09:39)
[2024-10-18] MEDS: methylPREDNISolone SOD SUCCI 125 MG/2 ML VIAL IV STA (09:39)
[2024-10-18] MEDS: MAGNESIUM SULFATE-D5W PMX 1 GM in DEXTROSE/WATER 1 100ML.BAG IVPB STA (09:39)
--- NOTE | 2024-10-18 09:48 | XR ---
Chest, 2 view. CLINICAL INDICATION: Female, 69 years old with history of difficulty breathing COMPARISON: 01/27/2024 TECHNIQUE: PA and lateral views the chest are obtained. FINDINGS: There is mild pulmonary vascular congestion and diffuse interstitial opacification consistent with pu lmonary edema. Heart size is normal. There are probable tiny pleural effusion. No pneumothorax. There is a loop recorder. The osseous structures are intact.. IMPRESSION: Mild to moderate acute cardiac pulmonary disease most consistent with CHF.. [facility], Workstation: [email or web address] 10/18/2024 9:46 AM
[2024-10-18 10:32] LABS: ALT 49 U/L (4-34); AST 57 U/L (14-36); African American GFR (CKD) >90 (>60 ml/min/1.73 sqM); Albumin 3.3 g/dL (3.5-5.0); Alkaline Phosphatase 106 U/L (38-126); Anion Gap 11 mmol/L; Blood Urea Nitrogen 16 mg/dL (7-17); Calcium 8.3 mg/dL (8.4-10.2); Carbon Dioxide 21 mmol/L (22-30); Chloride 91 mmol/L (98-107); Glucose 75 mg/dL (74-99); Magnesium 1.6 mg/dL (1.6-2.3); Non-African American GFR(CKD) >90 (>60 ml/min/1.73 sqM); Potassium 4.4 mmol/L (3.5-5.1); Sodium 123 mmol/L (137-145); Total Bilirubin 1.6 mg/dL (0.2-1.3)
[2024-10-18 10:40] LABS: Influenza A Not Detected (Not Detectd); Influenza B Not Detected (Not Detectd); RSV Not Detected (Not Detectd)
[2024-10-18 10:40] LABS: NT-Pro-B-Type Natriuretic Pept 5070 pg/mL
[2024-10-18] MEDS ORDERED: VANCOMYCIN IV PER PHARMACY 1 EACH MISC MISCELLANE PRN (10:55)
[2024-10-18] MEDS ORDERED: PNEUMONIA PROTOCOL UTILIZED 1 EACH MISC PO PRN (10:55)
[2024-10-18] MEDS ORDERED: IPRATROPIUM-ALBUTEROL 3 ML NEB INHALATION PRN (10:58)
[2024-10-18] MEDS: IPRATROPIUM-ALBUTEROL 3 ML NEB INHALATION SCH (11:21)
[2024-10-18 11:24] LABS: INR 1.3 (<1.2); Partial Thromboplastin Time 29.9 sec (22.0-30.0); Prothrombin Time 13.9 sec (10.0-12.5)
[2024-10-18 11:26] LABS: Appearance,Urine Clear (Clear); Bacteria,Urine Rare /hpf; Bilirubin,Urine Negative (Negative); Blood,Urine Negative (Negative); Color,Urine Yellow; Glucose,Urine (UA) Negative (Negative); Hyaline Casts,Urine 6 /lpf (0-2); Ketones,Urine 1+ (Negative); Leukocyte Esterase,Urine Trace (Negative); Mucus,Urine Many /hpf; Nitrite,Urine Negative (Negative); PH, Urine 6.5 (5.0-8.0); Protein,Urine 1+ (Negative); RBC,Urine 3 /hpf (0-5); Specific Gravity,Urine 1.024 (1.001-1.035); Squamous Epithelial Cell,Urine 2 /hpf (0-4); Urobilinogen,Urine <2.0 mg/dL (<2.0); WBC,Urine 4 /hpf (0-5)
[2024-10-18] MEDS ORDERED: NALOXONE 0.4 MG/ML 1 ML VIAL IV PRN (11:27)
[2024-10-18] MEDS ORDERED: IBUPROFEN 400 MG TAB PO PRN (11:27)
[2024-10-18] MEDS ORDERED: ONDANSETRON 4 MG/2 ML VIAL IVP PRN (11:27)
[2024-10-18] MEDS: PIPERACILLIN-TAZOBACTAM 3.375 GM in SODIUM CHLORIDE 0.9% 100 ML IVPB STA (11:29)
[2024-10-18] MEDS: IBUPROFEN 800 MG TAB PO STA (11:34)
[2024-10-18] MEDS: LACTATED RINGERS 1,000 ML IV SCH (11:37)
[2024-10-18] MEDS: AZITHROMYCIN 500 MG in SODIUM CHLORIDE 0.9% 250 ML IVPB STA (12:12)
--- NOTE | 2024-10-18 12:13 | ED ---
General Adult HPI - General Chief complaint: Weakness Stated complaint: fever, cough, vomiting, weak Time Seen by Provider: 10/18/24 09:00 Source: patient, family, RN notes reviewed, old records reviewed Mode of arrival: wheelchair - History of Present Illness Initial comments: Patient is a 69-year-old female who presents emergency department complaining of increased weakness, productive cough of clear yellow sputum, and fevers at home for the last 2 to 3 days. He has been having URI symptoms for approximately a month. Did improve but symptoms worsened approximately 3 to 4 days ago and she was placed on Levaquin by her PCP. She has not improved and has been having decreased oral intake, and had 1 episodes of nonbilious nonbloody emesis today. Due to her increased weakness, concern for worsening cough and congestion, as well as for the fevers and dehydration she presents today for further evaluation. She has a history of renal transplant, atrial fibrillation, CAD, asthma. Presents for further evaluation at this time. Patient is on Eliquis.Patient does appear clinically dehydrated. She denies worsening orthopnea, PND, lower extremity edema. - Related Data Home Medications Medication Instructions Recorded Confirmed Tacrolimus [Prograf] 0.5 mg PO BID 08/21/14 02/29/24 Multivitamins, Thera [Multivitamin 3 tab PO DAILY 08/22/14 02/29/24 (formulary)] Vitamin B Complex 1 cap PO DAILY 08/22/14 02/29/24 Cholecalciferol [Vitamin D3 (25 50 mcg PO DAILY 10/20/18 02/29/24 Mcg = 1000 Iu)] Acyclovir [Zovirax] 400 mg PO BID 05/02/19 02/29/24 Apixaban [Eliquis] 5 mg PO BID 05/02/19 02/29/24 Atorvastatin [Lipitor] 10 mg PO HS 05/02/19 02/29/24 Albuterol Inhaler [Ventolin Hfa 2 puff INHALATION RT-QID PRN 05/15/19 02/29/24 Inhaler] Nystatin 100,000 Unit/ml Susp 5 ml PO DAILY 05/15/19 02/29/24 [Mycostatin Oral Susp] Aspirin EC [Ecotrin Low Dose] 81 mg PO HS 07/07/23 02/29/24 Fluticasone/Vilanterol [Breo 1 puff INHALATION RT-DAILY 07/07/23 02/29/24 Ellipta 200-25 Mcg Inhaler] Folic Acid 1 mg PO DAILY 07/07/23 02/29/24 Levothyroxine Sodium [Synthroid] 150 mcg PO SUMOTUWESA 07/07/23 02/29/24 Losartan [Cozaar] 50 mg PO BID 07/07/23 02/29/24 Magnesium Oxide [Magnesium] 500 mg PO BID 07/07/23 02/29/24 Propafenone [Rythmol] 225 mg PO Q8H 07/07/23 02/29/24 carvediloL [Coreg] 12.5 mg PO DAILY 07/07/23 02/29/24 carvediloL [Coreg] 25 mg PO HS 07/07/23 02/29/24 metFORMIN HCL [Glucophage] 1,000 mg PO BID 07/07/23 02/29/24 sitaGLIPtin [Januvia] 100 mg PO PC-LUNCH 07/07/23 02/29/24 Alendronate Sodium [Fosamax] 70 mg PO HAMPTON 02/29/24 02/29/24 Calcium Carbonate/Vitamin D3 1 tab PO BID 02/29/24 02/29/24 [Calcium 600 mg-Vit D3 5 mcg (200 unit)] Ferrous Sulfate [Iron (65 MG 325 mg PO DAILY 02/29/24 02/29/24 Elemental)] predniSONE 5 mg PO DAILY 02/29/24 02/29/24 Levofloxacin [Levaquin] 500 mg PO DAILY 10/18/24 10/18/24 Omeprazole Magnesium [PriLOSEC OTC] 20 mg PO DAILY PRN 10/18/24 10/18/24 Allergies Allergy/AdvReac Type Severity Reaction Status Date / Time flecainide Allergy Unknown Verified 10/18/24 12:02 iodine Allergy Unknown Verified 10/18/24 12:02 shellfish derived Allergy Rash/Hives Verified 10/18/24 12:02 Sulfa (Sulfonamide Allergy Rash/Hives Verified 10/18/24 12:02 Antibiotics) codeine AdvReac Rapid Verified 10/18/24 12:02 Heart Rate hydromorphone HCl AdvReac Rapid Verified 10/18/24 12:02 [From Dilaudid] Heart Rate Iodinated Contrast Media AdvReac Unknown Verified 10/18/24 12:02 propoxyphene AdvReac Rapid Verified 10/18/24 12:02 Heart Rate Review of Systems ROS Statement: Those systems with pertinent positive or pertinent negative responses have been documented in the HPI. Review of Systems: CONST: Denies fever EYES: Denies blurry vision ENT: Endorses productive cough, congestion C/V: Denies Chest pain RESP: Endorses mild shortness of breath GI: Denies abdominal pain : Denies dysuria SKIN: Denies rash. MSK: Denies joint pain. NEURO: Denies headache ROS Other: All systems not noted in ROS Statement are negative. 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 Past Anesthesia/Blood Transfusion Reactions: No Reported Reaction Past Psychological History: No Psychological Hx Reported Smoking Status: Never smoker Past Alcohol Use History: Rare Past Drug Use History: None Reported - Past Family History Mother Family Medical History: Cancer Additional Family Medical History / Comment(s): Mother had breast cancer twice. She lived to be 95yrs old. Father Family Medical History: Congestive Heart Failure (CHF) Additional Family Medical History / Comment(s): Father lived to be 90yrs old. General Exam - General Exam Comments Initial Comments: General: Appears in no acute distress. HEAD: Normal with no signs of head trauma. EYES: PERRLA, EOMI, conjunctiva normal, no discharge. ENT: Hearing grossly intact, normal oropharynx. Dry mucous membranes. RESPIRATORY: Bilateral end expiratory wheezing. Mildly coarse breath sounds bilaterally. No significant increased work of breathing. Hypoxic on room air between 88 and 90%. C/V: Regular rate and rhythm. S1 and S2 auscultated, no edema, peripheral pulses 2+ and intact throughout ABD: Abd is soft, nontender, nondistended EXT: Normal range of motion, no obvious deformity SKIN: No rashes or lesions observed on exposed skin. NEURO: Alert and oriented x 4. Course Vital Signs 10/18/24 10/18/24 10/18/24 08:30 09:44 10:27 Temperature 99.3 F 99.8 F H Pulse Rate 95 96 Respiratory 22 18 Rate Blood Pressure 138/76 129/77 O2 Sat by Pulse 89 L 90 L 96 Oximetry 10/18/24 10/18/24 10/18/24 11:25 11:36 12:12 Temperature 98.7 F Pulse Rate 98 104 H 96 Respiratory 20 Rate Blood Pressure 129/77 O2 Sat by Pulse 95 Oximetry Medical Decision Making - Medical Decision Making Was pt. sent in by a medical professional or institution (, PA, ESTIMATOR LUMBER, urgent care, hospital, or alf...) When possible be specific @ -No Did you speak to anyone other than the patient for history (EMS, parent, family, police, friend...)? What history was obtained from this source @ -No Did you review nursing and triage notes (agree or disagree)? Why? @ -I reviewed and agree with nursing and triage notes Were old charts reviewed (outside hosp., previous admission, EMS record, old EKG, old radiological studies, urgent care reports/EKG's, alf records)? Report findings @ -Confirmed on chart that patient is on Eliquis. Reviewed echo from March 2024 which revealed possible mild diastolic dysfunction but otherwise unremarkable. Normal systolic dysfunction. Differential Diagnosis (chest pain, altered mental status, abdominal pain women, abdominal pain men, vaginal bleeding, weakness, fever, dyspnea, syncope, headache, dizziness, GI bleed, back pain, seizure, CVA, palpatations, mental health, musculoskeletal)? @ -COVID, flu, RSV, pneumonia, asthma. This list is not all inclusive. EKG interpreted by me (3pts min.). @ -As above X-rays interpreted by me (1pt min.). @ -Chest x-ray reveals possible pulmonary vascular ingestion versus atypical pneumonia. Clinically appears to be more consistent with pneumonia. CT interpreted by me (1pt min.). @ -None done U/S interpreted by me (1pt. min.). @ -None done What testing was considered but not performed or refused? (CT, X-rays, U/S, labs)? Why? @ -None What meds were considered but not given or refused? Why? @ -None Did you discuss the management of the patient with other professionals (professionals i.e. , PA, ESTIMATOR LUMBER, lab, RT, psych nurse, social work specialist, batcher operator, teacher, chief program officer, outsole caser)? Give summary @ -Discussed with the admitting provider, Dr. Kelly of [facility] who accepted the admission. Was smoking cessation discussed for >3mins.? @ -No Was critical care preformed (if so, how long)? @ -Yes, 32 minutes Were there social determinants of health that impacted care today? How? (Homelessness, low income, unemployed, alcoholism, drug addiction, tra nsportation, low edu. Level, literacy, decrease access to med. care, senior living, rehab)? @ -No Was there de-escalation of care discussed even if they declined (Discuss DNR or withdrawal of care, Hospice)? DNR status @ -No What co-morbidities impacted this encounter? (DM, HTN, Smoking, COPD, CAD, Cancer, CVA, ARF, Chemo, Hep., AIDS, mental health diagnosis, sleep apnea, morbid obesity)? @ -Asthma, renal transplant, atrial fibrillation Was patient admitted / discharged? Hospital course, mention meds given and route, prescriptions, significant lab abnormalities, going to OR and other pertinent info. @ -Based on patient's presentation and physical exam, presents emergency department complaining of what seems to be URI symptoms. We will obtain cardiopulmonary workup. She was in agreement this plan. Patient is hypoxic and is requiring low amounts of supplemental oxygen via nasal cannula. Chest x-ray consistent with CHF versus atypical pneumonia. Clinically, patient does not have CHF symptoms. Does not have orthopnea, PND, lower extremity edema. Patient is having a productive cough with fevers at home. EKG shows ventricular paced rhythm. Labs remarkable for leukocytosis of 13. Patient is hyponatremic to 123 and hypochloremic to 91. Lactic acid within normal limits. BNP is elevated to 5000. Viral swabs negative. I did discuss with the patient and it does appear that she does meet sepsis criteria. Patient meets sepsis criteria at 1050. Blood cultures ordered. Antibiotics initiated including Zosyn, azithromycin as well as vancomycin. Patient however received 1 L of fluids. She will be started on maintenance fluids of lactated ringer at 90 cc an hour. We will avoid further fluid boluses. In the low it does appear to be secondary to pneumonia, with the concern of possible CHF, we will avoid fluid overloading the patient at this time. Patient is hyponatremic as well and therefore the lower correction with IV fluids is recommended anyways. She was in agreement this plan. Echo was ordered to evaluate for possible CHF. He will continue with IV steroids as well as breathing treatments. Patient will be admitted to the hospital and she is still requiring low amounts of supplemental oxygen. I discussed the results with the admitting provider, Dr. Kelly who accepted the admission. Pulmonology consulted Undiagnosed new problem with uncertain prognosis? @ -No Drug Therapy requiring intensive monitoring for toxicity (Heparin, Nitro, Insulin, Cardizem)? @ -No Were any procedures done? @ -No Diagnosis/symptom? @ -Hypoxic respiratory failure secondary to sepsis likely secondary to pneumonia, asthma. Dehydration, hyponatremia Acute, or Chronic, or Acute on Chronic? @ -Acute Uncomplicated (without systemic symptoms) or Complicated (systemic symptoms)? @ -Complicated Side effects of treatment? @ -No Exacerbation, Progression, or Severe Exacerbation? @ -No Poses a threat to life or bodily function? How? (Chest pain, USA, NM, pneumonia, PE, COPD, DKA, ARF, appy, cholecystitis, CVA, Diverticulitis, Homicidal, Suicidal, threat to staff... and all critical care pts) @ -Yes - Lab Data Result diagrams: 10/18/24 09:16 10/18/24 10:00 Lab Results 10/18/24 10/18/24 10/18/24 Range/Units 09:16 09:16 09:16 WBC 13.07 H (4.50-10.00) 10*3/uL RBC 3.68 L (4.10-5.20) 10*6/uL Hgb 13.0 (12.0-15.0) g/dL Hct 36.8 L (37.2-46.3) % MCV 100.0 H (80.0-97.0) fL MCH 35.3 H (27.0-32.0) pg MCHC 35.3 (32.0-37.0) g/dL Plt Count 147 (140-440) 10*3/uL MPV 9.8 (9.5-12.2) fL Immature Gran % (Auto) 1.9 % Neutrophils % 67.5 % Lymphocytes % 14.7 % Monocytes % 14.7 % Eosinophils % 0.8 % Basophils % 0.4 % Immature Gran # 0.25 H (0.00-0.04) 10*3/uL Neutrophils # 8.82 H (1.80-7.70) 10*3/uL Lymphocytes # 1.92 (0.90-5.00) 10*3/uL Monocytes # 1.92 H (0.20-1.00) 10*3/uL Eosinophils # 0.11 (0.04-0.35) 10*3/uL Basophils # 0.05 (0.00-0.10) 10*3/uL PT (10.0-12.5) sec INR (<1.2) APTT (22.0-30.0) sec Sodium (137-145) mmol/L Potassium (3.5-5.1) mmol/L Chloride (98-107) mmol/L Carbon Dioxide (22-30) mmol/L Anion Gap mmol/L BUN (7-17) mg/dL Creatinine (0.52-1.04) mg/dL Est GFR (CKD-EPI)AfAm (>60 ml/min/1.73 sqM) Est GFR (CKD-EPI)NonAf (>60 ml/min/1.73 sqM) Glucose (74-99) mg/dL Plasma Lactic Acid Cruz 1.0 (0.7-2.0) mmol/L Calcium (8.4-10.2) mg/dL Magnesium (1.6-2.3) mg/dL Total Bilirubin (0.2-1.3) mg/dL AST (14-36) U/L ALT (4-34) U/L Alkaline Phosphatase (38-126) U/L NT-Pro-B Natriuret Pep pg/mL Total Protein (6.3-8.2) g/dL Albumin (3.5-5.0) g/dL Urine Color Yellow Urine Appearance Clear (Clear) Urine pH 6.5 (5.0-8.0) Ur Specific [place] 1.024 (1.001-1.035) Urine Protein 1+ H (Negative) Urine Glucose (UA) Negative (Negative) Urine Ketones 1+ H (Negative) Urine Blood Negative (Negative) Urine Nitrite Negative (Negative) Urine Bilirubin Negative (Negative) Urine Urobilinogen <2.0 (<2.0) mg/dL Ur Leukocyte Esterase Trace H (Negative) Urine RBC 3 (0-5) /hpf Urine WBC 4 (0-5) /hpf Ur Squamous Epith Cells 2 (0-4) /hpf Urine Bacteria Rare H (None) /hpf Hyaline Casts 6 H (0-2) /lpf Urine Mucus Many H (None) /hpf Influenza Type A (PCR) (Not Detectd) Influenza Type B (PCR) (Not Detectd) RSV (PCR) (Not Detectd) SARS-CoV-2 (PCR) (Not Detectd) 10/18/24 10/18/24 10/18/24 Range/Units 09:16 10:00 11:04 WBC (4.50-10.00) 10*3/uL RBC (4.10-5.20) 10*6/uL Hgb (12.0-15.0) g/dL Hct (37.2-46.3) % MCV (80.0-97.0) fL MCH (27.0-32.0) pg MCHC (32.0-37.0) g/dL Plt Count (140-440) 10*3/uL MPV (9.5-12.2) fL Immature Gran % (Auto) % Neutrophils % % Lymphocytes % % Monocytes % % Eosinophils % % Basophils % % Immature Gran # (0.00-0.04) 10*3/uL Neutrophils # (1.80-7.70) 10*3/uL Lymphocytes # (0.90-5.00) 10*3/uL Monocytes # (0.20-1.00) 10*3/uL Eosinophils # (0.04-0.35) 10*3/uL Basophils # (0.00-0.10) 10*3/uL PT 13.9 H (10.0-12.5) sec INR 1.3 H (<1.2) APTT 29.9 (22.0-30.0) sec Sodium 123 L (137-145) mmol/L Potassium 4.4 (3.5-5.1) mmol/L Chloride 91 L (98-107) mmol/L Carbon Dioxide 21 L (22-30) mmol/L Anion Gap 11 mmol/L BUN 16 (7-17) mg/dL Creatinine 0.52 (0.52-1.04) mg/dL Est GFR (CKD-EPI)AfAm >90 (>60 ml/min/1.73 sqM) Est GFR (CKD-EPI)NonAf >90 (>60 ml/min/1.73 sqM) Glucose 75 (74-99) mg/dL Plasma Lactic Acid Cruz (0.7-2.0) mmol/L Calcium 8.3 L (8.4-10.2) mg/dL Magnesium 1.6 (1.6-2.3) mg/dL Total Bilirubin 1.6 H (0.2-1.3) mg/dL AST 57 H (14-36) U/L ALT 49 H (4-34) U/L Alkaline Phosphatase 106 (38-126) U/L NT-Pro-B Natriuret Pep 5070 pg/mL Total Protein 6.0 L (6.3-8.2) g/dL Albumin 3.3 L (3.5-5.0) g/dL Urine Color Urine Appearance (Clear) Urine pH (5.0-8.0) Ur Specific [place] (1.001-1.035) Urine Protein (Negative) Urine Glucose (UA) (Negative) Urine Ketones (Negative) Urine Blood (Negative) Urine Nitrite (Negative) Urine Bilirubin (Negative) Urine Urobilinogen (<2.0) mg/dL Ur Leukocyte Esterase (Negative) Urine RBC (0-5) /hpf Urine WBC (0-5) /hpf Ur Squamous Epith Cells (0-4) /hpf Urine Bacteria (None) /hpf Hyaline Casts (0-2) /lpf Urine Mucus (None) /hpf Influenza Type A (PCR) Not Detected (Not Detectd) Influenza Type B (PCR) Not Detected (Not Detectd) RSV (PCR) Not Detected (Not Detectd) SARS-CoV-2 (PCR) Not Detected (Not Detectd) - EKG Data -: EKG Interpreted by Me EKG Comments: 12-lead Electrocardiogram Interpretation Note EKG was reviewed and interpreted by myself. 12-lead ECG performed at 0955 is interpreted by me as revealing ventricular paced rhythm at a rate of 96 beats per minute. Indeterminate axis. QRS durations 180 ms, QTc is 507 milliseconds.. There were no ST or T wave abnormalities to suggest myocardial ischemia or injury. By my interpretation this EKG is non-diagnostic for acute ischemia. Critical Care Time Critical Care Time: Yes Total Critical Care Time: 32 Disposition Clinical Impression: Sepsis, Asthma, Pneumonia, Dehydration, Hyponatremia Disposition: ADMITTED IP TO THIS HOSP Condition: Serious Time of Disposition: 11:27
[2024-10-18] MEDS: IPRATROPIUM-ALBUTEROL 3 ML NEB INHALATION STA (12:18)
[2024-10-18] MEDS ORDERED: DEXTROSE 50% SYRINGE 50 ML IVP PRN ×2 (13:05)
[2024-10-18] MEDS: PANTOPRAZOLE 40 MG TABLET PO SCH (13:30)
[2024-10-18] MEDS ORDERED: ACETAMINOPHEN TAB 325 MG TAB PO PRN (13:38)
[2024-10-18] MEDS: VANCOMYCIN 1,000 MG in SODIUM CHLORIDE 0.9% 250 ML IVPB ONE (15:18)
[2024-10-18] MEDS: carvediloL 12.5 MG TAB PO SCH ×2 (15:19→21:53)
[2024-10-18 17:42] LABS: Glucose,Whole Blood 255 mg/dL (70-110)
[2024-10-18] MEDS: INSULIN LISPRO (HumaLOG) 100 UNIT/ML 10 mL VL SQ SCH (17:44)
[2024-10-18] MEDS: methylPREDNISolone SOD SUCCI 40 MG/ML 1 ML VIAL IV SCH (17:45)
[2024-10-18] MEDS: PIPERACILLIN-TAZOBACTAM 3.375 GM in SODIUM CHLORIDE 0.9% 100 ML IVPB SCH (17:46)
--- NOTE | 2024-10-18 18:35 | P.HPIM ---
History of Present Illness H&P Date: 10/18/24 Chief Complaint: Cough and difficulty breathing Patient is a 69-year-old female with a known history of atrial fibrillation on anticoagulation with Eliquis, coronary artery disease, history of non-Hodgkin's lymphoma status post chemo in 2000 and 2002, allogenic stem cell transplant, history of renal transplant in 2008, factor V Leiden, obstructive sleep apnea and use of mouthguard, hypothyroidism and other multiple medical problems. Patient was brought to the hospital due to complaints of cough with yellowish sputum production for the past several days and today patient woke up with fever about 100.2 as per at bedside. Due to new onset of fever patient was b rought to ER. She took 3 days of Levaquin and today is the fourth day, prescribed by her PCP. Patient was tested for cough has not been improving. She also had 1 episode of nonbilious nonbloody emesis. She is a patient is on immune suppressive therapy. Denied any abdominal pain. No dysuria or hematuria. Chest x-ray on admission showed mild to moderate acute cardiopulmonary disease most consistent with CHF. EKG showed electronic ventricular paced rhythm. Laboratory data showed WBC 13.07 hemoglobin 13.0 and MCV 100.0 and platelets 147 INR 1.3 sodium 123 potassium 4.4 chloride 91 bicarb is 21 BUN 16 and creatinine 0.52 and blood sugar 75 and magnesium 1.6 AST 57 ALT 49 alk phos 106 and proBNP 5070 and albumin 3.3 urinalysis is negative for infection Influenza A B RSV and COVID-19 PCR not detected. Review of Systems Constitutional: Does have fever and chills this morning. Generalized weakness and fatigue. Abdomen: Patient does have nausea and episode of vomiting. No diarrhea and no abdominal pain. Cardiovascular: Patient denies any chest pain. Patient does have short of breath no palpitations. No leg swelling Respiratory: patient does have cough with yellow sputum production and shortness of breath Neurologic: Patient denied any numbness or tingling. no headache. Musculoskeletal: Patient denies any complaints of joint swelling or deformity. Skin: Negative Psychiatric: Negative Endocrine: No heat or cold intolerance. No recent weight gain. Genitourinary: No dysuria or hematuria. All other 14 point ROS negative except the above Past Medical History Past Medical History: Atrial Fibrillation, Asthma, Blood Disorder, Coronary Artery Disease (CAD), Cancer, Heart Failure, Diabetes Mellitus, Myocardial Infarction ([place]), Pneumonia, Renal Disease, Sleep Apnea/CPAP/BIPAP, Thyroid Disorder Additional Past Medical History / Comment(s): Recently having R posterior knee sharp pains, Nonhodgkins lymphoma treated with chemo in , allogenic stem cell transplant in 2003 and 2 more rounds chemo, rectal cancer/vulvar cancer with surgery and has colostomy, renal failure with kidney transplant in 2008, 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 Past Anesthesia/Blood Transfusion Reactions: No Reported Reaction Past Psychological History: No Psychological Hx Reported Smoking Status: Never smoker Past Alcohol Use History: Rare Past Drug Use History: None Reported - Past Family History Mother Family Medical History: Cancer Additional Family Medical History / Comment(s): Mother had breast cancer twice. She lived to be 95yrs old. Father Family Medical History: Congestive Heart Failure (CHF) Additional Family Medical History / Comment(s): Father lived to be 90yrs old. Medications and Allergies Home Medications Medication Instructions Recorded Confirmed Type Tacrolimus [Prograf] 0.5 mg PO BID 08/21/14 10/18/24 History Multivitamins, Thera [Multivitamin 3 tab PO DAILY 08/22/14 10/18/24 History (formulary)] Vitamin B Complex 1 cap PO DAILY 08/22/14 10/18/24 History Cholecalciferol [Vitamin D3 (25 25 mcg PO DAILY 10/20/18 10/18/24 History Mcg = 1000 Iu)] Acyclovir [Zovirax] 400 mg PO BID 05/02/19 10/18/24 History Apixaban [Eliquis] 5 mg PO BID 05/02/19 10/18/24 History Atorvastatin [Lipitor] 10 mg PO HS 05/02/19 10/18/24 History Albuterol Inhaler [Ventolin Hfa 2 puff INHALATION RT-QID PRN 05/15/19 10/18/24 History Inhaler] Nystatin 100,000 Unit/ml Susp 400,000 units PO DAILY 05/15/19 10/18/24 History [Mycostatin Oral Susp] Aspirin EC [Ecotrin Low Dose] 81 mg PO HS 07/07/23 10/18/24 History Fluticasone/Vilanterol [Breo 1 puff INHALATION RT-DAILY 07/07/23 10/18/24 History Ellipta 200-25 Mcg Inhaler] Folic Acid 1 mg PO DAILY 07/07/23 10/18/24 History Levothyroxine Sodium [Synthroid] 150 mcg PO [id number] 07/07/23 10/18/24 History Losartan [Cozaar] 50 mg PO BID 07/07/23 10/18/24 History Magnesium Oxide [Magnesium] 500 mg PO BID 07/07/23 10/18/24 History Propafenone [Rythmol] 225 mg PO Q8H 07/07/23 10/18/24 History carvediloL [Coreg] 12.5 mg PO DAILY 07/07/23 10/18/24 History carvediloL [Coreg] 25 mg PO HS 07/07/23 10/18/24 History metFORMIN HCL [Glucophage] 1,000 mg PO BID 07/07/23 10/18/24 History sitaGLIPtin [Januvia] 100 mg PO DAILY 07/07/23 10/18/24 History Alendronate Sodium [Fosamax] 70 mg PO TU 02/29/24 10/18/24 History Calcium Carbonate/Vitamin D3 1 tab PO BID 02/29/24 10/18/24 History [Calcium 600 mg-Vit D3 5 mcg (200 unit)] Ferrous Sulfate [Iron (65 MG 325 mg PO DAILY 02/29/24 10/18/24 History Elemental)] predniSONE 5 mg PO DAILY 02/29/24 10/18/24 History Levofloxacin [Levaquin] 500 mg PO DAILY 10/18/24 10/18/24 History Omeprazole Magnesium [PriLOSEC OTC] 20 mg PO DAILY PRN 10/18/24 10/18/24 History Allergies Allergy/AdvReac Type Severity Reaction Status Date / Time flecainide Allergy Unknown Verified 10/18/24 12:02 iodine Allergy Unknown Verified 10/18/24 12:02 shellfish derived Allergy Rash/Hives Verified 10/18/24 12:02 Sulfa (Sulfonamide Allergy Rash/Hives Verified 10/18/24 12:02 Antibiotics) codeine AdvReac Rapid Verified 10/18/24 12:02 Heart Rate hydromorphone HCl AdvReac Rapid Verified 10/18/24 12:02 [From Dilaudid] Heart Rate Iodinated Contrast Media AdvReac Unknown Verified 10/18/24 12:02 propoxyphene AdvReac Rapid Verified 10/18/24 12:02 Heart Rate Physical Exam Vitals: Vital Signs Temp Pulse Resp BP Pulse Ox 10/18/24 12:12 98.7 F 96 20 129/77 95 10/18/24 11:36 104 H 10/18/24 11:25 98 10/18/24 10:27 96 10/18/24 09:44 99.8 F H 96 18 129/77 90 L 10/18/24 08:30 99.3 F 95 22 138/76 89 L Intake and Output 10/17/24 10/18/24 10/18/24 22:59 06:59 14:59 Other: Weight 58.967 kg PHYSICAL EXAMINATION: Patient is lying in the bed,, mild distress, awake alert and oriented.. HEENT: Normocephalic. Neck is supple. Pupils reactive. Nostrils clear. Oral cavity is moist. Neck reveals no JVD, carotid bruits, or thyromegaly. CHEST EXAMINATION: Trachea is central. Symmetrical expansion. Bilateral diffuse wheezing and rhonchi and coarse breath sounds.. CARDIAC: Normal S1, S2 with no gallops. No murmurs ABDOMEN: Soft. Bowel sounds present. No organomegaly. No abdominal bruits. Extremities: reveal no edema. No clubbing or cyanosis Neurologically awake, alert, oriented x3 with well-coordinated movements. No gross focal deficits noted Skin: No rash or skin lesions. Psychiatric: Coperative. Nonsuicidal Musculoskeletal: No joint swelling or deformity. Normal range of motion. Results CBC & Chem 7: 10/18/24 09:16 10/18/24 10:00 Labs: Abnormal Lab Results - Last 24 Hours (Table) 10/18/24 10/18/24 10/18/24 Range/Units 09:16 09:16 10:00 WBC 13.07 H (4.50-10.00) 10*3/uL RBC 3.68 L (4.10-5.20) 10*6/uL Hct 36.8 L (37.2-46.3) % MCV 100.0 H (80.0-97.0) fL MCH 35.3 H (27.0-32.0) pg Immature Gran # 0.25 H (0.00-0.04) 10*3/uL Neutrophils # 8.82 H (1.80-7.70) 10*3/uL Monocytes # 1.92 H (0.20-1.00) 10*3/uL PT (10.0-12.5) sec INR (<1.2) Sodium 123 L (137-145) mmol/L Chloride 91 L (98-107) mmol/L Carbon Dioxide 21 L (22-30) mmol/L Calcium 8.3 L (8.4-10.2) mg/dL Total Bilirubin 1.6 H (0.2-1.3) mg/dL AST 57 H (14-36) U/L ALT 49 H (4-34) U/L Total Protein 6.0 L (6.3-8.2) g/dL Albumin 3.3 L (3.5-5.0) g/dL Urine Protein 1+ H (Negative) Urine Ketones 1+ H (Negative) Ur Leukocyte Esterase Trace H (Negative) Urine Bacteria Rare H (None) /hpf Hyaline Casts 6 H (0-2) /lpf Urine Mucus Many H (None) /hpf 10/18/24 Range/Units 11:04 WBC (4.50-10.00) 10*3/uL RBC (4.10-5.20) 10*6/uL Hct (37.2-46.3) % MCV (80.0-97.0) fL MCH (27.0-32.0) pg Immature Gran # (0.00-0.04) 10*3/uL Neutrophils # (1.80-7.70) 10*3/uL Monocytes # (0.20-1.00) 10*3/uL PT 13.9 H (10.0-12.5) sec INR 1.3 H (<1.2) Sodium (137-145) mmol/L Chloride (98-107) mmol/L Carbon Dioxide (22-30) mmol/L Calcium (8.4-10.2) mg/dL Total Bilirubin (0.2-1.3) mg/dL AST (14-36) U/L ALT (4-34) U/L Total Protein (6.3-8.2) g/dL Albumin (3.5-5.0) g/dL Urine Protein (Negative) Urine Ketones (Negative) Ur Leukocyte Esterase (Negative) Urine Bacteria (None) /hpf Hyaline Casts (0-2) /lpf Urine Mucus (None) /hpf Thrombosis Risk Factor Assmnt - DVT/VTE Prophylaxis DVT/VTE Prophylaxis: Pharmacologic Prophylaxis ordered Assessment and Plan Assessment: Acute hypoxic respiratory failure multifactorial, due to asthma exacerbation/bronchospasm and possible pneumonia. Patient required 2 L oxygen via nasal cannula Acute asthma exacerbation/bronchospasm Acute purulent tracheobronchitis and possible pneumonia Mild acute CHF with ejection fraction not known. Patient has pulmonary vascular congestion and elevated proBNP level. Hypovolemic hyponatremia Diabetes type 2. [id number], uncontrolled with hyperglycemia Paroxysmal atrial fibrillation on anticoagulation with Eliquis History of coronary artery disease. No PCI Hypothyroidism Obstructive sleep apnea uses mouthguard History of non-Hodgkin's lymphoma status post chemo in 2000 and , allogenic stem cell transplant in 2003 History of rectal cancer/vulvar cancer s/p surgery and has colostomy History of renal transplant in 2008 on immunosuppressive therapy GI prophylaxis PPI. Patient is already full anticoagulation. Plan: Patient will be continued on telemonitoring. Continue with DuoNebs and Symbicort. Continue IV Solu-Medrol 40 mg Q8 hourly. Continue with IV antibiotics in the form of vancomycin and Zosyn and azithromycin. Follow-up procalcitonin level. Patient was given IV fluid bolus in the ER. Gentle IV hydration with normal saline. Follow-up sputum culture and blood cultures. Follow-up repeat x-ray tomorrow and also echocardiogram. Continue with home medications. Insulin sliding scale. Prognosis guarded. Time with Patient: Greater than 30
[2024-10-18 20:31] LABS: Glucose,Whole Blood 200 mg/dL (70-110)
[2024-10-18] MEDS: SYMBICORT 160-4.5 MCG INHALER INHALATION SCH (20:52)
[2024-10-18] MEDS: SODIUM CHLORIDE 0.9% 1,000 ML IV SCH (21:22)
[2024-10-18] MEDS: ASPIRIN 81 MG PO SCH (21:53)
[2024-10-18] MEDS: ATORVASTATIN 10 MG TAB PO SCH (21:54)
[2024-10-18] MEDS: TACROLIMUS 0.5 MG CAP PO SCH (21:54)
[2024-10-18] MEDS: APIXABAN 5 MG TAB PO SCH (21:54)
[2024-10-18] MEDS: ACYCLOVIR 200 MG CAP PO SCH (22:33)
[2024-10-18] MEDS: LOSARTAN 50 MG TAB PO SCH (22:33)
[2024-10-18] MEDS: metFORMIN 500 MG TAB PO SCH (22:33)
--- NOTE | 2024-10-19 03:26 | P.CNPUL ---
History of Present Illness Consult date: 10/19/24 Requesting physician: Abram Marroquin Reason for consult: asthma Chief complaint: Shortness of breath, cough History of present illness: Patient is a 69-year-old female with past medical history significant for rectal cancer, previous bowel resection, end colostomy, renal transplant currently on Prograf and prednisone, atrial fibrillation, coronary artery disease, hypertension, diabetes mellitus, hypothyroidism, LIDIA and no longer uses CPAP, asthma. Presented emergency department yesterday afternoon with a chief complaint of several days of URI-like symptoms. Currently, reports a persist ent, productive cough with yellow phlegm. Intermittent low-grade fevers over the last 2 to 3 days. Associated weakness and reduced appetite. Yesterday, she had an episode of nonbilious, nonbloody emesis. Denies abdominal pain, diarrhea. Previously, started on Levaquin, on a outpatient basis by her PCP. Initial improvement and then reported worsening symptoms. Chest x-ray showing stable cardiac silhouette with prominent interstitial markings, possible small pleural effusion. Viral 4 Plex negative for influenza A/B, RSV, COVID. CBC: WBC count 13, hemoglobin 13, platelets 147. CMP: Sodium 123, potassium 4.4, chloride 91, serum bicarb 21, BUN 16, creatinine 0.52, glucose 75. Urinalysis fairly unremarkable for infection. Normal saline is infusing at 75 mL/h. NT- proBNP was elevated at 5070. EKG: Ventricularly paced rhythm, rate 96 bpm. Previous Lexiscan stress test from March, showing a large fixed defect involving the inferolateral wall. Transthoracic echocardiogram performed at that time showing grossly preserved systolic function with an ejection fraction of 50 to 55% with grade 1 diastolic dysfunction. Currently, being evaluated on the general medical floor. She is resting comfortably on 2 L/min nasal cannula. Not in any respiratory distress. Continues to have a mostly nonproductive, persistent cough. She does follow in the pulmonary office with Dr. Hernandez. Does have history of chronic bronchial asthma, utilizes a Breo Ellipta maintenance inhaler as well as as needed albuterol inhaler on an outpatient basis. Denies any known sick contacts. Endorses above-mentioned symptoms. Denies any chest pain, heart palpitations, orthopnea, PND, lower extremity edema. Current most recent vital signs, temperature 98.3 F, heart rate 91 bpm, blood pressure 130/82 mmHg, nontachypneic, SpO2 was recorded at 94% on 2 L/min nasal cannula. Review of Systems Constitutional: Reports chills, Reports fatigue, Reports fever, Reports poor appetite, Reports sweats, Denies weight gain, Denies weight loss Ears, nose, mouth and throat: Reports headache, Denies nasal congestion, Denies nasal discharge, Denies post-nasal drip, Denies sinus pain, Denies sinus pressure, Denies sore throat Cardiovascular: Denies chest pain, Denies leg edema, Denies lightheadedness, Denies orthopnea, Denies palpitations, Denies paroxysmal nocturnal dyspnea, Denies syncope Respiratory: Reports congestion, Reports cough with sputum, Reports dyspnea, Reports wheezing, Denies excessive sputum, Denies hemoptysis, Denies home oxygen, Denies pain on inspiration Gastrointestinal: Reports loss of appetite, Reports nausea, Reports vomiting, Denies abdominal pain, Denies constipation, Denies diarrhea, Denies hematemesis, Denies hematochezia, Denies melena Genitourinary: Denies dysuria, Denies flank pain, Denies hematuria, Denies urinary frequency Musculoskeletal: Denies limitation of motion Integumentary: Denies rash Neurological: Denies seizures, Denies syncope Psychiatric: Denies anxiety, Denies depression Past Medical History Past Medical History: Atrial Fibrillation, Asthma, Blood Disorder, Coronary Artery Disease (CAD), Cancer, Heart Failure, Diabetes Mellitus, Myocardial Infarction ([place]), Pneumonia, Renal Disease, Sleep Apnea/CPAP/BIPAP, Thyroid Disorder Additional Past Medical History / Comment(s): Recently having R posterior knee sharp pains, Nonhodgkins lymphoma treated with chemo in , allogenic stem cell transplant in 2003 and 2 more rounds chemo, rectal cancer/vulvar cancer with surgery and has colostomy, renal failure with kidney transplant in 2008, 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 Past Anesthesia/Blood Transfusion Reactions: No Reported Reaction Past Psychological History: No Psychological Hx Reported Smoking Status: Never smoker Past Alcohol Use History: Rare Past Drug Use History: None Reported - Past Family History Mother Family Medical History: Cancer Additional Family Medical History / Comment(s): Mother had breast cancer twice. She lived to be 95yrs old. Father Family Medical History: Congestive Heart Failure (CHF) Additional Family Medical History / Comment(s): Father lived to be 90yrs old. Medications and Allergies Home Medications Medication Instructions Recorded Confirmed Type Tacrolimus [Prograf] 0.5 mg PO BID 08/21/14 10/18/24 History Multivitamins, Thera [Multivitamin 3 tab PO DAILY 08/22/14 10/18/24 History (formulary)] Vitamin B Complex 1 cap PO DAILY 08/22/14 10/18/24 History Cholecalciferol [Vitamin D3 (25 25 mcg PO DAILY 10/20/18 10/18/24 History Mcg = 1000 Iu)] Acyclovir [Zovirax] 400 mg PO BID 05/02/19 10/18/24 History Apixaban [Eliquis] 5 mg PO BID 05/02/19 10/18/24 History Atorvastatin [Lipitor] 10 mg PO HS 05/02/19 10/18/24 History Albuterol Inhaler [Ventolin Hfa 2 puff INHALATION RT-QID PRN 05/15/19 10/18/24 History Inhaler] Nystatin 100,000 Unit/ml Susp 400,000 units PO DAILY 05/15/19 10/18/24 History [Mycostatin Oral Susp] Aspirin EC [Ecotrin Low Dose] 81 mg PO HS 07/07/23 10/18/24 History Fluticasone/Vilanterol [Breo 1 puff INHALATION RT-DAILY 07/07/23 10/18/24 History Ellipta 200-25 Mcg Inhaler] Folic Acid 1 mg PO DAILY 07/07/23 10/18/24 History Levothyroxine Sodium [Synthroid] 150 mcg PO MOTUWETHFR 07/07/23 10/18/24 History Losartan [Cozaar] 50 mg PO BID 07/07/23 10/18/24 History Magnesium Oxide [Magnesium] 500 mg PO BID 07/07/23 10/18/24 History Propafenone [Rythmol] 225 mg PO Q8H 07/07/23 10/18/24 History carvediloL [Coreg] 12.5 mg PO DAILY 07/07/23 10/18/24 History carvediloL [Coreg] 25 mg PO HS 07/07/23 10/18/24 History metFORMIN HCL [Glucophage] 1,000 mg PO BID 07/07/23 10/18/24 History sitaGLIPtin [Januvia] 100 mg PO DAILY 07/07/23 10/18/24 History Alendronate Sodium [Fosamax] 70 mg PO TU 02/29/24 10/18/24 History Calcium Carbonate/Vitamin D3 1 tab PO BID 02/29/24 10/18/24 History [Calcium 600 mg-Vit D3 5 mcg (200 unit)] Ferrous Sulfate [Iron (65 MG 325 mg PO DAILY 02/29/24 10/18/24 History Elemental)] predniSONE 5 mg PO DAILY 02/29/24 10/18/24 History Levofloxacin [Levaquin] 500 mg PO DAILY 10/18/24 10/18/24 History Omeprazole Magnesium [PriLOSEC OTC] 20 mg PO DAILY PRN 10/18/24 10/18/24 History Allergies Allergy/AdvReac Type Severity Reaction Status Date / Time flecainide Allergy Unknown Verified 10/18/24 12:02 iodine Allergy Unknown Verified 10/18/24 12:02 shellfish derived Allergy Rash/Hives Verified 10/18/24 12:02 Sulfa (Sulfonamide Allergy Rash/Hives Verified 10/18/24 12:02 Antibiotics) codeine AdvReac Rapid Verified 10/18/24 12:02 Heart Rate hydromorphone HCl AdvReac Rapid Verified 10/18/24 12:02 [From Dilaudid] Heart Rate Iodinated Contrast Media AdvReac Unknown Verified 10/18/24 12:02 propoxyphene AdvReac Rapid Verified 10/18/24 12:02 Heart Rate Physical Exam Vitals: Vital Signs Temp Pulse Pulse Resp BP BP Pulse Ox 10/18/24 20:58 91 20 10/18/24 20:52 94 20 10/18/24 20:00 98.3 F 95 16 130/82 94 L 10/18/24 15:22 92 04/20/25 15:11 96 10/18/24 14:00 98.3 F 63 18 97/60 91 L 10/18/24 12:12 98.7 F 96 20 129/77 95 10/18/24 11:36 104 H 10/18/24 11:25 98 10/18/24 10:27 96 10/18/24 09:44 99.8 F H 96 18 129/77 90 L 10/18/24 08:30 99.3 F 95 22 138/76 89 L Intake and Output 10/18/24 10/18/24 10/19/24 14:59 22:59 06:59 Other: Voiding Method Toilet # Voids 1 # Bowel Movements 0 Weight 58.967 kg GENERAL EXAM: Alert, 69-year-old white female, on 2 L/min nasal cannula, comfortable in no apparent distress. HEAD: Normocephalic and atraumatic EYES: Normal reaction of pupils, equal size. NOSE: Clear with pink turbinates. THROAT: No erythema or exudates. NECK: No masses, no JVD. CHEST: No chest wall deformity. LUNGS: Equal air entry with scattered expiratory wheezing heard throughout, and posterior bibasilar inspiratory crackles. No conversational dyspnea or accessory muscle use.. CVS: S1 and S2 normal with no audible murmur, regular rhythm. No extra heart sounds ABDOMEN: No hepatosplenomegaly, active bowel sounds, no guarding or rigidity. SPINE: No scoliosis or deformity SKIN: No rashes CENTRAL NERVOUS SYSTEM: No focal deficits, tone is normal in all 4 extremities. EXTREMITIES: There is no peripheral edema, clubbing, or cyanosis. Peripheral pulses are intact. Results - Laboratory Findings CBC and BMP: 10/19/24 02:32 10/19/24 02:32 PT/INR, D-dimer PT 13.9 sec (10.0-12.5) H 10/18/24 11:04 INR 1.3 (<1.2) H 10/18/24 11:04 Abnormal lab findings: Abnormal Labs 10/18/24 10/18/24 10/18/24 09:16 09:16 10:00 WBC 13.07 H RBC 3.68 L Hct 36.8 L MCV 100.0 H MCH 35.3 H Immature Gran # 0.25 H Neutrophils # 8.82 H Monocytes # 1.92 H PT INR Sodium 123 L Chloride 91 L Carbon Dioxide 21 L POC Glucose (mg/dL) Calcium 8.3 L Total Bilirubin 1.6 H AST 57 H ALT 49 H Total Protein 6.0 L Albumin 3.3 L Urine Protein 1+ H Urine Ketones 1+ H Ur Leukocyte Esterase Trace H Urine Bacteria Rare H Hyaline Casts 6 H Urine Mucus Many H 10/18/24 10/18/24 10/18/24 11:04 17:41 20:29 WBC RBC Hct MCV MCH Immature Gran # Neutrophils # Monocytes # PT 13.9 H INR 1.3 H Sodium Chloride Carbon Dioxide POC Glucose (mg/dL) 255 H 200 H Calcium Total Bilirubin AST ALT Total Protein Albumin Urine Protein Urine Ketones Ur Leukocyte Esterase Urine Bacteria Hyaline Casts Urine Mucus - Diagnostic Findings Chest x-ray: image reviewed Assessment and Plan Assessment: Acute hypoxemic respiratory failure, currently on 2 L/min nasal cannula, likely secondary to a combination of exacerbation of chronic bronchial asthma, as well as, possible exacerbation of diastolic congestive heart failure. Chest x-ray showing stable cardiac silhouette with mild to moderate diffuse interstitial opacification concerning for pulmonary edema and possible tiny pleural effusion. NT proBNP elevated at 5070. Viral 4 Plex negative for influenza A/B, RSV, COVID. Hyponatremia, likely secondary to poor oral intake C. difficile colitis with increased output through her colostomy bag, received antibiotics on outpatient basis. History of rectal cancer History of bowel resection with previous end colostomy History of renal transplant, currently on Prograf and daily prednisone Previous history of non-Hodgkin's lymphoma with a bone marrow transplantation with subsequent [id number] disease History of atrial fibrillation, normally anticoagulated on Eliquis History of hyperlipidemia Hypertension Diabetes mellitus type 2 History of hypothyroidism History of obstructive sleep apnea with oral appliance Moderate persistent chronic bronchial asthma, normally maintained on a combination of Breo Ellipta maintenance inhaler as well as as needed albuterol rescue inhaler on an outpatient basis Lifelong non-tobacco smoker Plan: Patient's medications, labs, imaging reviewed Continue supplemental oxygen, currently on 2 L/min nasal cannula, wean as tolerated Previously started on combination of Symbicort maintenance inhaler, DuoNebs [id number], and IV Solu-Medrol 40 mg 3 times daily Also, covered on broad-spectrum empiric antibiotics in the ED, in the form of azithromycin, Zosyn, and vancomycin Sputum culture, blood cultures, urine Legionella antigen, are all pending Chronically on Prograf and daily prednisone for history of renal transplant. Renal function appears stable. Consult nephrology Repeat echocardiogram is ordered Eliquis has been restarted We will continue to follow, diffusional additional recommendations forthcoming I have personally seen and examined the patient, performed the documentation and the assessment and plan as written. Number of minutes spent on the visit:20 This is a joint evaluation was done along with the nurse practitioner. This evaluation was done in 35 minutes. The patient is very well known to me. The patient was in [place] where she experienced some increased cough and congestion and worsening shortness of breath. She had antibiotics with her that was given to her by her primary care physician/oncologist. She completed a course of Levaquin on outpatient basis. She is known to have renal transplantation and the patient has a unrelated renal allograft that was given to her back in 2008 at [facility] and she has been maintained on a combination of Prograf and prednisone. She also has history of bone marrow transplantation t hat was given to her for non-Hodgkin's lymphoma and as a result she has developed a [id number] reaction which ultimately recovered. She has history of rectal cancer, given colectomy and she has a colostomy in place. She has previous history of valvular cancer in addition additional multiple comorbidities as mentioned in the medical record. Among these comorbidities are history of osteoporosis, obstructive sleep apnea the patient wears a oral appliance, and she has coronary artery disease and thyroid disease. The patient is currently on oxygen at 2 L/min nasal cannula. She is afebrile. I reviewed the chest x-ray from the time of admission and a repeat chest x-ray was done and it shows some subtle scattered opacities which may essentially represent some interstitial edema. Limited sputum production. No chest pain. No pleurisy or hemoptysis. Electrolytes show sodium level 128, serum bicarb is at 18, BUN is at 8 with a creatinine of 0.5. Her white cell count was at 9.8 with a heme of 12 and a platelet count of 146. The patient was given a combination of antibiotics including IV vancomycin, Zosyn and Zithromax. I am going to stop all those antibiotics and the patient has increased output through her colostomy bag and further testing revealed positive C. difficile. No nausea. No abdominal pain. I am going to start the patient on oral vancomycin. In terms of her asthma exacerbation, she will be kept on Symbicort, DuoNeb AND she will be placed on IV Solu-Medrol. Rest of the home medication been on resume. Clinically stable. Hemodynamically stable. Time with Patient: Greater than 30
[2024-10-19] MEDS: VANCOMYCIN 1,000 MG in SODIUM CHLORIDE 0.9% 250 ML IVPB SCH (05:19)
[2024-10-19 06:29] LABS: Glucose,Whole Blood 157 mg/dL (70-110)
[2024-10-19] MEDS: AZITHROMYCIN 500 MG in SODIUM CHLORIDE 0.9% 250 ML IVPB SCH (08:11)
[2024-10-19] MEDS: FOLIC ACID 1 MG TAB PO SCH (08:12)
[2024-10-19 09:01] LABS: Basophils # (A) 0.04 X 10*3/uL (0.00-0.10); Basophils % (A) 0.4 %; Eosinophils # (A) 0 X 10*3/uL (0.04-0.35); Eosinophils % (A) 0 %; HCT 35.3 % (37.2-46.3); Lymphocytes # (A) 0.75 X 10*3/uL (0.90-5.00); Lymphocytes % (A) 7.6 %; MCH 35.4 pg (27.0-32.0); MCV 104.1 FL (80.0-97.0); Mean Platelet Volume 10.2 FL (9.5-12.2); Monocytes # (A) 0.49 X 10*3/uL (0.20-1.00); NRBC Per 100 WBC 0 X 10*3/uL (0.00-0.01); Neutrophils # (A) 8.46 X 10*3/uL (1.80-7.70); Platelet Count 146 X 10*3/uL (140-440); RBC 3.39 X 10*6/uL (4.10-5.20); RDW 13.3 % (11.5-14.5); WBC 9.84 X 10*3/uL (4.50-10.00)
[2024-10-19 09:15] LABS: ALT 39 U/L (8-44); AST 37 U/L (13-35); Albumin 3.2 g/dL (3.8-4.9); Albumin/Globulin Ratio 1.39 Ratio (1.60-3.17); Alkaline Phosphatase 95 U/L (41-126); Blood Urea Nitrogen 8.3 mg/dL (9.0-27.0); Calcium 7.5 mg/dL (8.7-10.3); Carbon Dioxide 18.1 mmol/L (21.6-31.8); Chloride 98 mmol/L (96-109); Globulin 2.3 g/dL (1.6-3.3); Glucose 173 mg/dL (70-110); Sodium 128 mmol/L (135-145); Total Bilirubin 0.7 mg/dL (0.3-1.2); Total Protein 5.5 g/dL (6.2-8.2)
--- NOTE | 2024-10-19 09:41 | XR ---
EXAMINATION TYPE: XR chest 2V DATE OF EXAM: 10/19/2024 6:58 AM COMPARISON: Chest radiographs from 10/18/2024 CLINICAL INDICATION: Female, 69 years old with history of pneumonia; [facility] TECHNIQUE: XR chest 2V Frontal and lateral views of the chest. FINDINGS: Lungs/Pleura: Scattered subtle reticular and hazy opacities. No evidence of pneumothorax, focal conso lidation or pleural effusion. Pulmonary vascularity: Pulmonary vascular congestion. Heart/mediastinum: Cardiomediastinal silhouette is unremarkable. Musculoskeletal: No acute osseous pathology. IMPRESSION: Subtle scattered opacities which may represent an atypical pneumonia versus pulmonary edema. [facility], , 10/19/2024 9:39 AM
--- NOTE | 2024-10-19 11:17 | P.NPCON ---
History of Present Illness - Reason for Consult hyponatremia - History of Present Illness Reason for consultation: Renal transplant management and hyponatremia History of present illness: Patient is a 69-year-old female seen in renal consultation for hyponatremia and renal transplant management. Patient received a living unrelated renal allograft in 2008 at [facility]. She is maintained on Prograf and prednisone outpatient. 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 She has history of rectal cancer and is status post colostomy. Patient came to the hospital due to weakness going on for about 4 days along with a cough. She also had a fever of 100.2 F a day prior to ad mission. Patient received fluid bolus and was receiving normal saline at 75 cc an hour up until this morning. Sodium level was 123 on admission and was 128 this morning. GFR is at baseline. Oral intake has been poor the last few days. She did have a white count on admission but is improved today. No fever this morning. She has been having loose bowel movements and did test positive for C. difficile. She tested negative for influenza, RSV and COVID. She does have history of diabetes. Denies history of coronary artery disease. Denies regular use of nonsteroidals. Vital signs are stable. General: No acute distress. HEENT: Head exam is unremarkable. On nasal cannula. LUNGS: No audible rhonchi or wheezes. HEART: Rate and Rhythm are regular. ABDOMEN: Nontender. EXTREMITITES: No edema. 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 Past Anesthesia/Blood Transfusion Reactions: No Reported Reaction Past Psychological History: No Psychological Hx Reported Smoking Status: Never smoker Past Alcohol Use History: Rare Past Drug Use History: None Reported - Past Family History Mother Family Medical History: Cancer Additional Family Medical History / Comment(s): Mother had breast cancer twice. She lived to be 95yrs old. Father Family Medical History: Congestive Heart Failure (CHF) Additional Family Medical History / Comment(s): Father lived to be 90yrs old. Medications and Allergies Home Medications Medication Instructions Recorded Confirmed Type Tacrolimus [Prograf] 0.5 mg PO BID 08/21/14 10/18/24 History Multivitamins, Thera [Multivitamin 3 tab PO DAILY 08/22/14 10/18/24 History (formulary)] Vitamin B Complex 1 cap PO DAILY 08/22/14 10/18/24 History Cholecalciferol [Vitamin D3 (25 25 mcg PO DAILY 10/20/18 10/18/24 History Mcg = 1000 Iu)] Acyclovir [Zovirax] 400 mg PO BID 05/02/19 10/18/24 History Apixaban [Eliquis] 5 mg PO BID 05/02/19 10/18/24 History Atorvastatin [Lipitor] 10 mg PO HS 05/02/19 10/18/24 History Albuterol Inhaler [Ventolin Hfa 2 puff INHALATION RT-QID PRN 05/15/19 10/18/24 History Inhaler] Nystatin 100,000 Unit/ml Susp 400,000 units PO DAILY 05/15/19 10/18/24 History [Mycostatin Oral Susp] Aspirin EC [Ecotrin Low Dose] 81 mg PO HS 07/07/23 10/18/24 History Fluticasone/Vilanterol [Breo 1 puff INHALATION RT-DAILY 07/07/23 10/18/24 History Ellipta 200-25 Mcg Inhaler] Folic Acid 1 mg PO DAILY 07/07/23 10/18/24 History Levothyroxine Sodium [Synthroid] 150 mcg PO MOTUWETHFR 07/07/23 10/18/24 History Losartan [Cozaar] 50 mg PO BID 07/07/23 10/18/24 History Magnesium Oxide [Magnesium] 500 mg PO BID 07/07/23 10/18/24 History Propafenone [Rythmol] 225 mg PO Q8H 07/07/23 10/18/24 History carvediloL [Coreg] 12.5 mg PO DAILY 07/07/23 10/18/24 History carvediloL [Coreg] 25 mg PO HS 07/07/23 10/18/24 History metFORMIN HCL [Glucophage] 1,000 mg PO BID 07/07/23 10/18/24 History sitaGLIPtin [Januvia] 100 mg PO DAILY 07/07/23 10/18/24 History Alendronate Sodium [Fosamax] 70 mg PO TU 02/29/24 10/18/24 History Calcium Carbonate/Vitamin D3 1 tab PO BID 02/29/24 10/18/24 History [Calcium 600 mg-Vit D3 5 mcg (200 unit)] Ferrous Sulfate [Iron (65 MG 325 mg PO DAILY 02/29/24 10/18/24 History Elemental)] predniSONE 5 mg PO DAILY 02/29/24 10/18/24 History Levofloxacin [Levaquin] 500 mg PO DAILY 10/18/24 10/18/24 History Omeprazole Magnesium [PriLOSEC OTC] 20 mg PO DAILY PRN 10/18/24 10/18/24 History Allergies Allergy/AdvReac Type Severity Reaction Status Date / Time flecainide Allergy Unknown Verified 10/18/24 12:02 iodine Allergy Unknown Verified 10/18/24 12:02 shellfish derived Allergy Rash/Hives Verified 10/18/24 12:02 Sulfa (Sulfonamide Allergy Rash/Hives Verified 10/18/24 12:02 Antibiotics) codeine AdvReac Rapid Verified 10/18/24 12:02 Heart Rate hydromorphone HCl AdvReac Rapid Verified 10/18/24 12:02 [From Dilaudid] Heart Rate Iodinated Contrast Media AdvReac Unknown Verified 10/18/24 12:02 propoxyphene AdvReac Rapid Verified 10/18/24 12:02 Heart Rate Physical Exam Vitals: Vital Signs Temp Pulse Pulse Resp BP BP Pulse Ox 10/19/24 09:18 92 10/19/24 09:07 88 10/19/24 08:00 97.9 F 64 17 149/59 98 10/19/24 02:00 98.4 F 65 16 126/76 95 10/18/24 20:58 91 20 10/18/24 20:52 94 20 10/18/24 20:00 98.3 F 95 16 130/82 94 L 10/18/24 15:22 92 10/18/24 15:11 96 10/18/24 14:00 98.3 F 63 18 97/60 91 L 10/18/24 12:12 98.7 F 96 20 129/77 95 10/18/24 11:36 104 H 10/18/24 11:25 98 Intake and Output 10/18/24 10/19/24 10/19/24 22:59 06:59 14:59 Other: Voiding Method Toilet # Voids 1 2 # Bowel Movements 0 Results - Lab Results Most recent lab results Calcium 7.5 mg/dL (8.7-10.3) L 10/19/24 02:32 Magnesium 1.6 mg/dL (1.6-2.3) 10/18/24 10:00 10/19/24 02:32 10/19/24 02:32 Assessment and Plan Plan: Assessment: 1. Hypovolemic hyponatremia improved with IV fluids. Sodium level 123 on admission is 128 today. 2. Status post living unrelated renal transplant from 2008. GFR at baseline. 3. History of non-Hodgkin's lymphoma status post allogenic stem cell transplant in 2000. 4. Metabolic acidosis secondary to IV fluids and GI losses. 5. Diabetes mellitus. 6. Acute hypoxic respiratory failure. 7. History of rectal cancer status post colostomy. 8. Chronic kidney disease stage I. GFR at baseline. 9. Hypertension with chronic kidney disease. Stable. 10. C. difficile colitis. 11. Hypomagnesemia secondary to GI losses. Replaced. Plan: Decrease rate of IV fluids to 50 cc an hour. Follow-up echocardiogram. Maintain Prograf and prednisone. Check a.m. Prograf level. Avoid nephrotoxins. Continue to monitor renal function and urine output. Thank you for the consultation. I will continue to follow the patient with you during her hospital stay.
[2024-10-19 11:27] LABS: Glucose,Whole Blood 226 mg/dL (70-110)
[2024-10-19] MEDS: VANCOMYCIN 125 MG CAPSULE PO SCH (13:08)
--- NOTE | 2024-10-19 17:02 | P.PN ---
Subjective Progress Note Date: 10/19/24 Patient is a 69-year-old female with a known history of atrial fibrillation on anticoagulation with Eliquis, coronary artery disease, history of non-Hodgkin's lymphoma status post chemo in 2000 and 2002, allogenic stem cell transplant, history of renal transplant in 2008, factor V Leiden, obstructive sleep apnea and use of mouthguard, hypothyroidism and other multiple medical problems. Patient was brought to the hospital due to complaints of cough with yellowish sputum production for the past several days and today patient woke up with fever about 100.2 as per at bedside. Due to new onset of fever patient was brought to ER. She took 3 days of Levaquin and today is the fourth day, prescribed by her PCP. Patient was tested for cough has not been improving. She also had 1 episode of nonbilious nonbloody emesis. She is a patient is on immune suppressive therapy. Denied any abdominal pain. No dysuria or hematuria. 10/19/2024 Patient seen and examined at bedside. She continues on 3 L of oxygen via nasal cannula. She continues to have productive cough at this time. Azithromycin and Zosyn discontinued, procalcitonin negative. Continue vancomycin for positive C. difficile. She continues to have diarrhea. No other complaints at this time. ROS: Pertinent positives and negatives as per HPI PHYSICAL EXAMINATION: Vitals reviewed Patient is lying in the bed, nondistressed, awake alert and oriented. CHEST EXAMINATION: Trachea is central. Symmetrical expansion. Bilateral diffuse rhonchi and coarse breath sounds. CARDIAC: Normal S1, S2 with no gallops. No murmurs ABDOMEN: Soft. Bowel sounds present. No organomegaly. No abdominal bruits. Extremities: reveal no edema. No clubbing or cyanosis Neurologically awake, alert, oriented x3 with well-coordinated movements. No gross focal deficits noted Skin: No rash or skin lesions. Today's objective findings: Labs WBC 9.84, sodium 128, bicarb 18.1, BUN 8.3, creatinine 0.5, glucose 173, calcium 7.5, AST 37, vitamin B-12 1188, C. difficile positive Chest x-ray with subtle scattered opacities which may represent atypical pneumonia versus pulmonary edema Assessment and plan: Acute hypoxic respiratory failure multifactorial, due to asthma exacerbation/bronchospasm. Patient required 2 L oxygen via nasal cannula Acute asthma exacerbation/bronchospasm Mild acute CHF with ejection fraction not known. Patient has pulmonary vascular congestion and elevated proBNP level. Hypovolemic hyponatremia Diabetes type 2. [id number], uncontrolled with hyperglycemia Paroxysmal atrial fibrillation on anticoagulation with Eliquis History of coronary artery disease. No PCI Hypothyroidism Obstructive sleep apnea uses mouthguard History of non-Hodgkin's lymphoma status post chemo in 2000 and 223, allogenic stem cell transplant in 2003 History of rectal cancer/vulvar cancer s/p surgery and has colostomy History of renal transplant in 2008 on immunosuppressive therapy GI prophylaxis PPI. Patient is already full anticoagulation. Plan: Patient will be continued on telemonitoring. Continue with DuoNebs and Sym bicort. Continue IV Solu-Medrol 40 mg daily Continue with IV antibiotics in the form of vancomycin, discontinue Zosyn and azithromycin. Procalcitonin negative Follow-up sputum culture and blood cultures. Follow-up repeat x-ray tomorrow and also echocardiogram. Continue with home medications. Insulin sliding scale. Prognosis guarded. Dr. Peter seen patient with resident, present during exam, and agreed with findings. Objective - Vital Signs Vital signs: Vital Signs Temp 98.4 F 10/19/24 02:00 Pulse 92 10/19/24 09:18 Resp 16 10/19/24 02:00 BP 126/76 10/19/24 02:00 Pulse Ox 95 10/19/24 02:00 FiO2 Intake & Output 10/18/24 10/19/24 10/19/24 18:59 06:59 18:59 Weight 58.967 kg Other: Voiding Method Toilet Toilet # Voids 1 2 # Bowel Movements 0 - Labs CBC & Chem 7: 10/19/24 02:32 10/19/24 02:32 Labs: Abnormal Lab Results - Last 24 Hours (Table) 10/18/24 10/18/24 10/18/24 Range/Units 09:16 09:16 10:00 RBC (4.10-5.20) X 10*6/uL Hct (37.2-46.3) % MCV (80.0-97.0) FL MCH (27.0-32.0) pg Immature Gran # (0.00-0.04) X 10*3/uL Neutrophils # (1.80-7.70) X 10*3/uL Lymphocytes # (0.90-5.00) X 10*3/uL Eosinophils # (0.04-0.35) X 10*3/uL PT (10.0-12.5) sec INR (<1.2) Sodium 123 L (137-145) mmol/L Chloride 91 L (98-107) mmol/L Carbon Dioxide 21 L (22-30) mmol/L BUN (9.0-27.0) mg/dL Creatinine (0.6-1.5) mg/dL Glucose (70-110) mg/dL POC Glucose (mg/dL) (70-110) mg/dL Hemoglobin A1c 6.3 H (<=6.0) % Calcium 8.3 L (8.4-10.2) mg/dL Total Bilirubin 1.6 H (0.2-1.3) mg/dL AST 57 H (14-36) U/L ALT 49 H (4-34) U/L Total Protein 6.0 L (6.3-8.2) g/dL Albumin 3.3 L (3.5-5.0) g/dL Albumin/Globulin Ratio (1.60-3.17) Ratio Vitamin B12 (200.0-944.0) pg/mL Urine Protein 1+ H (Negative) Urine Ketones 1+ H (Negative) Ur Leukocyte Esterase Trace H (Negative) Urine Bacteria Rare H (None) /hpf Hyaline Casts 6 H (0-2) /lpf Urine Mucus Many H (None) /hpf C. difficile (EIA) Intrp (Negative) 10/18/24 10/18/24 10/18/24 Range/Units 11:04 17:41 20:29 RBC (4.10-5.20) X 10*6/uL Hct (37.2-46.3) % MCV (80.0-97.0) FL MCH (27.0-32.0) pg Immature Gran # (0.00-0.04) X 10*3/uL Neutrophils # (1.80-7.70) X 10*3/uL Lymphocytes # (0.90-5.00) X 10*3/uL Eosinophils # (0.04-0.35) X 10*3/uL PT 13.9 H (10.0-12.5) sec INR 1.3 H (<1.2) Sodium (137-145) mmol/L Chloride (98-107) mmol/L Carbon Dioxide (22-30) mmol/L BUN (9.0-27.0) mg/dL Creatinine (0.6-1.5) mg/dL Glucose (70-110) mg/dL POC Glucose (mg/dL) 255 H 200 H (70-110) mg/dL Hemoglobin A1c (<=6.0) % Calcium (8.4-10.2) mg/dL Total Bilirubin (0.2-1.3) mg/dL AST (14-36) U/L ALT (4-34) U/L Total Protein (6.3-8.2) g/dL Albumin (3.5-5.0) g/dL Albumin/Globulin Ratio (1.60-3.17) Ratio Vitamin B12 (200.0-944.0) pg/mL Urine Protein (Negative) Urine Ketones (Negative) Ur Leukocyte Esterase (Negative) Urine Bacteria (None) /hpf Hyaline Casts (0-2) /lpf Urine Mucus (None) /hpf C. difficile (EIA) Intrp (Negative) 10/19/24 10/19/24 10/19/24 Range/Units 02:00 02:32 02:32 RBC 3.39 L (4.10-5.20) X 10*6/uL Hct 35.3 L (37.2-46.3) % MCV 104.1 H (80.0-97.0) FL MCH 35.4 H (27.0-32.0) pg Immature Gran # 0.10 H (0.00-0.04) X 10*3/uL Neutrophils # 8.46 H (1.80-7.70) X 10*3/uL Lymphocytes # 0.75 L (0.90-5.00) X 10*3/uL Eosinophils # 0 L (0.04-0.35) X 10*3/uL PT (10.0-12.5) sec INR (<1.2) Sodium 128 L (137-145) mmol/L Chloride (98-107) mmol/L Carbon Dioxide 18.1 L (22-30) mmol/L BUN 8.3 L (9.0-27.0) mg/dL Creatinine 0.5 L (0.6-1.5) mg/dL Glucose 173 H (70-110) mg/dL POC Glucose (mg/dL) (70-110) mg/dL Hemoglobin A1c (<=6.0) % Calcium 7.5 L (8.4-10.2) mg/dL Total Bilirubin (0.2-1.3) mg/dL AST 37 H (14-36) U/L ALT (4-34) U/L Total Protein 5.5 L (6.3-8.2) g/dL Albumin 3.2 L (3.5-5.0) g/dL Albumin/Globulin Ratio 1.39 L (1.60-3.17) Ratio Vitamin B12 1188.0 H (200.0-944.0) pg/mL Urine Protein (Negative) Urine Ketones (Negative) Ur Leukocyte Esterase (Negative) Urine Bacteria (None) /hpf Hyaline Casts (0-2) /lpf Urine Mucus (None) /hpf C. difficile (EIA) Intrp Positive A (Negative) 10/19/24 Range/Units 06:28 RBC (4.10-5.20) X 10*6/uL Hct (37.2-46.3) % MCV (80.0-97.0) FL MCH (27.0-32.0) pg Immature Gran # (0.00-0.04) X 10*3/uL Neutrophils # (1.80-7.70) X 10*3/uL Lymphocytes # (0.90-5.00) X 10*3/uL Eosinophils # (0.04-0.35) X 10*3/uL PT (10.0-12.5) sec INR (<1.2) Sodium (137-145) mmol/L Chloride (98-107) mmol/L Carbon Dioxide (22-30) mmol/L BUN (9.0-27.0) mg/dL Creatinine (0.6-1.5) mg/dL Glucose (70-110) mg/dL POC Glucose (mg/dL) 157 H (70-110) mg/dL Hemoglobin A1c (<=6.0) % Calcium (8.4-10.2) mg/dL Total Bilirubin (0.2-1.3) mg/dL AST (14-36) U/L ALT (4-34) U/L Total Protein (6.3-8.2) g/dL Albumin (3.5-5.0) g/dL Albumin/Globulin Ratio (1.60-3.17) Ratio Vitamin B12 (200.0-944.0) pg/mL Urine Protein (Negative) Urine Ketones (Negative) Ur Leukocyte Esterase (Negative) Urine Bacteria (None) /hpf Hyaline Casts (0-2) /lpf Urine Mucus (None) /hpf C. difficile (EIA) Intrp (Negative)
[2024-10-19 17:12] LABS: Glucose,Whole Blood 198 mg/dL (70-110)
[2024-10-19 20:34] LABS: Glucose,Whole Blood 232 mg/dL (70-110)
[2024-10-20] MEDS: PROPAFENONE 225 MG TAB PO SCH (00:22)
[2024-10-20] MEDS: DILTIAZEM 125 MG in SODIUM CHLORIDE 0.9% 100 ML IV SCH (03:59)
[2024-10-20 06:21] LABS: Glucose,Whole Blood 124 mg/dL (70-110)
--- NOTE | 2024-10-20 07:19 | CA ---
Transthoracic Echo Report Name: Vidya Loo Age: 69 Gender: F : 1955 Exam Date: 10/19/2024 14:04 Exam Location: [place] [facility] Ht (in): 64 Wt (lb): 130 Ordering Physician: Abram Marroquin MD Attending/Referring Phys: Service Center Assistant Ashley Givens RDCS Procedure CPT: Indications: eval for chf Cardiac Hx: Technical Quality: Good Contrast 1: Total Dose (mL): Contrast 2: Total Dose (mL): MEASUREMENTS (Male / Female) Normal Values 2D ECHO LV Diastolic Diameter PLAX 5.4 cm 4.2 - 5.9 / 3.9 - 5.3 cm LV Systolic Diameter PLAX 3.4 cm IVS Diastolic Thickness 0.8 cm 0.6 - 1.0 / 0.6 - 0.9 cm LVPW Diastolic Thickness 0.8 cm 0.6 - 1.0 / 0.6 - 0.9 cm LV Relative Wall Thickness 0.3 RV Internal Dim ED PLAX 3.0 cm LVOT Diameter 1.9 cm Aortic Root Diameter 2.6 cm LA Systolic Diameter LX 4.1 cm 3.0 - 4.0 / 2.7 - 3.8 cm LV Diastolic Volume MOD BP 105.0 cm??? 67 - 155 / 56 - 104 cm??? LV Systolic Volume MOD BP 49.8 cm??? - / 19 - 49 cm??? LV Ejection Fraction MOD BP 52.6 % >= 55 % LV Cardiac Index MOD BP 2530.6 cm???/min???m??? LV Diastolic Volume MOD 4C 101.2 cm??? LV Systolic Volume MOD 4C 47.0 cm??? LV Ejection Fraction MOD 4C 53.5 % LV Cardiac Index MOD 4C 2483.7 cm???/min???m??? LV Diastolic Length 4C 8.5 cm LV Systolic Length 4C 7.0 cm LV Diastolic Volume MOD 2C 108.0 cm??? LV Systolic Volume MOD 2C 47.7 cm??? LV Ejection Fraction MOD 2C 55.8 % LV Cardiac Index MOD 2C 2764.2 cm???/min???m??? LV Diastolic Length 2C 8.4 cm LV Systolic Length 2C 6.3 cm LA Volume 89.1 cm??? 18 - 58 / 22 - 52 cm??? LA Volume Index 54.5 cm???/m??? 16 - 28 cm???/m??? DOPPLER MV Peak Velocity 87.2 cm/s MV Peak Gradient 3.0 mmHg MV Mean Velocity 55.0 cm/s MV Mean Gradient 2.3 mmHg MV Velocity Time Integral 19.1 cm MV Area PHT 3.4 cm??? MR Peak Velocity 468.0 cm/s MR Peak Gradient 87.6 mmHg Mitral E Point Velocity 131.1 cm/s Mitral A Point Velocity 78.3 cm/s Mitral E to A Ratio 1.7 MV Deceleration Time 184.7 ms TR Peak Velocity 321.6 cm/s TR Peak Gradient 41.4 mmHg Right Atrial Pressure 5.0 mmHg Pulmonary Artery Systolic Pressu 46.4 mmHg Right Ventricular Systolic Press 46.4 mmHg FINDINGS Left Ventricle Left ventricular ejection fraction is estimated at 55 to 60%. Normal Left ventricular size, wall thickness, systolic function with no obvious regional wall motion abnormalities. Right Ventricle Normal right ventricular size and function. Moderate pulmonary hypertension. Right ventricular systolic pressure estimated at 46 mm hg. Right Atrium Normal right atrial size. Left Atrium Mildly increased left atrial diameter. Severely increased left atrial volume. Mildly increased left atrial area. Mitral Valve Mitral valve thickened. Mild mitral stenosis. Moderate to severe mitral regurgitation. Aortic Valve Trileaflet aortic valve. No aortic stenosis. No aortic regurgitation. Tricuspid Valve Structurally normal tricuspid valve. No tricuspid stenosis. Mild to moderate tricuspid regurgitation. Pulmonic Valve Structurally normal pulmonic valve. No pulmonic stenosis. Trace pulmonic regurgitation. Pericardium No pericardial effusion. Aorta Normal size aortic root and proximal ascending aorta. CONCLUSIONS 1. Normal left ventricular size and systolic function 2. Moderate to severe mitral regurgitation 3. Mild to moderate tricuspid regurgitation with moderate pulmonary hypertension Previewed by: Dr. Anny Monteiro MD (Electronically Signed) Final Date: 20 October 2024 07:18
[2024-10-20 08:20] LABS: HCT 35.1 % (37.2-46.3); HGB 11.7 g/dL (12.0-15.0); MCH 35.7 pg (27.0-32.0); MCHC 33.3 g/dL (32.0-37.0); NRBC Per 100 WBC 0.09 X 10*3/uL (0.00-0.01); Platelet Count 130 X 10*3/uL (140-440); RBC 3.28 X 10*6/uL (4.10-5.20); RDW 13.7 % (11.5-14.5); WBC 16.95 X 10*3/uL (4.50-10.00)
[2024-10-20] MEDS: methylPREDNISolone SOD SUCCI 40 MG/ML 1 ML VIAL IV SCH (08:21)
[2024-10-20 08:33] LABS: Blood Urea Nitrogen 8.3 mg/dL (9.0-27.0); Calcium 7.5 mg/dL (8.7-10.3); Carbon Dioxide 19.4 mmol/L (21.6-31.8); Chloride 106 mmol/L (96-109); Glucose 149 mg/dL (70-110); Magnesium 1.9 mg/dL (1.5-2.4); Sodium 135 mmol/L (135-145)
--- NOTE | 2024-10-20 10:42 | P.PN ---
Subjective Progress Note Date: 10/20/24 Patient is a 69-year-old female with a known history of atrial fibrillation on anticoagulation with Eliquis, coronary artery disease, history of non-Hodgkin's lymphoma status post chemo in 2000 and 2002, allogenic stem cell transplant, history of renal transplant in 2008, factor V Leiden, obstructive sleep apnea and use of mouthguard, hypothyroidism and other multiple medical problems. Patient was brought to the hospital due to complaints of cough with yellowish sputum production for the past several days and today patient woke up with fever about 100.2 as per at bedside. Due to new onset of fever patient was brought to ER. She took 3 days of Levaquin and today is the fourth day, prescribed by her PCP. Patient was tested for cough has not been improving. She also had 1 episode of nonbilious nonbloody emesis. She is a patient is on immune suppressive therapy. Denied any abdominal pain. No dysuria or hematuria. 10/19/2024 Patient seen and examined at bedside. She continues on 3 L of oxygen via nasal cannula. She continues to have productive cough at this time. Azithromycin and Zosyn discontinued, procalcitonin negative. Continue vancomycin for positive C. difficile. She continues to have diarrhea. No other complaints at this time. 10/20/2024 Patient seen and examined at bedside. Overnight patient was started on Cardizem for A-fib RVR, cardiology was consulted. She continues on 3 L of oxygen via nasal cannula, will attempt to wean. Cough continues to improve. Continue vancomycin for positive C. difficile. Diarrhea is improving, 2-3 watery bowel movements yesterday. No other complaints at this time. ROS: Pertinent positives and negatives as per HPI PHYSICAL EXAMINATION: Vitals reviewed Patient is lying in the bed, nondistressed, awake alert and oriented. CHEST EXAMINATION: Trachea is central. Symmetrical expansion. Bilateral mild expiratory wheezing and improving rhonchi CARDIAC: Normal S1, S2 with no gallops. No murmurs ABDOMEN: Soft. Bowel sounds present. No organomegaly. No abdominal bruits. Extremities: reveal no edema. No clubbing or cyanosis Neurologically awake, alert, oriented x3 with well-coordinated movements. No gross focal deficits noted Skin: No rash or skin lesions. Today's objective findings: Labs WBC 16.9, hemoglobin 11.7, platelets 130, bicarb 19.4, BUN 8.3, creatinine 0.5, glucose 149, magnesium 1.9 Cultures pending Echocardiogram with findings of LVEF 55 to 60%, moderate to severe mitral regurgitation Assessment and plan: Acute hypoxic respiratory failure multifactorial, due to asthma exacerbation/bronchospasm. Patient required 2 L oxygen via nasal cannula Acute asthma exacerbation/bronchospasm Mild acute CHF with ejection fraction not known. Patient has pulmonary vascular congestion and elevated proBNP level. Hypovolemic hyponatremia Diabetes type 2. [id number], uncontrolled with hyperglycemia Paroxysmal atrial fibrillation on anticoagulation with Eliquis History of coronary artery disease. No PCI Hypothyroidism Obstructive sleep apnea uses mouthguard History of non-Hodgkin's lymphoma status post chemo in 2000 and , allogenic stem cell transplant in 2003 History of rectal cancer/vulvar cancer s/p surgery and has colostomy History of renal transplant in 2008 on immunosuppressive therapy GI prophylaxis PPI. Patient is already full anticoagulation. Plan: Patient will be continued on telemonitoring. Continue with DuoNebs and Symbicort. Discontinue Solu-Medrol Continue with IV antibiotics in the form of vancomycin Procalcitonin negative Follow-up sputum culture and blood cultures. Echocardiogram reviewed, normal EF Discontinue Cardizem drip, begin Coreg 25 mg p.o. twice daily Continue with home medications. Insulin sliding scale. Prognosis guarded. Dr. Peter seen patient with resident, present during exam, and agreed with findings. Objective - Vital Signs Vital signs: Vital Signs Temp 97.4 F L 10/20/24 08:12 Pulse 107 H 10/20/24 08:52 Resp 18 10/20/24 08:12 BP 131/75 10/20/24 08:12 Pulse Ox 98 10/20/24 08:40 FiO2 Intake & Output 10/19/24 10/20/24 10/20/24 18:59 06:59 18:59 Intake Total 140 Balance 140 Intake: IV 20 Invasive Line 2 20 Oral 120 Other: Voiding Method Toilet Toilet # Voids 4 1 1 # Bowel Movements 1 2 - Labs CBC & Chem 7: 10/20/24 02:52 10/20/24 02:52 Labs: Abnormal Lab Results - Last 24 Hours (Table) 10/19/24 10/19/24 10/19/24 Range/Units 11:25 17:07 20:27 WBC (4.50-10.00) X 10*3/uL RBC (4.10-5.20) X 10*6/uL Hgb (12.0-15.0) g/dL Hct (37.2-46.3) % MCV (80.0-97.0) FL MCH (27.0-32.0) pg Plt Count (140-440) X 10*3/uL NRBC/100 WBC Diff (0.00-0.01) X 10*3/uL Carbon Dioxide (21.6-31.8) mmol/L BUN (9.0-27.0) mg/dL Creatinine (0.6-1.5) mg/dL Glucose (70-110) mg/dL POC Glucose (mg/dL) 226 H 198 H 232 H (70-110) mg/dL Calcium (8.7-10.3) mg/dL 10/20/24 10/20/24 10/20/24 Range/Units 02:52 02:52 06:19 WBC 16.95 H (4.50-10.00) X 10*3/uL RBC 3.28 L (4.10-5.20) X 10*6/uL Hgb 11.7 L (12.0-15.0) g/dL Hct 35.1 L (37.2-46.3) % MCV 107.0 H (80.0-97.0) FL MCH 35.7 H (27.0-32.0) pg Plt Count 130 L (140-440) X 10*3/uL NRBC/100 WBC Diff 0.09 H (0.00-0.01) X 10*3/uL Carbon Dioxide 19.4 L (21.6-31.8) mmol/L BUN 8.3 L (9.0-27.0) mg/dL Creatinine 0.5 L (0.6-1.5) mg/dL Glucose 149 H (70-110) mg/dL POC Glucose (mg/dL) 124 H (70-110) mg/dL Calcium 7.5 L (8.7-10.3) mg/dL Microbiology - Last 24 Hours (Table) 10/18/24 11:08 Blood Culture - Preliminary Blood 10/18/24 11:34 Gram Stain - Preliminary Sputum
[2024-10-20] MEDS: carvediloL 12.5 MG TAB PO STA (10:49)
--- NOTE | 2024-10-20 11:14 | P.PN ---
Subjective Patient is seen in follow-up for hyponatremia and renal transplant management. Sodium level up to 135. GFR at baseline. Complains of mild dyspnea. Currently on 3 L nasal cannula. Vital signs are stable. General: No acute distress. HEENT: Head exam is unremarkable. On nasal cannula. LUNGS: No audible rhonchi or wheezes. HEART: Rate and Rhythm are regular. ABDOMEN: Nontender. EXTREMITITES: No edema. Objective - Vital Signs Vital signs: Vital Signs Temp 97.4 F L 10/20/24 08:12 Pulse 107 H 10/20/24 08:52 Resp 18 10/20/24 08:12 BP 131/75 10/20/24 08:12 Pulse Ox 98 10/20/24 08:40 FiO2 Intake & Output 10/19/24 10/20/24 10/20/24 18:59 06:59 18:59 Intake Total 140 Balance 140 Intake: IV 20 Invasive Line 2 20 Oral 120 Other: Voiding Method Toilet Toilet # Voids 4 1 1 # Bowel Movements 1 2 - Labs CBC & Chem 7: 10/20/24 02:52 10/20/24 02:52 Labs: Abnormal Lab Results - Last 24 Hours (Table) 10/19/24 10/19/24 10/19/24 Range/Units 11:25 17:07 20:27 WBC (4.50-10.00) X 10*3/uL RBC (4.10-5.20) X 10*6/uL Hgb (12.0-15.0) g/dL Hct (37.2-46.3) % MCV (80.0-97.0) FL MCH (27.0-32.0) pg Plt Count (140-440) X 10*3/uL NRBC/100 WBC Diff (0.00-0.01) X 10*3/uL Carbon Dioxide (21.6-31.8) mmol/L BUN (9.0-27.0) mg/dL Creatinine (0.6-1.5) mg/dL Glucose (70-110) mg/dL POC Glucose (mg/dL) 226 H 198 H 232 H (70-110) mg/dL Calcium (8.7-10.3) mg/dL 10/20/24 10/20/24 10/20/24 Range/Units 02:52 02:52 06:19 WBC 16.95 H (4.50-10.00) X 10*3/uL RBC 3.28 L (4.10-5.20) X 10*6/uL Hgb 11.7 L (12.0-15.0) g/dL Hct 35.1 L (37.2-46.3) % MCV 107.0 H (80.0-97.0) FL MCH 35.7 H (27.0-32.0) pg Plt Count 130 L (140-440) X 10*3/uL NRBC/100 WBC Diff 0.09 H (0.00-0.01) X 10*3/uL Carbon Dioxide 19.4 L (21.6-31.8) mmol/L BUN 8.3 L (9.0-27.0) mg/dL Creatinine 0.5 L (0.6-1.5) mg/dL Glucose 149 H (70-110) mg/dL POC Glucose (mg/dL) 124 H (70-110) mg/dL Calcium 7.5 L (8.7-10.3) mg/dL Microbiology - Last 24 Hours (Table) 10/18/24 11:08 Blood Culture - Preliminary Blood 10/18/24 11:34 Gram Stain - Preliminary Sputum Assessment and Plan Plan: Assessment: 1. Hypovolemic hyponatremia improved with IV fluids. Sodium level 135 today. 2. Status post living unrelated renal transplant from 2008. GFR at baseline. 3. History of non-Hodgkin's lymphoma status post allogenic stem cell transplant in 2000. 4. Metabolic acidosis secondary to IV fluids and GI losses. Also on metformin. Better. 5. Diabetes mellitus. 6. Acute hypoxic respiratory failure. 7. History of rectal cancer status post colostomy. 8. Chronic kidney disease stage I. GFR at baseline. 9. Hypertension with chronic kidney disease. Stable. 10. C. difficile colitis. On oral vancomycin. 11. Hypomagnesemia secondary to GI losses. Replaced. Better. 12. A-fib with RVR maintained on Cardizem drip. 13. Chronic diastolic CHF and moderate to severe mitral regurgitation, mild to moderate tricuspid regurgitation and moderate pulmonary hypertension. Plan: Encouraged oral intake. Maintain Prograf and prednisone. Follow-up a.m. Prograf level. Avoid nephrotoxins. Continue to monitor renal function and urine output.
[2024-10-20 11:59] LABS: Glucose,Whole Blood 214 mg/dL (70-110)
[2024-10-20] MEDS: guaiFENesin SYRUP 100MG/5ML 200 MG/10 ML CUP PO PRN (13:37)
--- NOTE | 2024-10-20 14:13 | P.CRDCN ---
History of Present Illness Consult date: 10/20/24 Reason for Consult (text): A-fib with RVR History of present illness: This is a 69-year-old female follows with a air vice marshal in [place] with past medical history of leadless pacemaker implantation in November 2019 at [facility], coronary artery disease with total occlusion of the circumflex, persistent atrial fibrillation on Eliquis, dyslipidemia, diabetes mellitus type 2, history of non-Hodgkin's lymphoma, allogenic stem cell transplant, factor V Ley[place], history of rectal cancer with previous bowel resection and end colostomy, history of renal transplant on Prograf and prednisone, asthma, hypothyroidism. We have been asked to evaluate the patient for A-fib with RVR. Patient apparently presented to the hospital with weakness, decreased appetite, low fever and vomiting. Apparently she developed diarrhea subsequently and was positive for C. difficile colitis. She was treated on the MedSurg floor but apparently went into A-fib with RVR and was transferred to the cardiac stepdown unit. Patient is seen today on the cardiac stepdown unit. Heart rate is currently controlled. Episode of A-fib with RVR cannot be found. Patient was started on Cardizem drip. Heart rate is now 106, blood pressure 131/75, pulse ox 98% on 3 L nasal cannula. -EKG: #1 performed on 10/18: Ventricularly paced rhythm. #2 performed on 10/20: Atrial fibrillation 88 bpm -Chest x-ray: Subtle scattered opacities which may represent atypical pneumonia versus pulmonary edema. -Laboratory studies: WBC 16.9, hemoglobin 9.7, creatinine 0.5, potassium 4, magnesium 1.9. -Home cardiac medications: Eliquis 5 mg twice daily, aspirin 81 mg daily, ator vastatin 10 mg at bedtime, Coreg 12.5 mg in the morning and 25 mg at bedtime, losartan 50 mg twice daily, magnesium oxide 500 mg twice daily, also on levothyroxine. -Echocardiogram performed 10/20/2024: Normal left ventricular size and systolic function. Moderate to severe mitral regurgitation. Mild to moderate tricuspid regurgitation with moderate pulmonary hypertension. Review Of Systems: At the time of my exam: CONSTITUTIONAL: Denies fever or chills. HEENT: Denies blurred vision, vision changes, or eye pain. Denies hemoptysis CARDIOVASCULAR: Denies chest pain. Denies orthopnea. Denies PND. Denies palpitations RESPIRATORY: Denies shortness of breath. GASTROINTESTINAL: Denies abdominal pain. Denies nausea or vomiting. HEMATOLOGIC: Denies bleeding disorders. GENITOURINARY: Denies any blood in urine. SKIN: Denies puritis. Denies rash. Physical examination: Gen: This is 69-year-old female in no acute distress. VS: reviewed HEENT: Head is atraumatic, normocephalic. Pupils equal, round. Sclerae is anicteric. NECK: Supple. No JVD. LUNGS: Clear to auscultation. No wheezes or rhonchi. No intercostal retractions. HEART: Irregular rate and rhythm. No murmur. ABDOMEN: Soft No tenderness. EXTREMITIES: No pedal edema. No calf tenderness. NEUROLOGICAL: Patient is awake, alert and oriented x3. Assessment: C. difficile colitis Persistent atrial fibrillation with episode of RVR, rate controlled Coronary artery disease with known total occlusion of the circumflex Leadless pacemaker implantation in November 2019 at [facility] Diabetes mellitus type 2 Non-Hodgkin's lymphoma History of allogenic stem cell transplant in 2003 Rectal cancer status post colostomy Kidney transplant in 2008 Factor V Leyden Hypothyroidism Obstructive sleep apnea Plan: Continue patient's home cardiac medications with the following changes Increase Coreg to 25 mg twice daily Further recommendations to follow based upon clinical course At the time of discharge, patient will follow-up with her primary air vice marshal in [place] in 1 to 2 weeks. Thank you kindly for this consultation. Nurse practitioner note has been reviewed, I agree with documented findings and plan of care. Patient was seen and examined. 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 Past Anesthesia/Blood Transfusion Reactions: No Reported Reaction Past Psychological History: No Psychological Hx Reported Smoking Status: Never smoker Past Alcohol Use History: Rare Past Drug Use History: None Reported - Past Family History Mother Family Medical History: Cancer Additional Family Medical History / Comment(s): Mother had breast cancer twice. She lived to be 95yrs old. Father Family Medical History: Congestive Heart Failure (CHF) Additional Family Medical History / Comment(s): Father lived to be 90yrs old. Medications and Allergies Home Medications Medication Instructions Recorded Confirmed Type Tacrolimus [Prograf] 0.5 mg PO BID 08/21/14 10/18/24 History Multivitamins, Thera [Multivitamin 3 tab PO DAILY 08/22/14 10/18/24 History (formulary)] Vitamin B Complex 1 cap PO DAILY 08/22/14 10/18/24 History Cholecalciferol [Vitamin D3 (25 25 mcg PO DAILY 10/20/18 10/18/24 History Mcg = 1000 Iu)] Acyclovir [Zovirax] 400 mg PO BID 05/02/19 10/18/24 History Apixaban [Eliquis] 5 mg PO BID 05/02/19 10/18/24 History Atorvastatin [Lipitor] 10 mg PO HS 05/02/19 10/18/24 History Albuterol Inhaler [Ventolin Hfa 2 puff INHALATION RT-QID PRN 05/15/19 10/18/24 History Inhaler] Nystatin 100,000 Unit/ml Susp 400,000 units PO DAILY 05/15/19 10/18/24 History [Mycostatin Oral Susp] Aspirin EC [Ecotrin Low Dose] 81 mg PO HS 07/07/23 10/18/24 History Fluticasone/Vilanterol [Breo 1 puff INHALATION RT-DAILY 07/07/23 10/18/24 History Ellipta 200-25 Mcg Inhaler] Folic Acid 1 mg PO DAILY 07/07/23 10/18/24 History Levothyroxine Sodium [Synthroid] 150 mcg PO MOTUWETHFR 07/07/23 10/18/24 History Losartan [Cozaar] 50 mg PO BID 07/07/23 10/18/24 History Magnesium Oxide [Magnesium] 500 mg PO BID 07/07/23 10/18/24 History Propafenone [Rythmol] 225 mg PO Q8H 07/07/23 10/18/24 History carvediloL [Coreg] 12.5 mg PO DAILY 07/07/23 10/18/24 History carvediloL [Coreg] 25 mg PO HS 07/07/23 10/18/24 History metFORMIN HCL [Glucophage] 1,000 mg PO BID 07/07/23 10/18/24 History sitaGLIPtin [Januvia] 100 mg PO DAILY 07/07/23 10/18/24 History Alendronate Sodium [Fosamax] 70 mg PO TU 02/29/24 10/18/24 History Calcium Carbonate/Vitamin D3 1 tab PO BID 02/29/24 10/18/24 History [Calcium 600 mg-Vit D3 5 mcg (200 unit)] Ferrous Sulfate [Iron (65 MG 325 mg PO DAILY 02/29/24 10/18/24 History Elemental)] predniSONE 5 mg PO DAILY 02/29/24 10/18/24 History Levofloxacin [Levaquin] 500 mg PO DAILY 10/18/24 10/18/24 History Omeprazole Magnesium [PriLOSEC OTC] 20 mg PO DAILY PRN 10/18/24 10/18/24 History Allergies Allergy/AdvReac Type Severity Reaction Status Date / Time flecainide Allergy Unknown Verified 10/18/24 12:02 iodine Allergy Unknown Verified 10/18/24 12:02 shellfish derived Allergy Rash/Hives Verified 10/18/24 12:02 Sulfa (Sulfonamide Allergy Rash/Hives Verified 10/18/24 12:02 Antibiotics) codeine AdvReac Rapid Verified 10/18/24 12:02 Heart Rate hydromorphone HCl AdvReac Rapid Verified 10/18/24 12:02 [From Dilaudid] Heart Rate Iodinated Contrast Media AdvReac Unknown Verified 10/18/24 12:02 propoxyphene AdvReac Rapid Verified 10/18/24 12:02 Heart Rate Physical Exam Vitals: Vital Signs Temp Pulse Pulse Resp BP BP Pulse Ox 10/20/24 08:52 107 H 10/20/24 08:40 105 H 98 10/20/24 08:12 97.4 F L 92 18 131/75 99 10/20/24 04:21 92 16 123/76 97 10/20/24 01:47 97.4 F L 107 H 18 108/54 97 10/19/24 20:59 71 18 10/19/24 20:53 69 18 10/19/24 19:33 98.0 F 79 17 150/80 98 10/19/24 16:14 76 10/19/24 16:04 72 10/19/24 13:13 97.7 F 72 16 122/66 97 10/19/24 12:12 80 10/19/24 12:03 86 Intake and Output 10/19/24 10/20/24 10/20/24 22:59 06:59 14:59 Intake Total 140 Balance 140 Intake: IV 20 Invasive Line 2 20 Oral 120 Other: Voiding Method Toilet Toilet # Voids 4 1 1 # Bowel Movements 1 2 Results 10/20/24 02:52 10/20/24 02:52 CBC 10/20/24 Range/Units 02:52 WBC 16.95 H (4.50-10.00) X 10*3/uL RBC 3.28 L (4.10-5.20) X 10*6/uL Hgb 11.7 L (12.0-15.0) g/dL Hct 35.1 L (37.2-46.3) % Plt Count 130 L (140-440) X 10*3/uL Comprehensive Metabolic Panel 10/20/24 Range/Units 02:52 Sodium 135 (135-145) mmol/L Potassium 4.0 (3.5-5.5) mmol/L Chloride 106 (96-109) mmol/L Carbon Dioxide 19.4 L (21.6-31.8) mmol/L BUN 8.3 L (9.0-27.0) mg/dL Creatinine 0.5 L (0.6-1.5) mg/dL Glucose 149 H (70-110) mg/dL Calcium 7.5 L (8.7-10.3) mg/dL Current Medications Generic Name Dose Route Start Last Admin Trade Name Freq PRN Reason Stop Dose Admin Acetaminophen 650 mg 10/18/24 13:38 Acetaminophen Tab 325 Mg Tab PO Q6HR PRN Fever and/ or Pain Acyclovir 400 mg 10/18/24 22:30 10/20/24 10:21 Acyclovir 200 Mg Cap PO 400 mg BID MARCELINA Administration Protocol Albuterol/Ipratropium 3 ml 10/18/24 10:58 Ipratropium-Albuterol 3 Ml Neb INHALATION RT-Q2H PRN Shortness Of Breath Or Wheezing Albuterol/Ipratropium 3 ml 10/18/24 12:00 10/20/24 08:40 Ipratropium-Albuterol 3 Ml Neb INHALATION 3 ml RT-QID MARCELINA Administration Apixaban 5 mg 10/18/24 21:00 10/20/24 08:22 Apixaban 5 Mg Tab PO 5 mg BID MARCELINA Administration Protocol Aspirin 81 mg 10/18/24 21:00 10/19/24 23:13 Aspirin 81 Mg PO 81 mg HS MARCELINA Administration Atorvastatin Calcium 10 mg 10/18/24 21:00 10/19/24 23:11 Atorvastatin 10 Mg Tab PO 10 mg HS MARCELINA Administration Budesonide/Formoterol Fumarate 2 puff 10/18/24 20:00 10/20/24 08:40 Symbicort 160-4.5 Mcg Inhaler INHALATION 2 puff RT-BID MARCELINA Administration Carvedilol 25 mg 10/20/24 17:30 Carvedilol 12.5 Mg Tab PO BID-W/MEALS MARCELINA Dextrose/Water 25 ml 10/18/24 13:05 Dextrose 50% Syringe 50 Ml IVP PER PROTOCOL PRN Hypoglycemia Protocol Dextrose/Water 50 ml 10/18/24 13:05 Dextrose 50% Syringe 50 Ml IVP PER PROTOCOL PRN Hypoglycemia Protocol Folic Acid 1 mg 10/19/24 09:00 10/20/24 08:22 Folic Acid 1 Mg Tab PO 1 mg DAILY MARCELINA Administration Guaifenesin 100 mg 10/18/24 21:26 Guaifenesin Syrup 100mg/5ml 200 Mg/10 Ml Cup PO Q6HR PRN Cough Insulin Human Lispro 0 unit 10/18/24 17:30 10/20/24 06:26 Insulin Lispro (Humalog) 100 Unit/Ml 10 Ml Vl SQ Not Given ACHS MARCELINA Protocol Losartan Potassium 50 mg 10/18/24 22:15 10/20/24 08:22 Losartan 50 Mg Tab PO 50 mg BID MARCELINA Administration Metformin HCl 1,000 mg 10/18/24 22:15 10/20/24 06:31 Metformin 500 Mg Tab PO 1,000 mg BID-W/MEALS MARCELINA Administration Methylprednisolone Sodium Succinate 40 mg 10/20/24 09:00 10/20/24 08:21 Methylprednisolone Sod Succi 40 Mg/Ml 1 Ml Vial IV 40 mg DAILY MARCELINA Administration Miscellaneous Information 1 each 10/18/24 10:55 Pneumonia Protocol Utilized 1 Each Misc PO ONCE PRN Per Protocol Naloxone HCl 0.2 mg 10/18/24 11:27 Naloxone 0.4 Mg/Ml 1 Ml Vial IV Q2M PRN Opioid Reversal Ondansetron HCl 4 mg 10/18/24 11:27 Ondansetron 4 Mg/2 Ml Vial IVP Q8HR PRN Nausea And Vomiting Pantoprazole Sodium 40 mg 10/18/24 13:00 10/20/24 06:31 Pantoprazole 40 Mg Tablet PO 40 mg [id number] MARCELINA Administration Tacrolimus 0.5 mg 10/18/24 21:00 10/20/24 10:21 Tacrolimus 0.5 Mg Cap PO 0.5 mg BID MARCELINA Administration Vancomycin HCl 500 mg 10/19/24 13:00 10/20/24 10:21 Vancomycin 125 Mg Capsule PO 500 mg QID MARCELINA Administration Protocol Intake and Output 10/19/24 10/20/24 10/20/24 22:59 06:59 14:59 Intake Total 140 Balance 140 Intake: IV 20 Invasive Line 2 20 Oral 120 Other: Voiding Method Toilet Toilet # Voids 4 1 1 # Bowel Movements 1 2 10/20/24 02:52 10/20/24 02:52
--- NOTE | 2024-10-20 15:57 | P.PN ---
Subjective Progress Note Date: 10/20/24 Patient is a 69-year-old female with past medical history significant for rectal cancer, previous bowel resection, end colostomy, renal transplant currently on Prograf and prednisone, atrial fibrillation, coronary artery disease, hypertension, diabetes mellitus, hypothyroidism, LIDIA and no longer uses CPAP, asthma. Presented emergency department yesterday afternoon with a chief complaint of several days of URI-like symptoms. Currently, reports a persistent, productive cough with yellow phlegm. Intermittent low-grade fevers over the last 2 to 3 days. Associated weakness and reduced appetite. Yest erday, she had an episode of nonbilious, nonbloody emesis. Denies abdominal pain, diarrhea. Previously, started on Levaquin, on a outpatient basis by her PCP. Initial improvement and then reported worsening symptoms. Chest x-ray showing stable cardiac silhouette with prominent interstitial markings, possible small pleural effusion. Viral 4 Plex negative for influenza A/B, RSV, COVID. CBC: WBC count 13, hemoglobin 13, platelets 147. CMP: Sodium 123, potassium 4.4, chloride 91, serum bicarb 21, BUN 16, creatinine 0.52, glucose 75. Urinalysis fairly unremarkable for infection. Normal saline is infusing at 75 mL/h. NT-proBNP was elevated at 5070. EKG: Ventricularly paced rhythm, rate 96 bpm. Previous Lexiscan stress test from March, showing a large fixed defect involving the inferolateral wall. Transthoracic echocardiogram performed at that time showing grossly preserved systolic function with an ejection fraction of 50 to 55% with grade 1 diastolic dysfunction. Currently, being evaluated on the general medical floor. She is resting comfortably on 2 L/min nasal cannula. Not in any respiratory distress. Continues to have a mostly nonproductive, persistent cough. She does follow in the pulmonary office with Dr. Hernandez. Does have history of chronic bronchial asthma, utilizes a Breo Ellipta maintenance inhaler as well as as needed albuterol inhaler on an outpatient basis. Denies any known sick contacts. Endorses above-mentioned symptoms. Denies any chest pain, heart palpitations, orthopnea, PND, lower extremity edema. Current most recent vital signs, temperature 98.3 F, heart rate 91 bpm, blood pressure 130/82 mmHg, nontachypneic, SpO2 was recorded at 94% on 2 L/min nasal cannula. On today's evaluation 10/20/2024, the patient is feeling better. No significant shortness of breath. No reported fever or chills. She tested positive for C. difficile colitis and the patient is currently on oral vancomycin. No significant nausea vomiting or abdominal pain. No fever. The white cell count is at 16.9 which is higher compared to yesterday with a hemoglobin 11.7 and a platelet count of 130. Sodium is at 135, potassium is at 4, BUN is at 8 with a creatinine of 0.5. Calcium level is at 7.5. The viral screen was negative. Sputum Gram stain and culture still pending. Blood culture still pending and those results are still negative. The patient remains hemodynamically stable. She is currently on oxygen at 3 L. She will also encountered some increased tachycardia with an underlying atrial fibrillation rhythm. She has been maintained on a combination of Coreg and propafenone on outpatient basis. She is also maintained on anticoagulation with Eliquis. Scrap Separator on the case. The patient's Coreg dose was modified and currently she is on 25 mg p.o. twice a day. Rest of the medications remain unchanged. She remains on Prograf. P rocalcitonin level was at 0.19. Objective - Vital Signs Vital signs: Vital Signs Temp 97.4 F L 10/20/24 08:12 Pulse 107 H 10/20/24 08:52 Resp 18 10/20/24 08:12 BP 131/75 10/20/24 08:12 Pulse Ox 98 10/20/24 08:40 FiO2 Intake & Output 10/19/24 10/20/24 10/20/24 18:59 06:59 18:59 Intake Total 140 Balance 140 Intake: IV 20 Invasive Line 2 20 Oral 120 Other: Voiding Method Toilet Toilet # Voids 4 1 1 # Bowel Movements 1 2 - Exam GENERAL EXAM: Alert, 69-year-old white female, on 2 L/min nasal cannula, comfort able in no apparent distress. HEAD: Normocephalic and atraumatic EYES: Normal reaction of pupils, equal size. NOSE: Clear with pink turbinates. THROAT: No erythema or exudates. NECK: No masses, no JVD. CHEST: No chest wall deformity. LUNGS: Equal air entry with scattered expiratory wheezing heard throughout, and posterior bibasilar inspiratory crackles. No conversational dyspnea or accessory muscle use.. CVS: S1 and S2 normal with no audible murmur, regular rhythm. No extra heart sounds ABDOMEN: No hepatosplenomegaly, active bowel sounds, no guarding or rigidity. SPINE: No scoliosis or deformity SKIN: No rashes CENTRAL NERVOUS SYSTEM: No focal deficits, tone is normal in all 4 extremities. EXTREMITIES: There is no peripheral edema, clubbing, or cyanosis. Peripheral pulses are intact. - Labs CBC & Chem 7: 10/20/24 02:52 10/20/24 02:52 Labs: Abnormal Lab Results - Last 24 Hours (Table) 10/19/24 10/19/24 10/19/24 Range/Units 11:25 17:07 20:27 WBC (4.50-10.00) X 10*3/uL RBC (4.10-5.20) X 10*6/uL Hgb (12.0-15.0) g/dL Hct (37.2-46.3) % MCV (80.0-97.0) FL MCH (27.0-32.0) pg Plt Count (140-440) X 10*3/uL NRBC/100 WBC Diff (0.00-0.01) X 10*3/uL Carbon Dioxide (21.6-31.8) mmol/L BUN (9.0-27.0) mg/dL Creatinine (0.6-1.5) mg/dL Glucose (70-110) mg/dL POC Glucose (mg/dL) 226 H 198 H 232 H (70-110) mg/dL Calcium (8.7-10.3) mg/dL 10/20/24 10/20/24 10/20/24 Range/Units 02:52 02:52 06:19 WBC 16.95 H (4.50-10.00) X 10*3/uL RBC 3.28 L (4.10-5.20) X 10*6/uL Hgb 11.7 L (12.0-15.0) g/dL Hct 35.1 L (37.2-46.3) % MCV 107.0 H (80.0-97.0) FL MCH 35.7 H (27.0-32.0) pg Plt Count 130 L (140-440) X 10*3/uL NRBC/100 WBC Diff 0.09 H (0.00-0.01) X 10*3/uL Carbon Dioxide 19.4 L (21.6-31.8) mmol/L BUN 8.3 L (9.0-27.0) mg/dL Creatinine 0.5 L (0.6-1.5) mg/dL Glucose 149 H (70-110) mg/dL POC Glucose (mg/dL) 124 H (70-110) mg/dL Calcium 7.5 L (8.7-10.3) mg/dL Microbiology - Last 24 Hours (Table) 10/18/24 11:08 Blood Culture - Preliminary Blood 10/18/24 11:34 Gram Stain - Preliminary Sputum Assessment and Plan Assessment: Acute hypoxemic respiratory failure, currently on 2 L/min nasal cannula, likely secondary to a combination of exacerbation of chronic bronchial asthma, as well as, possible exacerbation of diastolic congestive heart failure. Chest x-ray showing stable cardiac silhouette with mild to moderate diffuse interstitial opacification concerning for pulmonary edema and possible tiny pleural effusion. NT proBNP elevated at 5070. Viral 4 Plex negative for influenza A/B, RSV, COVID. Hyponatremia, likely secondary to poor oral intake, improving the sodium level has essentially normalized C. difficile colitis with increased output through her colostomy bag, received antibiotics on outpatient basis. The patient is currently on oral vancomycin. No nausea emesis. Acute hypoxic respiratory failure currently on 2 L/min nasal cannula. CHF with a preserved LV function and moderate to severe MR and secondary pulmonary hypertension Acute leukocytosis likely secondary to above History of rectal cancer History of bowel resection with previous end colostomy History of renal transplant, currently on Prograf and daily prednisone 5 mg p.o. daily Previous history of non-Hodgkin's lymphoma with a bone marrow transplantation with subsequent [id number] disease History of atrial fibrillation, normally anticoagulated on Eliquis, started tachycardic in the patient is currently on Coreg 25 mg p.o. twice a day and the patient is off propafenone. History of hyperlipidemia Hypertension Diabetes mellitus type 2 History of hypothyroidism History of obstructive sleep apnea with oral appliance Moderate persistent chronic bronchial asthma, normally maintained on a combination of Breo Ellipta maintenance inhaler as well as as needed albuterol rescue inhaler on an outpatient basis Lifelong non-tobacco smoker Plan: Continue supplemental oxygen, currently on 2 L/min nasal cannula, wean as tolerated Previously started on combination of Symbicort maintenance inhaler, DuoNebs [id number] oral vancomycin 5 mg p.o. 4 times daily Sputum culture, blood cultures, urine Legionella antigen, are all pending Chronically on Prograf and daily prednisone for history of renal transplant. Renal function appears stable. Consult nephrology Repeat echocardiogram was noted Coreg 25 mg po BID Repeat CXR in am Rest of the home medication been on resume. Clinically stable. Hemodynamically stable. Time with Patient: Greater than 30
[2024-10-20 16:15] LABS: Glucose,Whole Blood 219 mg/dL (70-110)
[2024-10-20] MEDS: carvediloL 12.5 MG TAB PO SCH (16:49)
[2024-10-20 20:20] LABS: Glucose,Whole Blood 154 mg/dL (70-110)
[2024-10-20] MEDS: FAMOTIDINE 20 MG TAB PO SCH (21:14)
[2024-10-21 06:26] LABS: Glucose,Whole Blood 122 mg/dL (70-110)
[2024-10-21 06:49] LABS: Basophils # (A) 0.01 10*3/uL (0.00-0.10); Basophils % (A) 0.1 %; Eosinophils # (A) 0.01 10*3/uL (0.04-0.35); Eosinophils % (A) 0.1 %; HCT 33.6 % (37.2-46.3); HGB 11.5 g/dL (12.0-15.0); Lymphocytes # (A) 1.38 10*3/uL (0.90-5.00); Lymphocytes % (A) 11.1 %; MCH 34.7 pg (27.0-32.0); MCHC 34.2 g/dL (32.0-37.0); MCV 101.5 fL (80.0-97.0); Mean Platelet Volume 9.2 fL (9.5-12.2); Monocytes # (A) 1.25 10*3/uL (0.20-1.00); Monocytes % (A) 10.1 %; Neutrophils # (A) 9.62 10*3/uL (1.80-7.70); Neutrophils % (A) 77.3 %; Platelet Count 170 10*3/uL (140-440); RBC 3.31 10*6/uL (4.10-5.20); RDW 13.9 % (11.5-14.5); WBC 12.43 10*3/uL (4.50-10.00)
[2024-10-21 07:12] LABS: African American GFR (CKD) >90 (>60 ml/min/1.73 sqM); Anion Gap 9 mmol/L; Blood Urea Nitrogen 11 mg/dL (7-17); Calcium 8.2 mg/dL (8.4-10.2); Carbon Dioxide 23 mmol/L (22-30); Chloride 105 mmol/L (98-107); Glucose 104 mg/dL (74-99); Magnesium 1.8 mg/dL (1.6-2.3); Non-African American GFR(CKD) >90 (>60 ml/min/1.73 sqM); Potassium 3.8 mmol/L (3.5-5.1); Sodium 137 mmol/L (137-145)
--- NOTE | 2024-10-21 08:06 | XR ---
EXAMINATION TYPE: XR chest 1V DATE OF EXAM: 10/21/2024 6:55 AM COMPARISON: Chest radiographs from 10/19/2024 TECHNIQUE: XR chest 1V Portable AP radiograph of the chest. CLINICAL INDICATION:Female, 69 years old with history of CHF; FINDINGS: Lungs/Pleura: There is no evidence of pleural effusion, focal consolidation, or pneumothorax. Pulmonary vascularity: Mild central pulmonary vascular congestion. Heart/mediastinum: Cardiomediastinal silhouette is enlarged and stable. Atherosclerotic calcificatio ns are seen in the aorta. Musculoskeletal: No acute osseous pathology. Other: Loop recorder overlies the lower heart. IMPRESSION: Cardiomegaly with mild central pulmonary vasculature congestion redemonstrated. [facility], , 10/21/2024 8:04 AM
[2024-10-21] MEDS: predniSONE 5 MG TAB PO SCH (09:53)
--- NOTE | 2024-10-21 10:17 | P.PN ---
Subjective Patient is seen in follow-up for hyponatremia and renal transplant management. Sodium level 137. GFR at baseline. On room air. Denies chest pain or shortness of breath. Vital signs are stable. General: No acute distress. HEENT: Head exam is unremarkable. LUNGS: No audible rhonchi or wheezes. HEART: Rate and Rhythm are regular. ABDOMEN: Nontender. EXTREMITITES: No edema. Objective - Vital Signs Vital signs: Vital Signs Temp 97.3 F L 10/21/24 09:30 Pulse 118 H 10/21/24 09:37 Resp 16 10/21/24 09:30 BP 130/82 10/21/24 09:30 Pulse Ox 97 10/21/24 09:30 FiO2 Intake & Output 10/20/24 10/21/24 10/21/24 18:59 06:59 18:59 Intake Total 298.083 20 246 Balance 298.083 20 246 Intake: IV 20 20 10 Invasive Line 2 20 20 10 Intake, IV Titration 40.083 Amount Diltiazem 125 mg In 40.083 Sodium Chloride 0.9% 100 ml @ 5 MG/HR 5 mls/hr IV .Q24H [facility] Rx#:[id number] Oral 238 236 Other: Voiding Method Toilet Toilet Toilet # Voids 2 - Labs CBC & Chem 7: 10/21/24 05:38 10/21/24 05:38 Labs: Abnormal Lab Results - Last 24 Hours (Table) 10/20/24 10/20/24 10/20/24 Range/Units 11:58 16:14 20:19 WBC (4.50-10.00) 10*3/uL RBC (4.10-5.20) 10*6/uL Hgb (12.0-15.0) g/dL Hct (37.2-46.3) % MCV (80.0-97.0) fL MCH (27.0-32.0) pg MPV (9.5-12.2) fL Immature Gran # (0.00-0.04) 10*3/uL Neutrophils # (1.80-7.70) 10*3/uL Monocytes # (0.20-1.00) 10*3/uL Eosinophils # (0.04-0.35) 10*3/uL Creatinine (0.52-1.04) mg/dL Glucose (74-99) mg/dL POC Glucose (mg/dL) 214 H 219 H 154 H (70-110) mg/dL Calcium (8.4-10.2) mg/dL 10/21/24 10/21/24 10/21/24 Range/Units 05:38 05:38 06:25 WBC 12.43 H (4.50-10.00) 10*3/uL RBC 3.31 L (4.10-5.20) 10*6/uL Hgb 11.5 L (12.0-15.0) g/dL Hct 33.6 L (37.2-46.3) % MCV 101.5 H (80.0-97.0) fL MCH 34.7 H (27.0-32.0) pg MPV 9.2 L (9.5-12.2) fL Immature Gran # 0.16 H (0.00-0.04) 10*3/uL Neutrophils # 9.62 H (1.80-7.70) 10*3/uL Monocytes # 1.25 H (0.20-1.00) 10*3/uL Eosinophils # 0.01 L (0.04-0.35) 10*3/uL Creatinine 0.38 L (0.52-1.04) mg/dL Glucose 104 H (74-99) mg/dL POC Glucose (mg/dL) 122 H (70-110) mg/dL Calcium 8.2 L (8.4-10.2) mg/dL Microbiology - Last 24 Hours (Table) 10/18/24 11:34 Gram Stain - Final Sputum Sputum Culture - Final Escherichia coli 10/18/24 11:08 Blood Culture - Preliminary Blood 10/19/24 13:52 Nasal Screen MRSA/MSSA - Final Nasal Swab Methicillin resist S. aureus Assessment and Plan Plan: Assessment: 1. Hypovolemic hyponatremia improved with IV fluids. Sodium level 137 today. 2. Status post living unrelated renal transplant from 2008. GFR at baseline. 3. History of non-Hodgkin's lymphoma status post allogenic stem cell transplant in 2000. 4. Metabolic acidosis secondary to IV fluids and GI losses. Also on metformin. Better. 5. Diabetes mellitus. 6. Acute hypoxic respiratory failure. Improved. 7. History of rectal cancer status post colostomy. 8. Chronic kidney disease stage I. GFR at baseline. 9. Hypertension with chronic kidney disease. Stable. 10. C. difficile colitis. On oral vancomycin. 11. Hypomagnesemia secondary to GI losses. Replaced. Better. 12. A-fib with RVR maintained on Cardizem drip. 13. Chronic diastolic CHF and moderate to severe mitral regurgitation, mild to moderate tricuspid regurgitation and moderate pulmonary hypertension. Plan: Encouraged oral intake. Maintain Prograf and prednisone. Prograf level 6.7 dated October 20, 2024. Avoid nephrotoxins. Continue to monitor renal function and urine output. Add low-dose Lasix.
[2024-10-21] MEDS: FUROSEMIDE 20 MG TAB PO SCH (11:07)
[2024-10-21 11:10] VITALS: RESP 18
[2024-10-21 11:26] LABS: Glucose,Whole Blood 146 mg/dL (70-110)
[2024-10-21] MEDS: METOPROLOL TARTRATE 50 MG TAB PO SCH (12:15)
[2024-10-21] MEDS: VANCOMYCIN 125 MG CAPSULE PO SCH (12:16)
--- NOTE | 2024-10-21 12:29 | P.PN ---
Subjective Progress Note Date: 10/21/24 Reason for Consult (text): A-fib with RVR History of present illness: This is a 69-year-old female follows with a service station manager in [place] with past medical history of leadless pacemaker implantation in November 2019 at [facility], coronary artery disease with total occlusion of the circumflex, persistent atrial fibrillation on Eliquis, dyslipidemia, diabetes mellitus type 2, history of non-Hodgkin's lymphoma, allogenic stem cell transplant, factor V Ley[place], history of rectal cancer with previous bowel resection and end colostomy, history of renal transplant on Prograf and prednisone, asthma, hypothyroidism. We have been asked to evaluate the patient for A-fib with RVR. Patient apparently presented to the hospital with weakness, decreased appetite, low fever and vomiting. Apparently she developed diarrhea subsequently and was positive for C. difficile colitis. She was treated on the MedSurg floor but apparently went into A-fib with RVR and was transferred to the cardiac stepdown unit. Patient is seen today on the cardiac stepdown unit. Heart rate is currently controlled. Episode of A-fib with RVR cannot be found. Patient was started on Cardizem drip. Heart rate is now 106, blood pressure 131/75, pulse ox 98% on 3 L nasal cannula. -EKG: #1 performed on 10/18: Ventricularly paced rhythm. #2 performed on 10/20: Atrial fibrillation 88 bpm -Chest x-ray: Subtle scattered opacities which may represent atypical pneumonia versus pulmonary edema. -Laboratory studies: WBC 16.9, hemoglobin 9.7, creatinine 0.5, potassium 4, ma gnesium 1.9. -Home cardiac medications: Eliquis 5 mg twice daily, aspirin 81 mg daily, atorvastatin 10 mg at bedtime, Coreg 12.5 mg in the morning and 25 mg at bedtime, losartan 50 mg twice daily, magnesium oxide 500 mg twice daily, also on levothyroxine. -Echocardiogram performed 10/20/2024: Normal left ventricular size and systolic function. Moderate to severe mitral regurgitation. Mild to moderate tricuspid regurgitation with moderate pulmonary hypertension. 10/21 Patient seen and examined. Patient remains in atrial fibrillation with heart rate running 114-120. Blood pressure 128/80, pulse ox 95% on room air. Repeat blood work reveals WBC 12.4, hemoglobin 11.5, creatinine 0.38. Repeat chest x- ray reveals cardiomegaly with mild central pulmonary vascular congestion. Nephrology has started the patient on oral Lasix 20 mg daily. Physical examination: Gen: This is 69-year-old female in no acute distress. VS: reviewed HEENT: Head is atraumatic, normocephalic. Pupils equal, round. Sclerae is anicteric. NECK: Supple. No JVD. LUNGS: Clear to auscultation. No wheezes or rhonchi. No intercostal retractions. HEART: Irregular rate and rhythm. No murmur. ABDOMEN: Soft No tenderness. EXTREMITIES: No pedal edema. No calf tenderness. NEUROLOGICAL: Patient is awake, alert and oriented x3. Assessment: C. difficile colitis Persistent atrial fibrillation with episode of RVR, rate controlled Coronary artery disease with known total occlusion of the circumflex Leadless pacemaker implantation in November 2019 at [facility] Diabetes mellitus type 2 Non-Hodgkin's lymphoma History of allogenic stem cell transplant in 2003 Rectal cancer status post colostomy Kidney transplant in 2008 Factor V Ley[place] Hypothyroidism Obstructive sleep apnea Plan: Continue patient's home cardiac medications with the following changes Discontinue aspirin Discontinue Coreg Start patient on metoprolol tartrate 100 mg twice daily Nephrology is started Lasix 20 mg daily oral If heart rates are controlled later this afternoon, patient is cleared for discharge from cardiology perspective. At the time of discharge, patient will follow-up with her primary service station manager in [place] in 1 to 2 weeks. Nurse practitioner note has been reviewed, I agree with documented findings and plan of care. Patient was seen and examined. Objective - Vital Signs Vital signs: Vital Signs Temp 97.3 F L 10/21/24 09:30 Pulse 118 H 10/21/24 09:37 Resp 16 10/21/24 09:30 BP 130/82 10/21/24 09:30 Pulse Ox 97 10/21/24 09:30 FiO2 Intake & Output 10/20/24 10/21/24 10/21/24 18:59 06:59 18:59 Intake Total 298.083 20 236 Balance 298.083 20 236 Intake: IV 20 20 Invasive Line 2 20 20 Intake, IV Titration 40.083 Amount Diltiazem 125 mg In 40.083 Sodium Chloride 0.9% 100 ml @ 5 MG/HR 5 mls/hr IV .Q24H [facility] Rx#:[id number] Oral 238 236 Other: Voiding Method Toilet Toilet Toilet # Voids 2 - Labs CBC & Chem 7: 10/21/24 05:38 10/21/24 05:38 Labs: Abnormal Lab Results - Last 24 Hours (Table) 10/20/24 10/20/24 10/20/24 Range/Units 11:58 16:14 20:19 WBC (4.50-10.00) 10*3/uL RBC (4.10-5.20) 10*6/uL Hgb (12.0-15.0) g/dL Hct (37.2-46.3) % MCV (80.0-97.0) fL MCH (27.0-32.0) pg MPV (9.5-12.2) fL Immature Gran # (0.00-0.04) 10*3/uL Neutrophils # (1.80-7.70) 10*3/uL Monocytes # (0.20-1.00) 10*3/uL Eosinophils # (0.04-0.35) 10*3/uL Creatinine (0.52-1.04) mg/dL Glucose (74-99) mg/dL POC Glucose (mg/dL) 214 H 219 H 154 H (70-110) mg/dL Calcium (8.4-10.2) mg/dL 10/21/24 10/21/24 10/21/24 Range/Units 05:38 05:38 06:25 WBC 12.43 H (4.50-10.00) 10*3/uL RBC 3.31 L (4.10-5.20) 10*6/uL Hgb 11.5 L (12.0-15.0) g/dL Hct 33.6 L (37.2-46.3) % MCV 101.5 H (80.0-97.0) fL MCH 34.7 H (27.0-32.0) pg MPV 9.2 L (9.5-12.2) fL Immature Gran # 0.16 H (0.00-0.04) 10*3/uL Neutrophils # 9.62 H (1.80-7.70) 10*3/uL Monocytes # 1.25 H (0.20-1.00) 10*3/uL Eosinophils # 0.01 L (0.04-0.35) 10*3/uL Creatinine 0.38 L (0.52-1.04) mg/dL Glucose 104 H (74-99) mg/dL POC Glucose (mg/dL) 122 H (70-110) mg/dL Calcium 8.2 L (8.4-10.2) mg/dL Microbiology - Last 24 Hours (Table) 10/18/24 11:34 Gram Stain - Final Sputum Sputum Culture - Final Escherichia coli 10/18/24 11:08 Blood Culture - Preliminary Blood 10/19/24 13:52 Nasal Screen MRSA/MSSA - Final Nasal Swab Methicillin resist S. aureus
--- NOTE | 2024-10-21 14:55 | P.DS ---
Providers Date of admission: 10/18/24 11:27 Expected date of discharge: 10/21/24 Attending physician: Dusty Kelly MD Consults: 10/18/24 11:27 Consult Physician Routine Consulting Provider: Joao Steinberg Consult Reason/Comments: copd. sepsis, pneumonia Do you want consulting provider notified?: Yes 10/19/24 03:20 Consult Physician Routine Consulting Provider: Michael Euceda Consult Reason/Comments: history renal transplant; maintained on Prograf Do you want consulting provider notified?: Yes, Notify in am 10/20/24 02:27 Consult Physician Routine Consulting Provider: Jovi Mayo Consult Reason/Comments: Afib RVR Do you want consulting provider notified?: Yes Primary care physician: [facility] Course: Discharge diagnoses; Acute hypoxic respiratory failure multifactorial, due to asthma exacerbation/bronchospasm. Patient required 2 L oxygen via nasal cannula. Acute asthma exacerbation/bronchospasm Hypovolemic hyponatremia Paroxysmal atrial fibrillation on anticoagulation with Eliquis History of coronary artery disease without PCI Diabetes type 2. 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 Patient was brought to the hospital due to complaints of cough with yellowish sputum production for the past several days and today patient woke up with fever about 100.2 as per at bedside. Due to new onset of fever patient was brought to ER. She took 3 days of Levaquin and today is the fourth day, prescribed by her PCP. Patient was tested for cough has not been improving. She also had 1 episode of nonbilious nonbloody emesis. She is a patient is on immune suppressive therapy. Denied any abdominal pain. No dysuria or hematuria. During stay patient was treated for acute hypoxic respiratory failure likely due to asthma exacerbation or bronchospasm. She also had atrial fibrillation with RVR and was placed on Coreg 25 mg twice daily. She was also found to have C. difficile and was started on vancomycin. During her stay she was seen by nephrology, cardiology, and pulmonology. Patient discharged home in stable condition. She will begin Lasix 20 mg daily, Lopressor 100 mg twice daily and vancomycin 250 mg every 6 hours for 10 days. Discontinue aspirin. She will need to follow-up with her PCP, nephrology, cardiology and pulmonology. PHYSICAL EXAMINATION: Vitals reviewed Patient is lying in the bed, nondistressed, awake alert and oriented. CHEST EXAMINATION: Trachea is central. Symmetrical expansion. Bilateral mild expiratory wheezing and improving rhonchi CARDIAC: Normal S1, S2 with no gallops. No murmurs ABDOMEN: Soft. Bowel sounds present. No organomegaly. No abdominal bruits. Extremities: reveal no edema. No clubbing or cyanosis Neurologically awake, alert, oriented x3 with well-coordinated movements. No gross focal deficits noted Skin: No rash or skin lesions. Dr. Peter seen patient with resident, present during exam, and agreed with findings. Dictation was produced using [employer] dictation software. please excuse any grammatical, word or spelling errors. Patient Condition at Discharge: Serious Plan - Discharge Summary Discharge Rx Participant: Yes New Discharge Prescriptions: New Furosemide [Lasix] 20 mg PO DAILY #30 tab Metoprolol Tartrate [Lopressor] 100 mg PO BID #60 tab Vancomycin Oral Solution [Vancomycin HCl Oral Soln] 250 mg PO Q6HR #10 day Continue Tacrolimus [Prograf] 0.5 mg PO BID Vitamin B Complex 1 cap PO DAILY Multivitamins, Thera [Multivitamin (formulary)] 3 tab PO DAILY Cholecalciferol [Vitamin D3 (25 Mcg = 1000 Iu)] 25 mcg PO DAILY Acyclovir [Zovirax] 400 mg PO BID Atorvastatin [Lipitor] 10 mg PO HS Apixaban [Eliquis] 5 mg PO BID Nystatin 100,000 Unit/ml Susp [Mycostatin Oral Susp] 400,000 units PO DAILY Albuterol Inhaler [Ventolin Hfa Inhaler] 2 puff INHALATION RT-QID PRN PRN Reason: Shortness Of Breath carvediloL [Coreg] 25 mg PO HS carvediloL [Coreg] 12.5 mg PO DAILY Magnesium Oxide [Magnesium] 500 mg PO BID Aspirin EC [Ecotrin Low Dose] 81 mg PO HS Fluticasone/Vilanterol [Breo Ellipta 200-25 Mcg Inhaler] 1 puff INHALATION RT-DAILY metFORMIN HCL [Glucophage] 1,000 mg PO BID Ferrous Sulfate [Iron (65 MG Elemental)] 325 mg PO DAILY sitaGLIPtin [Januvia] 100 mg PO DAILY Folic Acid 1 mg PO DAILY Levothyroxine Sodium [Synthroid] 150 mcg PO MOTUWETHFR Losartan [Cozaar] 50 mg PO BID Alendronate Sodium [Fosamax] 70 mg PO TU Calcium Carbonate/Vitamin D3 [Calcium 600 mg-Vit D3 5 mcg (200 unit)] 1 tab PO BID predniSONE 5 mg PO DAILY Omeprazole Magnesium [PriLOSEC OTC] 20 mg PO DAILY PRN PRN Reason: Heartburn Discontinued Levofloxacin [Levaquin] 500 mg PO DAILY Propafenone [Rythmol] 225 mg PO Q8H Discharge Medication List Tacrolimus [Prograf] 0.5 mg PO BID 08/21/14 [History] Multivitamins, Thera [Multivitamin (formulary)] 3 tab PO DAILY 08/22/14 [History] Vitamin B Complex 1 cap PO DAILY 08/22/14 [History] Cholecalciferol [Vitamin D3 (25 Mcg = 1000 Iu)] 25 mcg PO DAILY 10/20/18 [History] Acyclovir [Zovirax] 400 mg PO BID 05/02/19 [History] Apixaban [Eliquis] 5 mg PO BID 05/02/19 [History] Atorvastatin [Lipitor] 10 mg PO HS 05/02/19 [History] Albuterol Inhaler [Ventolin Hfa Inhaler] 2 puff INHALATION RT-QID PRN 05/15/19 [History] Nystatin 100,000 Unit/ml Susp [Mycostatin Oral Susp] 400,000 units PO DAILY 05/15/19 [History] Aspirin EC [Ecotrin Low Dose] 81 mg PO HS 07/07/23 [History] Fluticasone/Vilanterol [Breo Ellipta 200-25 Mcg Inhaler] 1 puff INHALATION RT- DAILY 07/07/23 [History] Folic Acid 1 mg PO DAILY 07/07/23 [History] Levothyroxine Sodium [Synthroid] 150 mcg PO MOTUWETHFR 07/07/23 [History] Losartan [Cozaar] 50 mg PO BID 07/07/23 [History] Magnesium Oxide [Magnesium] 500 mg PO BID 07/07/23 [History] carvediloL [Coreg] 12.5 mg PO DAILY 07/07/23 [History] carvediloL [Coreg] 25 mg PO HS 07/07/23 [History] metFORMIN HCL [Glucophage] 1,000 mg PO BID 07/07/23 [History] sitaGLIPtin [Januvia] 100 mg PO DAILY 07/07/23 [History] Alendronate Sodium [Fosamax] 70 mg PO TU 02/29/24 [History] Calcium Carbonate/Vitamin D3 [Calcium 600 mg-Vit D3 5 mcg (200 unit)] 1 tab PO BID 02/29/24 [History] Ferrous Sulfate [Iron (65 MG Elemental)] 325 mg PO DAILY 02/29/24 [History] predniSONE 5 mg PO DAILY 02/29/24 [History] Omeprazole Magnesium [PriLOSEC OTC] 20 mg PO DAILY PRN 10/18/24 [History] Furosemide [Lasix] 20 mg PO DAILY #30 tab 10/21/24 [Rx] Metoprolol Tartrate [Lopressor] 100 mg PO BID #60 tab 10/21/24 [Rx] Vancomycin Oral Solution [Vancomycin HCl Oral Soln] 250 mg PO Q6HR #10 day 10/21/24 [Rx] Follow up Appointment(s)/Referral(s): Gio Vidales MD [Primary Care Provider] - 1-2 days Michael Euceda DO [STAFF PHYSICIAN] - 1 Week Discharge Disposition: HOME SELF-CARE
[2024-10-21 16:22] LABS: Glucose,Whole Blood 168 mg/dL (70-110)
--- NOTE | 2024-10-21 16:25 | P.PN ---
Subjective Progress Note Date: 10/21/24 Patient is a 69-year-old female with past medical history significant for rectal cancer, previous bowel resection, end colostomy, renal transplant currently on Prograf and prednisone, atrial fibrillation, coronary artery disease, hypertension, diabetes mellitus, hypothyroidism, LIDIA and no longer uses CPAP, asthma. Presented emergency department yesterday afternoon with a chief complaint of several days of URI-like symptoms. Currently, reports a persistent, productive cough with yellow phlegm. Intermittent low-grade fevers over the last 2 to 3 days. Associated weakness and reduced appetite. Yest erday, she had an episode of nonbilious, nonbloody emesis. Denies abdominal pain, diarrhea. Previously, started on Levaquin, on a outpatient basis by her PCP. Initial improvement and then reported worsening symptoms. Chest x-ray showing stable cardiac silhouette with prominent interstitial markings, possible small pleural effusion. Viral 4 Plex negative for influenza A/B, RSV, COVID. CBC: WBC count 13, hemoglobin 13, platelets 147. CMP: Sodium 123, potassium 4.4, chloride 91, serum bicarb 21, BUN 16, creatinine 0.52, glucose 75. Urinalysis fairly unremarkable for infection. Normal saline is infusing at 75 mL/h. NT-proBNP was elevated at 5070. EKG: Ventricularly paced rhythm, rate 96 bpm. Previous Lexiscan stress test from March, showing a large fixed defect involving the inferolateral wall. Transthoracic echocardiogram performed at that time showing grossly preserved systolic function with an ejection fraction of 50 to 55% with grade 1 diastolic dysfunction. Currently, being evaluated on the general medical floor. She is resting comfortably on 2 L/min nasal cannula. Not in any respiratory distress. Continues to have a mostly nonproductive, persistent cough. She does follow in the pulmonary office with Dr. Hernandez. Does have history of chronic bronchial asthma, utilizes a Breo Ellipta maintenance inhaler as well as as needed albuterol inhaler on an outpatient basis. Denies any known sick contacts. Endorses above-mentioned symptoms. Denies any chest pain, heart palpitations, orthopnea, PND, lower extremity edema. Current most recent vital signs, temperature 98.3 F, heart rate 91 bpm, blood pressure 130/82 mmHg, nontachypneic, SpO2 was recorded at 94% on 2 L/min nasal cannula. On today's evaluation 10/20/2024, the patient is feeling better. No significant shortness of breath. No reported fever or chills. She tested positive for C. difficile colitis and the patient is currently on oral vancomycin. No significant nausea vomiting or abdominal pain. No fever. The white cell count is at 16.9 which is higher compared to yesterday with a hemoglobin 11.7 and a platelet count of 130. Sodium is at 135, potassium is at 4, BUN is at 8 with a creatinine of 0.5. Calcium level is at 7.5. The viral screen was negative. Sputum Gram stain and culture still pending. Blood culture still pending and those results are still negative. The patient remains hemodynamically stable. She is currently on oxygen at 3 L. She will also encountered some increased tachycardia with an underlying atrial fibrillation rhythm. She has been maintained on a combination of Coreg and propafenone on outpatient basis. She is also maintained on anticoagulation with Eliquis. Contract Driver on the case. The patient's Coreg dose was modified and currently she is on 25 mg p.o. twice a day. Rest of the medications remain unchanged. She remains on Prograf. P rocalcitonin level was at 0.19. 10/21/2024, the patient is being seen for a follow-up. On today's evaluation, the patient is resting comfortably in bed. She is on room air oxygen. Repeat chest x-ray was done and shows some mild pulm vascular congestion and patient was started on Lasix 20 mg p.o.. She continues to have edema lower extremities. She is on oral vancomycin. No nausea. No vomiting. Abdominal pain. White cell count is improved and currently down to 12.4 with a hemoglobin 11.5 and a platelet count of 170. BUN 11 with a creatinine of 0.38 and a sodium levels at 137. No other significant events overnight and the patient is afebrile, clinically and hemodynamically stable at this point. She is awake and alert and communicating and she is also ambulating. Rest of the medications remain unchanged. Objective - Vital Signs Vital signs: Vital Signs Temp 97.8 F 10/21/24 11:09 Pulse 120 H 10/21/24 13:29 Resp 18 10/21/24 11:09 BP 128/80 10/21/24 11:09 Pulse Ox 95 10/21/24 11:09 FiO2 Intake & Output 10/20/24 10/21/24 10/21/24 18:59 06:59 18:59 Intake Total 298.083 20 346 Balance 298.083 20 346 Intake: IV 20 20 10 Invasive Line 2 20 20 10 Intake, IV Titration 40.083 Amount Diltiazem 125 mg In 40.083 Sodium Chloride 0.9% 100 ml @ 5 MG/HR 5 mls/hr IV .Q24H [facility] Rx#:[id number] Oral 238 336 Other: Voiding Method Toilet Toilet Toilet # Voids 2 - Exam GENERAL EXAM: Alert, 69-year-old white female, on room air oxygen, stable HEAD: Normocephalic and atraumatic EYES: Normal reaction of pupils, equal size. NOSE: Clear with pink turbinates. THROAT: No erythema or exudates. NECK: No masses, no JVD. CHEST: No chest wall deformity. LUNGS: Equal air entry with scattered expiratory wheezing heard throughout, and posterior bibasilar inspiratory crackles. No conversational dyspnea or accessory muscle use.. CVS: S1 and S2 normal with no audible murmur, regular rhythm. No extra heart sounds ABDOMEN: No hepatosplenomegaly, active bowel sounds, no guarding or rigidity. SPINE: No scoliosis or deformity SKIN: No rashes CENTRAL NERVOUS SYSTEM: No focal deficits, tone is normal in all 4 extremities. EXTREMITIES: There is no peripheral edema, clubbing, or cyanosis. Peripheral pulses are intact. - Labs CBC & Chem 7: 10/21/24 05:38 10/21/24 05:38 Labs: Abnormal Lab Results - Last 24 Hours (Table) 10/20/24 10/21/24 10/21/24 Range/Units 20:19 05:38 05:38 WBC 12.43 H (4.50-10.00) 10*3/uL RBC 3.31 L (4.10-5.20) 10*6/uL Hgb 11.5 L (12.0-15.0) g/dL Hct 33.6 L (37.2-46.3) % MCV 101.5 H (80.0-97.0) fL MCH 34.7 H (27.0-32.0) pg MPV 9.2 L (9.5-12.2) fL Immature Gran # 0.16 H (0.00-0.04) 10*3/uL Neutrophils # 9.62 H (1.80-7.70) 10*3/uL Monocytes # 1.25 H (0.20-1.00) 10*3/uL Eosinophils # 0.01 L (0.04-0.35) 10*3/uL Creatinine 0.38 L (0.52-1.04) mg/dL Glucose 104 H (74-99) mg/dL POC Glucose (mg/dL) 154 H (70-110) mg/dL Calcium 8.2 L (8.4-10.2) mg/dL 10/21/24 10/21/24 10/21/24 Range/Units 06:25 11:23 16:18 WBC (4.50-10.00) 10*3/uL RBC (4.10-5.20) 10*6/uL Hgb (12.0-15.0) g/dL Hct (37.2-46.3) % MCV (80.0-97.0) fL MCH (27.0-32.0) pg MPV (9.5-12.2) fL Immature Gran # (0.00-0.04) 10*3/uL Neutrophils # (1.80-7.70) 10*3/uL Monocytes # (0.20-1.00) 10*3/uL Eosinophils # (0.04-0.35) 10*3/uL Creatinine (0.52-1.04) mg/dL Glucose (74-99) mg/dL POC Glucose (mg/dL) 122 H 146 H 168 H (70-110) mg/dL Calcium (8.4-10.2) mg/dL Microbiology - Last 24 Hours (Table) 10/18/24 11:34 Gram Stain - Final Sputum Sputum Culture - Final Escherichia coli 10/18/24 11:08 Blood Culture - Preliminary Blood 10/19/24 13:52 Nasal Screen MRSA/MSSA - Final Nasal Swab Methicillin resist S. aureus Assessment and Plan Assessment: Acute hypoxemic respiratory failure, improved and the patient is currently on room air oxygen. The respiratory failure was likely secondary to a combination of exacerbation of chronic bronchial asthma, as well as, possible exacerbation of diastolic congestive heart failure. Chest x-ray showing stable cardiac silhouette with mild to moderate diffuse interstitial opacification concerning for pulmonary edema and possible tiny pleural effusion. NT proBNP elevated at 5070. Viral 4 Plex negative for influenza A/B, RSV, COVID. The patient is currently on oral Lasix. She does have some limited edema lower extremities bilaterally. Hyponatremia, likely secondary to poor oral intake, improving the sodium level has essentially normalized C. difficile colitis with increased output through her colostomy bag, received antibiotics on outpatient basis. The patient is currently on oral vancomycin. No nausea emesis. Acute hypoxic respiratory failure currently on 2 L/min nasal cannula. CHF with a preserved LV function and moderate to severe MR and secondary pulmonary hypertension Acute leukocytosis likely secondary to above History of rectal cancer History of bowel resection with previous end colostomy History of renal transplant, currently on Prograf and daily prednisone 5 mg p.o. 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 twice a day and the patient is off propafenone. History of hyperlipidemia Hypertension Diabetes mellitus type 2 History of hypothyroidism History of obstructive sleep apnea with oral appliance Moderate persistent chronic bronchial asthma, normally maintained on a combination of Breo Ellipta maintenance inhaler as well as as needed albuterol rescue inhaler on an outpatient basis Lifelong non-tobacco smoker Plan: Continue supplemental oxygen, currently on room air oxygen and repeat chest x- ray was noted from today and the patient is currently on oral Lasix Previously started on combination of Symbicort maintenance inhaler, DuoNebs [id number] P.o. vancomycin 500 mg p.o. 4 times daily Sputum culture, blood cultures, urine Legionella antigen, are all pending Chronically on Prograf and daily prednisone for history of renal transplant. Renal function appears stable. Consult nephrology Repeat echocardiogram was noted Coreg 25 mg po BID Chest x-ray from today was noted Rest of the home medication been on resume. Clinically stable. Hemodynamically stable. Will continue to follow. Time with Patient: Greater than 30
[2024-10-21 17:19] VITALS: BP 156/91; PULSE 118; TEMP 97.1
== END 2024-10-21 18:54 | disposition home or self-care (01) | DRG 202 ==
LOC: EC 08:27 → 4SSUR 11:27 → 3SCARD 10-20 03:55
PROVIDERS: ADMIT Internal Medicine; ATTEND Internal Medicine
DX: J45.901 Unspecified asthma with (acute) exacerbation (principal); I50.33 Acute on chronic diastolic (congestive) heart failure; J18.9 Pneumonia, unspecified organism; J96.01 Acute respiratory failure with hypoxia; A04.72 Enterocolitis due to Clostridium difficile, not specified as recurrent; D89.813 Graft-versus-host disease, unspecified; D84.821 Immunodeficiency due to drugs; Z94.0 Kidney transplant status; Z94.84 Stem cells transplant status; Z94.81 Bone marrow transplant status; J44.1 Chronic obstructive pulmonary disease with (acute) exacerbation; I13.0 Hypertensive heart and chronic kidney disease with heart failure and stage 1 through stage 4 chronic kidney disease, or unspecified chronic kidney disease; E11.65 Type 2 diabetes mellitus with hyperglycemia; I27.22 Pulmonary hypertension due to left heart disease; E03.9 Hypothyroidism, unspecified; I08.1 Rheumatic disorders of both mitral and tricuspid valves; I48.19 Other persistent atrial fibrillation; J44.0 Chronic obstructive pulmonary disease with (acute) lower respiratory infection; D68.51 Activated protein C resistance; E87.20 Acidosis, unspecified; E87.1 Hypo-osmolality and hyponatremia; Z93.3 Colostomy status; E11.22 Type 2 diabetes mellitus with diabetic chronic kidney disease; E86.0 Dehydration; E86.1 Hypovolemia; G47.33 Obstructive sleep apnea (adult) (pediatric); Z85.72 Personal history of non-Hodgkin lymphomas; Z92.21 Personal history of antineoplastic chemotherapy; Z85.44 Personal history of malignant neoplasm of other female genital organs; Z85.048 Personal history of other malignant neoplasm of rectum, rectosigmoid junction, and anus; Z90.49 Acquired absence of other specified parts of digestive tract; Z79.52 Long term (current) use of systemic steroids; I25.2 Old myocardial infarction; Z86.14 Personal history of Methicillin resistant Staphylococcus aureus infection; Z86.19 Personal history of other infectious and parasitic diseases; Z79.01 Long term (current) use of anticoagulants; Z79.890 Hormone replacement therapy; Z79.82 Long term (current) use of aspirin; Z79.51 Long term (current) use of inhaled steroids; Z79.84 Long term (current) use of oral hypoglycemic drugs; Z79.899 Other long term (current) drug therapy; Z79.83 Long term (current) use of bisphosphonates; Z95.0 Presence of cardiac pacemaker; N18.1 Chronic kidney disease, stage 1; E78.5 Hyperlipidemia, unspecified; E83.42 Hypomagnesemia; I25.10 Atherosclerotic heart disease of native coronary artery without angina pectoris; I25.82 Chronic total occlusion of coronary artery; B96.20 Unspecified Escherichia coli [E. coli] as the cause of diseases classified elsewhere; B95.62 Methicillin resistant Staphylococcus aureus infection as the cause of diseases classified elsewhere
CPT/HCPCS: 36415; 71045; 71046; 80048; 80053; 80197; 81001; 82607; 83036; 83605; 83735; 83880; 84145; 85025; 85027; 85610; 85730; 87040; 87070; 87077; 87186; 87205; 87324; 87449; 87493; 87636; 93005; 93306; 94640; 94760; 96365; 96366; 96367; 96375; 99291